=== PATIENT | male | born 1945 | race Caucasian/White ===

== ENCOUNTER → 2024-05-25 | Outpatient (CLI) | payer MEDICARE, OTHER, SELFPAY ==
[2024-05-25 11:42] LABS: Creatinine,Random Urine 118 mg/dL (30-125); Protein Total, Random Urine 24 mg/dL (1-14)
[2024-05-25 11:44] LABS: Albumin, Serum 4.8 gm/dL (3.4-4.8); Anion Gap 10 (7-16); BUN/Creatinine Ratio 20 Ratio (12-20); Blood Urea Nitrogen 36 mg/dL (9-23); Calcium 9.7 mg/dL (8.3-10.6); Calcium (Corrected) 9.7 mg/dL (8.5-10.1); Carbon Dioxide 25.9 mMol/L (20.0-31.0); Chloride 105 mMol/L (98-107); Creatinine (Component) 1.8 mg/dL (0.6-1.3); Glucose 155 mg/dL (74-106); Osmolality,Calculated 292 (275-295); Phosphorous 3.8 mg/dL (2.4-5.1); Potassium 4.7 mMol/L (3.4-5.1); Sodium 141 mMol/L (136-145); eGFR 38 See Note
== END | disposition home or self-care (01) ==
LOC: COPL 10:02
PROVIDERS: PCP Family Medicine; Referring Provider Internal Medicine; Visit Provider Internal Medicine
DX: I13.0 Hypertensive heart and chronic kidney disease with heart failure and stage 1 through stage 4 chronic kidney disease, or unspecified chronic kidney disease (principal); E11.22 Type 2 diabetes mellitus with diabetic chronic kidney disease; N18.32 Chronic kidney disease, stage 3b; I50.9 Heart failure, unspecified
CPT/HCPCS: 36415; 80069; 82570; 84156

== ENCOUNTER → 2024-07-31 | Outpatient (CLI) | payer MEDICARE, OTHER, SELFPAY ==
[2024-07-31 10:41] LABS: Basophils # (Auto) 0.1 Thou/mm3 (0.0-0.2); Basophils % (Auto) 1 % (0-2.5); Eosinophils # (Auto) 0.5 Thou/mm3 (0.0-0.5); Eosinophils % (Auto) 5 % (0-10); Hematocrit 45.3 % (41.0-53.0); Hemoglobin 15.1 g/dL (13.5-16.0); Immature Granulocytes % (Auto) 1 % (0-0); Immature Granulocytes Auto 0.04 Thou/mm3 (0.00-0.00); Lymphocytes # (Auto) 1.9 Thou/mm3 (1.0-4.8); Lymphocytes % (Auto) 21 % (10-50); Mean Corpuscular HGB Conc 33.3 g/dl (31.0-37.0); Mean Corpuscular Hemoglobin 32.1 pg (25.0-35.0); Mean Corpuscular Volume 96 fL (80-100); Monocytes # (Auto) 0.8 Thou/mm3 (0.0-0.8); Monocytes % (Auto) 9 % (0-12); Neutrophils # (Auto) 5.6 Thou/mm3 (1.8-7.7); Neutrophils % (Auto) 63 % (37-80); Nucleated Red Blood Cell % 0 /100 WBC (0); Platelet Count 182 Thou/mm3 (140-440); RDW Standard Deviation 53.3 fL (35.1-43.9); Red Blood Count 4.71 Miln/mm3 (4.50-5.90); White Blood Count 8.8 Thou/mm3 (3.8-10.6)
[2024-07-31 10:48] LABS: Glucose Estimated Average 154 mg/dL (80-131)
[2024-07-31 11:01] LABS: B-Type Natriuretic Peptide 352 pg/mL (0-100)
[2024-07-31 11:14] LABS: Alanine Aminotransferase 15 U/L (10-49); Albumin, Serum 4.5 gm/dL (3.4-4.8); Alkaline Phosphatase 88 U/L (46-116); Anion Gap 10 (7-16); Aspartate Amino Transferase 19 U/L (0-34); BUN/Creatinine Ratio 16 Ratio (12-20); Bilirubin,Direct 0.4 mg/dL (0.0-0.3); Bilirubin,Total 1.1 mg/dL (0.3-1.2); Blood Urea Nitrogen 25 mg/dL (9-23); Calcium 9.7 mg/dL (8.3-10.6); Carbon Dioxide 27.1 mMol/L (20.0-31.0); Cardiac Risk Estimate 3.6 RATIO (4.0-6.7); Chloride 104 mMol/L (98-107); Cholesterol 83 mg/dL (132-200); Creatinine (Component) 1.6 mg/dL (0.6-1.3); Free T4 (Free Thyroxine) 1.11 ng/dL (0.89-1.76); Glucose 168 mg/dL (74-106); HDL Cholesterol 23 mg/dL (40-60); LDL Cholesterol,Calculated 37 mg/dL (0-130); Osmolality,Calculated 289 (275-295); Phosphorous 3.5 mg/dL (2.4-5.1); Potassium 4.7 mMol/L (3.4-5.1); Sodium 141 mMol/L (136-145); Total Protein 7.3 gm/dL (5.7-8.2); Triglycerides 114 mg/dL (30-150); eGFR 43 See Note
== END | disposition home or self-care (01) ==
LOC: COPL 10:03
PROVIDERS: PCP Family Medicine; Referring Provider Internal Medicine; Visit Provider Internal Medicine Cardiovascular Disease
DX: I13.0 Hypertensive heart and chronic kidney disease with heart failure and stage 1 through stage 4 chronic kidney disease, or unspecified chronic kidney disease (principal); E11.22 Type 2 diabetes mellitus with diabetic chronic kidney disease; N18.32 Chronic kidney disease, stage 3b; I50.9 Heart failure, unspecified; E78.5 Hyperlipidemia, unspecified; E11.65 Type 2 diabetes mellitus with hyperglycemia
CPT/HCPCS: 36415; 80048; 80061; 80076; 83036; 83880; 84100; 84439; 84443; 85025

== ENCOUNTER → 2024-11-11 | Outpatient (CLI) | payer MEDICARE, SELFPAY ==
[2024-11-11 11:26] LABS: Basophils # (Auto) 0.1 Thou/mm3 (0.0-0.2); Basophils % (Auto) 1 % (0-2.5); Eosinophils # (Auto) 0.4 Thou/mm3 (0.0-0.5); Eosinophils % (Auto) 5 % (0-10); Hematocrit 40.8 % (41.0-53.0); Hemoglobin 14.1 g/dL (13.5-16.0); Immature Granulocytes % (Auto) 0 % (0-0); Immature Granulocytes Auto 0.03 Thou/mm3 (0.00-0.00); Lymphocytes # (Auto) 1.7 Thou/mm3 (1.0-4.8); Lymphocytes % (Auto) 21 % (10-50); Mean Corpuscular HGB Conc 34.6 g/dl (31.0-37.0); Mean Corpuscular Hemoglobin 32.5 pg (25.0-35.0); Mean Corpuscular Volume 94 fL (80-100); Monocytes # (Auto) 0.6 Thou/mm3 (0.0-0.8); Monocytes % (Auto) 8 % (0-12); Neutrophils # (Auto) 5.2 Thou/mm3 (1.8-7.7); Neutrophils % (Auto) 65 % (37-80); Nucleated Red Blood Cell % 0 /100 WBC (0); Platelet Count 186 Thou/mm3 (140-440); RDW Standard Deviation 52.2 fL (35.1-43.9); Red Blood Count 4.34 Miln/mm3 (4.50-5.90); White Blood Count 7.9 Thou/mm3 (3.8-10.6)
[2024-11-11 11:36] LABS: Creatinine,Random Urine 31 mg/dL (30-125); Protein Total, Random Urine 7 mg/dL (1-14)
[2024-11-11 11:38] LABS: Glucose Estimated Average 154 mg/dL (80-131)
[2024-11-11 11:43] LABS: Alanine Aminotransferase 17 U/L (10-49); Albumin, Serum 4.4 gm/dL (3.4-4.8); Albumin/Globulin Ratio 1.7 (1.2-2.2); Alkaline Phosphatase 70 U/L (46-116); Anion Gap 10 (7-16); Aspartate Amino Transferase 19 U/L (0-34); BUN/Creatinine Ratio 14 Ratio (12-20); Bilirubin,Total 0.8 mg/dL (0.3-1.2); Blood Urea Nitrogen 24 mg/dL (9-23); Carbon Dioxide 26.5 mMol/L (20.0-31.0); Chloride 106 mMol/L (98-107); Creatinine (Component) 1.7 mg/dL (0.6-1.3); Globulin 2.6 gm/dL (2.3-3.5); Glucose 157 mg/dL (74-106); Osmolality,Calculated 290 (275-295); Phosphorous 3.5 mg/dL (2.4-5.1); Potassium 4.4 mMol/L (3.4-5.1); Sodium 142 mMol/L (136-145); eGFR 40 See Note
== END | disposition home or self-care (01) ==
LOC: COPL 10:13
PROVIDERS: PCP Family Medicine; Referring Provider Internal Medicine; Visit Provider Family Medicine
DX: I13.0 Hypertensive heart and chronic kidney disease with heart failure and stage 1 through stage 4 chronic kidney disease, or unspecified chronic kidney disease (principal); E11.22 Type 2 diabetes mellitus with diabetic chronic kidney disease; N18.31 Chronic kidney disease, stage 3a; I50.9 Heart failure, unspecified; G90.09 Other idiopathic peripheral autonomic neuropathy
CPT/HCPCS: 36415; 80053; 82306; 82570; 83036; 84100; 84156; 85025

== ENCOUNTER → 2025-02-02 | Outpatient (CLI) | payer MEDICARE, SELFPAY ==
[2025-02-02 10:32] LABS: Glucose Estimated Average 160 mg/dL (80-131); Hemoglobin A1C 7.2 % Hgb (4.8-6.0)
[2025-02-02 10:36] LABS: Alanine Aminotransferase 14 U/L (10-49); Albumin, Serum 4.9 gm/dL (3.4-4.8); Albumin/Globulin Ratio 1.9 (1.2-2.2); Alkaline Phosphatase 73 U/L (46-116); Anion Gap 10 (7-16); Aspartate Amino Transferase 24 U/L (0-34); BUN/Creatinine Ratio 17 Ratio (12-20); Bilirubin,Total 0.9 mg/dL (0.3-1.2); Blood Urea Nitrogen 27 mg/dL (9-23); Calcium 10.2 mg/dL (8.3-10.6); Calcium (Corrected) 10.2 mg/dL (8.5-10.1); Carbon Dioxide 26.9 mMol/L (20.0-31.0); Chloride 102 mMol/L (98-107); Creatinine (Component) 1.6 mg/dL (0.6-1.3); Globulin 2.6 gm/dL (2.3-3.5); Glucose 170 mg/dL (74-106); Osmolality,Calculated 286 (275-295); Phosphorous 3.4 mg/dL (2.4-5.1); Potassium 4.9 mMol/L (3.4-5.1); Sodium 139 mMol/L (136-145); Total Protein 7.5 gm/dL (5.7-8.2); eGFR 43 See Note
== END | disposition home or self-care (01) ==
LOC: COPL 09:08
PROVIDERS: PCP Family Medicine; Referring Provider Family Medicine; Visit Provider Internal Medicine
DX: I13.0 Hypertensive heart and chronic kidney disease with heart failure and stage 1 through stage 4 chronic kidney disease, or unspecified chronic kidney disease (principal); E11.22 Type 2 diabetes mellitus with diabetic chronic kidney disease; N18.32 Chronic kidney disease, stage 3b; I50.9 Heart failure, unspecified
CPT/HCPCS: 36415; 80053; 83036; 84100

== ENCOUNTER 2025-03-10 19:19 | Inpatient (IN) | payer MEDICARE, SELFPAY ==
[2025-03-10] VITALS (12 sets, daily range): BP systolic 113–123; BP diastolic 68–78; PULSE 60–65; RESP 23–37; TEMP 36.9–37.2; O2SAT 94–98; BMI 26.4
--- NOTE | 2025-03-10 19:36 | PD.EDSOB ---
ED SOB =RME/HPI General Chief Complaint: Shortness of Breath/Dyspnea Stated Complaint: sob Time Seen by Provider: 03/10/25 19:37 Arrival date/time: 03/10/25 19:19 RME / HPI RME / HPI Narrative: Dr. Rao?s Main ED Evaluation: 79yo male with a history of CAD, CABG s/p stent placement, pacemaker, HTN, HLD, DMII presents to the ED for a chief complaint of shortness of breath. Patient states he was discharged from [facility] yesterday after having a possible small brain bleed. Patient states he was feeling okay until tonight, reporting he was unable to lay flat and his shortness of breath got progressively worse. Patient is supposed to be on oxygen at home, but does not receive his oxygen tank until tomorrow. Patient is on aspirin, but no other blood thinners. Denies any other associated symptoms. Patient followed-up with his pharmaceutical development technician, Dr. Jenkins, earlier today for a routine appointment. Of note, patient is a DNR with selective measures. Related Data Home Medications ?Medication ?Instructions ?Recorded ?Confirmed nitroglycerin 0.4 mg sublingual 0.4 mg SL PRN PRN Chest Pain ##0 06/26/13 04/06/19 tablet aspirin 81 mg tablet,delayed 81 mg PO QDAY 04/03/19 07/30/21 release (Lidia Low Dose Aspirin) carvedilol 3.125 mg tablet 3.125 mg PO BID 04/03/19 07/30/21 digoxin 125 mcg (0.125 mg) tablet 125 mcg PO QDAY 04/03/19 07/30/21 docusate sodium 100 mg capsule 100 mg PO BID 04/03/19 07/30/21 (Stool Softener) famotidine 20 mg tablet 20 mg PO QDAY 04/03/19 04/06/19 ferrous sulfate 325 mg (65 mg 325 mg PO QDAY 04/03/19 04/06/19 iron) tablet (FeroSul) losartan 25 mg tablet 25 mg PO QDAY 04/03/19 07/30/21 metformin 500 mg tablet 500 mg PO BID 04/03/19 07/30/21 rosuvastatin 5 mg tablet 5 mg PO QDAY 04/03/19 04/06/19 tramadol 50 mg tablet 5 mg PO QDAY 04/03/19 07/30/21 terazosin 1 mg capsule 1 mg PO QDAY 04/06/19 04/06/19 apixaban 5 mg tablet (Eliquis) 5 mg PO BID 07/30/21 07/30/21 Allergies Allergy/AdvReac Type Severity Reaction Status Date / Time hydrocodone Allergy Intermediate IMPENDING Verified 03/10/25 19:31 DOOM, CLAUSTROPHOBIA, AMS Sulfa (Sulfonamide Allergy Unknown Hives Verified 03/10/25 19:31 Antibiotics) Review of Systems Review of Systems Systems Reviewed: All systems reviewed, normal except as documented Past Medical History Past Medical History NEUROLOGIC: Negative Neurological Disorders, Cerebrovascular Accident, Alzheimer's Disease or Seizures CARDIAC: Positive Cardiac Disorders, Myocardial Infarction, Cardiac Arrhythmia, Coronary Artery Disease, Hypercholesterolemia, Deep Vein Thrombosis and Hypertension; Negative Congestive Heart Failure RESPIRATORY: Positive Pneumonia; Negative Chronic Obstructive Pulmonary Disease (COPD) GASTROINTESTINAL: Positive Gastrointestinal Disorders and Gall Bladder Disease GENITOURINARY: Positive Genitourinary Disorders and Kidney Stones; Negative Renal Disease MUSCULOSKELETAL: Positive Musculoskeletal Disorders and Arthritis ENT: Positive Deafness (hearing aides) ENDOCRINE: Positive Diabetes Mellitus Type 2; Negative Endocrine Disorders or Diabetes Mellitus Type 1 HEMATOLOGIC: Negative Blood Disorders OTHER HISTORY: Positive Hospitalization, Blood Transfusions and MRSA; Negative Shingles, Falls, Blood Transfusion Reaction, Anesthesia Reactions or Cancer Family History FAMILY HISTORY: Positive Family Cardiac Disorders and Family Surgery; Negative Family Anesthesia Reaction Surgical History SURGICAL: Positive Cardiac Surgery, Open Heart Surgery (December 2018, triple bypass), Coronary Artery Bypass Graft, Coronary Stent, Pacemaker and Angiogram Social History SMOKING STATUS: Never smoker SECOND HAND EXPOSURE: No SUBSTANCE USE: does not use ED Exam Narrative Physical exam: Generally patient is alert dyspneic and tachypneic, heart regular rate and rhythm, chest left upper chest AICD in place, lungs show crackles bilaterally with fair to good air exchange, extremities show chronic bilateral lower extremity symmetrical pitting edema, neurologic exam Eugene Coma Scale 15 without focal motor deficits, skin cool pale and dry Course Course Course Narrative: CXR is ordered for determining the etiology of shortness of breath. Quality Measures none Orders Category Date Time Status EKG (ED ONLY) *Do not use* NOW Care 03/10/25 19:37 Completed EKG (ED Only) Stat Exams 03/10/25 19:37 Draft XR chest 1V portable Stat Exams 03/10/25 19:45 Completed BNP [B-Type Natriuretic Peptide] Stat Lab 03/10/25 19:35 Completed CBC Stat Lab 03/10/25 19:35 Completed CMP [Comprehensive Metabolic Panel] Stat Lab 03/10/25 19:35 Completed D-Dimer Stat Lab 03/10/25 19:35 Completed Troponin I Stat Lab 03/10/25 19:35 Completed Furosemide Inj [Lasix Inj] Med 03/10/25 20:13 Discontinued 80 mg IVP X1 ONE Nitroglycerin Oint 2% [Nitro-paste Oint 2%] Med 03/10/25 20:13 Discontinued 1 inch TOP X1 ONE Vital Signs Vital signs: Vital Signs Temperature 98.6 F 03/10/25 19:33 Pulse Rate 61 03/10/25 19:33 Respiratory Rate 25 H 03/10/25 19:33 Blood Pressure 114/68 03/10/25 19:33 Pulse Oximetry (%) 97 03/10/25 19:33 Oxygen Delivery Method Nasal Cannula 03/10/25 19:33 Oxygen Flow Rate 3 03/10/25 19:33 Shortness of Breath / Dyspnea MDM Narrative MDM Narrative:: Scribe Attestation: 03/10/25 - Sindy Rodriguez am scribing for and in the presence of Dr. Rao. BNP is elevated at 0.155. Patient is denying any chest pain pressure tightness or heaviness. EKG shows a ventricularly paced rhythm at a rate of 59 without Sgarbossa criteria. BNP is 278. Chest x-ray is compatible with heart failure and pulmonary edema. At this time the patient is not bad enough to need IV nitroglycerin or BiPAP. Patient was given Lasix 80 mg IV and 1 inch of nitroglycerin paste was placed across the anterior chest wall. Patient is a DNR and selective treatment only. I have the POLST on the chart. This was given to me by the patient's who is a good historian and at bedside. I discussed this case with pharmaceutical development technician, Dr. Langford. I also discussed this case with the hospitalist and the patient will require admission to the hospital for further treatment and evaluation for this CHF exacerbation. Patient's potassium was 5.2 with a creatinine of 1.9. Creatinine was 1.6 previously. This will need to be monitored. Differential diagnosis: CHF exacerbation, pulmonary embolism, acute coronary syndrome Patient data External records reviewed:: [facility] previous records (Per chart review, patient was seen here on 06/20/23 for cardiomyopathy.) Clinical information provided by:: patient Social determinants that could affect healthcare access:: none Patient has the following chronic illnesses:: CAD, CABG s/p stent placement, pacemaker, HTN, HLD, DMII How is presenting disease/condition affected by chronic disease/condition?: exacerbated by Evaluation data The following diagnostics were reviewed and interpreted by me:: lab results, radiology exam(s) and EKG tracing(s) Lab and/or radiology exams considered but not ordered:: none Interpretation Summary: [facility] Report Signed Patient: YAZMIN SCHREIBER Record#: [id number] Birthdate: 1945 Age/Sex: 79 / M Location: [facility] Attending Dr: Ordering Physician: Jose A Rao DO Date of Service: 03/10/25 Procedure(s): XR chest 1V portable Accession Number(s): [id number] cc: Kristian Sanchez MD; Jose A Rao DO; Carson Martino MD~ EXAMINATION: AP chest single view TECHNIQUE: AP portable semiupright chest single view Date and time: March 10, 2025, 1954 hours, comparison June 20, 2023 INDICATIONS:*Chest pain today FINDINGS: Prominent CHF Moderate enlargement cardiac contour. CABG Prominent vascular congestion including central vascular engorgement Prominent perihilar edema Cardiac leads satisfactory position Intact osseous structures IMPRESSION: Prominent CHF Dictated By: Kristian Sanchez MD Signed By: <Electronically signed by Kristian Sanchez MD in OV> 03/10/252044 Medications / Prescriptions Medications or Prescriptions considered but not ordered:: none Medication administrations:: Medication Administration History Discontinued Medications Furosemide (Furosemide Inj 10 Mg/Ml 4ml Vial) 80 mg IVP X1 ONE Stop: 03/10/25 20:14 Last Admin: 03/10/25 20:25 Dose: 80 mg Documented By: ALLYSSA Nitroglycerin (Nitroglycerin Oint 2% 1 Inch Packet) 1 inch TOP X1 ONE Stop: 03/10/25 20:14 Last Admin: 03/10/25 20:26 Dose: 1 inch Documented By: ALLYSSA see above Consultations Consultation(s) initiated? (list below): Yes Diagnosis Shortness of Breath Differential Diagnosis: other (See MDM) Most likely diagnosis given after review of the tests above:: see clinical impression below Admission Indicated Admission indicated?: indicated Admission Request Was there a request for admission?: Yes Admission Attestation Admission request attestation: Discussed case with [] from Hospitalist service regarding admission. Discussed patients ED course, exam findings, labs, and radiology results. The Hospitalist [agrees,declines] to accept the patient for admission. Disposition Plan Disposition Plan: Admit Critical Care Time Critical Care Time Critical Care Time: Yes Total Critical Care Time (min.): 35 Attestation: Excluding other billable procedures Discharge Plan Plan Patient Disposition: Admit Acute Care w/in Hospital Prescriptions/Referrals Prescriptions/Med Rec: No Action nitroglycerin 0.4 MG tablet, sublingual 0.4 mg SL PRN PRN (Reason: Chest Pain) Qty: 0 metformin 500 mg Tablet 500 mg PO BID aspirin [Lidia Low Dose Aspirin] 81 mg Tablet,Delayed Release (Dr/Ec) 81 mg PO QDAY tramadol 50 mg Tablet 5 mg PO QDAY carvedilol 3.125 mg Tablet 3.125 mg PO BID famotidine 20 mg Tablet 20 mg PO QDAY ferrous sulfate [FeroSul] 325 mg (65 mg iron) Tablet 325 mg PO QDAY losartan 25 mg Tablet 25 mg PO QDAY docusate sodium [Stool Softener] 100 mg Capsule 100 mg PO BID digoxin 125 mcg (0.125 mg) Tablet 125 mcg PO QDAY rosuvastatin 5 mg Tablet 5 mg PO QDAY terazosin 1 mg Capsule 1 mg PO QDAY Eliquis 5 mg Tablet 5 mg PO BID Referrals: Carson Martino MD [Primary Care Provider, Family Practice] - In 1 week Problem List Clinical Impression: CHF exacerbation, Elevated troponin, Renal insufficiency Patient/Caregiver Discharge Instructions Print Language: Singaporean Stand Alone Forms: [facility] Award Info., Patient Portal Info Letter
--- NOTE | 2025-03-10 19:37 | EKG_ITS ---
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
--- NOTE | 2025-03-10 19:45 | XR_ITS ---
EXAMINATION: AP chest single view TECHNIQUE: AP portable semiupright chest single view Date and time: March 10, 2025, 1954 hours, comparison June 20, 2023 INDICATIONS:*Chest pain today FINDINGS: Prominent CHF Moderate enlargement cardiac contour. CABG Prominent vascular congestion including central vascular engorgement Prominent perihilar edema Cardiac leads satisfactory position Intact osseous structures IMPRESSION: Prominent CHF
[2025-03-10 20:21] LABS: Basophils # (Auto) 0.1 Thou/mm3 (0.0-0.2); Basophils % (Auto) 1 % (0-2.5); Eosinophils # (Auto) 0.2 Thou/mm3 (0.0-0.5); Eosinophils % (Auto) 1 % (0-10); Hematocrit 45.6 % (41.0-53.0); Hemoglobin 15.6 g/dL (13.5-16.0); Immature Granulocytes Auto 0.12 Thou/mm3 (0.00-0.00); Lymphocytes # (Auto) 1.8 Thou/mm3 (1.0-4.8); Lymphocytes % (Auto) 11 % (10-50); Mean Corpuscular HGB Conc 34.2 g/dl (31.0-37.0); Mean Corpuscular Hemoglobin 33.1 pg (25.0-35.0); Mean Corpuscular Volume 97 fL (80-100); Monocytes # (Auto) 1.7 Thou/mm3 (0.0-0.8); Monocytes % (Auto) 10 % (0-12); Neutrophils # (Auto) 13.3 Thou/mm3 (1.8-7.7); Neutrophils % (Auto) 77 % (37-80); Nucleated Red Blood Cell # 0.02 Thou/mm3 (0.00-0.00); Nucleated Red Blood Cell % 0 /100 WBC (0); Platelet Count 209 Thou/mm3 (140-440); RDW Standard Deviation 53.8 fL (35.1-43.9); Red Blood Count 4.71 Miln/mm3 (4.50-5.90); White Blood Count 17.2 Thou/mm3 (3.8-10.6)
[2025-03-10] MEDS: FUROSEMIDE INJ 10 MG/ML 4ML VIAL 80 MG IVP (20:25)
[2025-03-10] MEDS: NITROGLYCERIN OINT 2% 1 INCH PACKET TOP (20:26)
[2025-03-10 20:46] LABS: B-Type Natriuretic Peptide 270 pg/mL (0-100)
[2025-03-10 20:48] LABS: D-Dimer 841 ng/mL (<600)
[2025-03-10 20:51] LABS: Alanine Aminotransferase 26 U/L (10-49); Albumin, Serum 5.1 gm/dL (3.4-4.8); Albumin/Globulin Ratio 1.6 (1.2-2.2); Alkaline Phosphatase 90 U/L (46-116); Anion Gap 13 (7-16); Aspartate Amino Transferase 36 U/L (0-34); BUN/Creatinine Ratio 16 Ratio (12-20); Bilirubin,Total 1.5 mg/dL (0.3-1.2); Blood Urea Nitrogen 31 mg/dL (9-23); Calcium 9.5 mg/dL (8.3-10.6); Calcium (Corrected) 9.5 mg/dL (8.5-10.1); Carbon Dioxide 22.2 mMol/L (20.0-31.0); Chloride 98 mMol/L (98-107); Creatinine (Component) 1.9 mg/dL (0.6-1.3); Estimated Creatinine Clearance 29.5 mL/min (>60); Globulin 3.1 gm/dL (2.3-3.5); Glucose 232 mg/dL (74-106); Osmolality,Calculated 279 (275-295); Potassium 5.2 mMol/L (3.4-5.1); Sodium 133 mMol/L (136-145); Total Protein 8.2 gm/dL (5.7-8.2); eGFR 35 See Note
[2025-03-10 20:54] LABS: Troponin I 0.155 ng/mL (0.0-0.045)
--- NOTE | 2025-03-10 23:36 | PC.LAC ---
Nurse asked patient if it was okay to place and indwelling nixon. Patient stated that he does not want a nixon that he will continue to use the urinal. he stated if he changes his mind he will inform the staff.
[2025-03-10 23:56] LABS: Base Excess -1 (-3-3); HCO3 21 mEq/L (20-26); Inspired Oxygen, FIO2 28 %; O2 Saturation 97 % (91-98); PCO2 30 mmHg (32.0-48.0); PO2 77 mmHg (83-108); pH, Arterial 7.46 (7.35-7.45)
[2025-03-11] VITALS (22 sets, daily range): BP systolic 97–122; BP diastolic 58–77; PULSE 57–74; RESP 13–94; TEMP 36.2–36.7; O2SAT 93–98; BMI 26.3; BMI 26.7
[2025-03-11 00:02] LABS: Allen Test Performed/OK; Puncture Site Right Radial
--- NOTE | 2025-03-11 00:28 | PD.RESHP ---
Documentation for date of: 03/11/25 HPI History of Present Illness Chief complaint: Shortness of breath, CHF exacerbation History of present illness: This is a 79-year-old male with past medical history of CAD S/P 2 stents (2013), CABG(triple bypass -2018), EF 20 to 25%, ICD with PM, hypertension, diabetes,hyperlipidemia presented to the ED with complaints of shortness of breath. 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 He complained that his shortness of breath worsened today, 03/10 which prompted him for the ED visit. He denies any chest pain, chest palpitation, chest tightness, swelling of the feet, nausea, vomiting, fever, urinary frequency, urgency, burning micturition, diarrhea or any recent sick contacts. He denies any increased water intake but endorses he has been peeing a lot less in the last 2 days. He had a fall on 03/03 and hit his head at that time but denies any loss of consciousness or seizure-like activity or any palpitations at that time. On 03/05 he got a shock from ICD probably Ventricular fibrillation where he became pale with up rolling of eyes before ICD delivered this shock. This prompted ED visit to [facility] on 03/05. He had extensive workup done at [facility] with the group of radiologists told that he had a small bleed in the brain which is stable and decrease the dose of Eliquis to 2.5 mg. They also done coronary angiography and echo where he was told his ejection fraction is in the range of 20 to 25% and the heart is enlarged, scarred and no intervention currently possible for him. Today ED visit vitals BP 114/68, pulse rate 61, respiratory 25, temperature 98.3, saturating 97% on 3 L of nasal cannula Pertinent lab findings are WBC 17.2, potassium 5.2, BUN 31, creatinine 1.9,, creatinine clearance 79.5, eGFR 35 ,glucose 232, total bilirubin 1.5, AST 36 D-dimer 841, BNP 270, Troponin 0.155. Chest x-ray shows perihilar congestion and appearance of moderate CHF EKG showed ventricular pacing rhythm. Treatment given in ED: Furosemide 80 mg IV, nitroglycerin 1 patch. Past medical history: As Stated above.sees Dr. Jenkins for cardiology. Social history: Denies any drinking, smoking or any other drug use. Family history: Diabetes on maternal side, Allergic history: Allergic to hydrocodone and sulfa compounds. Review of Systems Constitutional Constitutional: Reports system reviewed and no additional complaints, except as documented Exam Vital Signs Temp Pulse Resp BP Pulse Ox O2 Del Method O2 Flow Rate 98.4 F 60 25 H 114/73 94 L Nasal Cannula 2 03/10/25 23:00 03/10/25 23:45 03/10/25 23:45 03/10/25 23:00 03/10/25 23:45 03/10/25 23:00 03/10/25 23:45 Narrative Exam GENERAL: NAD, AAOx3, He is lying in left curled position to improve his shortness of breath, when asked to lay flat his shortness of breath worsening HEENT: Moist mucosa. Eyes open, symmetrical, & clear CARDIO: Regular rhythm Noted. No Murmurs. PULM: No noted coughing/dyspnea CTA B/L, no crackles or wheezes GI: Abdomen soft, nondistended, Non Tenderness. SKIN/MSK/EXT: No wounds/rashes/amputations, no pain on palpation.No Edema. Pedal pulses present B/L but cool to touch NEURO: AAOx3, no focal neuro deficits, able to move all 4 extremities Results: Labs 03/11/25 05:47 03/11/25 05:47 Labs: Short CBC 03/10/25 Range/Units 19:35 WBC 17.2 H (3.8-10.6) Thou/mm3 Hgb 15.6 (13.5-16.0) g/dL Hct 45.6 (41.0-53.0) % Plt Count 209 (140-440) Thou/mm3 BMP 03/10/25 19:35 Sodium 133 L Potassium 5.2 H Chloride 98 Carbon Dioxide 22.2 BUN 31 H Creatinine 1.9 H Glucose 232 H Calcium 9.5 Cardiac Enzymes 03/10/25 Range/Units 19:35 Troponin I 0.155 H* (0.0-0.045) ng/mL Liver Function 03/10/25 Range/Units 19:35 Total Bilirubin 1.5 H (0.3-1.2) mg/dL AST 36 H (0-34) U/L ALT 26 (10-49) U/L Alkaline Phosphatase 90 (46-116) U/L Albumin 5.1 H (3.4-4.8) gm/dL ABG Interpretation ABG results: 03/10/25 23:52 ABG pH 7.46 H ABG pCO2 30 L ABG pO2 77 L ABG HCO3 21 ABG O2 Saturation 97 ABG Base Excess -1 Quality Measures Quality Measures VTE prophylaxis Advance care planning discussed with:: patient Medications Home Medications and Allergies Home Medications ?Medication ?Instructions ?Recorded ?Confirmed ?Type nitroglycerin 0.4 mg sublingual 0.4 mg SL PRN PRN Chest Pain ##0 06/26/13 03/11/25 History tablet aspirin 81 mg tablet,delayed 81 mg PO QDAY 04/03/19 03/11/25 History release (Lidia Low Dose Aspirin) carvedilol 3.125 mg tablet 3.125 mg PO BID 04/03/19 03/11/25 History digoxin 125 mcg (0.125 mg) tablet 125 mcg PO QDAY 04/03/19 03/11/25 History docusate sodium 100 mg capsule 100 mg PO BID 04/03/19 03/11/25 History (Stool Softener) famotidine 20 mg tablet 20 mg PO QDAY 04/03/19 03/11/25 History ferrous sulfate 325 mg (65 mg 325 mg PO QDAY 04/03/19 03/11/25 History iron) tablet (FeroSul) losartan 25 mg tablet 25 mg PO QDAY 04/03/19 03/11/25 History metformin 500 mg tablet 500 mg PO BID 04/03/19 03/11/25 History rosuvastatin 5 mg tablet 5 mg PO QDAY 04/03/19 03/11/25 History tramadol 50 mg tablet 5 mg PO QDAY 04/03/19 03/11/25 History terazosin 1 mg capsule 1 mg PO QDAY 04/06/19 03/11/25 History amiodarone 200 mg tablet 200 mg PO Q12H 03/11/25 03/11/25 History apixaban 2.5 mg tablet (Eliquis) 2.5 mg PO Q12H 03/11/25 03/11/25 History dapagliflozin propanediol 10 mg 10 mg PO QDAY 03/11/25 03/11/25 History tablet (Farxiga) furosemide 20 mg tablet 20 mg PO DAILY 03/11/25 03/11/25 History sertraline 25 mg tablet 25 mg PO DAILY 03/11/25 03/11/25 History spironolactone 25 mg tablet 12.5 mg PO DAILY 03/11/25 03/11/25 History Allergies Allergy/AdvReac Type Severity Reaction Status Date / Time hydrocodone Allergy Intermediate IMPENDING Verified 03/10/25 19:31 DOOM, CLAUSTROPHOBIA, AMS Sulfa (Sulfonamide Allergy Unknown Hives Verified 03/10/25 19:31 Antibiotics) Visit Medications Acetaminophen (Acetaminophen 325 Mg Tablet) 650 mg PO Q6H PRN PRN Reason: Fever >101.5 Stop: 04/09/25 22:46 Albuterol/Ipratropium (Albuterol/Ipratropium (Duoneb) Rt Ksenia 3 Ml Nebu) 3 ml INH Q6HRRT PRN PRN Reason: wheezing Stop: 04/10/25 00:59 Amiodarone HCl (Amiodarone Hcl 200 Mg Tablet) 400 mg PO BID KOFFI Stop: 03/12/25 08:59 Apixaban (Apixaban 2.5 Mg Tablet) 2.5 mg PO BID KOFFI Stop: 04/10/25 08:59 Aspirin (Aspirin Ec 81 Mg Tabec) 81 mg PO QDAY [facility] Stop: 04/10/25 08:59 Carvedilol (Carvedilol 3.125 Mg Tablet) 3.125 mg PO BID KOFFI Stop: 04/10/25 08:59 Dapagliflozin (Dapagliflozin Propanediol 5 Mg Tablet) 10 mg PO QDAY [facility] Stop: 04/10/25 08:59 Dextrose (Dextrose 50%-Water Inj 50 Ml Syringe) 25 ml IV Q15MIN PRN PRN Reason: BG 50-70 responsive npo pt Stop: 04/09/25 22:59 Dextrose (Dextrose 50%-Water Inj 50 Ml Syringe) 50 ml IV Q15MIN PRN PRN Reason: BG <50 OR BG <70 & pt unresponsive Stop: 04/09/25 22:59 Furosemide (Furosemide Inj 10 Mg/Ml 4ml Vial) 40 mg IVP QDAY KOFFI Stop: 04/10/25 08:59 Glucagon (Glucagon Inj 1 Mg Vial) 1 mg IM Q15MIN PRN PRN Reason: BG <70, and no IV access Insulin Human Lispro (Insulin Lispro (Admelog) 1 Unit/0.01 Ml Unit) 0 unit SC ACHS [facility]; Protocol Stop: 04/09/25 23:44 Losartan Potassium (Losartan Potassium 25 Mg Tablet) 25 mg PO QDAY KOFFI Stop: 04/10/25 08:59 Patient Own Medication (Patient's Own Med 1 Ea Ea) 5 ea PO X1 ONE Stop: 03/10/25 23:01 Sennosides (Senna Tablet) 1 tab PO QDAY PRN; Protocol PRN Reason: constipation Stop: 04/09/25 22:46 Sertraline HCl (Sertraline Hcl 25 Mg Tablet) 25 mg PO QDAY KOFFI Stop: 04/10/25 08:59 Spironolactone (Spironolactone 25 Mg Tablet) 12.5 mg PO QDAY KOFFI Stop: 04/10/25 08:59 Discontinued Medications Furosemide (Furosemide Inj 10 Mg/Ml 4ml Vial) 80 mg IVP X1 ONE Stop: 03/10/25 20:14 Last Admin: 03/10/25 20:25 Dose: 80 mg Insulin Human Lispro (Insulin Lispro (Admelog) 1 Unit/0.01 Ml Unit) 0 unit SC AC [facility]; Protocol Stop: 04/10/25 07:29 Nitroglycerin (Nitroglycerin Oint 2% 1 Inch Packet) 1 inch TOP X1 ONE Stop: 03/10/25 20:14 Last Admin: 03/10/25 20:26 Dose: 1 inch Sodium Polystyrene Sulfonate (Sod Polystyrene Sulfon Susp 15 Gm/60 Ml Btl) 30 gm PO X1 ONE Stop: 03/10/25 23:33 Assessment & Plan Plan This is a 79-year-old male with past medical history of CAD S/P 2 stents (2013), CABG(triple bypass -2019), EF 20 to 25%, ICD with PM, hypertension, diabetes,hyperlipidemia presented to the ED with complaints of shortness of breath. He was admitted for CHF exacerbation # Acute on Chronic Decompensated Heart failure. # Acute Hypoxic Respiratory Failure # CABGx3(2018) ,CAD S/P Stent # Ejection Fraction 20-25% History of CAD, stent, CABG?triple bypass, ICD with pacemaker, hypertension, hyperlipidemia, diabetes Shortness of breath.NYHA Class-3 D-dimer?841, No chest pain ,No Tachycardia, saturating well at minimum oxygen levels-low suspicious for PE. BNP?270, troponin 0.155 PO2 77, pCO2 30, pH 7.40 X-ray showing pattern of CHF exacerbation. Furosemide 80 mg and nitroglycerin patch given in ED. Ejection fraction as per latest echo on 03/06 shows 20-25% At [facility] they stopped digoxin and start amiodarone ?Continuing his home medication amiodarone 200 mg, aspirin 81 mg, Eliquis 2.5 mg, carvedilol 3.125 mg, dapagliflozin 10 mg, losartan 25 mg, spironolactone 25 mg. ?Monitor input and output and daily weights and troponins. ? oxygen as required. ?Furosemide IV 40 mg daily ?Cardiac diet and fluid restriction. #Hx of Intracranial bleed History of fall and brain scan at [facility] showed stable brain bleed. ?Patient's Eliquis was decreased to 2.5 mg bid ?Fall precautions # Hypertension ?Continue home medication carvedilol 3.125 mg, losartan 25 mg, spironolactone 25 mg ?Continue to monitor. # Diabetes -Initial Finger blood Glucose is 223, HbA1c 7.2 ?Starting on sliding scale and continue to monitor # KOSTA on CKD # Hyperkalemia BUN 31, creatinine 1.9, K 5.2 ?Continue to monitor . # Leukocytosis WBC 17.2 -Ordered urinalysis follow-up with the results # Hyperbilirubinemia Total bilirubin 1.5, AST 36 ?Continue to monitor # Hyperlipidemia ?Continue home medication rosuvastatin 5 mg. Code status: DNR DVT prophylaxis: Heparin Diet: Cardiac Loya: None Lines: PIV Supplemental O2: 4L on Nasal canula Disposition: Tele I discussed this case with my senior Dr. Roche and my attending Dr. Kobe Sheets MD PGY1 Attending Provider Attestation/Addendum After examination of the patient and review of the clinical data I feel that this patient needs admission to the hospital for further treatment/evaluation. Plan of care discussed with patient and is in agreement. I Jennifer Bullock MD, attest that I was physically present for taveras portions of evaluation, and examined patient, labs and imagings and plan of care were discussed with IM residents team, and I agree with the findings and plans documented above.
[2025-03-11] MEDS: SOD POLYSTYRENE SULFON SUSP 15 GM/60 ML BTL 30 GM PO (00:33)
[2025-03-11] MEDS: INSULIN LISPRO (AdmeLOG) 1 UNIT/0.01 ML UNIT SC ×5 (00:34→20:25)
[2025-03-11 02:10] LABS: Troponin I 0.138 ng/mL (0.0-0.045)
[2025-03-11 06:27] LABS: Basophils # (Auto) 0.1 Thou/mm3 (0.0-0.2); Basophils % (Auto) 1 % (0-2.5); Eosinophils # (Auto) 0.0 Thou/mm3 (0.0-0.5); Eosinophils % (Auto) 0 % (0-10); Hematocrit 40.5 % (41.0-53.0); Hemoglobin 13.9 g/dL (13.5-16.0); Immature Granulocytes Auto 0.10 Thou/mm3 (0.00-0.00); Lymphocytes # (Auto) 1.8 Thou/mm3 (1.0-4.8); Lymphocytes % (Auto) 14 % (10-50); Mean Corpuscular HGB Conc 34.3 g/dl (31.0-37.0); Mean Corpuscular Hemoglobin 32.9 pg (25.0-35.0); Mean Corpuscular Volume 96 fL (80-100); Monocytes # (Auto) 1.6 Thou/mm3 (0.0-0.8); Monocytes % (Auto) 12 % (0-12); Neutrophils # (Auto) 10.0 Thou/mm3 (1.8-7.7); Neutrophils % (Auto) 73 % (37-80); Nucleated Red Blood Cell # 0.00 Thou/mm3 (0.00-0.00); Nucleated Red Blood Cell % 0 /100 WBC (0); Platelet Count 171 Thou/mm3 (140-440); RDW Standard Deviation 51.9 fL (35.1-43.9); Red Blood Count 4.22 Miln/mm3 (4.50-5.90); White Blood Count 13.6 Thou/mm3 (3.8-10.6)
[2025-03-11 06:49] LABS: Alanine Aminotransferase 22 U/L (10-49); Albumin, Serum 4.6 gm/dL (3.4-4.8); Albumin/Globulin Ratio 1.8 (1.2-2.2); Alkaline Phosphatase 79 U/L (46-116); Anion Gap 13 (7-16); Aspartate Amino Transferase 24 U/L (0-34); BUN/Creatinine Ratio 19 Ratio (12-20); Bilirubin,Total 2.5 mg/dL (0.3-1.2); Blood Urea Nitrogen 34 mg/dL (9-23); Calcium 9.0 mg/dL (8.3-10.6); Calcium (Corrected) 9.0 mg/dL (8.5-10.1); Carbon Dioxide 27.2 mMol/L (20.0-31.0); Cardiac Risk Estimate 2.8 RATIO (4.0-6.7); Chloride 98 mMol/L (98-107); Cholesterol 61 mg/dL (132-200); Creatinine (Component) 1.8 mg/dL (0.6-1.3); Estimated Creatinine Clearance 31.1 mL/min (>60); Globulin 2.5 gm/dL (2.3-3.5); Glucose 217 mg/dL (74-106); HDL Cholesterol 22 mg/dL (40-60); LDL Cholesterol,Calculated 25 mg/dL (0-130); Magnesium 2.2 mg/dL (1.6-2.6); Osmolality,Calculated 290 (275-295); Phosphorous 3.2 mg/dL (2.4-5.1); Potassium 4.5 mMol/L (3.4-5.1); Sodium 138 mMol/L (136-145); Total Protein 7.1 gm/dL (5.7-8.2); Triglycerides 68 mg/dL (30-150); eGFR 37 See Note
[2025-03-11 06:51] LABS: INR 1.2 (0.9-1.3); Prothrombin Time 12.7 Seconds (9.0-12.2)
--- NOTE | 2025-03-11 07:17 | PD.RESPRO ---
Documentation for date of: 03/11/25 Patient male with a past medical history of hypertension, diabetes mellitus type 2, hyperlipidemia, CAD status post 2 stents, CABG, congestive heart failure have left 20 to 25% (per patient history), status post ICD who presented to the emergency room with a chief complaint of worsening shortness of breath and chest pain. Patient denied chills or pyrexia at home. Chest pain and angiogram found to have calcification from previous stents, not a surgical candidate. Acute hypoxic respiratory failure requiring nasal cannula and on 3 L on admission likely secondary to CHF exacerbation. No echo on file. Continue fluid restrictions, 1500. Strict ins and outs. Continue carvedilol 3.125 mg p.o. twice daily spironolactone Lasix [address] Cole, who is patient's service coordinator. Holding digoxin given possible KOSTA on CKD. Holding Farxiga. Holding losartan. Leukocytosis noted concern for reactive given no pyrexia versus infectious. COVID-negative. Cocci ordered. Concern for KOSTA on CKD stage III. Concern for cardio-renal given BUN/Cr ratio vs BPH givne prostate volume of 47 cc on previous renal U/S vs renal stone given previous Renal US (denied flank pain), Strict in out outs. Continue to monitor BUN/Cr, continue lasix but stop if worsening kidney function. Continue diuresis and pending ECHo. Senior Resident Attestation: I have discussed the case with supervising physician and international manager physician involved in the care of patient. I personally saw and examined patient and discussed the assessment and plan with the entire medical team, including attending. I agree with assessment and plan as documented below - The patient's plan was discussed with attending Dr. Mulu Henry MD PGY2 Internal Medicine Subjective Subjective Interval history: Patient examined bedside, labs reviewed. ECHO performed at bedside. Patient denies any pain, endorses SOB when bed is laid flat, improved with 35 degree elevation. Discussed case with . Cocci came back positive. Will continue to diurese and treat cocci with flucanazole. Exam Vital Signs Temp Pulse Resp BP Pulse Ox O2 Del Method O2 Flow Rate 97.1 F 61 24 H 108/73 98 Nasal Cannula 2 03/11/25 04:20 03/11/25 04:20 03/11/25 04:20 03/11/25 04:20 03/11/25 04:20 03/11/25 04:20 03/11/25 04:20 Narrative Exam GENERAL: NAD, AAOx3, He is lying in left curled position to improve his shortness of breath, when asked to lay flat his shortness of breath worsening HEENT: Moist mucosa. Eyes open, symmetrical, & clear CARDIO: Regular rhythm Noted. No Murmurs. PULM: No noted coughing/dyspnea CTA B/L, no crackles or wheezes GI: Abdomen soft, nondistended, Non Tenderness. SKIN/MSK/EXT: No wounds/rashes/amputations, no pain on palpation.No Edema. Pedal pulses present B/L NEURO: AAOx3, no focal neuro deficits, able to move all 4 extremities Objective Labs 03/13/25 04:58 03/13/25 04:58 Labs: Laboratory Results - last 24 hr 03/10/25 03/10/25 03/11/25 19:35 23:52 01:34 WBC 17.2 H RBC 4.71 Hgb 15.6 Hct 45.6 MCV 97 MCH 33.1 MCHC 34.2 RDW Std Deviation 53.8 H Plt Count 209 Neut % (Auto) 77 Lymph % (Auto) 11 [place] % (Auto) 10 Eos % (Auto) 1 Baso % (Auto) 1 Neut # (Auto) 13.3 H Lymph # (Auto) 1.8 [place] # (Auto) 1.7 H Eos # (Auto) 0.2 Baso # (Auto) 0.1 Immature Gran # (Auto) 0.12 H Absolute Nucleated RBC 0.02 H Immature Gran % 1 H Nucleated RBC % 0 PT INR D-Dimer 841 H Puncture Site Right Radial ABG pH 7.46 H ABG pCO2 30 L ABG pO2 77 L ABG HCO3 21 ABG O2 Saturation 97 ABG Base Excess -1 FiO2 28 Sodium 133 L Potassium 5.2 H Chloride 98 Carbon Dioxide 22.2 Anion Gap 13 BUN 31 H Creatinine 1.9 H Estim Creat Clear Calc 29.5 L eGFR 35 L BUN/Creatinine Ratio 16 Glucose 232 H Calculated Osmolality 279 Calcium 9.5 Corrected Calcium 9.5 Phosphorus Magnesium Total Bilirubin 1.5 H AST 36 H ALT 26 Alkaline Phosphatase 90 Troponin I 0.155 H* 0.138 H* B-Natriuretic Peptide 270 H Total Protein 8.2 Albumin 5.1 H Globulin 3.1 Albumin/Globulin Ratio 1.6 Triglycerides Cholesterol LDL Cholesterol, Calc HDL Cholesterol Cholesterol/HDL Ratio 03/11/25 05:47 WBC 13.6 H RBC 4.22 L Hgb 13.9 Hct 40.5 L MCV 96 MCH 32.9 MCHC 34.3 RDW Std Deviation 51.9 H Plt Count 171 D Neut % (Auto) 73 Lymph % (Auto) 14 [place] % (Auto) 12 Eos % (Auto) 0 Baso % (Auto) 1 Neut # (Auto) 10.0 H Lymph # (Auto) 1.8 [place] # (Auto) 1.6 H Eos # (Auto) 0.0 Baso # (Auto) 0.1 Immature Gran # (Auto) 0.10 H Absolute Nucleated RBC 0.00 Immature Gran % 1 H Nucleated RBC % 0 PT 12.7 H INR 1.2 D-Dimer Puncture Site ABG pH ABG pCO2 ABG pO2 ABG HCO3 ABG O2 Saturation ABG Base Excess FiO2 Sodium 138 Potassium 4.5 D Chloride 98 Carbon Dioxide 27.2 Anion Gap 13 BUN 34 H Creatinine 1.8 H Estim Creat Clear Calc 31.1 L eGFR 37 L BUN/Creatinine Ratio 19 Glucose 217 H Calculated Osmolality 290 Calcium 9.0 Corrected Calcium 9.0 Phosphorus 3.2 Magnesium 2.2 Total Bilirubin 2.5 H D AST 24 ALT 22 Alkaline Phosphatase 79 Troponin I B-Natriuretic Peptide Total Protein 7.1 Albumin 4.6 D Globulin 2.5 Albumin/Globulin Ratio 1.8 Triglycerides 68 Cholesterol 61 L LDL Cholesterol, Calc 25 HDL Cholesterol 22 L Cholesterol/HDL Ratio 2.8 L ABG Interpretation ABG results: 03/10/25 23:52 ABG pH 7.46 H ABG pCO2 30 L ABG pO2 77 L ABG HCO3 21 ABG O2 Saturation 97 ABG Base Excess -1 Quality Measures Quality Measures none Advance care planning discussed with:: other Assessment & Plan Assessment Current Active Medications: Generic Name Dose Route Start Last Admin Trade Name Freq PRN Reason Stop Dose Admin Acetaminophen 650 mg 03/11/25 07:16 Acetaminophen 325 Mg Tablet PO 04/09/25 22:46 Q6H PRN Fever >100.4 or Mild Pain 1-3 Albuterol/Ipratropium 3 ml 03/10/25 22:47 Albuterol/Ipratropium (Duoneb) Rt Ksenia 3 Ml Nebu INH 04/10/25 00:59 Q6HRRT PRN wheezing Amiodarone HCl 400 mg 03/11/25 09:00 Amiodarone Hcl 200 Mg Tablet PO 03/12/25 08:59 BID KOFFI Apixaban 2.5 mg 03/11/25 09:00 Apixaban 2.5 Mg Tablet PO 04/10/25 08:59 BID KOFFI Aspirin 81 mg 03/11/25 09:00 Aspirin Ec 81 Mg Tabec PO 04/10/25 08:59 QDAY KOFFI Atorvastatin Calcium 20 mg 03/11/25 21:00 Atorvastatin Calcium 20 Mg Tablet PO 04/10/25 20:59 HS KOFFI Carvedilol 3.125 mg 03/11/25 09:00 Carvedilol 3.125 Mg Tablet PO 04/10/25 08:59 BID KOFFI Dextrose 25 ml 03/10/25 23:00 Dextrose 50%-Water Inj 50 Ml Syringe IV 04/09/25 22:59 Q15MIN PRN BG 50-70 responsive npo pt Dextrose 50 ml 03/10/25 23:00 Dextrose 50%-Water Inj 50 Ml Syringe IV 04/09/25 22:59 Q15MIN PRN BG <50 OR BG <70 & pt unresponsive Furosemide 40 mg 03/11/25 09:00 Furosemide Inj 10 Mg/Ml 4ml Vial IVP 04/10/25 08:59 QDAY KOFFI Glucagon 1 mg 03/10/25 23:00 Glucagon Inj 1 Mg Vial IM Q15MIN PRN BG <70, and no IV access Insulin Human Lispro 0 unit 03/10/25 23:45 03/11/25 00:34 Insulin Lispro (Admelog) 1 Unit/0.01 Ml Unit SC 04/09/25 23:44 2 unit ACHS [facility] Administration Protocol Sennosides 1 tab 03/10/25 22:47 Senna Tablet PO 04/09/25 22:46 QDAY PRN constipation Protocol Sertraline HCl 25 mg 03/11/25 09:00 Sertraline Hcl 25 Mg Tablet PO 04/10/25 08:59 QDAY [facility] Spironolactone 12.5 mg 03/11/25 09:00 Spironolactone 25 Mg Tablet PO 04/10/25 08:59 QDAY KOFFI Plan This is a 79-year-old male with past medical history of CAD S/P 2 stents (2013), CABG(triple bypass -2019), EF 20 to 25%, ICD with PM, hypertension, diabetes,hyperlipidemia presented to the ED with complaints of shortness of breath. He was admitted for CHF exacerbation. Cocci positive 03/11. Dr. Jenkins (service coordinator) said there is nothing to do for his heart failure, can continue to diurese. #Acute Hypoxic Respiratory Failure # Acute on Chronic Decompensated Heart failure. # CABGx3(2019) ,CAD S/P Stent # Congestive CHF HFrEF 20-25% History of CAD, stent, CABG?triple bypass, ICD with pacemaker, hypertension, hyperlipidemia, diabetes. Shortness of breath.NYHA Class-3. D-dimer?841, No chest pain ,No Tachycardia, saturating well at minimum oxygen levels-low suspicious for PE. BNP?270, troponin 0.155. DDx: Concern for CHF exacerbation given peripheral edema and chest x-ray vs infectious given minimally elevated BNP and concern for leukocytosis vs PE given elevated d-dimer w/ Wells Score 0, thus low suspcision. PO2 77, pCO2 30, pH 7.40 X-ray showing pattern of CHF exacerbation. Furosemide 80 mg and nitroglycerin patch given in ED. Ejection fraction as per latest echo on 03/06 shows 20-25% At [facility] they stopped digoxin and start amiodarone Plan amiodarone 200 mg BID aspirin 81 mg, Eliquis 2.5 mg, carvedilol 3.125 mg PO BID dapagliflozin 10 mg, Holding losartan 25 mg, hodling given KOSTA on CKD spironolactone 25 mg. --> 12.5 mg PO QD ?Monitor input and output and daily weights and troponins. ? oxygen as required. ?Furosemide IV 40 mg daily ?Cardiac diet and fluid restriction. # Acute kidney injury Concern for KOSTA concern for KOSTA on CKD given worsening GFR greater than 3 months and seen on renal US showing bilateral scarring of kidenys vs cardio-renal syndrome given CKD and CHF history vs obstructive as prostate volume >30. BUN 31, creatinine 1.9 --> BUN 34 Cr 1.8. Appears baseline creatinine 1.6. Plan -Continue to monitor renal function/Cr. -Use lasix with caution and hold if necessary -avoid nephrotoxins -encourage oral hydration while on fluid restions. #Pneumonia Cocci # Leukocytosis --> resolving WBC 17.2 --> 13.6. UA unremarkable -Ordered urinalysis follow-up with the results -Cocci IgM positive, follow up on IgG Plan -continue to monitor for pyrexia -Flucanozole 400 mg QD PO #Hx of Intracranial bleed History of fall and brain scan at [facility] showed stable brain bleed. ?Patient's Eliquis was decreased to 2.5 mg bid ?Fall precautions # Hypertension ?Home medication, losartan 25 mg, spironolactone 25 mg plan -Holding Losartan given concern for KOSTA on CKD vs worsening CKD. # Diabetes Mellitus Type 2, non-insulin dependent -Initial Finger blood Glucose is 223, HbA1c 7.2 with home medication of Metformin 500 mg BID. Use with caution given GFR nearing 30s. Plan -Consider discontinuing metformin if GFR continues to worsen ?Starting on sliding scale and continue to monitor # Hyperlipidemia ?Hold home medication rosuvastatin 5 mg. -Atorvastatin 20mg PO HS #Hyperbilirubinemia T.Bili 2.5 but no jaundice or abdominal pain. Most likely 2/2 congestion due to CHF exacerbation vs less likely secondary to biiliary stones as denied upper quadrant pain and no jaundice noted. Consider hepatitis panel. Plan: -CTM #Depression Continue home sertraline 25 mg PO QD Code status: DNR DVT prophylaxis: Heparin Diet: Cardiac Loya: None Lines: PIV Supplemental O2: 4L on Nasal canula Disposition: Tele I discussed this case with my senior Dr. Henry and my attending Dr. Mulu Love MD PGY1 Attending Provider Attestation/Addendum I have discussed and was present for the essential components of the history, physical examination, diagnosis, and treatment plan with the resident. I agree with the patient's care as documented by the resident and amended herein by me. Sam Hardwick DO. Although this document has been carefully reviewed, there may still be some phonetic and other typographical errors. These errors are purely grammatical due to imperfections in the software program and should not be construed in any way to compromise the substance of the patient's medical care during this visit.
--- NOTE | 2025-03-11 07:19 | ECHO_ITS ---
Transthoracic Echo Report Ht (in): 68 Wt (lb): 175 Exam Location: 261 Status: Inpatient [employer] Driver: Sharon Proctor Indications: Procedure Performed: BP: 108 / 73 HR: 61 MEASUREMENTS (Male / Female) Normal Values 2D ECHO LV Diastolic Diameter PLAX 6.5 cm 4.2 - 5.9 / 3.9 - 5.3 cm LV Systolic Diameter PLAX 5.8 cm IVS Diastolic Thickness 1.1 cm 0.6 - 1.0 / 0.6 - 0.9 cm LVPW Diastolic Thickness 1.3 cm 0.6 - 1.0 / 0.6 - 0.9 cm LV Relative Wall Thickness 0.4 LVOT Diameter 1.9 cm LV Ejection Fraction MOD BP 29.7 % >= 55 % LV Cardiac Index MOD BP 2482.6 cm?/min?m? LV Ejection Fraction MOD 4C 16.1 % LV Cardiac Index MOD 4C 1086.1 cm?/min?m? LV Ejection Fraction 4C AL 16.5 % LV Cardiac Index 4C AL 1191.5 cm?/min?m? LV Ejection Fraction MOD 2C 36.5 % LV Cardiac Index MOD 2C 3320.5 cm?/min?m? LV Ejection Fraction 2C AL 38.4 % LV Cardiac Index 2C AL 3611.4 cm?/min?m? LA Volume Index 45.8 cm?/m? 16 - 28 cm?/m? Ascending Aorta Diameter 3.0 cm M-MODE AV Cusp Separation MM 1.1 cm DOPPLER AV Peak Velocity 215.0 cm/s AV Peak Gradient 18.5 mmHg AV Mean Gradient 7.0 mmHg AV Velocity Time Integral 32.4 cm AI Peak Velocity 337.0 cm/s AI Peak Gradient 45.4 mmHg AI Pressure Half Time 596.0 ms LVOT Peak Velocity 158.0 cm/s LVOT Peak Gradient 10.0 mmHg LVOT Velocity Time Integral 27.5 cm LVOT Cardiac Index 2419.6 cm?/min?m? AV Area Cont Eq vti 2.4 cm? AV Area Cont Eq pk 2.1 cm? MV Area PHT 4.7 cm? Mitral E Point Velocity 109.0 cm/s TR Peak Velocity 264.3 cm/s TR Peak Gradient 27.9 mmHg PV Peak Velocity 89.6 cm/s PV Peak Gradient 3.2 mmHg FINDINGS Left Ventricle Moderately dilated LV with mid to distal interventricular septal & anteroapical Akinesis & severe diffuse LV hypokinesis. There is grade II diastolic dysfunction of the left ventricle (restrictive filling pattern). The ejection fraction is visually estimated at 20-25 %. Right Ventricle The right ventricle is normal in size and systolic function. The estimated right ventricular systolic pressure, 45 mmHg with RAP 8. Mild pulmonary HTN. Left Atrium The left atrial cavity size is severely increased. Atrial Septum The interatrial septum appears normal with no evidence of a shunt. Aorta The aorta is normal by two-dimensional, color flow and Doppler interrogation. Mitral Valve The mitral valve is normal by two-dimensional, color flow and Doppler interrogation. Moderate mitral regurgitation. Aortic Valve Moderate thickening of the aortic valve leaflets & mild aortic regurgitation. Tricuspid Valve The tricuspid valve is normal by two-dimensional, color flow and Doppler interrogation.there is mild tricuspid valve regurgitation. Pulmonic Valve The pulmonic valve is not well visualized. There is no significant pulmonic valve regurgitation. Vessels The pulmonary artery appears normal. The inferior vena cava mildly dilated measuring 2.2cm. Pericardium The pericardium is normal by two-dimensional imaging. There is no significant pericardial effusion. CONCLUSIONS Indication: CHF excacerbation Moderately dilated LV with LV systolic function. Grade II diastolic dysfunction. EF estimated 20-25%. Normal right ventricular size and function. RVSP 45 mmHg with RAP 8. Mild HTN. Severe dilated LA and mildly dilated RA. Moderate aortic valve sclerosis with mild aortic regurgitation. Moderate mitral and mild tricuspid regurgitation. Mildly dilated IVC measuring 2.2cm. Keaton Jenkins (Electronically Signed) Final Date: 11 March 2025 15:42
[2025-03-11 07:39] LABS: Collection Type, Urine Voided; RBC,Urine 0 /hpf (0-3); Squamous Epithelial Cell,Urine 0 /hpf (0-5)
[2025-03-11 07:49] LABS: Bilirubin,Urine Negative (Negative); Blood,Urine 1+ (Negative); Clarity,Urine Clear (Clear/Hazy); Color,Urine Yellow (Lt Yel-Yel); Glucose, Urine 2+ (Negative); Hyaline Casts,Urine < 1 /hpf (0-1); Ketones,Urine Negative (Negative); Leukocyte Esterase,Urine Negative (Negative); Nitrite,Urine Negative (Negative); PH,Urine 5.0 (5.0-7.0); Protein,Urine Trace (Neg - Trace); Specific Gravity,Urine 1.019 (1.001-1.035); Urobilinogen,Urine Negative mg/dL (0.0-1.0); WBC,Urine < 1 /hpf (0-5)
[2025-03-11 08:12] LABS: Thyroid Stimulating Hormone 4.52 uIU/mL (0.55-4.78)
[2025-03-11] MEDS: FUROSEMIDE INJ 10 MG/ML 4ML VIAL 40 MG IVP (08:32)
[2025-03-11] MEDS: AMIODARONE HCL 200 MG TABLET 400 MG PO (08:34)
[2025-03-11] MEDS: SERTRALINE HCL 25 MG TABLET PO (08:35)
[2025-03-11] MEDS: APIXABAN 2.5 MG TABLET PO ×2 (08:35→20:24)
[2025-03-11] MEDS: SPIRONOLACTONE 25 MG TABLET 12.5 MG PO (08:35)
[2025-03-11] MEDS: ASPIRIN EC 81 MG TABEC PO (08:35)
--- NOTE | 2025-03-11 09:55 | PC.SS ---
Patient Giuseppe Paul is a 79 Year old male admitted for Short of Breath. SS met with patient at bedside to discuss discharge plan and verify demographic information. Patient reports he lives at home with his , Hiral Paul who he reports is his surrogate decision maker, [phone]. Patient reports he is independent with all ADL's. Patient reports he utilizes a FWW to assist with ambulation. Choice of pharmacy is [facility]. Patient's PCP is Carson Martino. At Time of discharge patient will return back home. Family will provide transportation. Discharge Plan: Home Next of Kin: , Hiral Paul PCP: Carson Huitron
[2025-03-11 11:57] LABS: Cocci Serology, IgM Positive (Negative)
[2025-03-11 11:58] LABS: Cocid Sro, CF/ID (UCD) NO CHG* See Sep Rpt
[2025-03-11] MEDS: FLUCONAZOLE 100 MG TABLET 400 MG PO (14:23)
--- NOTE | 2025-03-11 17:04 | ESCONSULT_ITS ---
RE: YAZMIN PAUL : 1945 DATE OF CONSULTATION: 03/11/2025 HISTORY OF PRESENT ILLNESS: Mr. Yazmin Paul is an 79-year-old gentleman who is known to have history of multiple problems of arteriosclerotic heart disease with previous history of myocardial infarction, history of previous intracoronary stent placement, history of coronary artery bypass graft surgery, history of AICD implantation, history of chronic hypertension, diabetes mellitus, and hyperlipidemia. The patient recently had shocks by the defibrillator on 03/05/2025 requiring hospitalization at [facility]. The patient underwent cardiac workup including coronary angiography and was told to have extremely poor left ventricular systolic function and the patient did not seem to be the candidate for any revascularization procedure. The patient was in his usual state of health up until on the evening of admission, the patient became severely short of breath and the patient was brought in over to the emergency room and was subsequently hospitalized. The patient denied any complaint of chest pain though, denied any complaint of skipped beats or palpitations, denied any more episodes of shock by the defibrillator. The patient also denied any symptoms of swelling of the feet. Presently, the patient is on oxygen therapy and is resting fairly comfortably in bed. PAST MEDICAL HISTORY: The patient's past medical history is significant for history of intracoronary stent placement post myocardial infarction in 2013, history of triple-vessel coronary artery bypass graft surgery in 2019, history of chronic congestive heart failure for the last few years, history of AICD implantation in the past, history of chronic hypertension for the last several years, history of diabetes mellitus for the last several years, history of hyperlipidemia for the last several years. PERSONAL HISTORY: The patient is a nonsmoker, nonalcoholic. FAMILY HISTORY: Noncontributory. PHYSICAL EXAMINATION: VITAL SIGNS: The pertinent physical findings show the patient's blood pressure is 103/65, pulse rate is 67, respiratory rate is 24, temperature is 98, oxygen saturation is 98% on 2 L of oxygen by nasal cannula. HEAD AND NECK: Unremarkable. JVP is not elevated. Carotid pulses are felt well on both sides. No carotid bruits heard. HEART: PMI neither palpable nor visible. S1 and S2 are normal. No murmur or gallop is appreciated. LUNGS: The lung shows slightly decreased breath sound at the bases. No active wheezing or rales are heard. ABDOMEN: Abdomen is soft. No organomegaly. EXTREMITIES: No pedal edema. Peripheral pulses in the feet are palpable. NEUROLOGIC: Neurological examination is unremarkable. No focal localizing neuro deficit is appreciated. DIAGNOSTIC DATA: The patient's electrocardiogram done yesterday showed ventricular paced rhythm. The chest x-ray showed evidence of cardiomegaly and pulmonary vascular congestion. The patient's cardiac echo Doppler study done earlier today showed moderately dilated left ventricle with poor left ventricular systolic function and left ventricular ejection fraction of 20- 25%, mild aortic regurgitation, moderate mitral regurgitation, and mild tricuspid regurgitation was reported. LABORATORY DATA: The patient's lab work showed yesterday's WBC count was 17,200, hemoglobin 15.6 with a hematocrit of 45.6, repeat WBC count today is 13,600, hemoglobin 13.9 with a hematocrit of 40.5. The patient's BUN yesterday was 31, creatinine 1.9, potassium level of 5.2. The glucose was 232. The troponin level was 0.155. Repeat troponin level last night was 0.138, which is lower than on admission. The BNP level was reported to be elevated and was 270 last night. CLINICAL IMPRESSION: 1. Acute and chronic systolic congestive heart failure. 2. Arteriosclerotic heart disease with previous history of myocardial infarction as well as intracoronary stent placement and coronary artery bypass graft surgery. 3. Chronic atrial fibrillation. 4. Diabetes mellitus. 5. Chronic hypertension as per history. 6. Hyperlipidemia as per history. SUGGESTIONS: I agree with present plan of management with the patient of continuing the patient on intravenous diuretic therapy, beta javy therapy, continuing the patient on antiarrhythmic therapy, continuing the patient on anticoagulant therapy as well as antiplatelet therapy. The patient is also on spironolactone, which will be continued. The family is by the bedside and is aware of the patient's condition and guarded prognosis and the patient is on DNR status. FU BMP & BNP level ordered. I will follow the patient with you and I highly thank you very much for letting me participate in the evaluation of the patient. DT: 16:40:51 TT: 17:02:00 Ref: [id number] - TID: [id number] MTDD
[2025-03-11] MEDS: ATORVASTATIN CALCIUM 20 MG TABLET PO (20:25)
[2025-03-12] VITALS (15 sets, daily range): BP systolic 98–129; BP diastolic 58–81; PULSE 46–67; RESP 12–30; TEMP 36.1–37.3; O2SAT 92–99
[2025-03-12 06:27] LABS: Basophils # (Auto) 0.1 Thou/mm3 (0.0-0.2); Basophils % (Auto) 1 % (0-2.5); Eosinophils # (Auto) 0.1 Thou/mm3 (0.0-0.5); Eosinophils % (Auto) 1 % (0-10); Hematocrit 36.7 % (41.0-53.0); Hemoglobin 12.9 g/dL (13.5-16.0); Immature Granulocytes Auto 0.07 Thou/mm3 (0.00-0.00); Lymphocytes # (Auto) 1.7 Thou/mm3 (1.0-4.8); Lymphocytes % (Auto) 13 % (10-50); Mean Corpuscular HGB Conc 35.1 g/dl (31.0-37.0); Mean Corpuscular Hemoglobin 33.4 pg (25.0-35.0); Mean Corpuscular Volume 95 fL (80-100); Monocytes # (Auto) 1.5 Thou/mm3 (0.0-0.8); Monocytes % (Auto) 12 % (0-12); Neutrophils # (Auto) 9.6 Thou/mm3 (1.8-7.7); Neutrophils % (Auto) 74 % (37-80); Nucleated Red Blood Cell # 0.00 Thou/mm3 (0.00-0.00); Nucleated Red Blood Cell % 0 /100 WBC (0); Platelet Count 148 Thou/mm3 (140-440); RDW Standard Deviation 51.9 fL (35.1-43.9); Red Blood Count 3.86 Miln/mm3 (4.50-5.90); White Blood Count 13.1 Thou/mm3 (3.8-10.6)
[2025-03-12 06:35] LABS: Alanine Aminotransferase 31 U/L (10-49); Albumin, Serum 4.2 gm/dL (3.4-4.8); Albumin/Globulin Ratio 1.6 (1.2-2.2); Alkaline Phosphatase 81 U/L (46-116); Anion Gap 13 (7-16); Aspartate Amino Transferase 31 U/L (0-34); BUN/Creatinine Ratio 16 Ratio (12-20); Bilirubin,Total 2.4 mg/dL (0.3-1.2); Blood Urea Nitrogen 26 mg/dL (9-23); Calcium 8.8 mg/dL (8.3-10.6); Calcium (Corrected) 8.8 mg/dL (8.5-10.1); Carbon Dioxide 24.3 mMol/L (20.0-31.0); Chloride 98 mMol/L (98-107); Creatinine (Component) 1.6 mg/dL (0.6-1.3); Estimated Creatinine Clearance 35.0 mL/min (>60); Globulin 2.6 gm/dL (2.3-3.5); Glucose 184 mg/dL (74-106); Magnesium 2.2 mg/dL (1.6-2.6); Osmolality,Calculated 279 (275-295); Phosphorous 3.0 mg/dL (2.4-5.1); Potassium 3.2 mMol/L (3.4-5.1); Sodium 135 mMol/L (136-145); Total Protein 6.8 gm/dL (5.7-8.2); eGFR 43 See Note
[2025-03-12 06:55] LABS: B-Type Natriuretic Peptide 509 pg/mL (0-100)
[2025-03-12] MEDS: INSULIN LISPRO (AdmeLOG) 1 UNIT/0.01 ML UNIT SC ×4 (07:41→20:57)
[2025-03-12] MEDS: FUROSEMIDE INJ 10 MG/ML 4ML VIAL 40 MG IVP ×2 (08:44→19:59)
[2025-03-12] MEDS: FLUCONAZOLE 100 MG TABLET 400 MG PO (08:45)
[2025-03-12] MEDS: TAMSULOSIN HCL 0.4 MG CAPSULE PO (08:45)
[2025-03-12] MEDS: ASPIRIN EC 81 MG TABEC PO (08:46)
[2025-03-12] MEDS: APIXABAN 2.5 MG TABLET PO ×2 (08:46→20:56)
[2025-03-12] MEDS: SERTRALINE HCL 25 MG TABLET PO (08:46)
[2025-03-12] MEDS: SPIRONOLACTONE 25 MG TABLET 12.5 MG PO (08:46)
[2025-03-12] MEDS: AMIODARONE HCL 200 MG TABLET PO ×2 (08:47→20:58)
[2025-03-12] MEDS: POTASSIUM CHLORIDE 10% 20 MEQ/15 ML UDC 40 MEQ PO (08:50)
--- NOTE | 2025-03-12 09:02 | PC.NURSE ---
notified and pt. has occ.periods sleep apnea.
--- NOTE | 2025-03-12 09:04 | PC.SS ---
SHIPBOARD INTELLIGENCE ANALYST notified bedside nurse of need to conduct room air evaluation on behalf of the patient to determine need for home oxygen.
--- NOTE | 2025-03-12 09:13 | PC.NURSE ---
o2 sat on room air @ rest 83 %,applied o2 @ 3L/NC, o2 sat up to 94 %.
[2025-03-12] MEDS: DAPAGLIFLOZIN PROPANEDIOL 5 MG TABLET 10 MG PO (09:18)
--- NOTE | 2025-03-12 10:04 | PC.SS ---
Oxygen Pt is discharged in a chronic stable state and has been treated optimally and has other respiratory needs. Oxygen has been ordered due to Acute Hypoxic Respiratory Failure
--- NOTE | 2025-03-12 10:34 | PC.SS ---
DME referral submitted on [facility]. Response pending. Documentation placed in patient's chart.
--- NOTE | 2025-03-12 11:36 | PC.SS ---
Update: Plan is to IV diures patient today. Patient will require home oxygen upon discharge.
--- NOTE | 2025-03-12 11:51 | ESPR_ITS ---
RE: YAZMIN PAUL : 1945 DATE OF SERVICE: 03/12/2025 SUBJECTIVE: Mr. Paul's condition stays poor. The patient is still having symptoms of dyspnea and is requiring oxygen therapy. The patient is not having any symptoms of chest pain though. Denies any complaints of skipped beats or palpitations. Denies any complaints of dizziness or diaphoresis. OBJECTIVE: Vital Signs: The patient's blood pressure this morning is 110/72. The pulse rate is 60 per minute. The respiratory rate is 16 per minute and the temperature is 97.9. The patient's oximetry saturation is 98% on 1 liter of oxygen by nasal cannula. Heart: The heart examination is clear. Lungs: Show decreased breath on a regular basis. Extremities: No pedal edema is noted. EKG: Heart rhythm is staying in ventricular paced rhythm. LABORATORY DATA: This morning showed WBC count of 13,100, hemoglobin 12.9 with hematocrit of 36.7. BUN today is 26, creatinine 1.6, potassium level is 3.2, and the patient was started on IV potassium supplements. The BNP level has gone up and is 509. PLAN: To increase the dose of intravenous Lasix from 40 mg daily to 40 mg b.i.d. Farxiga will also be started at 10 mg daily. The rest of the medication will be continued as before. Follow-up BNP level as well as BMP level will be checked tomorrow. The patient's is by the bedside and is aware of the patient's condition and guarded prognosis. DT: 11:39:48 TT: 11:49:00 Ref: [id number] - TID: [id number]
--- NOTE | 2025-03-12 13:01 | ESPR_ITS ---
<Statement entered by David Wiggins MD - 03/12/25 13:50> I saw and examined patient personally and supervised PGY 1 resident, Dr. Hayes with formulating a management plan. I agree with the documentation with the exceptions as listed below. This is a 79-year-old male with past medical history of CAD S/P 2 stents (2013), CABG(triple bypass -2019), EF 20 to 25%, ICD with PM, hypertension, diabetes,hyperlipidemia presented to the ED with complaints of shortness of breath. He was admitted for CHF exacerbation. Problem list: 1. Acute respiratory failure with hypoxia secondary to acute decompensated chronic systolic and diastolic congestive heart failure exacerbation [EF 20-25%] 2. Pulmonary coccidiomycosis 3. CAD s/p CABG 4. 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 Primary retention 6. Prv-ujzdneb-sxjebtlzd diabetes mellitus type 2 [7.2%] 7. Hyperbilirubinemia 8. Hyperlipidemia Patient initially presented shortness of breath and was admitted for acute respiratory with hypoxia secondary to acute decompensated CHF exacerbation. Chest x-ray showed bilaterally increased vascular congestion, pulmonary edema and hazy opacities. Initially was started on diuresis with Lasix 40 mg IV daily. Patient had a positive fluid balance of 420 cc in past 24 hours. Transthoracic echocardiogram showed moderately dilated LV with systolic dysfunction and grade 2 diastolic dysfunction. Estimated EF 20-25%. RVSP 45 mmHg. Severe dilated LA and moderately dilated RA. Moderate aortic valve sclerosis with mild aortic regurgitation. take out waiter/waitress, Dr. Jenkins assessed the patient and increased his diuresis to Lasix 40 mg IV twice daily and also started dapagliflozin 10 mg p.o. every morning. Patient continues to be on 1L supplemental O2 and has prominent orthopnea. Nurse also reported that patient has witnessed apneic episodes when he sleeps and desats to the 80s. Will place on BiPAP at night. He will need a formal sleep study as outpatient. For patient's pulmonary coccidiomycosis, he continues to be on fluconazole 400 mg p.o. daily. Plan of care discussed with Attending Dr. Mulu Wiggins MD PGY 2 Disclaimer: This note was dictated by speech recognition. Minor errors in manager background may be present due to voice recognition software. Documentation for date of: 03/12/25 Subjective Subjective Interval history: An 79-year-old male with a significant cardiac history?including coronary artery disease status post two stents in 2014 and triple bypass surgery in 2019?presented to the emergency department with shortness of breath. His medical background also includes an ejection fraction of 20?25%, an implanted ICD with pacemaker, hypertension, diabetes mellitus, and hyperlipidemia. He was admitted for acute decompensated congestive heart failure with associated hypoxia. Initial chest imaging revealed bilateral vascular congestion, pulmonary edema, and diffuse hazy opacities. Diuresis was initiated with IV Lasix 40 mg daily. Over the past 24 hours, he maintained a net positive fluid balance of 420 cc. Echocardiographic findings showed a moderately enlarged left ventricle with systolic and grade 2 diastolic dysfunction, EF estimated at 20?25%, RVSP of 45 mmHg, severely dilated left atrium, and moderately dilated right atrium. There was also evidence of moderate aortic valve sclerosis with mild regurgitation. Dr. Jenkins, interventional cardiology, evaluated the patient and adjusted his diuretic regimen to IV Lasix 40 mg twice daily. Dapagliflozin 10 mg orally each morning was also initiated. The patient remains on 1L supplemental oxygen and continues to experience marked orthopnea. Nursing staff observed apneic episodes during sleep with oxygen desaturations into the 80s. Nocturnal BiPAP therapy will be initiated, and a formal sleep study is planned on an outpatient basis. Regarding his pulmonary coccidioidomycosis, he remains on fluconazole 400 mg orally once daily. Exam Vital Signs Temp Pulse Resp BP Pulse Ox O2 Del Method O2 Flow Rate 99.1 F 60 23 H 129/81 96 Nasal Cannula 2 03/12/25 12:00 03/12/25 12:00 03/12/25 12:00 03/12/25 12:00 03/12/25 12:00 03/12/25 12:00 03/12/25 12:00 Narrative Exam GENERAL: NAD, AAOx3, He is lying in left curled position to improve his shortness of breath, when asked to lay flat his shortness of breath worsening HEENT: Moist mucosa. Eyes open, symmetrical, & clear CARDIO: Regular rhythm Noted. No Murmurs. PULM: No noted coughing/dyspnea CTA B/L, no crackles or wheezes GI: Abdomen soft, nondistended, Non Tenderness. SKIN/MSK/EXT: No wounds/rashes/amputations, no pain on palpation.No Edema. Pedal pulses present B/L NEURO: AAOx3, no focal neuro deficits, able to move all 4 extremities Objective Labs 03/13/25 04:58 03/13/25 04:58 Labs: Laboratory Results - last 24 hr 03/12/25 05:50 WBC 13.1 H RBC 3.86 L Hgb 12.9 L Hct 36.7 L MCV 95 MCH 33.4 MCHC 35.1 RDW Std Deviation 51.9 H Plt Count 148 Neut % (Auto) 74 Lymph % (Auto) 13 [place] % (Auto) 12 Eos % (Auto) 1 Baso % (Auto) 1 Neut # (Auto) 9.6 H Lymph # (Auto) 1.7 [place] # (Auto) 1.5 H Eos # (Auto) 0.1 Baso # (Auto) 0.1 Immature Gran # (Auto) 0.07 H Absolute Nucleated RBC 0.00 Immature Gran % 1 H Nucleated RBC % 0 Sodium 135 L Potassium 3.2 L D Chloride 98 Carbon Dioxide 24.3 Anion Gap 13 BUN 26 H Creatinine 1.6 H Estim Creat Clear Calc 35.0 L eGFR 43 L BUN/Creatinine Ratio 16 Glucose 184 H Calculated Osmolality 279 Calcium 8.8 Corrected Calcium 8.8 Phosphorus 3.0 Magnesium 2.2 Total Bilirubin 2.4 H AST 31 ALT 31 Alkaline Phosphatase 81 B-Natriuretic Peptide 509 H* Total Protein 6.8 Albumin 4.2 Globulin 2.6 Albumin/Globulin Ratio 1.6 ABG Interpretation ABG results: 03/10/25 23:52 ABG pH 7.46 H ABG pCO2 30 L ABG pO2 77 L ABG HCO3 21 ABG O2 Saturation 97 ABG Base Excess -1 Quality Measures Quality Measures VTE prophylaxis Advance care planning discussed with:: patient Assessment & Plan Assessment Current Active Medications: Generic Name Dose Route Start Last Admin Trade Name Freq PRN Reason Stop Dose Admin Acetaminophen 650 mg 03/11/25 07:16 Acetaminophen 325 Mg Tablet PO 04/09/25 22:46 Q6H PRN Fever >100.4 or Mild Pain 1-3 Albuterol/Ipratropium 3 ml 03/10/25 22:47 Albuterol/Ipratropium (Duoneb) Rt Ksenia 3 Ml Nebu INH 04/10/25 00:59 Q6HRRT PRN wheezing Amiodarone HCl 200 mg 03/12/25 09:00 03/12/25 08:47 Amiodarone Hcl 200 Mg Tablet PO 04/11/25 08:59 200 mg BID KOFFI Administration Apixaban 2.5 mg 03/11/25 09:00 03/12/25 08:46 Apixaban 2.5 Mg Tablet PO 04/10/25 08:59 2.5 mg BID KOFFI Administration Aspirin 81 mg 03/11/25 09:00 03/12/25 08:46 Aspirin Ec 81 Mg Tabec PO 04/10/25 08:59 81 mg QDAY KOFFI Administration Atorvastatin Calcium 20 mg 03/11/25 21:00 03/11/25 20:25 Atorvastatin Calcium 20 Mg Tablet PO 04/10/25 20:59 20 mg HS KOFFI Administration Carvedilol 3.125 mg 03/11/25 09:00 03/12/25 08:45 Carvedilol 3.125 Mg Tablet PO 04/10/25 08:59 3.125 mg BID KOFFI Administration Dapagliflozin 10 mg 03/12/25 09:00 03/12/25 09:18 Dapagliflozin Propanediol 5 Mg Tablet PO 04/11/25 08:59 10 mg QAM KOFFI Administration Dextrose 25 ml 03/10/25 23:00 Dextrose 50%-Water Inj 50 Ml Syringe IV 04/09/25 22:59 Q15MIN PRN BG 50-70 responsive npo pt Dextrose 50 ml 03/10/25 23:00 Dextrose 50%-Water Inj 50 Ml Syringe IV 04/09/25 22:59 Q15MIN PRN BG <50 OR BG <70 & pt unresponsive Fluconazole 400 mg 03/11/25 13:45 03/12/25 08:45 Fluconazole 100 Mg Tablet PO 03/18/25 13:44 400 mg QDAY KOFFI Administration Furosemide 40 mg 03/12/25 18:00 Furosemide Inj 10 Mg/Ml 4ml Vial IVP 04/11/25 17:59 BIDD KOFFI Glucagon 1 mg 03/10/25 23:00 Glucagon Inj 1 Mg Vial IM Q15MIN PRN BG <70, and no IV access Insulin Human Lispro 0 unit 03/10/25 23:45 03/12/25 11:45 Insulin Lispro (Admelog) 1 Unit/0.01 Ml Unit SC 04/09/25 23:44 3 unit ACHS KOFFI Administration Protocol Sennosides 1 tab 03/12/25 09:00 03/12/25 08:46 Senna Tablet PO 04/11/25 08:59 1 tab QDAY KOFFI Administration Protocol Sertraline HCl 25 mg 03/11/25 09:00 03/12/25 08:46 Sertraline Hcl 25 Mg Tablet PO 04/10/25 08:59 25 mg QDAY KOFFI Administration Spironolactone 12.5 mg 03/11/25 09:00 03/12/25 08:46 Spironolactone 25 Mg Tablet PO 04/10/25 08:59 12.5 mg QDAY KOFFI Administration Tamsulosin HCl 0.4 mg 03/12/25 09:00 03/12/25 08:45 Tamsulosin Hcl 0.4 Mg Capsule PO 04/11/25 08:59 0.4 mg QDAY KOFFI Administration Plan This is a 79-year-old male with past medical history of CAD S/P 2 stents (2013), CABG(triple bypass -2018), EF 20 to 25%, ICD with PM, hypertension, diabetes,hyperlipidemia presented to the ED with complaints of shortness of breath. He was admitted for CHF exacerbation. Cocci positive 03/11. Dr. Jenkins (metal bonding worker) said there is nothing to do for his heart failure, can continue to diurese. #Acute Hypoxic Respiratory Failure # Acute on Chronic Decompensated Heart failure. # CABGx3(2019) ,CAD S/P Stent # Congestive CHF HFrEF 20-25% History of CAD, stent, CABG?triple bypass, ICD with pacemaker, hypertension, hyperlipidemia, diabetes. Shortness of breath. NYHA Class-3. D-dimer?841, No chest pain ,No Tachycardia, saturating well at minimum oxygen levels-low suspicious for PE. BNP?270, troponin 0.155. DDx: Concern for CHF exacerbation given peripheral edema and chest x-ray vs infectious given minimally elevated BNP and concern for leukocytosis vs PE given elevated d-dimer w/ Wells Score 0, thus low suspicion. PO2 77, pCO2 30, pH 7.40 X-ray showing pattern of CHF exacerbation. Furosemide 80 mg and nitroglycerin patch given in ED. Ejection fraction as per latest echo on 03/06 shows 20-25% At [facility] they stopped digoxin and start amiodarone Dx: - Fluid balance: +420 cc in the past 24 hours - TTE showed moderately dilated LV with soft systolic dysfunction and grade 2 diastolic dysfunction, estimated EF of 20 to 25%, RSVP 45 mmHg, severely dilated LA and moderately dilated RA, moderate aortic valve sclerosis and mild aortic regurgitation Rx: -Cardiology started p.o. dapagliflozin 10 mg every morning amiodarone 200 mg BID aspirin 81 mg, Eliquis 2.5 mg, carvedilol 3.125 mg PO BID dapagliflozin 10 mg, Holding losartan 25 mg, hodling given KOSTA on CKD spironolactone 12.5 mg PO QD ?Monitor input and output and daily weights and troponins. ? oxygen as required. ?Cardiology increased furosemide IV 40 mg daily -> BID ?Cardiac diet and fluid restriction. # Acute kidney injury Concern for KOSTA concern for KOSTA on CKD given worsening GFR greater than 3 months and seen on renal US showing bilateral scarring of kidenys vs cardio-renal syndrome given CKD and CHF history vs obstructive as prostate volume >30. BUN 31, creatinine 1.9 --> BUN 34 Cr 1.8. Appears baseline creatinine 1.6. Plan -Continue to monitor renal function/Cr. -Use lasix with caution and hold if necessary -avoid nephrotoxins -encourage oral hydration while on fluid restions. #Pneumonia Cocci # Leukocytosis --> resolving WBC 17.2 --> 13.6. UA unremarkable -Ordered urinalysis follow-up with the results -Cocci IgM positive, follow up on IgG Plan -continue to monitor for pyrexia -Flucanozole 400 mg QD PO #??SHARON Per nurse, patient has witnessed apneic episodes when he sleeps and desats to the 80s Rx: ? BiPAP at night ? Outpatient sleep study #Hx of Intracranial bleed History of fall and brain scan at [facility] showed stable brain bleed. ?Patient's Eliquis was decreased to 2.5 mg bid ?Fall precautions #Hypertension ?Home medication, losartan 25 mg, spironolactone 25 mg plan -Holding Losartan given concern for KOSTA on CKD vs worsening CKD. #Diabetes Mellitus Type 2, non-insulin dependent -Initial Finger blood Glucose is 223, HbA1c 7.2 with home medication of Metformin 500 mg BID. Use with caution given GFR nearing 30s. Plan -Consider discontinuing metformin if GFR continues to worsen ?Starting on sliding scale and continue to monitor #Hyperlipidemia ?Hold home medication rosuvastatin 5 mg. -Atorvastatin 20mg PO HS #Hyperbilirubinemia T.Bili 2.5 but no jaundice or abdominal pain. Most likely 2/2 congestion due to CHF exacerbation vs less likely secondary to biliary stones as denied upper quadrant pain and no jaundice noted. Consider hepatitis panel. Plan: -CTM #Depression Continue home sertraline 25 mg PO QD Code status: DNR DVT prophylaxis: Heparin Diet: Cardiac Loya: None Lines: PIV Supplemental O2: 4L on Nasal cannula Disposition: Tele I discussed this case with my senior Dr. Wiggins and my attending Dr. Mulu Hayes, PGY-1 Attending Provider Attestation/Addendum I have discussed and was present for the essential components of the history, physical examination, diagnosis, and treatment plan with the resident. I agree with the patient's care as documented by the resident and amended herein by me. Sam Hardwick DO. Although this document has been carefully reviewed, there may still be some phonetic and other typographical errors. These errors are purely grammatical due to imperfections in the software program and should not be construed in any way to compromise the substance of the patient's medical care during this visit.
--- NOTE | 2025-03-12 13:39 | PC.SS ---
[employer]IST confirmed bedside delivery of home oxygen for the patient. Vendor is [employer].
[2025-03-12] MEDS: ALBUMIN HUMAN 5% IVPB 12.5 GM/250 ML BTL IV (17:22)
[2025-03-12] MEDS: ATORVASTATIN CALCIUM 20 MG TABLET PO (20:58)
[2025-03-13] VITALS (19 sets, daily range): BP systolic 100–138; BP diastolic 67–80; PULSE 60–81; RESP 12–27; TEMP 35.9–36.3; O2SAT 94–99
[2025-03-13 05:22] LABS: Basophils # (Auto) 0.1 Thou/mm3 (0.0-0.2); Basophils % (Auto) 1 % (0-2.5); Eosinophils # (Auto) 0.1 Thou/mm3 (0.0-0.5); Eosinophils % (Auto) 1 % (0-10); Hematocrit 35.5 % (41.0-53.0); Hemoglobin 11.9 g/dL (13.5-16.0); Immature Granulocytes Auto 0.07 Thou/mm3 (0.00-0.00); Lymphocytes # (Auto) 2.2 Thou/mm3 (1.0-4.8); Lymphocytes % (Auto) 16 % (10-50); Mean Corpuscular HGB Conc 33.5 g/dl (31.0-37.0); Mean Corpuscular Hemoglobin 33.2 pg (25.0-35.0); Mean Corpuscular Volume 99 fL (80-100); Monocytes # (Auto) 1.4 Thou/mm3 (0.0-0.8); Monocytes % (Auto) 10 % (0-12); Neutrophils # (Auto) 9.7 Thou/mm3 (1.8-7.7); Neutrophils % (Auto) 72 % (37-80); Nucleated Red Blood Cell # 0.00 Thou/mm3 (0.00-0.00); Nucleated Red Blood Cell % 0 /100 WBC (0); Platelet Count 146 Thou/mm3 (140-440); RDW Standard Deviation 54.6 fL (35.1-43.9); Red Blood Count 3.58 Miln/mm3 (4.50-5.90); White Blood Count 13.5 Thou/mm3 (3.8-10.6)
[2025-03-13 05:41] LABS: Alanine Aminotransferase 38 U/L (10-49); Albumin, Serum 4.4 gm/dL (3.4-4.8); Albumin/Globulin Ratio 2.0 (1.2-2.2); Alkaline Phosphatase 79 U/L (46-116); Anion Gap 13 (7-16); Aspartate Amino Transferase 35 U/L (0-34); BUN/Creatinine Ratio 18 Ratio (12-20); Bilirubin,Total 2.7 mg/dL (0.3-1.2); Blood Urea Nitrogen 31 mg/dL (9-23); Calcium 8.5 mg/dL (8.3-10.6); Calcium (Corrected) 8.5 mg/dL (8.5-10.1); Carbon Dioxide 25.8 mMol/L (20.0-31.0); Chloride 99 mMol/L (98-107); Creatinine (Component) 1.7 mg/dL (0.6-1.3); Estimated Creatinine Clearance 33.0 mL/min (>60); Globulin 2.2 gm/dL (2.3-3.5); Glucose 169 mg/dL (74-106); Magnesium 2.3 mg/dL (1.6-2.6); Osmolality,Calculated 286 (275-295); Phosphorous 3.1 mg/dL (2.4-5.1); Potassium 3.6 mMol/L (3.4-5.1); Sodium 138 mMol/L (136-145); Total Protein 6.6 gm/dL (5.7-8.2); eGFR 40 See Note
[2025-03-13 05:53] LABS: B-Type Natriuretic Peptide 645 pg/mL (0-100)
[2025-03-13] MEDS: FUROSEMIDE INJ 10 MG/ML 4ML VIAL 40 MG IVP ×3 (05:53→18:13)
[2025-03-13] MEDS: INSULIN LISPRO (AdmeLOG) 1 UNIT/0.01 ML UNIT SC ×4 (08:12→21:06)
[2025-03-13] MEDS: AMIODARONE HCL 200 MG TABLET PO ×2 (08:14→21:05)
[2025-03-13] MEDS: SERTRALINE HCL 25 MG TABLET PO (08:18)
[2025-03-13] MEDS: SPIRONOLACTONE 25 MG TABLET 12.5 MG PO ×2 (08:18→14:29)
[2025-03-13] MEDS: DAPAGLIFLOZIN PROPANEDIOL 5 MG TABLET 10 MG PO (08:19)
[2025-03-13] MEDS: ASPIRIN EC 81 MG TABEC PO (08:20)
[2025-03-13] MEDS: FLUCONAZOLE 100 MG TABLET 400 MG PO (08:20)
[2025-03-13] MEDS: TAMSULOSIN HCL 0.4 MG CAPSULE PO (08:20)
[2025-03-13] MEDS: APIXABAN 2.5 MG TABLET PO ×2 (08:20→21:06)
[2025-03-13] MEDS: POTASSIUM CHL 10 mEq IVPB 10 MEQ/100 ML BAG 100 MEQ IV (08:21)
--- NOTE | 2025-03-13 08:51 | PD.RESPRO ---
Documentation for date of: 03/13/25 No overnight events. Patient examined at bedside. Alert and oriented x 3. Improved work of breathing and decreased crackles bilaterally. Holding Lasix as kidney function has creatinine slight increase. Fluconazole for cocci pneumonia. Likely to be discharge over the next 24 hours. Weight 78.035--> 79.152 kg Net balance of -1245 - The patient's plan was discussed with attending Dr. Mulu Henry MD PGY2 Internal Medicine Subjective Subjective Interval history: Wt: 79.152kg Net: -1.2L (2.8L urine out, +1.6mL) Holding diureses today due to worsening KOSTA. Patient has no complaints. Endorses ongoing SOB and orthopnea, denies chest pain and all other symptoms. Exam Vital Signs Temp Pulse Resp BP Pulse Ox O2 Del Method O2 Flow Rate 96.7 F L 66 22 H 138/79 H 97 BiPAP 3 03/13/25 08:00 03/13/25 08:20 03/13/25 08:00 03/13/25 08:20 03/13/25 08:00 03/13/25 08:00 03/13/25 08:00 FiO2 30 03/13/25 08:00 Narrative Exam GENERAL: NAD, AAOx3, breathing improved with sitting up from laying down HEENT: Moist mucosa. Eyes open, symmetrical, & clear CARDIO: Regular rhythm Noted. No Murmurs. PULM: No noted coughing/dyspnea CTA B/L, no crackles or wheezes GI: Abdomen soft, nondistended, Non Tenderness. SKIN/MSK/EXT: No wounds/rashes/amputations, no pain on palpation.No Edema. Pedal pulses present B/L NEURO: AAOx3, no focal neuro deficits, able to move all 4 extremities Objective Labs 03/13/25 04:58 03/13/25 04:58 Labs: Laboratory Results - last 24 hr 03/13/25 04:58 WBC 13.5 H RBC 3.58 L Hgb 11.9 L Hct 35.5 L MCV 99 MCH 33.2 MCHC 33.5 RDW Std Deviation 54.6 H Plt Count 146 Neut % (Auto) 72 Lymph % (Auto) 16 [place] % (Auto) 10 Eos % (Auto) 1 Baso % (Auto) 1 Neut # (Auto) 9.7 H Lymph # (Auto) 2.2 [place] # (Auto) 1.4 H Eos # (Auto) 0.1 Baso # (Auto) 0.1 Immature Gran # (Auto) 0.07 H Absolute Nucleated RBC 0.00 Immature Gran % 1 H Nucleated RBC % 0 Sodium 138 Potassium 3.6 Chloride 99 Carbon Dioxide 25.8 Anion Gap 13 BUN 31 H Creatinine 1.7 H Estim Creat Clear Calc 33.0 L eGFR 40 L BUN/Creatinine Ratio 18 Glucose 169 H Calculated Osmolality 286 Calcium 8.5 Corrected Calcium 8.5 Phosphorus 3.1 Magnesium 2.3 Total Bilirubin 2.7 H AST 35 H ALT 38 Alkaline Phosphatase 79 B-Natriuretic Peptide 645 H* Total Protein 6.6 Albumin 4.4 Globulin 2.2 L Albumin/Globulin Ratio 2.0 ABG Interpretation ABG results: 03/10/25 23:52 ABG pH 7.46 H ABG pCO2 30 L ABG pO2 77 L ABG HCO3 21 ABG O2 Saturation 97 ABG Base Excess -1 Quality Measures Quality Measures VTE prophylaxis Advance care planning discussed with:: other Assessment & Plan Assessment Current Active Medications: Generic Name Dose Route Start Last Admin Trade Name Freq PRN Reason Stop Dose Admin Acetaminophen 650 mg 03/11/25 07:16 Acetaminophen 325 Mg Tablet PO 04/09/25 22:46 Q6H PRN Fever >100.4 or Mild Pain 1-3 Albuterol/Ipratropium 3 ml 03/10/25 22:47 Albuterol/Ipratropium (Duoneb) Rt Ksenia 3 Ml Nebu INH 04/10/25 00:59 Q6HRRT PRN wheezing Amiodarone HCl 200 mg 03/12/25 09:00 03/13/25 08:14 Amiodarone Hcl 200 Mg Tablet PO 04/11/25 08:59 200 mg BID KOFFI Administration Apixaban 2.5 mg 03/11/25 09:00 03/13/25 08:20 Apixaban 2.5 Mg Tablet PO 04/10/25 08:59 2.5 mg BID KOFFI Administration Aspirin 81 mg 03/11/25 09:00 03/13/25 08:20 Aspirin Ec 81 Mg Tabec PO 04/10/25 08:59 81 mg QDAY KOFFI Administration Atorvastatin Calcium 20 mg 03/11/25 21:00 03/12/25 20:58 Atorvastatin Calcium 20 Mg Tablet PO 04/10/25 20:59 20 mg HS KOFFI Administration Carvedilol 3.125 mg 03/11/25 09:00 03/13/25 08:20 Carvedilol 3.125 Mg Tablet PO 04/10/25 08:59 3.125 mg BID KOFFI Administration Dapagliflozin 10 mg 03/12/25 09:00 03/13/25 08:19 Dapagliflozin Propanediol 5 Mg Tablet PO 04/11/25 08:59 10 mg QAM KOFFI Administration Dextrose 25 ml 03/10/25 23:00 Dextrose 50%-Water Inj 50 Ml Syringe IV 04/09/25 22:59 Q15MIN PRN BG 50-70 responsive npo pt Dextrose 50 ml 03/10/25 23:00 Dextrose 50%-Water Inj 50 Ml Syringe IV 04/09/25 22:59 Q15MIN PRN BG <50 OR BG <70 & pt unresponsive Fluconazole 400 mg 03/11/25 13:45 03/13/25 08:20 Fluconazole 100 Mg Tablet PO 03/18/25 13:44 400 mg QDAY KOFFI Administration Furosemide 40 mg 03/12/25 18:00 03/13/25 05:53 Furosemide Inj 10 Mg/Ml 4ml Vial IVP 04/11/25 17:59 40 mg On Hold: 03/13/25 07:08 BIDD KOFFI Administration Glucagon 1 mg 03/10/25 23:00 Glucagon Inj 1 Mg Vial IM Q15MIN PRN BG <70, and no IV access Insulin Human Lispro 0 unit 03/10/25 23:45 03/13/25 08:12 Insulin Lispro (Admelog) 1 Unit/0.01 Ml Unit SC 04/09/25 23:44 1 unit ACHS KOFFI Administration Protocol Potassium Chloride 40 meq 03/13/25 08:50 Potassium Chloride 20 Meq Tabcr PO 03/13/25 08:51 X1 ONE Sennosides 1 tab 03/12/25 09:00 03/13/25 08:20 Senna Tablet PO 04/11/25 08:59 1 tab QDAY KOFFI Administration Protocol Sertraline HCl 25 mg 03/11/25 09:00 03/13/25 08:18 Sertraline Hcl 25 Mg Tablet PO 04/10/25 08:59 25 mg QDAY KOFFI Administration Spironolactone .5 mg 03/11/25 09:00 03/13/25 08:18 Spironolactone 25 Mg Tablet PO 04/10/25 08:59 12.5 mg QDAY KOFFI Administration Tamsulosin HCl 0.4 mg 03/12/25 09:00 03/13/25 08:20 Tamsulosin Hcl 0.4 Mg Capsule PO 04/11/25 08:59 0.4 mg QDAY KOFFI Administration Plan This is a 79-year-old male with past medical history of CAD S/P 2 stents (2013), CABG(triple bypass -2018), EF 20 to 25%, ICD with PM, hypertension, diabetes,hyperlipidemia presented to the ED with complaints of shortness of breath. He was admitted for CHF exacerbation. Cocci positive 03/11. Dr. Jenkins (health technical writer) said there is nothing to do for his heart failure, can continue to diurese. holding diureses today 03/13 for worsening KOSTA #Acute Hypoxic Respiratory Failure # Acute on Chronic Decompensated Heart failure. # CABGx3(2018) ,CAD S/P Stent # Congestive CHF HFrEF 20-25% History of CAD, stent, CABG?triple bypass, ICD with pacemaker, hypertension, hyperlipidemia, diabetes. Shortness of breath. NYHA Class-3. D-dimer?841, No chest pain ,No Tachycardia, saturating well at minimum oxygen levels-low suspicious for PE. BNP?270, troponin 0.155. DDx: Concern for CHF exacerbation given peripheral edema and chest x-ray vs infectious given minimally elevated BNP and concern for leukocytosis vs PE given elevated d-dimer w/ Wells Score 0, thus low suspicion. PO2 77, pCO2 30, pH 7.40 X-ray showing pattern of CHF exacerbation. Furosemide 80 mg and nitroglycerin patch given in ED. Ejection fraction as per latest echo on 03/06 shows 20-25% At [facility] they stopped digoxin and start amiodarone Dx: - Fluid balance: -1245cc in the past 24 hours - TTE showed moderately dilated LV with soft systolic dysfunction and grade 2 diastolic dysfunction, estimated EF of 20 to 25%, RSVP 45 mmHg, severely dilated LA and moderately dilated RA, moderate aortic valve sclerosis and mild aortic regurgitation Rx: -Cardiology started p.o. dapagliflozin 10 mg every morning -amiodarone 200 mg BID -aspirin 81 mg, -Eliquis 2.5 mg, -carvedilol 3.125 mg PO BID -losartan 25 mg, hodling given KOSTA on CKD -spironolactone 12.5 mg PO QD ?Monitor input and output and daily weights and troponins. ? oxygen as required. ?Cardiology increased furosemide IV 40 mg daily -> BID (holding today for KOSTA on CKD) ?Cardiac diet and fluid restriction. # KOSTA on CKD Concern for KOSTA concern for KOSTA on CKD given worsening GFR greater than 3 months and seen on renal US showing bilateral scarring of kidenys vs cardio-renal syndrome given CKD and CHF history vs obstructive as prostate volume >30. BUN 31, creatinine 1.9 --> BUN 34 Cr 1.8. Appears baseline creatinine 1.6. Plan -Continue to monitor renal function/Cr. -Use lasix with caution and hold if necessary -avoid nephrotoxins -encourage oral hydration while on fluid restrictions. #Pneumonia Cocci # Leukocytosis --> resolving WBC 17.2 --> 13.6. UA unremarkable -Ordered urinalysis follow-up with the results -Cocci IgM positive, follow up on IgG Plan -continue to monitor for pyrexia -Flucanozole 400 mg QD PO #??SHARON Per nurse, patient has witnessed apneic episodes when he sleeps and desats to the 80s Rx: ? BiPAP at night ? Outpatient sleep study #Hx of Intracranial bleed History of fall and brain scan at [facility] showed stable brain bleed. ?Patient's Eliquis was decreased to 2.5 mg bid ?Fall precautions #History of Hypertension ?Home medication, losartan 25 mg, spironolactone 25 mg plan -Holding Losartan given concern for KOSTA on CKD vs worsening CKD. #Diabetes Mellitus Type 2, non-insulin dependent -Initial Finger blood Glucose is 223, HbA1c 7.2 with home medication of Metformin 500 mg BID. Use with caution given GFR nearing 30s. Plan -Consider discontinuing metformin if GFR continues to worsen ?Starting on sliding scale and continue to monitor #Hyperlipidemia ?Hold home medication rosuvastatin 5 mg. -Atorvastatin 20mg PO HS #Hyperbilirubinemia T.Bili 2.5 but no jaundice or abdominal pain. Most likely 2/2 congestion due to CHF exacerbation vs less likely secondary to biliary stones as denied upper quadrant pain and no jaundice noted. Consider hepatitis panel. Plan: -CTM #Depression Continue home sertraline 25 mg PO QD Code status: DNR DVT prophylaxis: Heparin Diet: Cardiac Loya: None Lines: PIV Supplemental O2: 4L on Nasal cannula Disposition: Tele I discussed this case with my senior Dr. Henry and my attending Dr. Mulu Love MD, PGY-1 Attending Provider Attestation/Addendum I have discussed and was present for the essential components of the history, physical examination, diagnosis, and treatment plan with the resident. I agree with the patient's care as documented by the resident and amended herein by me. Sam Hardwick, DO. Although this document has been carefully reviewed, there may still be some phonetic and other typographical errors. These errors are purely grammatical due to imperfections in the software program and should not be construed in any way to compromise the substance of the patient's medical care during this visit. Patient seen and evaluated this AM. No acute events overnight, patient significantly improved today, approximately 1200 mL fluid out today, echo results demonstrating EF of 20% with grade 2 diastolic dysfunction. Will hold diuresis today in setting of uptrending creatinine however the patient is urinating well today. Will continue fluconazole for finding of pulmonary coccidiomycosis, will also continue GDMT to include spironolactone, aspirin, Coreg and SGL 2 inhibitor. Losartan back tomorrow as blood pressure has been a bit soft. Discharge likely 1 to 2 days Home pending physical therapy recommendations, cardiology recommendations and continued improvement.
--- NOTE | 2025-03-13 14:58 | ESPR_ITS ---
RE: YAZMIN PAUL : 1945 DATE OF SERVICE: 03/13/2025 SUBJECTIVE: Mr. Paul is feeling somewhat better today. The patient is breathing better. Denies any complaints of chest pain. Denies any complaints of skipped beats or palpitation. OBJECTIVE: Vital Signs: Blood pressure this morning is 114/80, pulse rate is 66 and regular, respiratory rate is 27, temperature is 97, oxygen saturation is 94% on oxygen by nasal cannula. Heart: The heart examination is clear. Heart rhythm is staying in ventricular paced rhythm. Lungs: The lung shows slightly decreased breaths under the bases. Extremities: No pedal edema is noted. LABORATORY DATA: The lab work today shows WBC count of 13,500, hemoglobin 11.9 with a hematocrit of 35.5. The patient's BUN today is 31, creatinine is 1.7, potassium level is 3.6. Sodium is 138, chloride 99. The BNP level is even higher than yesterday and is 645. PLAN: The plan to continue the patient on intravenous diuretic therapy as well as all present medications. The dose of the spironolactone though will be increased from 12.5 mg daily to 25 mg daily. Anticoagulant therapy and antiplatelet therapy will be continued. Beta- javy therapy will be continued. Farxiga will also be continued. DT: 14:04:19 TT: 14:57:00 Ref: [id number] - TID: [id number]
--- NOTE | 2025-03-13 17:26 | PC.PT ---
Unable to do PT Evaluation today due to PT's high caseload.
[2025-03-13] MEDS: ATORVASTATIN CALCIUM 20 MG TABLET PO (21:05)
[2025-03-14] VITALS (13 sets, daily range): BP systolic 93–120; BP diastolic 65–91; PULSE 50–75; RESP 12–23; TEMP 36–36.7; O2SAT 92–100; BMI 26.0
[2025-03-14] MEDS: FUROSEMIDE INJ 10 MG/ML 4ML VIAL 40 MG IVP (05:41)
[2025-03-14 05:50] LABS: Basophils # (Auto) 0.1 Thou/mm3 (0.0-0.2); Basophils % (Auto) 1 % (0-2.5); Eosinophils # (Auto) 0.1 Thou/mm3 (0.0-0.5); Eosinophils % (Auto) 1 % (0-10); Hematocrit 37.8 % (41.0-53.0); Hemoglobin 12.6 g/dL (13.5-16.0); Immature Granulocytes Auto 0.08 Thou/mm3 (0.00-0.00); Lymphocytes # (Auto) 1.7 Thou/mm3 (1.0-4.8); Lymphocytes % (Auto) 15 % (10-50); Mean Corpuscular HGB Conc 33.3 g/dl (31.0-37.0); Mean Corpuscular Hemoglobin 32.6 pg (25.0-35.0); Mean Corpuscular Volume 98 fL (80-100); Monocytes # (Auto) 1.0 Thou/mm3 (0.0-0.8); Monocytes % (Auto) 9 % (0-12); Neutrophils # (Auto) 8.4 Thou/mm3 (1.8-7.7); Neutrophils % (Auto) 74 % (37-80); Nucleated Red Blood Cell # 0.00 Thou/mm3 (0.00-0.00); Nucleated Red Blood Cell % 0 /100 WBC (0); Platelet Count 171 Thou/mm3 (140-440); RDW Standard Deviation 54.4 fL (35.1-43.9); Red Blood Count 3.87 Miln/mm3 (4.50-5.90); White Blood Count 11.3 Thou/mm3 (3.8-10.6)
[2025-03-14 06:19] LABS: Alanine Aminotransferase 90 U/L (10-49); Albumin, Serum 4.4 gm/dL (3.4-4.8); Albumin/Globulin Ratio 1.8 (1.2-2.2); Alkaline Phosphatase 94 U/L (46-116); Anion Gap 13 (7-16); Aspartate Amino Transferase 82 U/L (0-34); BUN/Creatinine Ratio 22 Ratio (12-20); Bilirubin,Total 2.1 mg/dL (0.3-1.2); Blood Urea Nitrogen 41 mg/dL (9-23); Calcium 8.9 mg/dL (8.3-10.6); Calcium (Corrected) 8.9 mg/dL (8.5-10.1); Carbon Dioxide 27.4 mMol/L (20.0-31.0); Chloride 98 mMol/L (98-107); Creatinine (Component) 1.9 mg/dL (0.6-1.3); Estimated Creatinine Clearance 29.5 mL/min (>60); Globulin 2.5 gm/dL (2.3-3.5); Glucose 194 mg/dL (74-106); Magnesium 2.4 mg/dL (1.6-2.6); Osmolality,Calculated 290 (275-295); Phosphorous 3.7 mg/dL (2.4-5.1); Potassium 4.2 mMol/L (3.4-5.1); Sodium 138 mMol/L (136-145); Total Protein 6.9 gm/dL (5.7-8.2); eGFR 35 See Note
[2025-03-14] MEDS: INSULIN LISPRO (AdmeLOG) 1 UNIT/0.01 ML UNIT SC ×4 (07:31→21:26)
[2025-03-14] MEDS: APIXABAN 2.5 MG TABLET PO ×2 (08:46→21:21)
[2025-03-14] MEDS: DAPAGLIFLOZIN PROPANEDIOL 5 MG TABLET 10 MG PO (08:46)
[2025-03-14] MEDS: FLUCONAZOLE 100 MG TABLET 400 MG PO (08:48)
[2025-03-14] MEDS: SPIRONOLACTONE 25 MG TABLET PO (08:48)
[2025-03-14] MEDS: SERTRALINE HCL 25 MG TABLET PO (08:48)
[2025-03-14] MEDS: ASPIRIN EC 81 MG TABEC PO (08:49)
[2025-03-14] MEDS: LOSARTAN POTASSIUM 25 MG TABLET PO (08:49)
[2025-03-14] MEDS: AMIODARONE HCL 200 MG TABLET PO ×2 (08:49→21:25)
[2025-03-14] MEDS: TAMSULOSIN HCL 0.4 MG CAPSULE PO (08:49)
--- NOTE | 2025-03-14 09:45 | XR_ITS ---
EXAMINATION: AP chest single view TECHNIQUE: 1. AP portable sitting chest single view Date and time: March 14, 2025, 0954 hours, comparison March 10, 2025 INDICATIONS: Shortness of breath today. FINDINGS: Mild heart failure. Moderate enlargement cardiac contour. Cardiac leads in satisfactory position. No lobar pneumonia. Prominent osteopenia. IMPRESSION: Mild heart failure
--- NOTE | 2025-03-14 09:47 | PD.RESPRO ---
Documentation for date of: 03/14/25 No ovenright events. Patient examined at bedside. Patient continues to experience orthopnea and needs to continue to have head of the bed at least 30 degrees. Currently holding Lasix for an additional day given kidney function. Continue Carvedilol, resume Losartan (continue to monitor give renal function), and resume spironolactone. Potassium has noted to be increasing, continue to monitor with CKD and spironolactone use. Continue Dapagliflozin. Continue Amiodarone 200 mg BID for chronic history of atrial fibrillation and on Eliquis. Continue Fluconazole for pneumonia secondary to cocci. Pending physical therapy. Patient has already have home oxygen. Continue bipap overnight. - The patient's plan was discussed with attending Dr. Mulu Henry MD PGY2 Internal Medicine Subjective Subjective Interval history: WT: 77.7kg, Net: -1.57L Home losartan restarted, spiranolactone increased to 25mg and lasix was held (due to worsening KOSTA on CKD), lactulose given due to constipation since admission. His was at bedside. PT also was able to see the patient today, pending their note. confirms patient has home oxygen now as of this weekend. Patient examined bedside, labs reviewed. Patient was laying in bed working to breathe while on 5L NC O2 sat 82% interviewer raised the bed to 45 degrees and patients work of breathing decreased and his O2 sat rebounded to 99%. He reports feeling fine, but ongoing SOB with walking, which is to be expected with EF 20-25%. He reports poor sleep with Bipap last night, stating it was too dry, but enjoyed using it the night prior. Exam Vital Signs Temp Pulse Resp BP Pulse Ox O2 Del Method O2 Flow Rate 96.9 F 69 23 H 112/90 H 98 Nasal Cannula 3 03/14/25 08:00 03/14/25 08:49 03/14/25 08:00 03/14/25 08:49 03/14/25 08:00 03/14/25 08:00 03/14/25 08:00 FiO2 30 03/14/25 06:18 Narrative Exam GENERAL: NAD, AAOx3, breathing improved with sitting up from laying down HEENT: Moist mucosa. Eyes open, symmetrical, & clear CARDIO: Regular rhythm Noted. No Murmurs. PULM: +Orthopnea, +dry cough, +bilateral rhonchi GI: Abdomen soft, nondistended, Non Tenderness. SKIN/MSK/EXT: No wounds/rashes/amputations, no pain on palpation.No Edema. Pedal pulses present B/L NEURO: AAOx3, no focal neuro deficits, able to move all 4 extremities Objective Labs 03/14/25 05:15 03/14/25 05:15 Labs: Laboratory Results - last 24 hr 03/14/25 05:15 WBC 11.3 H RBC 3.87 L Hgb 12.6 L Hct 37.8 L MCV 98 MCH 32.6 MCHC 33.3 RDW Std Deviation 54.4 H Plt Count 171 Neut % (Auto) 74 Lymph % (Auto) 15 Toole % (Auto) 9 Eos % (Auto) 1 Baso % (Auto) 1 Neut # (Auto) 8.4 H Lymph # (Auto) 1.7 Toole # (Auto) 1.0 H Eos # (Auto) 0.1 Baso # (Auto) 0.1 Immature Gran # (Auto) 0.08 H Absolute Nucleated RBC 0.00 Immature Gran % 1 H Nucleated RBC % 0 Sodium 138 Potassium 4.2 D Chloride 98 Carbon Dioxide 27.4 Anion Gap 13 BUN 41 H Creatinine 1.9 H Estim Creat Clear Calc 29.5 L eGFR 35 L BUN/Creatinine Ratio 22 H Glucose 194 H Calculated Osmolality 290 Calcium 8.9 Corrected Calcium 8.9 Phosphorus 3.7 Magnesium 2.4 Total Bilirubin 2.1 H D AST 82 H ALT 90 H Alkaline Phosphatase 94 Total Protein 6.9 Albumin 4.4 Globulin 2.5 Albumin/Globulin Ratio 1.8 ABG Interpretation ABG results: 03/10/25 23:52 ABG pH 7.46 H ABG pCO2 30 L ABG pO2 77 L ABG HCO3 21 ABG O2 Saturation 97 ABG Base Excess -1 Quality Measures Quality Measures VTE prophylaxis Advance care planning discussed with:: other Assessment & Plan Assessment Current Active Medications: Generic Name Dose Route Start Last Admin Trade Name Freq PRN Reason Stop Dose Admin Acetaminophen 650 mg 03/11/25 07:16 Acetaminophen 325 Mg Tablet PO 04/09/25 22:46 Q6H PRN Fever >100.4 or Mild Pain 1-3 Albuterol/Ipratropium 3 ml 10/22/25 22:47 Albuterol/Ipratropium (Duoneb) Rt Ksenia 3 Ml Nebu INH 04/10/25 00:59 Q6HRRT PRN wheezing Amiodarone HCl 200 mg 03/12/25 09:00 03/14/25 08:49 Amiodarone Hcl 200 Mg Tablet PO 04/11/25 08:59 200 mg BID KOFFI Administration Apixaban 2.5 mg 03/11/25 09:00 03/14/25 08:46 Apixaban 2.5 Mg Tablet PO 04/10/25 08:59 2.5 mg BID KOFFI Administration Aspirin 81 mg 03/11/25 09:00 03/14/25 08:49 Aspirin Ec 81 Mg Tabec PO 04/10/25 08:59 81 mg QDAY KOFFI Administration Atorvastatin Calcium 20 mg 03/11/25 21:00 03/13/25 21:05 Atorvastatin Calcium 20 Mg Tablet PO 04/10/25 20:59 20 mg HS KOFFI Administration Carvedilol 3.125 mg 03/11/25 09:00 03/14/25 08:49 Carvedilol 3.125 Mg Tablet PO 04/10/25 08:59 3.125 mg BID KOFFI Administration Dapagliflozin 10 mg 03/12/25 09:00 03/14/25 08:46 Dapagliflozin Propanediol 5 Mg Tablet PO 04/11/25 08:59 10 mg QAM KOFFI Administration Dextrose 25 ml 03/10/25 23:00 Dextrose 50%-Water Inj 50 Ml Syringe IV 04/09/25 22:59 Q15MIN PRN BG 50-70 responsive npo pt Dextrose 50 ml 03/10/25 23:00 Dextrose 50%-Water Inj 50 Ml Syringe IV 04/09/25 22:59 Q15MIN PRN BG <50 OR BG <70 & pt unresponsive Fluconazole 400 mg 03/11/25 13:45 03/14/25 08:48 Fluconazole 100 Mg Tablet PO 03/18/25 13:44 400 mg QDAY KOFFI Administration Furosemide 40 mg 03/12/25 18:00 03/14/25 05:41 Furosemide Inj 10 Mg/Ml 4ml Vial IVP 04/11/25 17:59 40 mg On Hold: 03/14/25 09:45 BIDD KOFFI Administration Glucagon 1 mg 03/10/25 23:00 Glucagon Inj 1 Mg Vial IM Q15MIN PRN BG <70, and no IV access Insulin Human Lispro 0 unit 03/10/25 23:45 03/14/25 07:31 Insulin Lispro (Admelog) 1 Unit/0.01 Ml Unit SC 04/09/25 23:44 2 unit ACHS KOFFI Administration Protocol Losartan Potassium 25 mg 03/14/25 09:00 03/14/25 08:49 Losartan Potassium 25 Mg Tablet PO 04/13/25 08:59 25 mg QDAY KOFFI Administration Sennosides 1 tab 03/12/25 09:00 03/14/25 08:50 Senna Tablet PO 04/11/25 08:59 1 tab QDAY KOFFI Administration Protocol Sertraline HCl 25 mg 03/11/25 09:00 03/14/25 08:48 Sertraline Hcl 25 Mg Tablet PO 04/10/25 08:59 25 mg QDAY KOFFI Administration Spironolactone 25 mg 03/14/25 09:00 03/14/25 08:48 Spironolactone 25 Mg Tablet PO 04/13/25 08:59 25 mg DAILY KOFFI Administration Tamsulosin HCl 0.4 mg 03/12/25 09:00 03/14/25 08:49 Tamsulosin Hcl 0.4 Mg Capsule PO 04/11/25 08:59 0.4 mg QDAY KOFFI Administration Plan This is a 79-year-old male with past medical history of CAD S/P 2 stents (2013), CABG(triple bypass -2018), EF 20 to 25%, ICD with PM, hypertension, diabetes,hyperlipidemia presented to the ED with complaints of shortness of breath. He was admitted for CHF exacerbation. Cocci positive 03/11. Dr. Jenkins (telecommunication engineer) said there is nothing to do for his heart failure, can continue to diurese. holding lasix today 03/14 for worsening KOSTA. Today wt: 77.7kg #Acute Hypoxic Respiratory Failure # Acute on Chronic Decompensated Heart failure. # CABGx3(2018) ,CAD S/P Stent # Congestive CHF HFrEF 20-25% (02/2025) History of CAD, stent, CABG?triple bypass, ICD with pacemaker, hypertension, hyperlipidemia, diabetes. Shortness of breath. NYHA Class-3. D-dimer?841, No chest pain ,No Tachycardia, saturating well at minimum oxygen levels-low suspicious for PE. BNP?270, troponin 0.155. DDx: Concern for CHF exacerbation given peripheral edema and chest x-ray vs infectious given minimally elevated BNP and concern for leukocytosis vs PE given elevated d-dimer w/ Wells Score 0, thus low suspicion. PO2 77, pCO2 30, pH 7.40 X-ray showing pattern of CHF exacerbation. Furosemide 80 mg and nitroglycerin patch given in ED. Ejection fraction as per latest echo on 03/06 shows 20-25% At [facility] they stopped digoxin and start amiodarone Dx: - Fluid balance: -1577cc in the past 24 hours - TTE showed moderately dilated LV with soft systolic dysfunction and grade 2 diastolic dysfunction, estimated EF of 20 to 25%, RSVP 45 mmHg, severely dilated LA and moderately dilated RA, moderate aortic valve sclerosis and mild aortic regurgitation Rx: -Cardiology started p.o. dapagliflozin 10 mg every morning -amiodarone 200 mg BID -aspirin 81 mg, -Eliquis 2.5 mg, -carvedilol 3.125 mg PO BID -losartan 25 mg -spironolactone 12.5 mg PO QD increased to 25mg PO QD (03/14- ?Monitor input and output and daily weights and troponins. ? oxygen as required. ?Cardiology increased furosemide IV 40 mg daily -> BID (holding today for KOSTA on CKD) ?Cardiac diet and fluid restriction. # KOSTA on CKD #CKD III Concern for KOSTA concern for KOSTA on CKD given worsening GFR greater than 3 months and seen on renal US showing bilateral scarring of kidenys vs cardio-renal syndrome given CKD and CHF history vs obstructive as prostate volume >30. BUN 31, creatinine 1.9 --> BUN 34 Cr 1.8. Appears baseline creatinine 1.6. Plan -Continue to hold Lasix -Continue to monitor renal function/Cr. -Use lasix with caution and hold if necessary -avoid nephrotoxins -encourage oral hydration while on fluid restrictions. #Pneumonia Cocci # Leukocytosis --> resolving #Cough WBC 17.2 --> 13.6. UA unremarkable. Repeat CXR (03/14) shows less opacities bilaterally, however still vascular congestion from CHF. Plan: -Repeat CXR 03/14/2025 -Ordered urinalysis follow-up with the results -Cocci IgM positive, follow up on IgG Plan -continue to monitor for pyrexia -Flucanozole 400 mg QD PO -Benzocaine lozenge PO Q4HR PRN -Guaifenesin syrup PO QID #Transaminitis Elevated AST 82 ALT 90 ALP 94(normal) on day 3 of admission. Most likely due to decreased perfusion i/s/o of CHF. Plan: -CTM LFTs #??SHARON Per nurse, patient has witnessed apneic episodes when he sleeps and desats to the 80s Rx: ? BiPAP at night ? Outpatient sleep study #Constipation No BM since Saturday. Patient reports not being on a regular poop schedule/ pooping every other day. Plan: -Lactulose 20g PO TID syrup, hold once BM occurs #Diabetes Mellitus Type 2, non-insulin dependent -Initial Finger blood Glucose is 223, HbA1c 7.2 with home medication of Metformin 500 mg BID. Use with caution given GFR nearing 30s. Plan -Consider discontinuing metformin if GFR continues to worsen ?Starting on sliding scale and continue to monitor #Hx of chronic a fib s/p pacemaker Plan -Eliquis 2.5 mg BID #History of Hypertension ?Home medication, losartan 25 mg, spironolactone 25 mg plan -Restarted losartan 25 mg PO QD #Hx Hyperlipidemia ?Hold home medication rosuvastatin 5 mg. -Atorvastatin 20mg PO HS #Hyperbilirubinemia T.Bili 2.5 but no jaundice or abdominal pain. Most likely 2/2 congestion due to CHF exacerbation vs less likely secondary to biliary stones as denied upper quadrant pain and no jaundice noted. Consider hepatitis panel. Plan: -CTM #Hx Depression Continue home sertraline 25 mg PO QD #Hx of Intracranial bleed History of fall and brain scan at [facility] showed stable brain bleed. ?Patient's Eliquis was decreased to 2.5 mg bid ?Fall precautions Code status: DNR DVT prophylaxis: Heparin Diet: Cardiac Loya: None Lines: PIV Supplemental O2: 4L on Nasal cannula Disposition: Tele I discussed this case with my senior Dr. Henry and my attending Dr. Mulu Love MD, PGY-1 Attending Provider Attestation/Addendum I have discussed and was present for the essential components of the history, physical examination, diagnosis, and treatment plan with the resident. I agree with the patient's care as documented by the resident and amended herein by me. Sam Hardwick DO. Although this document has been carefully reviewed, there may still be some phonetic and other typographical errors. These errors are purely grammatical due to imperfections in the software program and should not be construed in any way to compromise the substance of the patient's medical care during this visit. Patient seen and evaluated this AM. Overnight, patient on 5 L NC this morning, respiratory rate 23, I/O 1180/2750 mL overnight. Patient is in no apparent acute distress. He does get easily short of breath when moving, especially lying flat hence we will keep his bed at 30 degrees. Ejection fraction is estimated at 20%. Slight uptrend in creatinine today to 1.9 likely from diuresis. We will order repeat chest x-ray today. Appreciate cardiology recommendations, for now we will continue his SGL 2 inhibitor, spironolactone uptitrated to 25 mg daily, amiodarone 200 mg PHILLIP, Eliquis 0.5 mg twice daily, aspirin 81 mg daily, statin, Coreg 3.125 mg p.o. twice daily and losartan 25 mg daily. 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 Patient's is at bedside, we did explain to her that the patient does have valley fever in setting of severe heart failure which may take some time to resolve. Physical therapy is ordered and is pending. Patient may need SNF placement.
[2025-03-14] MEDS: LACTULOSE SYRUP 20 GM/30 ML UDC 40 GM PO (10:51)
[2025-03-14] MEDS: guaiFENesin SYRUP 200 MG/10 ML UDC 100 MG PO ×3 (11:33→21:21)
--- NOTE | 2025-03-14 15:27 | ESPR_ITS ---
RE: YAZMIN PAUL : 1945 DATE OF SERVICE: 03/14/2025 SUBJECTIVE: Mr. Paul is resting fairly comfortably in bed this morning, though did complain of some restlessness and was not able to sleep well last night. The patient is not having any symptoms of chest pain though. Denies any complaints of skipped beats or palpitations. Denies any complaints of fever or chills. OBJECTIVE: Vital Signs: The blood pressure this morning is 106/75, pulse rate is 64, respirations 18, temperature is 97.4, oximetry saturation is 97% on 3 L of oxygen by nasal cannula. Heart: The heart examination is clear. Lungs: The lungs show slightly decreased breath sounds at the bases. Extremities: No pedal edema is noted. LABORATORY DATA: Today shows WBC count is 11,300, hemoglobin 12.6 with hematocrit of 37.8. The patient's BUN today is 41, creatinine 1.9, potassium level is 4.2. PLAN: Continue the patient on general supportive care and all present medications. Follow-up renal panel as well, BNP level will be ordered. Discharge planning is as per the hospitalist. DT: 12:48:27 TT: 15:25:00 Ref: [id number] - TID: [id number]
[2025-03-14] MEDS: ATORVASTATIN CALCIUM 20 MG TABLET PO (21:21)
[2025-03-15] VITALS (24 sets, daily range): BP systolic 82–130; BP diastolic 57–81; PULSE 57–115; RESP 12–26; TEMP 35.9–36.8; O2SAT 92–100; BMI 25.6; BMI 25.5; BMI 15.0
[2025-03-15 06:08] LABS: Basophils # (Auto) 0.1 Thou/mm3 (0.0-0.2); Basophils % (Auto) 1 % (0-2.5); Eosinophils # (Auto) 0.2 Thou/mm3 (0.0-0.5); Eosinophils % (Auto) 3 % (0-10); Hematocrit 35.8 % (41.0-53.0); Hemoglobin 12.0 g/dL (13.5-16.0); Immature Granulocytes Auto 0.09 Thou/mm3 (0.00-0.00); Lymphocytes # (Auto) 1.6 Thou/mm3 (1.0-4.8); Lymphocytes % (Auto) 17 % (10-50); Mean Corpuscular HGB Conc 33.5 g/dl (31.0-37.0); Mean Corpuscular Hemoglobin 33.3 pg (25.0-35.0); Mean Corpuscular Volume 99 fL (80-100); Monocytes # (Auto) 0.8 Thou/mm3 (0.0-0.8); Monocytes % (Auto) 9 % (0-12); Neutrophils # (Auto) 6.6 Thou/mm3 (1.8-7.7); Neutrophils % (Auto) 70 % (37-80); Nucleated Red Blood Cell # 0.00 Thou/mm3 (0.00-0.00); Nucleated Red Blood Cell % 0 /100 WBC (0); Platelet Count 166 Thou/mm3 (140-440); RDW Standard Deviation 55.2 fL (35.1-43.9); Red Blood Count 3.60 Miln/mm3 (4.50-5.90); White Blood Count 9.4 Thou/mm3 (3.8-10.6)
[2025-03-15] MEDS: guaiFENesin SYRUP 200 MG/10 ML UDC 100 MG PO ×4 (06:13→20:10)
[2025-03-15 06:46] LABS: Alanine Aminotransferase 72 U/L (10-49); Albumin, Serum 4.1 gm/dL (3.4-4.8); Albumin/Globulin Ratio 1.9 (1.2-2.2); Alkaline Phosphatase 92 U/L (46-116); Anion Gap 12 (7-16); Aspartate Amino Transferase 51 U/L (0-34); BUN/Creatinine Ratio 16 Ratio (12-20); Bilirubin,Total 1.5 mg/dL (0.3-1.2); Blood Urea Nitrogen 30 mg/dL (9-23); Calcium 8.7 mg/dL (8.3-10.6); Calcium (Corrected) 8.7 mg/dL (8.5-10.1); Carbon Dioxide 26.6 mMol/L (20.0-31.0); Chloride 98 mMol/L (98-107); Creatinine (Component) 1.9 mg/dL (0.6-1.3); Estimated Creatinine Clearance 29.5 mL/min (>60); Globulin 2.2 gm/dL (2.3-3.5); Glucose 222 mg/dL (74-106); Magnesium 2.4 mg/dL (1.6-2.6); Osmolality,Calculated 287 (275-295); Phosphorous 4.0 mg/dL (2.4-5.1); Potassium 3.6 mMol/L (3.4-5.1); Sodium 137 mMol/L (136-145); Total Protein 6.3 gm/dL (5.7-8.2); eGFR 35 See Note
[2025-03-15 07:02] LABS: B-Type Natriuretic Peptide 388 pg/mL (0-100)
[2025-03-15] MEDS: INSULIN LISPRO (AdmeLOG) 1 UNIT/0.01 ML UNIT SC ×4 (07:38→20:11)
[2025-03-15] MEDS: FLUCONAZOLE 100 MG TABLET 400 MG PO (09:06)
[2025-03-15] MEDS: DAPAGLIFLOZIN PROPANEDIOL 5 MG TABLET 10 MG PO (09:06)
[2025-03-15] MEDS: SERTRALINE HCL 25 MG TABLET PO (09:07)
[2025-03-15] MEDS: ASPIRIN EC 81 MG TABEC PO (09:07)
[2025-03-15] MEDS: APIXABAN 2.5 MG TABLET PO ×2 (09:08→20:11)
[2025-03-15] MEDS: TAMSULOSIN HCL 0.4 MG CAPSULE PO (09:08)
[2025-03-15] MEDS: SPIRONOLACTONE 25 MG TABLET PO (09:08)
--- NOTE | 2025-03-15 09:29 | PC.SS ---
Update: Plan is to d/c patient home today.
[2025-03-15] MEDS: RINGERS LACTATED 500 ML 500 ML 999 ML IV ×2 (11:41→15:50)
--- NOTE | 2025-03-15 12:16 | PC.SS ---
BARREL RAISER confirmed that patient would like to resume home health services with [facility]. Patient requesting 3-1 bedside commode. Referral to be submitted.
--- NOTE | 2025-03-15 13:07 | ESPR_ITS ---
RE: YAZMIN PAUL : 1945 DATE OF SERVICE: 03/15/2025 SUBJECTIVE: Mr. Paul is feeling somewhat better this morning. The patient is breathing fair at rest though is still requiring the oxygen. Denies any complaints of chest pain. Denies any complaints of skipped beats or palpitations. OBJECTIVE: Vital Signs: The patient's blood pressure this morning is 93/69, pulse rate is 66, respiratory rate is 16, temperature is 98.1, oximetry saturation is 96% on oxygen by nasal cannula at 3 L per minute. Heart: The heart examination is clear. Lungs: The lungs show slightly decreased breath sounds at the bases. Extremities: No pedal edema is noted. LABORATORY DATA: The patient's lab work today shows WBC count is down to normal and is 9,400, hemoglobin 12 g with hematocrit of 35.8. The patient's BUN today is 30, creatinine 1.9, potassium level is 3.6, glucose is 222, BNP level is better than before, though still elevated and is 388. PLAN: The patient's cardiac status at the present time is stable and present medications will be continued. Discharge planning is as per the hospitalist. The patient will be seen for cardiac followup visit in my office as outpatient. DT: 12:56:15 TT: 13:05:00 Ref: [id number] - TID: [id number]
--- NOTE | 2025-03-15 13:13 | PD.RESDS ---
Planned Discharge Date 03/15/25 DS: Providers Provider Date of admission: 03/10/25 22:31 Primary care physician: Carson Martino MD Admitting Provider: Jennifer Bullock MD Attending Provider on Admission: Mazin Hardwick DO Consults: 03/10/25 22:59 Consult to Cardiology Stat Comment: Consulting Provider: Keaton Jenkins 03/11/25 05:31 Referral Infection Control Routine Comment: Instructions: Recent admit at [facility] Reason for Infection Control Referral: Readmitted within 30 days 03/12/25 09:46 Referral Physical Therapy Routine Comment: Physician Instructions: Instructions: generalized weakness Attending Provider on DC: Mazin Hardwick DO Discharging Provider: Mazin Hardwick DO DS: Diagnosis Problem List Completed Was Problem List Reviewed/Reconciled?: Yes Hospital Course Hospital Course Hospital course: This is a 79-year-old male with past medical history of CAD S/P 2 stents (2013), CABG(triple bypass -2018), EF 20 to 25%, ICD with PM, hypertension, diabetes,hyperlipidemia presented to the ED with complaints of shortness of breath. He was admitted for CHF exacerbation. Cocci positive 03/11. Dr. Jenkins (computer customer support specialist) said there is nothing to do for his heart failure, can continue to diurese. holding lasix today 03/14 for worsening KOSTA. ED Course Summary: shonda ED visit vitals BP 114/68, pulse rate 61, respiratory 25, temperature 98.3, saturating 97% on 3 L of nasal cannula Pertinent lab findings are WBC 17.2, potassium 5.2, BUN 31, creatinine 1.9,, creatinine clearance 79.5, eGFR 35 ,glucose 232, total bilirubin 1.5, AST 36 D-dimer 841, BNP 270, Troponin 0.155. Chest x-ray shows perihilar congestion and appearance of moderate CHF EKG showed ventricular pacing rhythm. Treatment given in ED: Furosemide 80 mg IV, nitroglycerin 1 patch. Hospital Course: Discharge Instructions: -NEW Fluconazole 400 mg once daily for the next three months for Valley Fever Pneumonia. Please follow your primary care provider and follow up with titers on appropriate discontinuation of Fluconazole. Recommended 3-6 months. -NEW dose of spironolactone 25 mg daily for your heart failure -New Atorvastatin 20 mg at night. STOP Rosuvastatin. -Start Tamsulosin 0.4 mg daily for your enlarged prostate, please follow up with urology or primary care -STOP Digoxin. - We have held your medication Dapagliflozin until you see your PCP -Continue to track your weight daily, if you see change in 2-3 lbs, please notify your computer customer support specialist. Please limit salt intake to 2 grams of salt per day -Please follow up with your computer customer support specialist, Dr. Jenkins, within 1-2 weeks of discharge. -Please follow up with your primary care provider within one week of discharge -If your symptoms worsen,please seek immediate medical attention and return to your nearest emergency room -If you do not have a primary care provider, you may follow up at the [facility] at [address] [place] [address] [address], [place] [address], Today wt: 77.7kg #Acute Hypoxic Respiratory Failure # Acute on Chronic Decompensated Heart failure. # CABGx3(2018) ,CAD S/P Stent # Congestive CHF HFrEF 20-25% (02/2025) History of CAD, stent, CABG?triple bypass, ICD with pacemaker, hypertension, hyperlipidemia, diabetes. Shortness of breath. NYHA Class-3. D-dimer?841, No chest pain ,No Tachycardia, saturating well at minimum oxygen levels-low suspicious for PE. BNP?270, troponin 0.155. DDx: Concern for CHF exacerbation given peripheral edema and chest x-ray vs infectious given minimally elevated BNP and concern for leukocytosis vs PE given elevated d-dimer w/ Wells Score 0, thus low suspicion. PO2 77, pCO2 30, pH 7.40 X-ray showing pattern of CHF exacerbation. Furosemide 80 mg and nitroglycerin patch given in ED. Ejection fraction as per latest echo on 03/06 shows 20-25% At [facility] they stopped digoxin and start amiodarone Dx: - Fluid balance: -1577cc in the past 24 hours - TTE showed moderately dilated LV with soft systolic dysfunction and grade 2 diastolic dysfunction, estimated EF of 20 to 25%, RSVP 45 mmHg, severely dilated LA and moderately dilated RA, moderate aortic valve sclerosis and mild aortic regurgitation Rx: -Cardiology started p.o. dapagliflozin 10 mg every morning -amiodarone 200 mg BID -aspirin 81 mg, -Eliquis 2.5 mg, -carvedilol 3.125 mg PO BID -losartan 25 mg -spironolactone 12.5 mg PO QD increased to 25mg PO QD (03/14- ?Monitor input and output and daily weights and troponins. ? oxygen as required. ?Cardiology increased furosemide IV 40 mg daily -> BID (holding today for KOSTA on CKD) ?Cardiac diet and fluid restriction. # KOSTA on CKD #CKD III Concern for KOSTA concern for KOSTA on CKD given worsening GFR greater than 3 months and seen on renal US showing bilateral scarring of kidenys vs cardio-renal syndrome given CKD and CHF history vs obstructive as prostate volume >30. BUN 31, creatinine 1.9 --> BUN 34 Cr 1.8. Appears baseline creatinine 1.6. Plan -Continue to hold Lasix -Continue to monitor renal function/Cr. -Use lasix with caution and hold if necessary -avoid nephrotoxins -encourage oral hydration while on fluid restrictions. #Pneumonia Cocci # Leukocytosis --> resolving #Cough WBC 17.2 --> 13.6. UA unremarkable. Repeat CXR (03/14) shows less opacities bilaterally, however still vascular congestion from CHF. Plan: -Repeat CXR 03/14/2025 -Ordered urinalysis follow-up with the results -Cocci IgM positive, follow up on IgG Plan -continue to monitor for pyrexia -Flucanozole 400 mg QD PO -Benzocaine lozenge PO Q4HR PRN -Guaifenesin syrup PO QID #Transaminitis Elevated AST 82 ALT 90 ALP 94(normal) on day 3 of admission. Most likely due to decreased perfusion i/s/o of CHF. Plan: -CTM LFTs #??SHARON Per nurse, patient has witnessed apneic episodes when he sleeps and desats to the 80s Rx: ? BiPAP at night ? Outpatient sleep study #Constipation No BM since Saturday. Patient reports not being on a regular poop schedule/ pooping every other day. Plan: -Lactulose 20g PO TID syrup, hold once BM occurs #Diabetes Mellitus Type 2, non-insulin dependent -Initial Finger blood Glucose is 223, HbA1c 7.2 with home medication of Metformin 500 mg BID. Use with caution given GFR nearing 30s. Plan -Consider discontinuing metformin if GFR continues to worsen ?Starting on sliding scale and continue to monitor #Hx of chronic a fib s/p pacemaker Plan -Eliquis 2.5 mg BID #History of Hypertension ?Home medication, losartan 25 mg, spironolactone 25 mg plan -Restarted losartan 25 mg PO QD #Hx Hyperlipidemia ?Hold home medication rosuvastatin 5 mg. -Atorvastatin 20mg PO HS #Hyperbilirubinemia T.Bili 2.5 but no jaundice or abdominal pain. Most likely 2/2 congestion due to CHF exacerbation vs less likely secondary to biliary stones as denied upper quadrant pain and no jaundice noted. Consider hepatitis panel. Plan: -CTM #Hx Depression Continue home sertraline 25 mg PO QD #Hx of Intracranial bleed History of fall and brain scan at [facility] showed stable brain bleed. ?Patient's Eliquis was decreased to 2.5 mg bid ?Fall precautions # Patient's plan and care discussed with my attending, Dr. Hardwick and supervising resident MD Sukhdeep Kohli MD Internal Medicine PGY-1 Status at Discharge Functional status at discharge: independent ambulation Overall status at discharge: patient is back to baseline Time Spent with Patient Time attestation: Total time spent providing and/or coordinating discharge services: Time spent: Greater than 30 minutes Exam Vital Signs Temp Pulse Resp BP Pulse Ox O2 Del Method O2 Flow Rate 98.1 F 66 16 93/69 96 Nasal Cannula 3 03/15/25 12:00 03/15/25 12:00 03/15/25 12:00 03/15/25 12:00 03/15/25 12:00 03/15/25 12:00 03/15/25 12:00 FiO2 30 03/15/25 08:00 Narrative Exam GENERAL: NAD, AAOx3, breathing improved with sitting up from laying down HEENT: Moist mucosa. Eyes open, symmetrical, & clear CARDIO: Regular rhythm Noted. No Murmurs. PULM: +Orthopnea, +dry cough, +bilateral rhonchi GI: Abdomen soft, nondistended, Non Tenderness. SKIN/MSK/EXT: No wounds/rashes/amputations, no pain on palpation.No Edema. Pedal pulses present B/L NEURO: AAOx3, no focal neuro deficits, able to move all 4 extremities Discharge Plan Plan Patient Disposition: HOME (Self Care) Patient condition on transfer: Stable Care Plan Goals: Instructions: -NEW Fluconazole 400 mg once daily for the next three months for Valley Fever Pneumonia. Please follow your primary care provider and follow up with titers on appropriate discontinuation of Fluconazole. Recommended 3-6 months. -NEW dose of spironolactone 25 mg daily for your heart failure -New Atorvastatin 20 mg at night. STOP Rosuvastatin. -Start Tamsulosin 0.4 mg daily for your enlarged prostate, please follow up with urology or primary care -STOP Digoxin. - We have held your medication Dapagliflozin until you see your PCP -Continue to track your weight daily, if you see change in 2-3 lbs, please notify your computer customer support specialist. Please limit salt intake to 2 grams of salt per day -Please follow up with your computer customer support specialist, Dr. Jenkins, within 1-2 weeks of discharge. -Please follow up with your primary care provider within one week of discharge -If your symptoms worsen,please seek immediate medical attention and return to your nearest emergency room -If you do not have a primary care provider, you may follow up at the [facility] at [address] [place] [address] [address], [place] [address], Prescriptions/Referrals Prescriptions/Med Rec: New fluconazole 100 mg Tablet 400 mg PO QDAY 90 Days Qty: 360 0RF atorvastatin 20 mg Tablet 20 mg PO HS 90 Days Qty: 90 0RF spironolactone 25 mg Tablet 25 mg PO DAILY 90 Days Qty: 90 0RF tamsulosin 0.4 mg Capsule 0.4 mg PO QDAY 90 Days Qty: 90 0RF guaifenesin 100 mg/5 mL Liquid 100 mg PO QID 14 Days Qty: 280 0RF (DME) compression socks, medium Misc See Rx Instructions .Route Qty: 1 0RF Rx Instructions: As directed Continued metformin 500 mg Tablet 500 mg PO BID aspirin [Lidia Low Dose Aspirin] 81 mg Tablet,Delayed Release (Dr/Ec) 81 mg PO QDAY carvedilol 3.125 mg Tablet 3.125 mg PO BID losartan 25 mg Tablet 25 mg PO QDAY docusate sodium [Stool Softener] 100 mg Capsule 100 mg PO BID Eliquis 2.5 mg tablet 2.5 mg PO Q12H amiodarone 200 mg tablet 200 mg PO Q12H furosemide 20 mg tablet 20 mg PO DAILY Patient Comments: TAKE 1 TABLET BY MOUTH EVERY DAY sertraline 25 mg tablet 25 mg PO DAILY Patient Comments: TAKE 1 TABLET BY MOUTH EVERY DAY Held dapagliflozin propanediol [Farxiga] 10 mg tablet 10 mg PO QDAY Hold Instructions: Resume on 03/22/25. hold until you see PCP Discontinued nitroglycerin 0.4 MG tablet, sublingual 0.4 mg SL PRN PRN (Reason: Chest Pain) Qty: 0 tramadol 50 mg Tablet 5 mg PO QDAY famotidine 20 mg Tablet 20 mg PO QDAY ferrous sulfate [FeroSul] 325 mg (65 mg iron) Tablet 325 mg PO QDAY digoxin 125 mcg (0.125 mg) Tablet 125 mcg PO QDAY rosuvastatin 5 mg Tablet 5 mg PO QDAY terazosin 1 mg Capsule 1 mg PO QDAY spironolactone 25 mg tablet 12.5 mg PO DAILY Patient Comments: TAKE 1/2 TABLET BY MOUTH EVERY DAY Referrals: Keaton Jenkins MD [Physician, Cardiology] Carson Martino MD [Primary Care Provider, Family Practice] Patient/Caregiver Discharge Instructions Education Materials: Understanding Coccidioidomycosis, Heart Failure Print Language: Czech Stand Alone Forms: [employer] Award Info., Patient Portal Info Letter Discharge Order Discharge Orders: Discharge (Routine); Ordered 03/15/25 Ordered By: David Wiggins
--- NOTE | 2025-03-15 15:34 | XR_ITS ---
EXAMINATION: AP chest single view TECHNIQUE: AP portable upright chest single view Date and time: March 15, 2025, 1548 hours INDICATIONS: Rapid response today, pacemaker shock FINDINGS: Moderate enlargement left ventricle CABG Mild heart failure with pulmonary vascular congestion Prominent osteopenia Cardiac leads satisfactory position IMPRESSION: Mild heart failure
--- NOTE | 2025-03-15 15:42 | EVENTNT_ITS ---
Documentation for date of: 03/15/25 Event Note Event Note: 03/15/2025, [employer] was called at time: 15:33 for bed# [id number] given concern of shock from [employer] AICD. Patient examined at bedside. Alert and Orientated X 3. Bilateral vesicular breath sounds. Protecting airway, normal respiratory rate, and perfusing well. NO new medication was administered prior to rapid. Vitals: BP 130/81, HR 97, RR 18, O2 sat 97 on 2L NC, bedside glucose 186. Prior to rapid patient was sleeping when a jerk was noted by patient's that became concern and called nurse to bedside. Labs: CBC,CMP, Mg, Phosphate, Chest x-ray, and Latic acid (returned at 2.5) were drawn and were stable from AM work up. Intervention: 250 cc bolus and [employer] AICD interrogation. Patient is stable, Dr. Jenkins, cardiology was notified and recommended discharge tomorrow pending patient condition in AM. Family discussed plan for potential DC to SNF. case was discussed with attending, Dr. Hardwick and co-resident, Dr. Elaine Love MD - The patient's plan was discussed with attending Dr. Mulu Henry MD PGY2 Internal Medicine
--- NOTE | 2025-03-15 15:42 | ESPR_ITS ---
Documentation for date of: 03/15/25 No overnight events. Patient continues to be Alert and Orientated X 3. Continues to use Bipap overnight. Continues to saturate well on 3-4 Liters of oxygen. Denied chest pain. Held patient's Fargixa as patient's MAP dropped. Patient is scheduled to be discharged later this evening. Rapid Response called this evening as there was concern for shock by ICD as reported by patient's . CBC, CMP, Phosphate, and Mg ordered. Chest X-ray and EKG. ICD under investigation and report is pending. DISCHARGED CANCELED. Family open to SNF. - The patient's plan was discussed with attending Dr. Mulu Henry MD PGY2 Internal Medicine - Subjective Subjective Interval history: Wt: 76.521 IO: net -30mL. TRACTOR OPERATOR [employer] was called in the afternoon due to defibrillator shock. Patient is stable. Plan to DC today, delayed due to rapid, consulted Dr. Jenkins, annamaria to DC tomorrow. Patient is very comfortable and felt as though he was woken up from a nap. PT saw patient, and patient had BM today. Exam Vital Signs Temp Pulse Resp BP Pulse Ox O2 Del Method O2 Flow Rate 98.1 F 115 H 18 130/81 97 Nasal Cannula 2 03/15/25 12:00 03/15/25 15:40 03/15/25 15:40 03/15/25 15:40 03/15/25 15:40 03/15/25 15:40 03/15/25 15:40 FiO2 30 03/15/25 08:00 Narrative Exam GENERAL: NAD, AAOx3, breathing easily sitting up in bed HEENT: Moist mucosa. Eyes open, symmetrical, & clear CARDIO: Regular rhythm Noted. Systolic ejection murmur PULM: +Orthopnea, +dry cough, +bilateral rhonchi GI: Abdomen soft, nondistended, Non Tenderness. SKIN/MSK/EXT: No wounds/rashes/amputations, no pain on palpation.No Edema. Pedal pulses present B/L NEURO: AAOx3, no focal neuro deficits, able to move all 4 extremities Objective Labs 03/15/25 15:57 03/15/25 15:57 Labs: Laboratory Results - last 24 hr 03/15/25 04:53 WBC 9.4 RBC 3.60 L Hgb 12.0 L Hct 35.8 L MCV 99 MCH 33.3 MCHC 33.5 RDW Std Deviation 55.2 H Plt Count 166 Neut % (Auto) 70 Lymph % (Auto) 17 [place] % (Auto) 9 Eos % (Auto) 3 Baso % (Auto) 1 Neut # (Auto) 6.6 Lymph # (Auto) 1.6 [place] # (Auto) 0.8 Eos # (Auto) 0.2 Baso # (Auto) 0.1 Immature Gran # (Auto) 0.09 H Absolute Nucleated RBC 0.00 Immature Gran % 1 H Nucleated RBC % 0 Sodium 137 Potassium 3.6 D Chloride 98 Carbon Dioxide 26.6 Anion Gap 12 BUN 30 H Creatinine 1.9 H Estim Creat Clear Calc 29.5 L eGFR 35 L BUN/Creatinine Ratio 16 Glucose 222 H Calculated Osmolality 287 Calcium 8.7 Corrected Calcium 8.7 Phosphorus 4.0 Magnesium 2.4 Total Bilirubin 1.5 H D AST 51 H ALT 72 H Alkaline Phosphatase 92 B-Natriuretic Peptide 388 H Total Protein 6.3 Albumin 4.1 Globulin 2.2 L Albumin/Globulin Ratio 1.9 ABG Interpretation ABG results: 03/10/25 23:52 ABG pH 7.46 H ABG pCO2 30 L ABG pO2 77 L ABG HCO3 21 ABG O2 Saturation 97 ABG Base Excess -1 Quality Measures Quality Measures VTE prophylaxis Advance care planning discussed with:: other Assessment & Plan Assessment Current Active Medications: Generic Name Dose Route Start Last Admin Trade Name Freq PRN Reason Stop Dose Admin Acetaminophen 650 mg 03/11/25 07:16 Acetaminophen 325 Mg Tablet PO 04/09/25 22:46 Q6H PRN Fever >100.4 or Mild Pain 1-3 Albuterol/Ipratropium 3 ml 03/10/25 22:47 Albuterol/Ipratropium (Duoneb) Rt Ksenia 3 Ml Nebu INH 04/10/25 00:59 Q6HRRT PRN wheezing Amiodarone HCl 200 mg 03/12/25 09:00 03/15/25 11:42 Amiodarone Hcl 200 Mg Tablet PO 04/11/25 08:59 Not Given BID KOFFI Apixaban 2.5 mg 03/11/25 09:00 03/15/25 09:08 Apixaban 2.5 Mg Tablet PO 04/10/25 08:59 2.5 mg BID KOFFI Administration Aspirin 81 mg 03/11/25 09:00 03/15/25 09:07 Aspirin Ec 81 Mg Tabec PO 04/10/25 08:59 81 mg QDAY KOFFI Administration Atorvastatin Calcium 20 mg 03/11/25 21:00 03/14/25 21:21 Atorvastatin Calcium 20 Mg Tablet PO 04/10/25 20:59 20 mg HS KOFFI Administration Benzocaine 1 lozenge 03/14/25 11:14 Benzocaine/Menthol 1 Lozenge PO 04/13/25 11:13 Q4HR PRN COUGH Carvedilol 3.125 mg 03/15/25 08:00 03/15/25 07:39 Carvedilol 3.125 Mg Tablet PO 04/10/25 08:59 3.125 mg BIDWM KOFFI Administration Dapagliflozin 10 mg 03/12/25 09:00 03/15/25 09:06 Dapagliflozin Propanediol 5 Mg Tablet PO 04/11/25 08:59 10 mg QAM KOFFI Administration Dextrose 25 ml 03/10/25 23:00 Dextrose 50%-Water Inj 50 Ml Syringe IV 04/09/25 22:59 Q15MIN PRN BG 50-70 responsive npo pt Dextrose 50 ml 03/10/25 23:00 Dextrose 50%-Water Inj 50 Ml Syringe IV 04/09/25 22:59 Q15MIN PRN BG <50 OR BG <70 & pt unresponsive Fluconazole 400 mg 03/11/25 13:45 03/15/25 09:06 Fluconazole 100 Mg Tablet PO 03/18/25 13:44 400 mg QDAY KOFFI Administration Glucagon 1 mg 03/10/25 23:00 Glucagon Inj 1 Mg Vial IM Q15MIN PRN BG <70, and no IV access Guaifenesin 100 mg 03/14/25 12:00 03/15/25 11:53 Guaifenesin Syrup 200 Mg/10 Ml Udc PO 04/13/25 11:59 100 mg QID KOFFI Administration Protocol Insulin Human Lispro 0 unit 03/10/25 23:45 03/15/25 11:44 Insulin Lispro (Admelog) 1 Unit/0.01 Ml Unit SC 04/09/25 23:44 2 unit ACHS KOFFI Administration Protocol Lactulose 20 gm 03/14/25 14:00 03/15/25 13:57 Lactulose Syrup 20 Gm/30 Ml Udc PO 04/13/25 13:59 Not Given TID KOFFI Protocol Losartan Potassium 25 mg 03/14/25 09:00 03/15/25 11:43 Losartan Potassium 25 Mg Tablet PO 04/13/25 08:59 Not Given QDAY KOFFI Sennosides 1 tab 03/12/25 09:00 03/15/25 09:06 Senna Tablet PO 04/11/25 08:59 1 tab QDAY KOFFI Administration Protocol Sertraline HCl 25 mg 03/11/25 09:00 03/15/25 09:07 Sertraline Hcl 25 Mg Tablet PO 04/10/25 08:59 25 mg QDAY KOFFI Administration Spironolactone 25 mg 03/14/25 09:00 03/15/25 09:08 Spironolactone 25 Mg Tablet PO 04/13/25 08:59 25 mg DAILY KOFFI Administration Tamsulosin HCl 0.4 mg 03/12/25 09:00 03/15/25 09:08 Tamsulosin Hcl 0.4 Mg Capsule PO 04/11/25 08:59 0.4 mg QDAY KOFFI Administration Plan This is a 79-year-old male with past medical history of CAD S/P 2 stents (2013), CABG(triple bypass -2018), EF 20 to 25%, ICD with PM, hypertension, diabetes,hyperlipidemia presented to the ED with complaints of shortness of breath. He was admitted for CHF exacerbation. Cocci positive 03/11. Dr. Jenkins (quality management nurse) said there is nothing to do for his heart failure, can continue to diurese. Holding lasix for worsening KOSTA. [employer] OPER[employer] was called today, for ICD shocks, however, [employer] rep was called and stated there were no shocks today, last shock was 03/05. Today wt: 76.521kg Net IO: -30cc #Acute Hypoxic Respiratory Failure # Acute on Chronic Decompensated Heart failure. # CABGx3(2018) ,CAD S/P Stent # Congestive CHF HFrEF 20-25% (02/2025) History of CAD, stent, CABG?triple bypass, ICD with pacemaker, hypertension, hyperlipidemia, diabetes. Shortness of breath. NYHA Class-3. D-dimer?841, No chest pain ,No Tachycardia, saturating well at minimum oxygen levels-low suspicious for PE. BNP?270, troponin 0.155. DDx: Concern for CHF exacerbation given peripheral edema and chest x-ray vs infectious given minimally elevated BNP and concern for leukocytosis vs PE given elevated d-dimer w/ Wells Score 0, thus low suspicion. PO2 77, pCO2 30, pH 7.40 X-ray showing pattern of CHF exacerbation. Furosemide 80 mg and nitroglycerin patch given in ED. Ejection fraction as per latest echo on 03/06 shows 20-25% At [facility] they stopped digoxin and start amiodarone Dx: - Fluid balance: -30cc in the past 24 hours - TTE showed moderately dilated LV with soft systolic dysfunction and grade 2 diastolic dysfunction, estimated EF of 20 to 25%, RSVP 45 mmHg, severely dilated LA and moderately dilated RA, moderate aortic valve sclerosis and mild aortic regurgitation Rx: -Cardiology started p.o. dapagliflozin 10 mg every morning -amiodarone 200 mg BID -aspirin 81 mg, -Eliquis 2.5 mg, -carvedilol 3.125 mg PO BID -losartan 25 mg -spironolactone 12.5 mg PO QD increased to 25mg PO QD (03/14- ?Monitor input and output and daily weights and troponins. ? oxygen as required. ?Cardiology increased furosemide IV 40 mg daily -> BID (holding today for KOSTA on CKD) ?Cardiac diet and fluid restriction. # KOSTA on CKD #CKD III Concern for KOSTA concern for KOSTA on CKD given worsening GFR greater than 3 months and seen on renal US showing bilateral scarring of kidenys vs cardio-renal syndrome given CKD and CHF history vs obstructive as prostate volume >30. BUN 31, creatinine 1.9 --> BUN 34 Cr 1.8. Appears baseline creatinine 1.6. Plan -Continue to hold Lasix -Continue to monitor renal function/Cr. -Use lasix with caution and hold if necessary -avoid nephrotoxins -encourage oral hydration while on fluid restrictions. #Pneumonia Cocci # Leukocytosis --> resolving #Cough WBC 17.2 --> 13.6. UA unremarkable. Repeat CXR (03/14) shows less opacities bilaterally, however still vascular congestion from CHF. Plan: -Repeat CXR 03/14/2025 -Ordered urinalysis follow-up with the results -Cocci IgM positive, follow up on IgG Plan -continue to monitor for pyrexia -Flucanozole 400 mg QD PO -Benzocaine lozenge PO Q4HR PRN -Guaifenesin syrup PO QID #Transaminitis Elevated AST 82 ALT 90 ALP 94(normal) on day 3 of admission. Most likely due to decreased perfusion i/s/o of CHF. Plan: -CTM LFTs #??SHARON Per nurse, patient has witnessed apneic episodes when he sleeps and desats to the 80s Rx: ? BiPAP at night ? Outpatient sleep study #Constipation No BM since Saturday. Patient reports not being on a regular poop schedule/ pooping every other day. Plan: -Lactulose 20g PO TID syrup, hold once BM occurs #Diabetes Mellitus Type 2, non-insulin dependent -Initial Finger blood Glucose is 223, HbA1c 7.2 with home medication of Metformin 500 mg BID. Use with caution given GFR nearing 30s. Plan -Consider discontinuing metformin if GFR continues to worsen ?Starting on sliding scale and continue to monitor #Hx of chronic a fib s/p pacemaker Plan -Eliquis 2.5 mg BID #History of Hypertension ?Home medication, losartan 25 mg, spironolactone 25 mg plan -Restarted losartan 25 mg PO QD #Hx Hyperlipidemia ?Hold home medication rosuvastatin 5 mg. -Atorvastatin 20mg PO HS #Hyperbilirubinemia T.Bili 2.5 but no jaundice or abdominal pain. Most likely 2/2 congestion due to CHF exacerbation vs less likely secondary to biliary stones as denied upper quadrant pain and no jaundice noted. Consider hepatitis panel. Plan: -CTM #Hx Depression Continue home sertraline 25 mg PO QD #Hx of Intracranial bleed History of fall and brain scan at [facility] showed stable brain bleed. ?Patient's Eliquis was decreased to 2.5 mg bid ?Fall precautions Code status: DNR DVT prophylaxis: Heparin Diet: Cardiac Loya: None Lines: PIV Supplemental O2: 4L on Nasal cannula Disposition: Tele I discussed this case with my senior Dr. Henry and my attending Dr. Mulu Love MD, PGY-1 Attending Provider Attestation/Addendum I have discussed and was present for the essential components of the history, physical examination, diagnosis, and treatment plan with the resident. I agree with the patient's care as documented by the resident and amended herein by me. Sam Hardwick DO. Although this document has been carefully reviewed, there may still be some phonetic and other typographical errors. These errors are purely grammatical due to imperfections in the software program and should not be construed in any way to compromise the substance of the patient's medical care during this visit.
[2025-03-15 16:20] LABS: Basophils # (Auto) 0.1 Thou/mm3 (0.0-0.2); Basophils % (Auto) 1 % (0-2.5); Eosinophils # (Auto) 0.3 Thou/mm3 (0.0-0.5); Eosinophils % (Auto) 2 % (0-10); Hematocrit 36.9 % (41.0-53.0); Hemoglobin 12.3 g/dL (13.5-16.0); Immature Granulocytes Auto 0.08 Thou/mm3 (0.00-0.00); Lactate (Lactic Acid) 2.5 mMol/L (0.4-2.0); Lymphocytes # (Auto) 1.6 Thou/mm3 (1.0-4.8); Lymphocytes % (Auto) 14 % (10-50); Mean Corpuscular HGB Conc 33.3 g/dl (31.0-37.0); Mean Corpuscular Hemoglobin 32.7 pg (25.0-35.0); Mean Corpuscular Volume 98 fL (80-100); Monocytes # (Auto) 0.9 Thou/mm3 (0.0-0.8); Monocytes % (Auto) 7 % (0-12); Neutrophils # (Auto) 8.7 Thou/mm3 (1.8-7.7); Neutrophils % (Auto) 75 % (37-80); Nucleated Red Blood Cell # 0.03 Thou/mm3 (0.00-0.00); Nucleated Red Blood Cell % 0 /100 WBC (0); Platelet Count 188 Thou/mm3 (140-440); RDW Standard Deviation 55.0 fL (35.1-43.9); Red Blood Count 3.76 Miln/mm3 (4.50-5.90); White Blood Count 11.7 Thou/mm3 (3.8-10.6)
[2025-03-15 16:40] LABS: Alanine Aminotransferase 73 U/L (10-49); Albumin, Serum 4.2 gm/dL (3.4-4.8); Albumin/Globulin Ratio 1.7 (1.2-2.2); Alkaline Phosphatase 98 U/L (46-116); Anion Gap 10 (7-16); Aspartate Amino Transferase 47 U/L (0-34); BUN/Creatinine Ratio 21 Ratio (12-20); Bilirubin,Total 1.4 mg/dL (0.3-1.2); Blood Urea Nitrogen 35 mg/dL (9-23); Calcium 9.1 mg/dL (8.3-10.6); Calcium (Corrected) 9.1 mg/dL (8.5-10.1); Carbon Dioxide 26.1 mMol/L (20.0-31.0); Chloride 101 mMol/L (98-107); Creatinine (Component) 1.7 mg/dL (0.6-1.3); Estimated Creatinine Clearance 33.0 mL/min (>60); Globulin 2.5 gm/dL (2.3-3.5); Glucose 205 mg/dL (74-106); Osmolality,Calculated 287 (275-295); Phosphorous 3.9 mg/dL (2.4-5.1); Potassium 4.7 mMol/L (3.4-5.1); Sodium 137 mMol/L (136-145); Total Protein 6.7 gm/dL (5.7-8.2); eGFR 40 See Note
[2025-03-15 19:15] LABS: Reflex Lactate? Y
[2025-03-15 19:37] LABS: Lactic Acid, 3 HR 1.4 mMol/L (0.4-2.0)
[2025-03-15] MEDS: ATORVASTATIN CALCIUM 20 MG TABLET PO (20:10)
[2025-03-15] MEDS: AMIODARONE HCL 200 MG TABLET PO (20:11)
[2025-03-16] VITALS (19 sets, daily range): BP systolic 91–116; BP diastolic 58–83; PULSE 60–77; RESP 8–30; TEMP 35.9–37; O2SAT 94–99; BMI 25.9
[2025-03-16] MEDS: LACTULOSE SYRUP 20 GM/30 ML UDC PO (05:34)
[2025-03-16] MEDS: guaiFENesin SYRUP 200 MG/10 ML UDC 100 MG PO ×4 (05:34→20:37)
[2025-03-16 05:55] LABS: Basophils # (Auto) 0.1 Thou/mm3 (0.0-0.2); Basophils % (Auto) 1 % (0-2.5); Eosinophils # (Auto) 0.3 Thou/mm3 (0.0-0.5); Eosinophils % (Auto) 2 % (0-10); Hematocrit 36.0 % (41.0-53.0); Hemoglobin 12.0 g/dL (13.5-16.0); Immature Granulocytes Auto 0.08 Thou/mm3 (0.00-0.00); Lymphocytes # (Auto) 1.6 Thou/mm3 (1.0-4.8); Lymphocytes % (Auto) 14 % (10-50); Mean Corpuscular HGB Conc 33.3 g/dl (31.0-37.0); Mean Corpuscular Hemoglobin 32.8 pg (25.0-35.0); Mean Corpuscular Volume 98 fL (80-100); Monocytes # (Auto) 1.0 Thou/mm3 (0.0-0.8); Monocytes % (Auto) 9 % (0-12); Neutrophils # (Auto) 8.2 Thou/mm3 (1.8-7.7); Neutrophils % (Auto) 74 % (37-80); Nucleated Red Blood Cell # 0.00 Thou/mm3 (0.00-0.00); Nucleated Red Blood Cell % 0 /100 WBC (0); Platelet Count 191 Thou/mm3 (140-440); RDW Standard Deviation 54.5 fL (35.1-43.9); Red Blood Count 3.66 Miln/mm3 (4.50-5.90); White Blood Count 11.2 Thou/mm3 (3.8-10.6)
[2025-03-16 06:31] LABS: Alanine Aminotransferase 62 U/L (10-49); Albumin, Serum 4.1 gm/dL (3.4-4.8); Albumin/Globulin Ratio 1.8 (1.2-2.2); Alkaline Phosphatase 93 U/L (46-116); Anion Gap 10 (7-16); Aspartate Amino Transferase 37 U/L (0-34); BUN/Creatinine Ratio 19 Ratio (12-20); Bilirubin,Total 1.3 mg/dL (0.3-1.2); Blood Urea Nitrogen 30 mg/dL (9-23); Calcium 9.0 mg/dL (8.3-10.6); Calcium (Corrected) 9.0 mg/dL (8.5-10.1); Carbon Dioxide 25.5 mMol/L (20.0-31.0); Chloride 103 mMol/L (98-107); Creatinine (Component) 1.6 mg/dL (0.6-1.3); Estimated Creatinine Clearance 35.0 mL/min (>60); Globulin 2.3 gm/dL (2.3-3.5); Glucose 157 mg/dL (74-106); Magnesium 2.4 mg/dL (1.6-2.6); Osmolality,Calculated 284 (275-295); Phosphorous 3.5 mg/dL (2.4-5.1); Potassium 4.4 mMol/L (3.4-5.1); Sodium 138 mMol/L (136-145); Total Protein 6.4 gm/dL (5.7-8.2); eGFR 43 See Note
[2025-03-16] MEDS: INSULIN LISPRO (AdmeLOG) 1 UNIT/0.01 ML UNIT SC ×4 (07:33→20:38)
[2025-03-16] MEDS: FLUCONAZOLE 100 MG TABLET 400 MG PO (08:47)
[2025-03-16] MEDS: APIXABAN 2.5 MG TABLET PO ×2 (08:47→20:37)
[2025-03-16] MEDS: TAMSULOSIN HCL 0.4 MG CAPSULE PO (08:47)
[2025-03-16] MEDS: SERTRALINE HCL 25 MG TABLET PO (08:48)
[2025-03-16] MEDS: ASPIRIN EC 81 MG TABEC PO (08:57)
--- NOTE | 2025-03-16 09:51 | PD.RESDS ---
Planned Discharge Date 03/16/25 DS: Providers Provider Date of admission: 03/10/25 22:31 Primary care physician: Carson Martino MD Admitting Provider: Jennifer Bullock MD Attending Provider on Admission: Karyna Levi MD Consults: 03/10/25 22:59 Consult to Cardiology Stat Comment: Consulting Provider: Keaton Jenkins 03/11/25 05:31 Referral Infection Control Routine Comment: Instructions: Recent admit at [facility] Reason for Infection Control Referral: Readmitted within 30 days 03/12/25 09:46 Referral Physical Therapy Routine Comment: Physician Instructions: Instructions: generalized weakness Attending Provider on DC: Karyna Levi MD Discharging Provider: Karyna Levi MD Hospital Course Status at Discharge Functional status at discharge: uses cane/walker Overall status at discharge: patient is back to baseline Time Spent with Patient Time attestation: Total time spent providing and/or coordinating discharge services: Time spent: Greater than 30 minutes Exam Vital Signs Temp Pulse Resp BP Pulse Ox O2 Del Method O2 Flow Rate 96.7 F L 63 18 112/75 99 Nasal Cannula 2.5 03/16/25 07:55 03/16/25 08:00 03/16/25 07:55 03/16/25 07:55 03/16/25 07:55 03/16/25 07:55 03/16/25 07:55 FiO2 30 03/16/25 04:00 Narrative Exam GENERAL: NAD, AAOx3, breathing easily sitting up in bed HEENT: Moist mucosa. Eyes open, symmetrical, & clear CARDIO: Regular rhythm Noted. Systolic ejection murmur PULM: +Orthopnea, +dry cough, CTA GI: Abdomen soft, nondistended, Non Tenderness. SKIN/MSK/EXT: No wounds/rashes/amputations, no pain on palpation.No Edema. Pedal pulses present B/L NEURO: AAOx3, no focal neuro deficits, able to move all 4 extremities Discharge Plan Plan Patient Disposition: HOME (Self Care) Patient condition on transfer: Stable Care Plan Goals: Instructions: -NEW Fluconazole 400 mg once daily for the next three months for [place] Fever Pneumonia. Please follow your primary care provider and follow up with titers on appropriate discontinuation of Fluconazole. Recommended 3-6 months. -NEW dose of spironolactone 25 mg daily for your heart failure -New Atorvastatin 20 mg at night. STOP Rosuvastatin. -Start Tamsulosin 0.4 mg daily for your enlarged prostate, please follow up with urology or primary care -STOP Digoxin. - We have held your medication Dapagliflozin until you see your PCP -Continue to track your weight daily, if you see change in 2-3 lbs, please notify your grocery department manager. Please limit salt intake to 2 grams of salt per day -Please follow up with your grocery department manager, Dr. Jenkins, within 1-2 weeks of discharge. -Please follow up with your primary care provider within one week of discharge -If your symptoms worsen,please seek immediate medical attention and return to your nearest emergency room -If you do not have a primary care provider, [facility] [address] [place] [address], Prescriptions/Referrals Prescriptions/Med Rec: New fluconazole 100 mg Tablet 400 mg PO QDAY 90 Days Qty: 360 0RF atorvastatin 20 mg Tablet 20 mg PO HS 90 Days Qty: 90 0RF spironolactone 25 mg Tablet 25 mg PO DAILY 90 Days Qty: 90 0RF tamsulosin 0.4 mg Capsule 0.4 mg PO QDAY 90 Days Qty: 90 0RF guaifenesin 100 mg/5 mL Liquid 100 mg PO QID 14 Days Qty: 280 0RF (DME) compression socks, medium Misc See Rx Instructions .Route Qty: 1 0RF Rx Instructions: As directed Continued metformin 500 mg Tablet 500 mg PO BID aspirin [Lidia Low Dose Aspirin] 81 mg Tablet,Delayed Release (Dr/Ec) 81 mg PO QDAY carvedilol 3.125 mg Tablet 3.125 mg PO BID losartan 25 mg Tablet 25 mg PO QDAY docusate sodium [Stool Softener] 100 mg Capsule 100 mg PO BID Eliquis 2.5 mg tablet 2.5 mg PO Q12H amiodarone 200 mg tablet 200 mg PO Q12H furosemide 20 mg tablet 20 mg PO DAILY Patient Comments: TAKE 1 TABLET BY MOUTH EVERY DAY sertraline 25 mg tablet 25 mg PO DAILY Patient Comments: TAKE 1 TABLET BY MOUTH EVERY DAY Held dapagliflozin propanediol [Farxiga] 10 mg tablet 10 mg PO QDAY Hold Instructions: Resume on 03/22/25. hold until you see PCP Discontinued nitroglycerin 0.4 MG tablet, sublingual 0.4 mg SL PRN PRN (Reason: Chest Pain) Qty: 0 tramadol 50 mg Tablet 5 mg PO QDAY famotidine 20 mg Tablet 20 mg PO QDAY ferrous sulfate [FeroSul] 325 mg (65 mg iron) Tablet 325 mg PO QDAY digoxin 125 mcg (0.125 mg) Tablet 125 mcg PO QDAY rosuvastatin 5 mg Tablet 5 mg PO QDAY terazosin 1 mg Capsule 1 mg PO QDAY spironolactone 25 mg tablet 12.5 mg PO DAILY Patient Comments: TAKE 1/2 TABLET BY MOUTH EVERY DAY Referrals: Keaton Jenkins MD [Physician, Cardiology] Carson Martino MD [Primary Care Provider, Family Practice] Patient/Caregiver Discharge Instructions Discharge Activity: as per physical therapy Education Materials: Understanding Coccidioidomycosis, Heart Failure Print Language: [place] Stand Alone Forms: [employer] Award Info., Patient Portal Info Letter
--- NOTE | 2025-03-16 10:17 | PC.SS ---
MEAT INSPECTOR confirmed that commode delivered to patient's bedside. Discussed with patient and spouse discharge plan. Plan is to meet with medical team and to determine d/c plan following medical update. If SNF chosen spouse requesting not to submit referral to [facility].
--- NOTE | 2025-03-16 13:47 | PC.SS ---
MUSIC MIXER contacted [facility] to coordinate education patient's spouse on how to operate patient's home oxygen. Oxygen has been delivered to patient's bedside. [facility] follow up with patient's spouse to schedule education.
--- NOTE | 2025-03-16 14:33 | PC.SS ---
Rounding Note: Plan is to discharge patient home with home health.
--- NOTE | 2025-03-16 14:36 | XR_ITS ---
EXAMINATION: AP chest single view TECHNIQUE: AP portable semiupright chest single view Date and time: March 16, 2025, 1500 hours, comparison March 15, 2025 INDICATIONS: Shortness of breath today. FINDINGS: Mild to moderate CHF Mild to moderate enlargement cardiac contour CABG Prominent vascular congestion with fairly prominent pulmonary edema Cardiac leads satisfactory position IMPRESSION: Worsening CHF, currently mild to moderate
[2025-03-16] MEDS: FUROSEMIDE INJ 10 MG/ML 4ML VIAL 40 MG IVP ×2 (14:43→18:38)
--- NOTE | 2025-03-16 14:43 | PD.RESPRO ---
Documentation for date of: 03/16/25 No overnight events. Patient examined at bedside. Patient has had increased worked of breathing. Chest x-ray ordered showing increased peripheral edema, despite net negative overall balance (-[id number]) patient. Holding Flomax, holding Farigxa, and holding Losartan given hypotension. Holding discharge as patient's increased work of breathing likely pneumonia cocci and CHF. Senior Resident Attestation: I have discussed the case with supervising physician and actuarial internship physician involved in the care of patient. I personally saw and examined patient and discussed the assessment and plan with the entire medical team, including attending. I agree with assessment and plan as documented below. - The patient's plan was discussed with attending Dr. Amita Henry MD PGY2 Internal Medicine Subjective Subjective Interval history: Wt: 77.564kg IO: net-2.68L Patient examined bedside, labs reviewed. Interrogation report reveals no shocks, but patient states that in the past he has felt a shock that was not mentioned in the report. Today his constipation has resolved. Continues to have desaturation when laying down. Continuing lasix today,while holding farxiga. Exam Vital Signs Temp Pulse Resp BP Pulse Ox O2 Del Method O2 Flow Rate 96.9 F 68 8 L 91/66 99 Nasal Cannula 2.5 03/16/25 12:00 03/16/25 12:00 03/16/25 12:00 03/16/25 12:00 03/16/25 12:00 03/16/25 12:00 03/16/25 12:00 FiO2 96 03/16/25 08:00 Narrative Exam GENERAL: NAD, AAOx3, breathing easily sitting up in bed HEENT: Moist mucosa. Eyes open, symmetrical, & clear CARDIO: Regular rhythm Noted. Systolic ejection murmur PULM: +Orthopnea, +dry cough, +CTA GI: Abdomen soft, nondistended, Non Tenderness. SKIN/MSK/EXT: No wounds/rashes/amputations, no pain on palpation.No Edema. Pedal pulses present B/L NEURO: AAOx3, no focal neuro deficits, able to move all 4 extremities Objective Labs 03/17/25 05:15 03/17/25 05:15 Labs: Laboratory Results - last 24 hr 03/15/25 03/15/25 03/16/25 15:57 19:31 05:21 WBC 11.7 H 11.2 H RBC 3.76 L 3.66 L Hgb 12.3 L 12.0 L Hct 36.9 L 36.0 L MCV 98 98 MCH 32.7 32.8 MCHC 33.3 33.3 RDW Std Deviation 55.0 H 54.5 H Plt Count 188 191 Neut % (Auto) 75 74 Lymph % (Auto) 14 14 Sumner % (Auto) 7 9 Eos % (Auto) 2 2 Baso % (Auto) 1 1 Neut # (Auto) 8.7 H 8.2 H Lymph # (Auto) 1.6 1.6 Sumner # (Auto) 0.9 H 1.0 H Eos # (Auto) 0.3 0.3 Baso # (Auto) 0.1 0.1 Immature Gran # (Auto) 0.08 H 0.08 H Absolute Nucleated RBC 0.03 H 0.00 Immature Gran % 1 H 1 H Nucleated RBC % 0 0 Sodium 137 138 Potassium 4.7 D 4.4 Chloride 101 103 Carbon Dioxide 26.1 25.5 Anion Gap 10 10 BUN 35 H 30 H Creatinine 1.7 H 1.6 H Estim Creat Clear Calc 33.0 L 35.0 L eGFR 40 L 43 L BUN/Creatinine Ratio 21 H 19 Glucose 205 H 157 H Calculated Osmolality 287 284 Lactic Acid 2.5 H 1.4 Calcium 9.1 9.0 Corrected Calcium 9.1 9.0 Phosphorus 3.9 3.5 Magnesium 2.4 Total Bilirubin 1.4 H 1.3 H AST 47 H 37 H ALT 73 H 62 H Alkaline Phosphatase 98 93 Total Protein 6.7 6.4 Albumin 4.2 4.1 Globulin 2.5 2.3 Albumin/Globulin Ratio 1.7 1.8 ABG Interpretation ABG results: 03/10/25 23:52 ABG pH 7.46 H ABG pCO2 30 L ABG pO2 77 L ABG HCO3 21 ABG O2 Saturation 97 ABG Base Excess -1 Quality Measures Quality Measures VTE prophylaxis Advance care planning discussed with:: other Assessment & Plan Assessment Current Active Medications: Generic Name Dose Route Start Last Admin Trade Name Freq PRN Reason Stop Dose Admin Acetaminophen 650 mg 03/11/25 07:16 Acetaminophen 325 Mg Tablet PO 04/09/25 22:46 Q6H PRN Fever >100.4 or Mild Pain 1-3 Albuterol/Ipratropium 3 ml 03/10/25 22:47 Albuterol/Ipratropium (Duoneb) Rt Ksenia 3 Ml Nebu INH 04/10/25 00:59 Q6HRRT PRN wheezing Amiodarone HCl 200 mg 03/12/25 09:00 03/15/25 20:11 Amiodarone Hcl 200 Mg Tablet PO 04/11/25 08:59 200 mg BID KOFFI Administration Apixaban 2.5 mg 03/11/25 09:00 03/16/25 08:47 Apixaban 2.5 Mg Tablet PO 04/10/25 08:59 2.5 mg BID KOFFI Administration Aspirin 81 mg 03/11/25 09:00 03/16/25 08:57 Aspirin Ec 81 Mg Tabec PO 04/10/25 08:59 81 mg QDAY KOFFI Administration Atorvastatin Calcium 20 mg 03/11/25 21:00 03/15/25 20:10 Atorvastatin Calcium 20 Mg Tablet PO 04/10/25 20:59 20 mg HS KOFFI Administration Benzocaine 1 lozenge 03/14/25 11:14 Benzocaine/Menthol 1 Lozenge PO 04/13/25 11:13 Q4HR PRN COUGH Carvedilol 3.125 mg 03/15/25 08:00 03/16/25 07:34 Carvedilol 3.125 Mg Tablet PO 04/10/25 08:59 3.125 mg BIDWM KOFFI Administration Dapagliflozin 10 mg 03/12/25 09:00 03/16/25 08:51 Dapagliflozin Propanediol 5 Mg Tablet PO 04/11/25 08:59 Not Given On Hold: 03/16/25 10:05 QAM KOFFI Dextrose 25 ml 03/10/25 23:00 Dextrose 50%-Water Inj 50 Ml Syringe IV 04/09/25 22:59 Q15MIN PRN BG 50-70 responsive npo pt Dextrose 50 ml 03/10/25 23:00 Dextrose 50%-Water Inj 50 Ml Syringe IV 04/09/25 22:59 Q15MIN PRN BG <50 OR BG <70 & pt unresponsive Fluconazole 400 mg 03/11/25 13:45 03/16/25 08:47 Fluconazole 100 Mg Tablet PO 03/18/25 13:44 400 mg QDAY KOFFI Administration Glucagon 1 mg 03/10/25 23:00 Glucagon Inj 1 Mg Vial IM Q15MIN PRN BG <70, and no IV access Guaifenesin 100 mg 03/14/25 12:00 03/16/25 12:04 Guaifenesin Syrup 200 Mg/10 Ml Udc PO 04/13/25 11:59 100 mg QID KOFFI Administration Protocol Insulin Human Lispro 0 unit 03/10/25 23:45 03/16/25 12:01 Insulin Lispro (Admelog) 1 Unit/0.01 Ml Unit SC 04/09/25 23:44 2 unit ACHS KOFFI Administration Protocol Losartan Potassium 25 mg 03/14/25 09:00 03/15/25 11:43 Losartan Potassium 25 Mg Tablet PO 04/13/25 08:59 Not Given QDAY KOFFI Sennosides 1 tab 03/12/25 09:00 03/16/25 08:48 Senna Tablet PO 04/11/25 08:59 1 tab QDAY KOFFI Administration Protocol Sertraline HCl 25 mg 03/11/25 09:00 03/16/25 08:48 Sertraline Hcl 25 Mg Tablet PO 04/10/25 08:59 25 mg QDAY KOFFI Administration Spironolactone 25 mg 03/14/25 09:00 03/15/25 09:08 Spironolactone 25 Mg Tablet PO 04/13/25 08:59 25 mg DAILY KOFFI Administration Tamsulosin HCl 0.4 mg 03/12/25 09:00 03/16/25 08:47 Tamsulosin Hcl 0.4 Mg Capsule PO 04/11/25 08:59 0.4 mg On Hold: 03/16/25 10:05 QDAY KOFFI Administration Plan This is a 79-year-old male with past medical history of CAD S/P 2 stents (2013), CABG(triple bypass -2019), EF 20 to 25%, ICD with PM, hypertension, diabetes,hyperlipidemia presented to the ED with complaints of shortness of breath. He was admitted for CHF exacerbation. Cocci positive 03/11. Dr. Jenkins (safety pin assembling machine operator) said there is nothing to do for his heart failure, can continue to diurese. Holding lasix for worsening KOSTA. NUMERICAL CONTROL MACHINE OPERATOR was called 03/15, for ICD shocks, however, [employer] rep was called and stated there were no shocks today, last shock was 03/05. 03/16 CXR shows worsening CHF. Today wt: 77.564kg Net IO: -2680cc #Acute Hypoxic Respiratory Failure # Acute on Chronic Decompensated Heart failure. # CABGx3(2018) ,CAD S/P Stent # Congestive CHF HFrEF 20-25% (02/2025) History of CAD, stent, CABG?triple bypass, ICD with pacemaker, hypertension, hyperlipidemia, diabetes. Shortness of breath. NYHA Class-3. D-dimer?841, No chest pain ,No Tachycardia, saturating well at minimum oxygen levels-low suspicious for PE. BNP?270, troponin 0.155. DDx: Concern for CHF exacerbation given peripheral edema and chest x-ray vs infectious given minimally elevated BNP and concern for leukocytosis vs PE given elevated d-dimer w/ Wells Score 0, thus low suspicion. PO2 77, pCO2 30, pH 7.40 X-ray showing pattern of CHF exacerbation. Furosemide 80 mg and nitroglycerin patch given in ED. Ejection fraction as per latest echo on 03/06 shows 20-25% At [facility] they stopped digoxin and start amiodarone Dx: - Fluid balance: -30cc in the past 24 hours - TTE showed moderately dilated LV with soft systolic dysfunction and grade 2 diastolic dysfunction, estimated EF of 20 to 25%, RSVP 45 mmHg, severely dilated LA and moderately dilated RA, moderate aortic valve sclerosis and mild aortic regurgitation Rx: -Cardiology started p.o. dapagliflozin 10 mg every morning - Held 03/16 -amiodarone 200 mg BID -aspirin 81 mg, -Eliquis 2.5 mg, -carvedilol 3.125 mg PO BID -losartan 25 mg -spironolactone 12.5 mg PO QD increased to 25mg PO QD (03/14- ?Monitor input and output and daily weights and troponins. ? oxygen as required. ?Cardiology increased furosemide IV 40 mg daily -> BID (holding today for KOSTA on CKD) - resumed 03/16 ?Cardiac diet and fluid restriction. # KOSTA on CKD #CKD III Concern for KOSTA concern for KOSTA on CKD given worsening GFR greater than 3 months and seen on renal US showing bilateral scarring of kidenys vs cardio-renal syndrome given CKD and CHF history vs obstructive as prostate volume >30. BUN 31, creatinine 1.9 --> BUN 34 Cr 1.8. Appears baseline creatinine 1.6. Plan -Continue to hold Lasix -Continue to monitor renal function/Cr. -Use lasix with caution and hold if necessary -avoid nephrotoxins -encourage oral hydration while on fluid restrictions. #Pneumonia Cocci # Leukocytosis --> resolving #Cough WBC 17.2 --> 13.6. UA unremarkable. Repeat CXR (03/14) shows less opacities bilaterally, however still vascular congestion from CHF. Plan: -Repeat CXR 03/14/2025 -Ordered urinalysis follow-up with the results -Cocci IgM positive, follow up on IgG Plan -continue to monitor for pyrexia -Flucanozole 400 mg QD PO -Benzocaine lozenge PO Q4HR PRN -Guaifenesin syrup PO QID #Transaminitis Elevated AST 82 ALT 90 ALP 94(normal) on day 3 of admission. Most likely due to decreased perfusion i/s/o of CHF. Plan: -CTM LFTs #??SHARON Per nurse, patient has witnessed apneic episodes when he sleeps and desats to the 80s Rx: ? BiPAP at night ? Outpatient sleep study #Constipation No BM since Saturday. Patient reports not being on a regular poop schedule/ pooping every other day. Plan: -Lactulose 20g PO TID syrup, hold once BM occurs #Diabetes Mellitus Type 2, non-insulin dependent -Initial Finger blood Glucose is 223, HbA1c 7.2 with home medication of Metformin 500 mg BID. Use with caution given GFR nearing 30s. Plan -Consider discontinuing metformin if GFR continues to worsen ?Starting on sliding scale and continue to monitor #Hx of chronic a fib s/p pacemaker Plan -Eliquis 2.5 mg BID #History of Hypertension ?Home medication, losartan 25 mg, spironolactone 25 mg plan -Restarted losartan 25 mg PO QD #Hx Hyperlipidemia ?Hold home medication rosuvastatin 5 mg. -Atorvastatin 20mg PO HS #Hyperbilirubinemia T.Bili 2.5 but no jaundice or abdominal pain. Most likely 2/2 congestion due to CHF exacerbation vs less likely secondary to biliary stones as denied upper quadrant pain and no jaundice noted. Consider hepatitis panel. Plan: -CTM #Hx Depression Continue home sertraline 25 mg PO QD #Hx of Intracranial bleed History of fall and brain scan at [facility] showed stable brain bleed. ?Patient's Eliquis was decreased to 2.5 mg bid ?Fall precautions Code status: DNR DVT prophylaxis: Heparin Diet: Cardiac Loya: None Lines: PIV Supplemental O2: 4L on Nasal cannula Disposition: Tele I discussed this case with my senior Dr. Henry and my attending Dr. Amita Love MD, PGY-1 Attending Provider Attestation/Addendum I have seen and examined the patient. I was physically present for the taveras portions of the services provided including history, physical exam, diagnosis, treatment plans and orders. I agree with assessment and plan of care as documented by residents. Patient seen and examined at bedside this morning. Appeared comfortable and denies any new complaints. Was saturating well on nasal cannula. Vital signs and lab results were stable. As per the family, patient had an episode of unresponsiveness yesterday, resolved on its own. at bedside was concerned about his defibrillator firing, but interrogation did not show any defibrillator discharge. In the evening, patient started having increased work of breathing and hypoxia. Chest x-ray was obtained, which showed increased vascular congestion. His BNP and lactate level were also elevated. Given his soft blood pressure, we will hold his antihypertensives and add extra dose of Lasix IV. We will closely monitor his fluid status and adjust diuresis dosing. Patient has underlying coccidioidomycosis as well, continues to be on fluconazole. Even though this this note was carefully revised there may still be minor errors in literature teacher due to voice recognition software. Karyna Levi MD
--- NOTE | 2025-03-16 14:51 | PC.SS ---
Discharge to be held due to patient experiencing shortness of breath.
[2025-03-16 15:14] LABS: Allen Test Performed/OK; Base Excess -2 (-3-3); HCO3 22 mEq/L (20-26); Inspired Oxygen, FIO2 13 %; O2 Saturation 94 % (91-98); PCO2 34 mmHg (32.0-48.0); PO2 72 mmHg (83-108); Puncture Site Right Radial; pH, Arterial 7.42 (7.35-7.45)
[2025-03-16 15:27] LABS: Lactate (Lactic Acid) 2.5 mMol/L (0.4-2.0)
[2025-03-16 15:36] LABS: Basophils # (Auto) 0.1 Thou/mm3 (0.0-0.2); Basophils % (Auto) 1 % (0-2.5); Eosinophils # (Auto) 0.2 Thou/mm3 (0.0-0.5); Eosinophils % (Auto) 2 % (0-10); Hematocrit 40.1 % (41.0-53.0); Hemoglobin 13.3 g/dL (13.5-16.0); Immature Granulocytes Auto 0.13 Thou/mm3 (0.00-0.00); Lymphocytes # (Auto) 1.4 Thou/mm3 (1.0-4.8); Lymphocytes % (Auto) 11 % (10-50); Mean Corpuscular HGB Conc 33.2 g/dl (31.0-37.0); Mean Corpuscular Hemoglobin 32.7 pg (25.0-35.0); Mean Corpuscular Volume 99 fL (80-100); Monocytes # (Auto) 0.9 Thou/mm3 (0.0-0.8); Monocytes % (Auto) 7 % (0-12); Neutrophils # (Auto) 9.5 Thou/mm3 (1.8-7.7); Neutrophils % (Auto) 77 % (37-80); Nucleated Red Blood Cell # 0.00 Thou/mm3 (0.00-0.00); Nucleated Red Blood Cell % 0 /100 WBC (0); Platelet Count 222 Thou/mm3 (140-440); RDW Standard Deviation 54.9 fL (35.1-43.9); Red Blood Count 4.07 Miln/mm3 (4.50-5.90); White Blood Count 12.3 Thou/mm3 (3.8-10.6)
[2025-03-16 16:01] LABS: Alanine Aminotransferase 71 U/L (10-49); Albumin, Serum 4.5 gm/dL (3.4-4.8); Albumin/Globulin Ratio 1.8 (1.2-2.2); Alkaline Phosphatase 117 U/L (46-116); Anion Gap 12 (7-16); Aspartate Amino Transferase 46 U/L (0-34); BUN/Creatinine Ratio 18 Ratio (12-20); Bilirubin,Total 1.4 mg/dL (0.3-1.2); Blood Urea Nitrogen 30 mg/dL (9-23); Calcium 9.5 mg/dL (8.3-10.6); Calcium (Corrected) 9.5 mg/dL (8.5-10.1); Carbon Dioxide 23.2 mMol/L (20.0-31.0); Chloride 100 mMol/L (98-107); Creatinine (Component) 1.7 mg/dL (0.6-1.3); Estimated Creatinine Clearance 33.0 mL/min (>60); Globulin 2.5 gm/dL (2.3-3.5); Glucose 277 mg/dL (74-106); Osmolality,Calculated 286 (275-295); Potassium 5.1 mMol/L (3.4-5.1); Sodium 135 mMol/L (136-145); Total Protein 7.0 gm/dL (5.7-8.2); eGFR 40 See Note
[2025-03-16 18:13] LABS: B-Type Natriuretic Peptide 572 pg/mL (0-100)
[2025-03-16 18:22] LABS: Reflex Lactate? Y
[2025-03-16 18:58] LABS: Lactic Acid, 3 HR 2.5 mMol/L (0.4-2.0)
[2025-03-16] MEDS: ATORVASTATIN CALCIUM 20 MG TABLET PO (20:37)
[2025-03-16] MEDS: AMIODARONE HCL 200 MG TABLET PO (20:37)
[2025-03-17] VITALS (15 sets, daily range): BP systolic 100–115; BP diastolic 58–84; PULSE 60–99; RESP 12–35; TEMP 35.9–36.5; O2SAT 91–99; BMI 26.2
--- NOTE | 2025-03-17 03:06 | PC.NURSE ---
[facility] 0200 [facility] 0300.
--- NOTE | 2025-03-17 05:00 | XR_ITS ---
EXAMINATION: AP chest single view TECHNIQUE: AP portable upright chest single view Date and time: March 17, 2025, 0531 hours, comparison March 16, 2025 INDICATIONS: Hypoxia difficulty breathing history. FINDINGS: Mild to moderate CHF Mild to moderate enlargement cardiac contour, prominent vascular congestion with perihilar and basilar edema Cardiac leads stable position Severe osteopenia IMPRESSION: Again noted mild to moderate CHF
[2025-03-17] MEDS: guaiFENesin SYRUP 200 MG/10 ML UDC 100 MG PO ×4 (05:38→20:25)
[2025-03-17 06:07] LABS: Basophils # (Auto) 0.1 Thou/mm3 (0.0-0.2); Basophils % (Auto) 1 % (0-2.5); Eosinophils # (Auto) 0.1 Thou/mm3 (0.0-0.5); Eosinophils % (Auto) 0 % (0-10); Hematocrit 37.9 % (41.0-53.0); Hemoglobin 12.8 g/dL (13.5-16.0); Immature Granulocytes Auto 0.12 Thou/mm3 (0.00-0.00); Lymphocytes # (Auto) 1.5 Thou/mm3 (1.0-4.8); Lymphocytes % (Auto) 12 % (10-50); Mean Corpuscular HGB Conc 33.8 g/dl (31.0-37.0); Mean Corpuscular Hemoglobin 33.1 pg (25.0-35.0); Mean Corpuscular Volume 98 fL (80-100); Monocytes # (Auto) 1.1 Thou/mm3 (0.0-0.8); Monocytes % (Auto) 8 % (0-12); Neutrophils # (Auto) 10.1 Thou/mm3 (1.8-7.7); Neutrophils % (Auto) 78 % (37-80); Nucleated Red Blood Cell # 0.00 Thou/mm3 (0.00-0.00); Nucleated Red Blood Cell % 0 /100 WBC (0); Platelet Count 212 Thou/mm3 (140-440); RDW Standard Deviation 54.7 fL (35.1-43.9); Red Blood Count 3.87 Miln/mm3 (4.50-5.90); White Blood Count 13.0 Thou/mm3 (3.8-10.6)
[2025-03-17 06:33] LABS: Alanine Aminotransferase 360 U/L (10-49); Albumin, Serum 4.4 gm/dL (3.4-4.8); Albumin/Globulin Ratio 1.8 (1.2-2.2); Alkaline Phosphatase 110 U/L (46-116); Anion Gap 14 (7-16); Aspartate Amino Transferase 411 U/L (0-34); BUN/Creatinine Ratio 17 Ratio (12-20); Bilirubin,Total 1.8 mg/dL (0.3-1.2); Blood Urea Nitrogen 31 mg/dL (9-23); Calcium 9.4 mg/dL (8.3-10.6); Calcium (Corrected) 9.4 mg/dL (8.5-10.1); Carbon Dioxide 23.2 mMol/L (20.0-31.0); Chloride 100 mMol/L (98-107); Creatinine (Component) 1.8 mg/dL (0.6-1.3); Estimated Creatinine Clearance 31.1 mL/min (>60); Globulin 2.5 gm/dL (2.3-3.5); Glucose 157 mg/dL (74-106); Magnesium 2.4 mg/dL (1.6-2.6); Osmolality,Calculated 283 (275-295); Phosphorous 4.7 mg/dL (2.4-5.1); Potassium 4.9 mMol/L (3.4-5.1); Sodium 137 mMol/L (136-145); Total Protein 6.9 gm/dL (5.7-8.2); eGFR 37 See Note
[2025-03-17 06:39] LABS: B-Type Natriuretic Peptide 585 pg/mL (0-100)
--- NOTE | 2025-03-17 07:21 | XR_ITS ---
Examination: Abdomen sonogram, Limited Date and time of exam: March 17, 2025, 0739 hours INDICATIONS: Elevated liver function tests on laboratory examination this week Technique: Real-time bermudez scale transabdominal sonographic images of the upper abdomen obtained. Findings: Minimal gallbladder sludge No gallstones Gallbladder wall is thickened 0.36 cm although no definite edema Common bile duct 0.3 cm Pancreatic head 2.3 cm Liver 15.4 cm lobular contour Mild ascites Normal hepatopetal portal venous flow Patent IVC IMPRESSION: Gallbladder sludge, negative for cholelithiasis Borderline thickening gallbladder wall, consider HIDA scan or MRCP follow-up Cirrhosis versus primary parasellar disease Mild ascites
[2025-03-17] MEDS: FUROSEMIDE INJ 10 MG/ML 4ML VIAL 40 MG IVP (08:38)
[2025-03-17] MEDS: AMIODARONE HCL 200 MG TABLET PO ×2 (08:39→20:25)
[2025-03-17] MEDS: ASPIRIN EC 81 MG TABEC PO (08:39)
[2025-03-17] MEDS: INSULIN LISPRO (AdmeLOG) 1 UNIT/0.01 ML UNIT SC ×4 (08:39→20:26)
[2025-03-17] MEDS: SERTRALINE HCL 25 MG TABLET PO (08:39)
[2025-03-17] MEDS: FLUCONAZOLE 100 MG TABLET 400 MG PO (08:39)
[2025-03-17] MEDS: SPIRONOLACTONE 25 MG TABLET PO (08:39)
[2025-03-17] MEDS: APIXABAN 2.5 MG TABLET PO ×2 (08:39→20:24)
[2025-03-17 12:16] LABS: Hepatitis A Antibody IgM Non Reactive (Non React); Hepatitis B Core Antibody IgM Non Reactive (Non React); Hepatitis B Surface Antigen Non Reactive (Non React); Hepatitis C Antibody Non Reactive (Non React)
--- NOTE | 2025-03-17 13:11 | PD.RESPRO ---
Documentation for date of: 03/17/25 No overnight events. Patient examined at bedside. Patient continues to have increased work of breathing despite Lasix 40 mg IV. Additional Lasix 40 mg IV X 1 given. Transition to Bumex 1 mg once daily starting 03/17/2025. Given increasing bilirubin with elevated AST/ALT, concern for hepatic congestion but cholecytsitis can not be ruled out vs medication side effects. Follow up with Liver US to rule out biliiary stones. Please continue Bipap at night. - The patient's plan was discussed with attending Dr. Amita Henry MD PGY2 Internal Medicine Subjective Subjective Interval history: Patient examined bedside, labs reviewed. Patient sleeping peacefully in bed on 4L NC satting at 99%. Gently awoken, patient has no complaints. Expresses understanding that his heart is not going to improve. Denies any new symptoms, states the Bipap slipped off his face last night but it did not bother him. Dr. Jenkins was notified about patient's recent transaminitis stating it is most likely due to hepatic congestion. In regards to the worsening renal function he states that you can dialyze the kidneys but not the heart and encourages the team to increase diureses with either bumex or lasix. 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 Abd US: no gallstones, just gallbladder sludge and gallbladder wall thickening. Exam Vital Signs Temp Pulse Resp BP Pulse Ox O2 Del Method O2 Flow Rate 96.8 F 65 17 111/74 97 Nasal Cannula 4 03/17/25 12:00 03/17/25 12:00 03/17/25 12:00 03/17/25 12:00 03/17/25 12:00 03/17/25 12:00 03/17/25 12:00 FiO2 30 03/17/25 02:20 Narrative Exam GENERAL: NAD, AAOx3, breathing easily sitting up in bed HEENT: Moist mucosa. Eyes open, symmetrical, & clear CARDIO: Regular rhythm Noted. Systolic ejection murmur PULM: +Orthopnea, +dry cough, +Rales GI: Abdomen soft, nondistended, Non Tenderness. SKIN/MSK/EXT: No wounds/rashes/amputations, no pain on palpation.No Edema. Pedal pulses present B/L NEURO: AAOx3, no focal neuro deficits, able to move all 4 extremities Objective Labs 03/18/25 05:20 03/18/25 05:20 Labs: Laboratory Results - last 24 hr 03/16/25 03/16/25 03/16/25 14:59 15:04 18:45 WBC 12.3 H RBC 4.07 L Hgb 13.3 L Hct 40.1 L MCV 99 MCH 32.7 MCHC 33.2 RDW Std Deviation 54.9 H Plt Count 222 D Neut % (Auto) 77 Lymph % (Auto) 11 [place] % (Auto) 7 Eos % (Auto) 2 Baso % (Auto) 1 Neut # (Auto) 9.5 H Lymph # (Auto) 1.4 [place] # (Auto) 0.9 H Eos # (Auto) 0.2 Baso # (Auto) 0.1 Immature Gran # (Auto) 0.13 H Absolute Nucleated RBC 0.00 Immature Gran % 1 H Nucleated RBC % 0 Puncture Site Right Radial ABG pH 7.42 ABG pCO2 34 ABG pO2 72 L ABG HCO3 22 ABG O2 Saturation 94 ABG Base Excess -2 FiO2 13 Sodium 135 L Potassium 5.1 D Chloride 100 Carbon Dioxide 23.2 Anion Gap 12 BUN 30 H Creatinine 1.7 H Estim Creat Clear Calc 33.0 L eGFR 40 L BUN/Creatinine Ratio 18 Glucose 277 H D Calculated Osmolality 286 Lactic Acid 2.5 H 2.5 H Calcium 9.5 Corrected Calcium 9.5 Phosphorus Magnesium Total Bilirubin 1.4 H AST 46 H ALT 71 H Alkaline Phosphatase 117 H D B-Natriuretic Peptide 572 H* Total Protein 7.0 Albumin 4.5 Globulin 2.5 Albumin/Globulin Ratio 1.8 Hepatitis A IgM Ab Hep Bs Antigen Hep B Core IgM Ab Hepatitis C Antibody 03/17/25 05:15 WBC 13.0 H RBC 3.87 L Hgb 12.8 L Hct 37.9 L MCV 98 MCH 33.1 MCHC 33.8 RDW Std Deviation 54.7 H Plt Count 212 Neut % (Auto) 78 Lymph % (Auto) 12 [place] % (Auto) 8 Eos % (Auto) 0 Baso % (Auto) 1 Neut # (Auto) 10.1 H Lymph # (Auto) 1.5 [place] # (Auto) 1.1 H Eos # (Auto) 0.1 Baso # (Auto) 0.1 Immature Gran # (Auto) 0.12 H Absolute Nucleated RBC 0.00 Immature Gran % 1 H Nucleated RBC % 0 Puncture Site ABG pH ABG pCO2 ABG pO2 ABG HCO3 ABG O2 Saturation ABG Base Excess FiO2 Sodium 137 Potassium 4.9 Chloride 100 Carbon Dioxide 23.2 Anion Gap 14 BUN 31 H Creatinine 1.8 H Estim Creat Clear Calc 31.1 L eGFR 37 L BUN/Creatinine Ratio 17 Glucose 157 H D Calculated Osmolality 283 Lactic Acid Calcium 9.4 Corrected Calcium 9.4 Phosphorus 4.7 Magnesium 2.4 Total Bilirubin 1.8 H AST 411 H ALT 360 H Alkaline Phosphatase 110 B-Natriuretic Peptide 585 H* Total Protein 6.9 Albumin 4.4 Globulin 2.5 Albumin/Globulin Ratio 1.8 Hepatitis A IgM Ab Non Reactive Hep Bs Antigen Non Reactive Hep B Core IgM Ab Non Reactive Hepatitis C Antibody Non Reactive ABG Interpretation ABG results: 03/10/25 03/16/25 23:52 15:04 ABG pH 7.46 H 7.42 ABG pCO2 30 L 34 ABG pO2 77 L 72 L ABG HCO3 21 22 ABG O2 Saturation 97 94 ABG Base Excess -1 -2 Quality Measures Quality Measures VTE prophylaxis Advance care planning discussed with:: other Assessment & Plan Assessment Current Active Medications: Generic Name Dose Route Start Last Admin Trade Name Freq PRN Reason Stop Dose Admin Acetaminophen 650 mg 03/11/25 07:16 Acetaminophen 325 Mg Tablet PO 04/09/25 22:46 Q6H PRN Fever >100.4 or Mild Pain 1-3 Albuterol/Ipratropium 3 ml 03/10/25 22:47 Albuterol/Ipratropium (Duoneb) Rt Ksenia 3 Ml Nebu INH 04/10/25 00:59 Q6HRRT PRN wheezing Amiodarone HCl 200 mg 03/12/25 09:00 03/17/25 08:39 Amiodarone Hcl 200 Mg Tablet PO 04/11/25 08:59 200 mg BID KOFFI Administration Apixaban 2.5 mg 03/11/25 09:00 03/17/25 08:39 Apixaban 2.5 Mg Tablet PO 04/10/25 08:59 2.5 mg BID KOFFI Administration Aspirin 81 mg 03/11/25 09:00 03/17/25 08:39 Aspirin Ec 81 Mg Tabec PO 04/10/25 08:59 81 mg QDAY KOFFI Administration Atorvastatin Calcium 20 mg 03/11/25 21:00 03/16/25 20:37 Atorvastatin Calcium 20 Mg Tablet PO 04/10/25 20:59 20 mg On Hold: 03/17/25 13:03 HS KOFFI Administration Comment: PER MD CHAWLA Benzocaine 1 lozenge 03/14/25 11:14 Benzocaine/Menthol 1 Lozenge PO 04/13/25 11:13 Q4HR PRN COUGH Bumetanide 1 mg 03/18/25 13:15 Bumetanide Inj 0.25 Mg/Ml Vial 4 Ml IVP 04/17/25 13:14 QDAY KOFFI Carvedilol 3.125 mg 03/15/25 08:00 03/16/25 17:03 Carvedilol 3.125 Mg Tablet PO 04/10/25 08:59 3.125 mg On Hold: 03/16/25 17:03 BIDWM KOFFI Administration Dapagliflozin 10 mg 03/12/25 09:00 03/16/25 08:51 Dapagliflozin Propanediol 5 Mg Tablet PO 04/11/25 08:59 Not Given On Hold: 03/16/25 10:05 QAM KOFFI Dextrose 25 ml 03/10/25 23:00 Dextrose 50%-Water Inj 50 Ml Syringe IV 04/09/25 22:59 Q15MIN PRN BG 50-70 responsive npo pt Dextrose 50 ml 03/10/25 23:00 Dextrose 50%-Water Inj 50 Ml Syringe IV 04/09/25 22:59 Q15MIN PRN BG <50 OR BG <70 & pt unresponsive Fluconazole 400 mg 03/11/25 13:45 03/17/25 08:39 Fluconazole 100 Mg Tablet PO 03/18/25 13:44 400 mg QDAY KOFFI Administration Glucagon 1 mg 03/10/25 23:00 Glucagon Inj 1 Mg Vial IM Q15MIN PRN BG <70, and no IV access Guaifenesin 100 mg 03/14/25 12:00 03/17/25 11:41 Guaifenesin Syrup 200 Mg/10 Ml Udc PO 04/13/25 11:59 100 mg QID KOFFI Administration Protocol Insulin Human Lispro 0 unit 03/17/25 13:09 Insulin Lispro (Admelog) 1 Unit/0.01 Ml Unit SC 04/09/25 23:44 [facility] Protocol Insulin Human Lispro 3 unit 03/17/25 17:00 Insulin Lispro (Admelog) 1 Unit/0.01 Ml Unit SC 04/16/25 16:59 [facility] Losartan Potassium 25 mg 03/14/25 09:00 03/16/25 14:49 Losartan Potassium 25 Mg Tablet PO 04/13/25 08:59 Not Given On Hold: 03/16/25 16:20 QDAY [facility] Sennosides 1 tab 03/12/25 09:00 03/17/25 08:39 Senna Tablet PO 04/11/25 08:59 1 tab QDAY [facility] Administration Protocol Sertraline HCl 25 mg 03/11/25 09:00 03/17/25 08:39 Sertraline Hcl 25 Mg Tablet PO 04/10/25 08:59 25 mg QDAY KOFFI Administration Spironolactone 25 mg 03/14/25 09:00 03/17/25 08:39 Spironolactone 25 Mg Tablet PO 04/13/25 08:59 25 mg DAILY [facility] Administration Plan This is a 79-year-old male with past medical history of CAD S/P 2 stents (2013), CABG(triple bypass -2018), EF 20 to 25%, ICD with PM, hypertension, diabetes,hyperlipidemia presented to the ED with complaints of shortness of breath. He was admitted for CHF exacerbation. Cocci positive 03/11. Dr. Jenkins (customer strategy manager) said there is nothing to do for his heart failure, can continue to diurese. Holding lasix for worsening KOSTA. TOOLING SPECIALIST was called 03/15, for ICD shocks, however, [employer] rep was called and stated there were no shocks today, last shock was 03/05. 03/16 CXR shows worsening CHF. 03/17 Dr. Jenkins was called to discuss treatment plan, he states to continue diuresing patient. 80 mg lasix given 03/17, transitioning to bumex 1G IV 03/18 Today wt: 78.426kg Net IO: -1280cc #Acute Hypoxic Respiratory Failure # Acute on Chronic Decompensated Heart failure. # CABGx3(2018) ,CAD S/P Stent # Congestive CHF HFrEF 20-25% (02/2025) History of CAD, stent, CABG?triple bypass, ICD with pacemaker, hypertension, hyperlipidemia, diabetes. Shortness of breath. NYHA Class-3. D-dimer?841, No chest pain ,No Tachycardia, saturating well at minimum oxygen levels-low suspicious for PE. BNP?270, troponin 0.155. DDx: Concern for CHF exacerbation given peripheral edema and chest x-ray vs infectious given minimally elevated BNP and concern for leukocytosis vs PE given elevated d-dimer w/ Wells Score 0, thus low suspicion. PO2 77, pCO2 30, pH 7.40 X-ray showing pattern of CHF exacerbation. Furosemide 80 mg and nitroglycerin patch given in ED. Ejection fraction as per latest echo on 03/06 shows 20-25% At [facility] they stopped digoxin and start amiodarone Dx: - Fluid balance: -1280cc in the past 24 hours - TTE showed moderately dilated LV with soft systolic dysfunction and grade 2 diastolic dysfunction, estimated EF of 20 to 25%, RSVP 45 mmHg, severely dilated LA and moderately dilated RA, moderate aortic valve sclerosis and mild aortic regurgitation Rx: -Cardiology started p.o. dapagliflozin 10 mg every morning - Held 03/16 - -amiodarone 200 mg BID -aspirin 81 mg, -Eliquis 2.5 mg, -carvedilol 3.125 mg PO BID -losartan 25 mg -spironolactone 12.5 mg PO QD increased to 25mg PO QD (03/14- ?Monitor input and output and daily weights and troponins. ? oxygen as required. ?Cardiology increased furosemide IV 40 mg daily -> BID (holding today for KOSTA on CKD) - resumed 03/16 -03/17 lasix 40mg IV x2 last day of lasix -03/17 changed lasix to Bumex 1g IV QD ?Cardiac diet and fluid restriction. #Transaminitis #Hepatic conestion #Hyperbilirubinemia T.Bili 2.5 but no jaundice or abdominal pain. Most likely 2/2 congestion due to CHF exacerbation vs less likely secondary to biliary stones as denied upper quadrant pain and no jaundice noted. Elevated AST 82 ALT 90 ALP 94(normal) on day 3 of admission. Most likely due to decreased perfusion i/s/o of CHF. 03/17 patient continues to be volume overloaded with dramatic rise in LFT ALP 110 (117) ALT 360 (71) AST 411 (46). Abd US no gallstones, just gallbladder sludge and gallbladder wall thickening. Dr. Jenkins calls it hepatic congestion. Plan: -CTM LFTs -Continue to diurese # KOSTA on CKD #CKD III Concern for KOSTA concern for KOSTA on CKD given worsening GFR greater than 3 months and seen on renal US showing bilateral scarring of kidenys vs cardio-renal syndrome given CKD and CHF history vs obstructive as prostate volume >30. BUN 31, creatinine 1.9 --> BUN 34 Cr 1.8. Appears baseline creatinine 1.6. Can diurese kidneys but not the heart, per Dr. Jenkins 03/17/2025 Plan -Continue to monitor renal function/Cr. -Use lasix with caution and hold if necessary -avoid nephrotoxins -encourage oral hydration while on fluid restrictions. #Pneumonia Cocci # Leukocytosis --> resolving #Cough WBC 17.2 --> 13.6. UA unremarkable. Repeat CXR (03/14) shows less opacities bilaterally, however still vascular congestion from CHF. Plan: -Repeat CXR 03/14/2025 -Ordered urinalysis follow-up with the results -Cocci IgM positive, follow up on IgG Plan -continue to monitor for pyrexia -Flucanozole 400 mg QD PO -Benzocaine lozenge PO Q4HR PRN -Guaifenesin syrup PO QID #??SHARON Per nurse, patient has witnessed apneic episodes when he sleeps and desats to the 80s Rx: ? BiPAP at night ? Outpatient sleep study #Constipation No BM since Saturday. Patient reports not being on a regular poop schedule/ pooping every other day. Plan: -Lactulose 20g PO TID syrup, hold once BM occurs #Diabetes Mellitus Type 2, non-insulin dependent -Initial Finger blood Glucose is 223, HbA1c 7.2 with home medication of Metformin 500 mg BID. Use with caution given GFR nearing 30s. Plan -Consider discontinuing metformin if GFR continues to worsen ?Starting on sliding scale and continue to monitor #Hx of chronic a fib s/p pacemaker Plan -Eliquis 2.5 mg BID #History of Hypertension ?Home medication, losartan 25 mg, spironolactone 25 mg plan -Restarted losartan 25 mg PO QD #Hx Hyperlipidemia ?Hold home medication rosuvastatin 5 mg. -Atorvastatin 20mg PO HS #Hx Depression Continue home sertraline 25 mg PO QD #Hx of Intracranial bleed History of fall and brain scan at [facility] showed stable brain bleed. ?Patient's Eliquis was decreased to 2.5 mg bid ?Fall precautions Code status: DNR DVT prophylaxis: Heparin Diet: Cardiac Loya: None Lines: PIV Supplemental O2: 4L on Nasal cannula Disposition: Tele I discussed this case with my senior Dr. Henry and my attending Dr. Amita Chawla MD, PGY-1 Attending Provider Attestation/Addendum I have seen and examined the patient. I was physically present for the taveras portions of the services provided including history, physical exam, diagnosis, treatment plans and orders. I agree with assessment and plan of care as documented by residents. Even though this this note was carefully revised there may still be minor errors in manager product due to voice recognition software. Karyna Levi MD
[2025-03-17] MEDS: FUROSEMIDE INJ 10 MG/ML VIAL 2 ML 20 MG IVP (14:38)
--- NOTE | 2025-03-17 14:45 | PC.SS ---
Rounding Note: Patient receiving IV dieretics. Possible d/c tomorrow.
[2025-03-17] MEDS: INSULIN LISPRO (AdmeLOG) 1 UNIT/0.01 ML UNIT 3 UNIT SC ×2 (17:24→20:25)
[2025-03-18] VITALS (15 sets, daily range): BP systolic 84–104; BP diastolic 59–71; PULSE 60–91; RESP 10–21; TEMP 36–36.8; O2SAT 97–99; BMI 25.6
[2025-03-18 06:24] LABS: Basophils # (Auto) 0.1 Thou/mm3 (0.0-0.2); Basophils % (Auto) 1 % (0-2.5); Eosinophils # (Auto) 0.3 Thou/mm3 (0.0-0.5); Eosinophils % (Auto) 3 % (0-10); Hematocrit 35.9 % (41.0-53.0); Hemoglobin 11.9 g/dL (13.5-16.0); Immature Granulocytes Auto 0.11 Thou/mm3 (0.00-0.00); Lymphocytes # (Auto) 1.7 Thou/mm3 (1.0-4.8); Lymphocytes % (Auto) 15 % (10-50); Mean Corpuscular HGB Conc 33.1 g/dl (31.0-37.0); Mean Corpuscular Hemoglobin 32.6 pg (25.0-35.0); Mean Corpuscular Volume 98 fL (80-100); Monocytes # (Auto) 0.9 Thou/mm3 (0.0-0.8); Monocytes % (Auto) 8 % (0-12); Neutrophils # (Auto) 8.1 Thou/mm3 (1.8-7.7); Neutrophils % (Auto) 72 % (37-80); Nucleated Red Blood Cell # 0.00 Thou/mm3 (0.00-0.00); Nucleated Red Blood Cell % 0 /100 WBC (0); Platelet Count 200 Thou/mm3 (140-440); RDW Standard Deviation 55.7 fL (35.1-43.9); Red Blood Count 3.65 Miln/mm3 (4.50-5.90); White Blood Count 11.3 Thou/mm3 (3.8-10.6)
[2025-03-18 06:42] LABS: Alanine Aminotransferase 353 U/L (10-49); Albumin, Serum 3.9 gm/dL (3.4-4.8); Albumin/Globulin Ratio 1.6 (1.2-2.2); Alkaline Phosphatase 100 U/L (46-116); Anion Gap 11 (7-16); Aspartate Amino Transferase 270 U/L (0-34); BUN/Creatinine Ratio 23 Ratio (12-20); Bilirubin,Total 1.0 mg/dL (0.3-1.2); Blood Urea Nitrogen 41 mg/dL (9-23); Calcium 9.1 mg/dL (8.3-10.6); Calcium (Corrected) 9.2 mg/dL (8.5-10.1); Carbon Dioxide 27.7 mMol/L (20.0-31.0); Chloride 99 mMol/L (98-107); Creatinine (Component) 1.8 mg/dL (0.6-1.3); Estimated Creatinine Clearance 31.1 mL/min (>60); Globulin 2.5 gm/dL (2.3-3.5); Glucose 122 mg/dL (74-106); Magnesium 2.1 mg/dL (1.6-2.6); Osmolality,Calculated 286 (275-295); Phosphorous 4.1 mg/dL (2.4-5.1); Potassium 4.1 mMol/L (3.4-5.1); Sodium 138 mMol/L (136-145); Total Protein 6.4 gm/dL (5.7-8.2); eGFR 37 See Note
[2025-03-18] MEDS: INSULIN LISPRO (AdmeLOG) 1 UNIT/0.01 ML UNIT 3 UNIT SC ×2 (07:49→12:14)
[2025-03-18 08:32] LABS: B-Type Natriuretic Peptide 382 pg/mL (0-100)
[2025-03-18] MEDS: AMIODARONE HCL 200 MG TABLET PO (08:59)
[2025-03-18] MEDS: APIXABAN 2.5 MG TABLET PO (09:00)
[2025-03-18] MEDS: ASPIRIN EC 81 MG TABEC PO (09:00)
[2025-03-18] MEDS: FLUCONAZOLE 100 MG TABLET 400 MG PO (09:00)
[2025-03-18] MEDS: SERTRALINE HCL 25 MG TABLET PO (09:00)
[2025-03-18] MEDS: SPIRONOLACTONE 25 MG TABLET PO (09:00)
[2025-03-18] MEDS: INSULIN LISPRO (AdmeLOG) 1 UNIT/0.01 ML UNIT SC (12:15)
[2025-03-18] MEDS: guaiFENesin SYRUP 200 MG/10 ML UDC 100 MG PO (12:21)
--- NOTE | 2025-03-18 14:55 | PC.SS ---
Rounding: DC plan for today home with HH. Pt has DME from [facility] at home. No further needs.
--- NOTE | 2025-03-18 15:25 | PD.RESDS ---
Planned Discharge Date 03/18/25 DS: Providers Provider Date of admission: 03/10/25 22:31 Primary care physician: Carson Martino MD Admitting Provider: Jennifer Bullock MD Attending Provider on Admission: Karyna Levi MD Consults: 03/10/25 22:59 Consult to Cardiology Stat Comment: Consulting Provider: Keaton Jenkins 03/11/25 05:31 Referral Infection Control Routine Comment: Instructions: Recent admit at [facility] Reason for Infection Control Referral: Readmitted within 30 days 03/12/25 09:46 Referral Physical Therapy Routine Comment: Physician Instructions: Instructions: generalized weakness Attending Provider on DC: Karyna Levi MD Discharging Provider: Karyna Levi MD DS: Diagnosis Problem List Completed Was Problem List Reviewed/Reconciled?: Yes Hospital Course Hospital Course Hospital course: This is a 79-year-old male with past medical history of CAD S/P 2 stents (2013), CABG(triple bypass -2018), EF 20 to 25%, ICD with PM, hypertension, diabetes,hyperlipidemia presented to the ED with complaints of shortness of breath. He was admitted for CHF exacerbation. ED Course Summary: vitals BP 114/68, pulse rate 61, respiratory 25, temperature 98.3, saturating 97% on 3 L of nasal cannula Pertinent lab findings are WBC 17.2, potassium 5.2, BUN 31, creatinine 1.9,, creatinine clearance 79.5, eGFR 35 ,glucose 232, total bilirubin 1.5, AST 36 D-dimer 841, BNP 270, Troponin 0.155. Chest x-ray shows perihilar congestion and appearance of moderate CHF EKG showed ventricular pacing rhythm. Treatment given in ED: Furosemide 80 mg IV, nitroglycerin 1 patch Hospital Course: He was found to be Cocci positive 03/11. Dr. Jenkins (history instructor) said there is nothing to do for his heart failure, can continue to diurese and his home regiment was restarted. He was also started on Bipap overnight which improved his oxygen saturation and overall presentation. One day lasix was held for worsening KOSTA and acRRT was called for ICD shocks, however, [employer] rep was called and stated there were no shocks today, last shock was 03/05. 03/16 CXR shows worsening CHF. 03/17 Dr. Jenkins was called to discuss treatment plan, he states to continue diuresing patient. 80 mg lasix given 03/17, transitioning to bumex 1G IV 03/18. He had an episode of worsening transaminitis that is thought to be due to hepatic congestion, Abd US showed no gallstones, just gallbladder sludge and gallbladder wall thickening. Due to his worsening KOSTA his flucanozole for his cocci was cut in half for renal dosing. Once patient was stable for a few days and his BP MAP was satisfactory and Dr. Jenkins agreed, he was deemed safe to discharge home with home health with the assistance of his family. Discharge Instructions: -NEW Fluconazole 200 mg once daily for the next three months for Valley Fever Pneumonia. Please follow your primary care provider and follow up with titers on appropriate discontinuation of Fluconazole. Recommended 3-6 months. -LASIX dose change from 20 mg to 40 mg once daily. Please keep track of any changes in weight 1-2 lbs and limit water intake to 1.5 liters and less than 2 grams of salts. -NEW dose of spironolactone 25 mg daily for your heart failure -New Atorvastatin 20 mg at night. STOP Rosuvastatin. - HOLD Dapagliflozin & Losartan given your low blood pressure until you follow up with cardiology, Dr. Jenkins. -STOP Digoxin per your history instructor. -Continue to track your weight daily, if you see change in 2-3 lbs, please notify your history instructor. Please limit salt intake to 2 grams of salt per day -Please follow up with your history instructor, Dr. Jenkins, within 1-2 weeks of discharge. -Please follow up with your primary care provider within one week of discharge -If your symptoms worsen,please seek immediate medical attention and return to your nearest emergency room -If you do not have a primary care provider, you may follow up at the [facility] at [address], [place] [address], #Acute Hypoxic Respiratory Failure # Acute on Chronic Decompensated Heart failure. # CABGx3(2018) ,CAD S/P Stent # Congestive CHF HFrEF 20-25% (02/2025) #Transaminitis #Hepatic conestion #Hyperbilirubinemia # KOSTA on CKD #CKD III #Pneumonia Cocci # Leukocytosis #Cough #SHARON #Constipation #Diabetes Mellitus Type 2, non-insulin dependent #Hx of chronic a fib s/p pacemaker #History of Hypertension #Hx Hyperlipidemia #Hx Depression #Hx of Intracranial bleed Patient's plan and care discussed with my attending, Dr. Levi, and supervising resident MD Sukhdeep Kohli MD Internal Medicine PGY-1 Senior Resident Attestation: I have discussed the case with supervising physician and product management intern physician involved in the care of patient. I personally saw and examined patient and discussed the assessment and plan with the entire medical team, including attending. I agree with assessment and plan as documented above. - The patient's plan was discussed with attending Dr. Amita Henry MD PGY2 Internal Medicine Status at Discharge Functional status at discharge: uses cane/walker Time Spent with Patient Time attestation: Total time spent providing and/or coordinating discharge services: 36 minutes Time spent: Greater than 30 minutes Exam Vital Signs Temp Pulse Resp BP Pulse Ox O2 Del Method O2 Flow Rate 97.2 F 64 18 92/61 99 Nasal Cannula 3 03/18/25 12:00 03/18/25 13:12 03/18/25 12:00 03/18/25 13:12 03/18/25 12:00 03/18/25 12:00 03/18/25 12:00 FiO2 30 03/18/25 06:24 Narrative Exam GENERAL: NAD, AAOx3, breathing easily sitting up in bed HEENT: Moist mucosa. Eyes open, symmetrical, & clear CARDIO: Regular rhythm Noted. Systolic ejection murmur PULM: +Orthopnea, +dry cough, +minor rales, overal CTA GI: Abdomen soft, nondistended, Non Tenderness. SKIN/MSK/EXT: No wounds/rashes/amputations, no pain on palpation.No Edema. Pedal pulses present B/L NEURO: AAOx3, no focal neuro deficits, able to move all 4 extremities Discharge Plan Plan Patient Disposition: Home w/HOME HEALTH Patient condition on transfer: Stable Care Plan Goals: Instructions: -NEW Fluconazole 200 mg once daily for the next three months for Valley Fever Pneumonia. Please follow your primary care provider and follow up with titers on appropriate discontinuation of Fluconazole. Recommended 3-6 months. -LASIX dose change from 20 mg to 40 mg once daily. Please keep track of any changes in weight 1-2 lbs and limit water intake to 1.5 liters and less than 2 grams of salts. -NEW dose of spironolactone 25 mg daily for your heart failure -New Atorvastatin 20 mg at night. STOP Rosuvastatin. - HOLD Dapagliflozin & Losartan given your low blood pressure until you follow up with cardiology, Dr. Jenkins. -STOP Digoxin per your history instructor. -Continue to track your weight daily, if you see change in 2-3 lbs, please notify your history instructor. Please limit salt intake to 2 grams of salt per day -Please follow up with your history instructor, Dr. Jenkins, within 1-2 weeks of discharge. -Please follow up with your primary care provider within one week of discharge -If your symptoms worsen,please seek immediate medical attention and return to your nearest emergency room -If you do not have a primary care provider, you may follow up at the [facility] at [address] [place] [address] [address], [place] [address], Prescriptions/Referrals Prescriptions/Med Rec: New atorvastatin 20 mg Tablet 20 mg PO HS 90 Days Qty: 90 0RF spironolactone 25 mg Tablet 25 mg PO DAILY 90 Days Qty: 90 0RF guaifenesin 100 mg/5 mL Liquid 100 mg PO QID 14 Days Qty: 280 0RF (DME) compression socks, medium Misc See Rx Instructions .Route Qty: 1 0RF Rx Instructions: As directed fluconazole 100 mg Tablet 200 mg PO QDAY 90 Days Qty: 180 0RF Continued metformin 500 mg Tablet 500 mg PO BID aspirin [Lidia Low Dose Aspirin] 81 mg Tablet,Delayed Release (Dr/Ec) 81 mg PO QDAY carvedilol 3.125 mg Tablet 3.125 mg PO BID docusate sodium [Stool Softener] 100 mg Capsule 100 mg PO BID Eliquis 2.5 mg tablet 2.5 mg PO Q12H amiodarone 200 mg tablet 200 mg PO Q12H sertraline 25 mg tablet 25 mg PO DAILY Patient Comments: TAKE 1 TABLET BY MOUTH EVERY DAY Changed furosemide 20 mg tablet 40 mg PO DAILY 90 Days Qty: 180 0RF Patient Comments: TAKE 1 TABLET BY MOUTH EVERY DAY Held losartan 25 mg Tablet 25 mg PO QDAY Hold Instructions: Resume on 03/26/25. Hold until you see your primary doctor dapagliflozin propanediol [Farxiga] 10 mg tablet 10 mg PO QDAY Hold Instructions: Resume on 03/22/25. hold until you see PCP Discontinued nitroglycerin 0.4 MG tablet, sublingual 0.4 mg SL PRN PRN (Reason: Chest Pain) Qty: 0 tramadol 50 mg Tablet 5 mg PO QDAY famotidine 20 mg Tablet 20 mg PO QDAY ferrous sulfate [FeroSul] 325 mg (65 mg iron) Tablet 325 mg PO QDAY digoxin 125 mcg (0.125 mg) Tablet 125 mcg PO QDAY rosuvastatin 5 mg Tablet 5 mg PO QDAY terazosin 1 mg Capsule 1 mg PO QDAY spironolactone 25 mg tablet 12.5 mg PO DAILY Patient Comments: TAKE 1/2 TABLET BY MOUTH EVERY DAY Referrals: Keaton Jenkins MD [Physician, Cardiology] Carson Martino MD [Primary Care Provider, Family Practice] Outpatient Orders (i.e. Home Health, Labs, Imaging): B-Type Natriuretic Peptide (Routine) Location: None Selected Ordered By: Jodi Herny Comprehensive Metabolic Panel (Routine) Location: None Selected Ordered By: Jodi Henry Patient/Caregiver Discharge Instructions Discharge Activity: as per physical therapy Education Materials: Understanding Coccidioidomycosis, Heart Failure Print Language: Macanese Stand Alone Forms: [employer]ria Award Info., Patient Portal Info Letter Discharge Order Discharge Orders: Discharge (Routine); Ordered 03/18/25 Ordered By: Jodi Henry Quality Discharge Quality Measures VTE prophylaxis MD Attestestation MD Attestation I have seen and examined the patient. I was physically present for the taveras portions of the services provided including history, physical exam, diagnosis, treatment plans and orders. I agree with assessment and plan of care as documented by residents. Even though this this note was carefully revised there may still be minor errors in girls swimming coach due to voice recognition software. Karyna Levi MD
--- NOTE | 2025-03-18 15:37 | PC.SS ---
SS follow up note; SS met with patient and patient's at bedside. Patient's wanted to know if HH was established. contacted Dr. Wiggins and he informed SS that HH order was established. Patient's informed SS patient was established with [facility] and would like for [facility] to continue following patient. SS informed patient's [facility] will follow up with patient after discharge. Patient's verbalized understanding.
--- NOTE | 2025-03-19 09:17 | PC.CC ---
Addendum entered by Maxi Coreas RN 03/19/25 09:51: Patient referred to SKYL[facility] GARRISON 03/19/25. Original Note: Home health referral sent to [facility] to resume services through [facility].
== END 2025-03-18 16:58 | disposition home health service (06) | DRG 291 ==
LOC: SERX 21:29 → SERHOLD 23:16 → S2NX 03-11 04:02
PROVIDERS: Internal Medicine Cardiovascular Disease; Admitting Provider Student in an Organized Health Care Education/Training Program; Emergency Provider Emergency Medicine; PCP Family Medicine; Visit Provider Student in an Organized Health Care Education/Training Program
DX: I13.0 Hypertensive heart and chronic kidney disease with heart failure and stage 1 through stage 4 chronic kidney disease, or unspecified chronic kidney disease (principal); I49.01 Ventricular fibrillation; I50.43 Acute on chronic combined systolic (congestive) and diastolic (congestive) heart failure; J96.21 Acute and chronic respiratory failure with hypoxia; I48.20 Chronic atrial fibrillation, unspecified; N17.9 Acute kidney failure, unspecified; B38.0 Acute pulmonary coccidioidomycosis; Z95.5 Presence of coronary angioplasty implant and graft; I25.10 Atherosclerotic heart disease of native coronary artery without angina pectoris; E11.22 Type 2 diabetes mellitus with diabetic chronic kidney disease; I25.2 Old myocardial infarction; E87.5 Hyperkalemia; F32.A Depression, unspecified; N18.30 Chronic kidney disease, stage 3 unspecified; E78.5 Hyperlipidemia, unspecified; Z95.1 Presence of aortocoronary bypass graft; Z79.82 Long term (current) use of aspirin; Z66 Do not resuscitate; I35.8 Other nonrheumatic aortic valve disorders; Z95.810 Presence of automatic (implantable) cardiac defibrillator; K59.00 Constipation, unspecified; K76.1 Chronic passive congestion of liver; Z88.2 Allergy status to sulfonamides; Z88.5 Allergy status to narcotic agent; Z79.01 Long term (current) use of anticoagulants; Z79.84 Long term (current) use of oral hypoglycemic drugs; Z79.899 Other long term (current) drug therapy; Z86.73 Personal history of transient ischemic attack (TIA), and cerebral infarction without residual deficits
CPT/HCPCS: 36415; 36600; 71045; 76705; 80053; 80061; 80074; 81001; 82803; 83605; 83735; 83880; 84100; 84443; 84484; 85025; 85379; 85610; 86635; 87081; 93005; 93306; 94660; 96374; 96376; 99283; J1815; J1938; J3480; J7120; J8499; P9045; A9270

== ENCOUNTER 2025-03-22 09:37 | Inpatient (IN) | payer MEDICARE, SELFPAY ==
[2025-03-22] VITALS (48 sets, daily range): BP systolic 83–132; BP diastolic 63–89; PULSE 59–122; RESP 12–85; TEMP 36.4–36.7; O2SAT 83–100; BMI 25.4
--- NOTE | 2025-03-22 09:47 | XR_ITS ---
CLINICAL INDICATION: chest pain TECHNIQUE: XR chest 1V portable, 03/22/2025, 11:06 a.m. COMPARISON: Single view chest x-ray 03/17/2025 FINDINGS: The cardiomediastinal silhouette is grossly stable, with cardiac enlargement, CABG changes and ICD reidentified. There is interval improvement in pulmonary vascular congestion with resolution of previously visualized right perihilar and lower lung zone opacification. However, there is persistent retrocardiac opacification that is nonspecific. Underlying pneumonia not excluded. No sizable pleural effusions. No pneumothorax. Multifocal degenerative changes with otherwise no evidence for recent fracture or aggressive lesion. IMPRESSION: Improved right-sided pulmonary opacification. Persistent nonspecific left basilar opacification, possibly pneumonia in the appropriate clinical setting. Attention on follow-up. - This report was generated utilizing speech recognition software. -
--- NOTE | 2025-03-22 09:47 | XR_ITS ---
Examination: CT brain head without contrast. 2-D sagittal coronal reconstructions Date and time of exam: 03/22/2025, 10:02 a.m. CTDI: vol (mGy): 50.7 DLP: (mGycm): 945 INDICATION: Double vision Technique: Multiple CT axial sections of the brain have been obtained, 5 mm slice thickness. Contrast has not been administered. 2-D sagittal, coronal reconstructions have been obtained Low dose protocols were performed. One or more of the following dose reduction techniques were used; automated exposure control, adjustment of the mA and/or KV according to patient size, use of iterative reconstruction technique. Findings: Redemonstration of mild age-appropriate cerebral atrophy. Interval development of cortical thickening and surrounding subcortical white matter hypoattenuation consistent with edema in the inferior portion of the left occipital lobe. 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 The chronic intermediate component of the left-sided subdural hygroma has improved, with residual density there measuring approximate 4.8 mm in thickness on coronal image 37 in the left parietal region, previously approximately 6 mm in this region on prior head CT when measured in similar manner. No findings suggestive of recent superimposed subdural hemorrhage. No evidence for subarachnoid hemorrhage. No midline shift or obstructive hydrocephalus pattern. 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 No acute osseous abnormality detected. Mild mucosal hypertrophy is present in the bilateral maxillary sinuses. Impression: Interval development of cortical thickening and subcortical edema in the inferior portion of the left occipital lobe, suggestive of a recent ischemic infarction. Brain MRI is recommended for further evaluation. No acute intracranial hemorrhage. Chronic ancillary findings as above. Findings were discussed with Shay, the charge nurse, via telephone on 03/22/2025 10:33 AM.
--- NOTE | 2025-03-22 09:47 | EKG_ITS ---
[facility], [place] Test Date: 2025-03-22 Pat Name: YAZMIN SCHREIBER Department: Room: - Gender: Male [employer]: : 1945 Requested By: Ashia Choi Order Number: [id number] Reading MD: Ashia Choi Measurements Intervals [place] Rate: 60 P: DE: QRS: -67 QRSD: 176 T: 0 QT: 300 QTc: 300 Interpretive Statements ELECTRONIC VENTRICULAR PACEMAKER ST DEPRESSION, CONSIDER SUBENDOCARDIAL INJURY [0.1+ mV ST DEPRESSION] Compared to ECG 03/10/2025 19:38:19 ST (T wave) deviation now present /store/S0/[id number].pdf
[2025-03-22 10:30] LABS: Basophils # (Auto) 0.1 Thou/mm3 (0.0-0.2); Basophils % (Auto) 1 % (0-2.5); Eosinophils # (Auto) 0.1 Thou/mm3 (0.0-0.5); Eosinophils % (Auto) 0 % (0-10); Hematocrit 40.8 % (41.0-53.0); Hemoglobin 13.3 g/dL (13.5-16.0); Immature Granulocytes Auto 0.41 Thou/mm3 (0.00-0.00); Lymphocytes # (Auto) 1.7 Thou/mm3 (1.0-4.8); Lymphocytes % (Auto) 11 % (10-50); Mean Corpuscular HGB Conc 32.6 g/dl (31.0-37.0); Mean Corpuscular Hemoglobin 32.2 pg (25.0-35.0); Mean Corpuscular Volume 99 fL (80-100); Monocytes # (Auto) 1.6 Thou/mm3 (0.0-0.8); Monocytes % (Auto) 10 % (0-12); Neutrophils # (Auto) 11.6 Thou/mm3 (1.8-7.7); Neutrophils % (Auto) 75 % (37-80); Nucleated Red Blood Cell # 0.13 Thou/mm3 (0.00-0.00); Nucleated Red Blood Cell % 1 /100 WBC (0); Platelet Count 210 Thou/mm3 (140-440); RDW Standard Deviation 58.8 fL (35.1-43.9); Red Blood Count 4.13 Miln/mm3 (4.50-5.90); White Blood Count 15.6 Thou/mm3 (3.8-10.6)
[2025-03-22 10:57] LABS: B-Type Natriuretic Peptide 1319 pg/mL (0-100)
[2025-03-22 10:58] LABS: INR 1.9 (0.9-1.3); Partial Thromboplastin Time 33.6 Seconds (22.0-36.0); Prothrombin Time 18.9 Seconds (9.0-12.2)
[2025-03-22 11:00] LABS: Collection Type, Urine Clean Catch
[2025-03-22 11:05] LABS: Bilirubin,Urine Negative (Negative); Blood,Urine 2+ (Negative); Clarity,Urine Clear (Clear/Hazy); Color,Urine Yellow (Lt Yel-Yel); Glucose, Urine Negative (Negative); Hyaline Casts,Urine < 1 /hpf (0-1); Ketones,Urine Negative (Negative); Leukocyte Esterase,Urine Negative (Negative); Nitrite,Urine Negative (Negative); PH,Urine 5.5 (5.0-7.0); Protein,Urine Trace (Neg - Trace); RBC,Urine 11 /hpf (0-3); Specific Gravity,Urine 1.018 (1.001-1.035); Squamous Epithelial Cell,Urine < 1 /hpf (0-5); Urobilinogen,Urine Negative mg/dL (0.0-1.0); WBC,Urine 2 /hpf (0-5)
--- NOTE | 2025-03-22 11:13 | PD.EDSOB ---
ED SOB =RME/HPI General Chief Complaint: Altered Mental Status Stated Complaint: SOB Time Seen by Provider: 03/22/25 09:42 Arrival date/time: 03/22/25 09:37 RME / HPI RME / HPI Narrative: 79 year old male with history of CAD s/p CABG, s/p PCI, s/p pacemaker placement, hypertension, diabetes, hyperlipidemia presents to the ED BIBA from home for evaluation of shortness of breath today. Per at bedside, the patient appeared to be at his usual state of health when he first woke up. However, an hour later began to appear short of breath. Additionally states the patient was seeing things that were not there. denies any fevers. Related Data Home Medications ?Medication ?Instructions ?Recorded ?Confirmed aspirin 81 mg tablet,delayed 81 mg PO QDAY 04/03/19 03/23/25 release (Lidia Low Dose Aspirin) carvedilol 3.125 mg tablet 3.125 mg PO BID 04/03/19 03/23/25 docusate sodium 100 mg capsule 100 mg PO BID 04/03/19 03/23/25 (Stool Softener) metformin 500 mg tablet 500 mg PO BID 04/03/19 03/23/25 amiodarone 200 mg tablet 200 mg PO Q12H 03/11/25 03/23/25 apixaban 2.5 mg tablet (Eliquis) 2.5 mg PO Q12H 03/11/25 03/23/25 sertraline 25 mg tablet 25 mg PO DAILY 03/11/25 03/23/25 Previous Rx's ?Medication ?Instructions ?Recorded atorvastatin 20 mg tablet 20 mg PO HS 3 months #90 tabs 03/15/25 compression socks, medium #1 ea 03/15/25 guaifenesin 100 mg/5 mL oral liquid 100 mg (5 mL) PO QID 14 days #280 03/15/25 mL spironolactone 25 mg tablet 25 mg PO DAILY 3 months #90 tabs 03/15/25 fluconazole 100 mg tablet 200 mg (2 x 100 mg) PO QDAY Cocci, 03/18/25 [place] Fever 3 months #180 tabs furosemide 20 mg tablet 40 mg (2 x 20 mg) PO DAILY 3 03/18/25 months #180 tabs Allergies Allergy/AdvReac Type Severity Reaction Status Date / Time hydrocodone Allergy Intermediate IMPENDING Verified 03/10/25 19:31 DOOM, CLAUSTROPHOBIA, AMS Sulfa (Sulfonamide Allergy Unknown Hives Verified 03/10/25 19:31 Antibiotics) Review of Systems Review of Systems Systems Reviewed: All systems reviewed, normal except as documented Past Medical History Past Medical History CARDIAC: Positive Cardiac Disorders, Myocardial Infarction, Cardiac Arrhythmia, Hypercholesterolemia, Congestive Heart Failure (EF 20-25%), Deep Vein Thrombosis and Hypertension RESPIRATORY: Positive Pneumonia GASTROINTESTINAL: Positive Gastrointestinal Disorders and Gall Bladder Disease GENITOURINARY: Positive Genitourinary Disorders and Kidney Stones MUSCULOSKELETAL: Positive Musculoskeletal Disorders and Arthritis ENT: Positive Deafness (hearing aids) ENDOCRINE: Positive Diabetes Mellitus Type 2 OTHER HISTORY: Positive Hospitalization, Falls, Blood Transfusions and MRSA Family History FAMILY HISTORY: Positive Family Cardiac Disorders and Family Surgery Surgical History SURGICAL: Positive Cardiac Surgery, Open Heart Surgery (2018), Coronary Artery Bypass Graft, Coronary Stent (2013), Pacemaker and Angiogram Social History SMOKING STATUS: Former smoker SECOND HAND EXPOSURE: No SUBSTANCE USE: does not use ED Exam Narrative Physical exam: GENERAL APPEARANCE: alert and oriented x 2, tachypneic, somnolent HEENT: Normocephalic, atraumatic; pupils equal, round, reactive to light; EOMI; mucous membranes pink, dry; oropharynx clear NECK: Supple LUNGS: CTABL; no wheezes, no rales, no rhonchi HEART: Regular rate, regular rhythm; normal S1, S2; no murmurs ABDOMEN: non distended; normal BS; soft, no tenderness, no guarding, no rebound; no masses, no organomegaly, no hernia EXTREMITIES: atraumatic; no edema NEUROLOGIC: somnolent, AOx2; cranial nerves II-XII grossly intact PSYCHIATRIC: appropriate mood and affect SKIN: warm, dry, normal color; no rashes Course Quality Measures none Orders Category Date Time Status Admit to Inpatient Status Routine Admission 03/22/25 14:44 Active Patient Condition Routine Admission 03/22/25 14:43 Ordered Bedside COVID-19 Antigen Test NOW Care 03/22/25 12:45 Completed COVID-19 Screening Questionnaire NOW Care 03/22/25 12:44 Completed Panel Instrument Repairer NOW Care 03/22/25 09:47 Completed Decision to Admit X1 Care 03/22/25 12:44 Completed EKG (ED ONLY) *Do not use* NOW Care 03/22/25 09:47 Completed MRI Screening NOW Care 03/22/25 10:41 Completed Neuro Check Q4H START 00 Care 03/22/25 14:43 Active Notify provider NEEDED Care 03/22/25 14:43 Active Obtain weight daily Care 03/22/25 14:45 Active Seizure precautions NEEDED Care 03/22/25 14:45 Completed Sequential Compression Device QSHIFT Care 03/22/25 14:43 Active Strict Intake and Output Routine Care 03/22/25 14:44 Ordered Urinary Catheter QS Care 03/22/25 14:43 Active Visual Acuity NOW Care 03/22/25 10:[address] head/brain wo con Stat Exams 03/22/25 09:47 Completed EKG (ED Only) Stat Exams 03/22/25 09:47 Draft US abdomen limited Stat Exams 03/22/25 11:27 Completed XR chest 1V portable Stat Exams 03/22/25 09:47 Completed B-Type Natriuretic Peptide Stat Lab 03/22/25 10:08 Completed Blood Culture (Lab) Stat Lab 03/22/25 11:23 Results CBC AM DRAW Lab 03/23/25 04:40 Completed CBC AM DRAW Lab 03/24/25 04:36 Completed CBC AM DRAW Lab 03/25/25 05:00 Ordered CBC Stat Lab 03/22/25 10:08 Completed Comprehensive Metabolic Panel AM DRAW Lab 03/23/25 04:40 Completed Comprehensive Metabolic Panel AM DRAW Lab 03/24/25 04:36 Completed Comprehensive Metabolic Panel AM DRAW Lab 03/25/25 05:00 Ordered Comprehensive Metabolic Panel Stat Lab 03/22/25 10:08 Completed Lactate (Lactic Acid) Stat Lab 03/22/25 11:23 Completed Lactic Acid, 3 HR Stat Lab 03/22/25 14:47 Completed Lipase Stat Lab 03/22/25 10:08 Completed Magnesium AM DRAW Lab 03/23/25 04:40 Completed Magnesium AM DRAW Lab 03/24/25 04:36 Completed Magnesium AM DRAW Lab 03/25/25 05:00 Ordered Magnesium Stat Lab 03/22/25 10:08 Completed Partial Thromboplastin Time AM DRAW Lab 03/23/25 04:40 Completed Partial Thromboplastin Time Stat Lab 03/22/25 10:08 Completed Phosphorous AM DRAW Lab 03/23/25 04:40 Completed Phosphorous AM DRAW Lab 03/24/25 04:36 Completed Phosphorous AM DRAW Lab 03/25/25 05:00 Ordered Procalcitonin Stat Lab 03/22/25 11:23 Completed Prothrombin Time with INR AM DRAW Lab 03/23/25 04:40 Completed Prothrombin Time with INR AM DRAW Lab 03/24/25 04:36 Completed Prothrombin Time with INR AM DRAW Lab 03/25/25 05:00 Ordered Prothrombin Time with INR Stat Lab 03/22/25 10:08 Completed Troponin I Q6H Lab 03/22/25 15:35 Completed Troponin I Q6H Lab 03/22/25 21:40 Completed Troponin I Q6H Lab 03/23/25 03:19 Completed Troponin I Stat Lab 03/22/25 10:08 Completed Urinalysis Stat Lab 03/22/25 10:51 Completed Urine Culture Stat Lab 03/22/25 10:51 Completed Acetaminophen Tab [Tylenol Tab] Med 03/22/25 14:43 Active 650 mg PO Q6H PRN Azithromycin Inj [Zithromax Inj] 500 mg Med 03/22/25 11:19 Discontinued Sodium Chloride 0.9% 250 ml [Ns] 250 ml IV X1 Calcium Gluconate 10% Inj Med 03/22/25 11:21 Discontinued 1 gm IV X1 ONE DOBUTamine/D5w 500 MG IVPB [Dobutrex/D5w IVPB] Med 03/22/25 14:47 Discontinued 500 mg in 250 ml IV 1 mcg/kg/min Sod Polystyrene Sulfon Susp [Kayexalate Susp] Med 03/22/25 11:22 Discontinued 30 gm PO X1 ONE Sodium Chloride 0.9% 1000 ml [Ns] 1,000 ml Med 03/22/25 11:21 Discontinued IV 999 mls/hr cefTRIAXone/D5w 1gm IV premix [Rocephin/D5w 1gm IV Med 03/22/25 11:18 Discontinued premix] 1 gm in 50 ml IV X1 Code Status Routine Oth 03/22/25 14:43 Ordered BiPAP / CPAP NOW RT 03/22/25 14:43 Active Oxygen Delivery PRN RT 03/22/25 14:43 Active Vital Signs Vital signs: Vital Signs Temperature 97.6 F 03/22/25 09:50 Pulse Rate 60 03/22/25 09:50 Respiratory Rate 22 H 03/22/25 09:50 Blood Pressure 102/69 03/22/25 09:50 Pulse Oximetry (%) 85 L 03/22/25 09:50 Oxygen Delivery Method Room Air 03/22/25 09:50 Shortness of Breath / Dyspnea MDM Narrative MDM Narrative:: Amira Rodriguez am scribing for and in the presence of Dr. Uribe. Patient data External records reviewed:: [facility] previous records and EMS form Clinical information provided by:: patient and EMS Social determinants that could affect healthcare access:: none Patient has the following chronic illnesses:: CAD s/p CABG, s/p PCI, s/p pacemaker placement, hypertension, diabetes, hyperlipidemia How is presenting disease/condition affected by chronic disease/condition?: exacerbated by Evaluation data The following diagnostics were reviewed and interpreted by me:: lab results, radiology exam(s) and EKG tracing(s) (EKG @ 10:30 AM. Ventricular paced rhythm, rate 60. ) Lab and/or radiology exams considered but not ordered:: None Interpretation Summary: Ordering Physician: Ashia Uribe MD Date of Service: 03/22/25 Procedure(s): XR chest 1V portable Accession Number(s): [id number] cc: Ashia Uribe MD; Vamshi Rivera DO~ CLINICAL INDICATION: chest pain TECHNIQUE: XR chest 1V portable, 03/22/2025, 11:06 a.m. COMPARISON: Single view chest x-ray 03/17/2025 FINDINGS: The cardiomediastinal silhouette is grossly stable, with cardiac enlargement, CABG changes and ICD reidentified. There is interval improvement in pulmonary vascular congestion with resolution of previously visualized right perihilar and lower lung zone opacification. However, there is persistent retrocardiac opacification that is nonspecific. Underlying pneumonia not excluded. No sizable pleural effusions. No pneumothorax. Multifocal degenerative changes with otherwise no evidence for recent fracture or aggressive lesion. IMPRESSION: Improved right-sided pulmonary opacification. Persistent nonspecific left basilar opacification, possibly pneumonia in the appropriate clinical setting. Attention on follow-up. - This report was generated utilizing speech recognition software. - Dictated By: Vamshi Rivera DO Signed By: <Electronically signed by Vamshi Rivera DO in OV> 03/22/25 1046 Ordering Physician: Ashia Uribe MD Date of Service: 03/22/25 Procedure(s): CT head/brain wo con Accession Number(s): [id number] cc: Ashia Uribe MD; Vamshi Rivera DO~ Examination: CT brain head without contrast. 2-D sagittal coronal reconstructions Date and time of exam: 03/22/2025, 10:02 a.m. CTDI: vol (mGy): 50.7 DLP: (mGycm): 945 INDICATION: Double vision Technique: Multiple CT axial sections of the brain have been obtained, 5 mm slice thickness. Contrast has not been administered. 2-D sagittal, coronal reconstructions have been obtained Low dose protocols were performed. One or more of the following dose reduction techniques were used; automated exposure control, adjustment of the mA and/or KV according to patient size, use of iterative reconstruction technique. Findings: Redemonstration of mild age-appropriate cerebral atrophy. Interval development of cortical thickening and surrounding subcortical white matter hypoattenuation consistent with edema in the inferior portion of the left occipital lobe. 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 The chronic intermediate component of the left-sided subdural hygroma has improved, with residual density there measuring approximate 4.8 mm in thickness on coronal image 37 in the left parietal region, previously approximately 6 mm in this region on prior head CT when measured in similar manner. No findings suggestive of recent superimposed subdural hemorrhage. No evidence for subarachnoid hemorrhage. No midline shift or obstructive hydrocephalus pattern. 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 No acute osseous abnormality detected. Mild mucosal hypertrophy is present in the bilateral maxillary sinuses. Impression: Interval development of cortical thickening and subcortical edema in the inferior portion of the left occipital lobe, suggestive of a recent ischemic infarction. Brain MRI is recommended for further evaluation. No acute intracranial hemorrhage. Chronic ancillary findings as above. Findings were discussed with Shay, the charge nurse, via telephone on 03/22/2025 10:33 AM. Dictated By: Vamshi Rivera DO Signed By: <Electronically signed by Vamshi Rivera DO in OV> 03/22/25 1037 Ordering Physician: Ashia Uribe MD Date of Service: 03/22/25 Procedure(s): US abdomen limited Accession Number(s): [id number] cc: NO PRIMARY/FAMILY,PHYSICIAN; Ashia Uribe MD; Vamshi Rivera DO~ Examination: Abdomen sonogram, Limited Date and time of exam: 03/22/2025, 12:37 p.m. Technique: Real-time bermudez scale transabdominal sonographic images of the upper abdomen obtained. INDICATION: Elevated LFTs COMPARISON: Liver ultrasound 03/17/2025 Findings: Redemonstration of diffusely increased hepatic echotexture. The liver exhibits relatively smooth margins. No mass identified. Hepatic size is within normal limits, measured at 14.6 cm in length. No abnormal bile duct dilatation. The CBD is within normal limits at 4 mm. Mildly thickened gallbladder wall measuring 4 mm. No pericholecystic fluid. A 4 mm echogenic focus is identified in the gallbladder lumen, either a small stone or polyp but the retinal surgeon was unable to turn the patient to left lateral decubitus position to further characterize the finding. No significant findings of the partially imaged pancreas. No main pancreatic ductal dilatation. Patent portal vein with normal caliber of 1.3 cm and hepatopetal flow. Hepatic veins are patent. No right upper quadrant ascites. Partially imaged right-sided pleural effusion. IMPRESSION: Diffusely increased hepatic echotexture is nonspecific and could be due to hepatic steatosis, chronic hepatitis in the appropriate clinical setting, amongst other possibilities. No focal liver mass detected. Punctate calculus versus gallbladder polyp. Gallbladder wall thickening of 4 mm, nonspecific, potentially due to cardiomyopathy or liver disease if not cholecystitis although the latter is not favored at this time. No abnormal bile duct dilatation. Right-sided pleural effusion noted. Dictated By: Vamshi Rivera DO Signed By: <Electronically signed by Vamshi Rivera DO in OV> 03/22/25 1315 Medications / Prescriptions Medications or Prescriptions considered but not ordered:: None Medication administrations:: Medication Administration History Acetaminophen (Acetaminophen 325 Mg Tablet) 650 mg PO Q6H PRN PRN Reason: Fever >100.4 and pain 1-3 Stop: 04/21/25 14:42 Amiodarone HCl (Amiodarone Hcl 200 Mg Tablet) 200 mg PO BID KOFFI Stop: 04/23/25 20:59 Balsam [place] Oil (Balsam [place] Oil (Venelex) 60 Gm Tube) 0 gm TOP BID KFOFI Stop: 04/22/25 20:59 Last Admin: 03/24/25 09:18 Dose: 1 applicatio Documented By: Admin: 03/23/25 20:42 Dose: 1 applicatio Documented By: AIMEE Dextrose (Dextrose 50%-Water Inj 50 Ml Syringe) 25 ml IV Q15MIN PRN PRN Reason: BG 50-70 responsive npo pt Stop: 04/21/25 19:27 Dextrose (Dextrose 50%-Water Inj 50 Ml Syringe) 50 ml IV Q15MIN PRN PRN Reason: BG <50 OR BG <70 & pt unresponsive Stop: 04/21/25 19:27 Glucagon (Glucagon Inj 1 Mg Vial) 1 mg IM Q15MIN PRN PRN Reason: BG <70, and no IV access Norepinephrine/Dextrose (Levophed In D5w 8mg/250ml) 8 mg in 250 mls @ 7.125 mls/hr IV .Q24H PRN; Protocol PRN Reason: PER PROTOCOL Stop: 04/21/25 14:56 Last Titration: 03/24/25 11:50 Dose: 0 mcg/kg/min, 0 mls/hr Documented By: Titration: 03/24/25 11:00 Dose: 0.01 mcg/kg/min, 1.425 mls/hr Documented By: Titration: 03/24/25 10:00 Dose: 0.01 mcg/kg/min, 1.425 mls/hr Documented By: Titration: 03/24/25 09:00 Dose: 0.01 mcg/kg/min, 1.425 mls/hr Documented By: Titration: 03/24/25 08:00 Dose: 0.01 mcg/kg/min, 1.425 mls/hr Documented By: Admin: 03/24/25 07:56 Dose: 0.01 mcg/kg/min, 1.425 mls/hr Documented By: Titration: 03/24/25 07:56 Dose: Infused Documented By: Titration: 03/24/25 07:00 Dose: 0.01 mcg/kg/min, 1.425 mls/hr Documented By: Titration: 03/24/25 06:00 Dose: 0.01 mcg/kg/min, 1.425 mls/hr Documented By: Titration: 03/24/25 05:00 Dose: 0.01 mcg/kg/min, 1.425 mls/hr Documented By: Titration: 03/24/25 04:00 Dose: 0.01 mcg/kg/min, 1.425 mls/hr Documented By: Titration: 03/24/25 03:00 Dose: 0.01 mcg/kg/min, 1.425 mls/hr Documented By: Titration: 03/24/25 02:00 Dose: 0.01 mcg/kg/min, 1.425 mls/hr Documented By: Titration: 03/24/25 01:00 Dose: 0.01 mcg/kg/min, 1.425 mls/hr Documented By: Titration: 03/24/25 00:00 Dose: 0.01 mcg/kg/min, 1.425 mls/hr Documented By: Titration: 03/23/25 23:00 Dose: 0.01 mcg/kg/min, 1.425 mls/hr Documented By: Titration: 03/23/25 22:00 Dose: 0.01 mcg/kg/min, 1.425 mls/hr Documented By: Titration: 03/23/25 21:00 Dose: 0.01 mcg/kg/min, 1.425 mls/hr Documented By: Titration: 03/23/25 20:00 Dose: 0.01 mcg/kg/min, 1.425 mls/hr Documented By: Titration: 03/23/25 19:00 Dose: 0.01 mcg/kg/min, 1.425 mls/hr Documented By: Titration: 03/23/25 18:22 Dose: 0.01 mcg/kg/min, 1.425 mls/hr Documented By: Titration: 03/23/25 18:00 Dose: 0.03 mcg/kg/min, 4.275 mls/hr Documented By: Titration: 03/23/25 17:00 Dose: 0.03 mcg/kg/min, 4.275 mls/hr Documented By: Titration: 03/23/25 16:00 Dose: 0.03 mcg/kg/min, 4.275 mls/hr Documented By: Titration: 03/23/25 15:00 Dose: 0.03 mcg/kg/min, 4.275 mls/hr Documented By: Titration: 03/23/25 14:00 Dose: 0.03 mcg/kg/min, 4.275 mls/hr Documented By: Titration: 03/23/25 13:00 Dose: 0.03 mcg/kg/min, 4.275 mls/hr Documented By: Titration: 03/23/25 12:21 Dose: 0.03 mcg/kg/min, 4.275 mls/hr Documented By: Titration: 03/23/25 12:00 Dose: 0.05 mcg/kg/min, 7.125 mls/hr Documented By: Titration: 03/23/25 11:00 Dose: 0.05 mcg/kg/min, 7.125 mls/hr Documented By: Titration: 03/23/25 10:00 Dose: 0.05 mcg/kg/min, 7.125 mls/hr Documented By: Titration: 03/23/25 09:00 Dose: 0.05 mcg/kg/min, 7.125 mls/hr Documented By: Titration: 03/23/25 08:00 Dose: 0.05 mcg/kg/min, 7.125 mls/hr Documented By: Titration: 03/23/25 07:00 Dose: 0.05 mcg/kg/min, 7.125 mls/hr Documented By: Titration: 03/23/25 06:00 Dose: 0.05 mcg/kg/min, 7.125 mls/hr Documented By: Titration: 03/23/25 05:00 Dose: 0.07 mcg/kg/min, 9.975 mls/hr Documented By: Titration: 03/23/25 04:00 Dose: 0.07 mcg/kg/min, 9.975 mls/hr Documented By: Titration: 03/23/25 03:00 Dose: 0.07 mcg/kg/min, 9.975 mls/hr Documented By: Titration: 03/23/25 02:00 Dose: 0.07 mcg/kg/min, 9.975 mls/hr Documented By: Titration: 03/23/25 01:00 Dose: 0.05 mcg/kg/min, 7.125 mls/hr Documented By: Titration: 03/23/25 00:00 Dose: 0.05 mcg/kg/min, 7.125 mls/hr Documented By: Titration: 03/22/25 23:00 Dose: 0.05 mcg/kg/min, 7.125 mls/hr Documented By: Titration: 03/22/25 22:33 Dose: 0.05 mcg/kg/min, 7.125 mls/hr Documented By: Titration: 03/22/25 22:00 Dose: 0.03 mcg/kg/min, 4.275 mls/hr Documented By: Titration: 03/22/25 21:45 Dose: 0.03 mcg/kg/min, 4.275 mls/hr Documented By: Titration: 03/22/25 21:18 Dose: 0.05 mcg/kg/min, 7.125 mls/hr Documented By: Titration: 03/22/25 21:00 Dose: 0.07 mcg/kg/min, 9.975 mls/hr Documented By: Titration: 03/22/25 20:00 Dose: 0.07 mcg/kg/min, 9.975 mls/hr Documented By: Titration: 03/22/25 19:47 Dose: 0.07 mcg/kg/min, 9.975 mls/hr Documented By: Titration: 03/22/25 19:00 Dose: 0.05 mcg/kg/min, 7.125 mls/hr Documented By: Titration: 03/22/25 18:00 Dose: 0.05 mcg/kg/min, 7.125 mls/hr Documented By: Titration: 03/22/25 17:00 Dose: 0.05 mcg/kg/min, 7.125 mls/hr Documented By: Titration: 03/22/25 16:00 Dose: 0.05 mcg/kg/min, 7.125 mls/hr Documented By: Titration: 03/22/25 15:29 Dose: 0.05 mcg/kg/min, 7.125 mls/hr Documented By: Titration: 03/22/25 15:15 Dose: 0.05 mcg/kg/min, 7.125 mls/hr Documented By: Admin: 03/22/25 15:10 Dose: 0.05 mcg/kg/min, 7.125 mls/hr Documented By: JOYA Dobutamine HCl/Dextrose (Dobutrex/D5w Ivpb) 500 mg in 250 mls @ 7.693 mls/hr IV .Q24H KOFFI Stop: 04/23/25 12:08 Last Admin: 03/24/25 12:56 Dose: Not Given Documented By: GEOFFREY Non-Admin Reason: check previous bag rate changed Insulin Human Lispro (Insulin Lispro (Admelog) 1 Unit/0.01 Ml Unit) 0 unit SC Q6HR KOFFI; Protocol Stop: 04/22/25 00:00 Last Admin: 03/24/25 12:57 Dose: Not Given Documented By: GEOFFREY Non-Admin Reason: Per Protocol Admin: 03/24/25 05:44 Dose: 2 unit Documented By: AIMEE Co-signed By: MATHIEU Admin: 03/23/25 23:18 Dose: 1 unit Documented By: AIMEE Co-signed By: BUCKY Admin: 03/23/25 18:20 Dose: 2 unit Documented By: GEOFFREY Co-signed By: Admin: 03/23/25 12:22 Dose: 1 unit Documented By: GEOFFREY Co-signed By: Admin: 03/23/25 05:27 Dose: 2 unit Documented By: HILARY Co-signed By: MATHIEU Admin: 03/23/25 00:48 Dose: 3 unit Documented By: HILARY Co-signed By: AD Discontinued Medications Balsam [place] Oil (Balsam [place] Oil (Venelex) 60 Gm Tube) 0 gm TOP BID KOFFI Stop: 04/22/25 20:59 Calcium Gluconate (Calcium Gluconate 10% Inj 1 Gm/10 Ml Vial) 1 gm IV X1 ONE Stop: 03/22/25 11:22 Last Admin: 03/22/25 11:47 Dose: 1 gm Documented By: JOYA Dextrose (Dextrose 50%-Water Inj 50 Ml Syringe) 50 ml IVP X1 ONE Stop: 03/22/25 18:07 Last Admin: 03/22/25 18:21 Dose: 50 ml Documented By: ILENE Heparin Sodium (Porcine) (Heparin Sod Inj 5000 Unit/Ml Vial) 5,000 unit SC Q8HR KOFFI Stop: 04/05/25 21:59 Ceftriaxone Sodium/Dextrose (Rocephin/D5w 1gm Iv Premix) 1 gm in 50 mls @ 100 mls/hr IV X1 ONE Stop: 03/22/25 11:47 Last Infusion: 03/22/25 12:29 Dose: Infused Documented By: Admin: 03/22/25 11:55 Dose: 100 mls/hr Documented By: JOYA Azithromycin 500 mg/ Sodium (Chloride) 250 mls @ 250 mls/hr IV X1 ONE Stop: 03/22/25 12:18 Last Infusion: 03/22/25 15:01 Dose: Infused Documented By: Admin: 03/22/25 12:28 Dose: 250 mls/hr Documented By: JOYA Sodium Chloride (Ns) 1,000 mls @ 999 mls/hr IV .Q1H1M ONE Stop: 03/22/25 12:21 Last Admin: 03/22/25 12:37 Dose: Not Given Documented By: JOYA Non-Admin Reason: Cancelled by Provider Dobutamine HCl/Dextrose (Dobutrex/D5w Ivpb) 500 mg in 250 mls @ 2.28 mls/hr IV .Q24H ONE Stop: 03/23/25 14:46 Last Infusion: 03/22/25 18:52 Dose: Infused Documented By: Infusion: 03/22/25 18:52 Dose: 0 mcg/kg/min, 0 mls/hr Documented By: Infusion: 03/22/25 18:00 Dose: 2.5 mcg/kg/min, 5.7 mls/hr Documented By: Infusion: 03/22/25 17:00 Dose: 2.5 mcg/kg/min, 5.7 mls/hr Documented By: Infusion: 03/22/25 16:00 Dose: 2.5 mcg/kg/min, 5.7 mls/hr Documented By: Infusion: 03/22/25 15:29 Dose: 2.5 mcg/kg/min, 5.7 mls/hr Documented By: Infusion: 03/22/25 15:14 Dose: 2.5 mcg/kg/min, 5.7 mls/hr Documented By: Admin: 03/22/25 15:00 Dose: 1 mcg/kg/min, 2.28 mls/hr Documented By: JOYA Magnesium Sulfate (Magnesium Sulfate Ivpb) 2 gm in 50 mls @ 25 mls/hr IV X1 ONE Stop: 03/22/25 20:01 Last Infusion: 03/22/25 20:20 Dose: Infused Documented By: Admin: 03/22/25 18:21 Dose: 25 mls/hr Documented By: ILENE Amiodarone HCl/Dextrose (Nexterone Ivpb) 150 mg in 100 mls @ 600 mls/hr IV .Q10M ONE Stop: 03/22/25 19:05 Last Infusion: 03/22/25 19:05 Dose: Infused Documented By: Admin: 03/22/25 19:03 Dose: 600 mls/hr Documented By: HILARY Amiodarone HCl/Dextrose (Nexterone Ivpb) 360 mg in 200 mls @ 16.667 mls/hr IV .Q12H KOFFI Stop: 03/24/25 01:04 Last Admin: 03/23/25 14:08 Dose: 16.667 mls/hr Documented By: Infusion: 03/23/25 13:35 Dose: Infused Documented By: Admin: 03/23/25 01:35 Dose: 16.667 mls/hr Documented By: HILARY Amiodarone HCl/Dextrose (Nexterone Ivpb) 360 mg in 200 mls @ 33.333 mls/hr IV .Q6H ONE Stop: 03/23/25 01:04 Last Infusion: 03/23/25 01:35 Dose: Infused Documented By: Admin: 03/22/25 19:14 Dose: 33.333 mls/hr Documented By: HILARY Amiodarone HCl/Dextrose (Nexterone Ivpb) Confirm Administered Dose 150 mg in 100 mls @ ud IV .STK-MED ONE Stop: 03/22/25 18:54 Last Admin: 03/22/25 19:07 Dose: Not Given Documented By: HILARY Non-Admin Reason: Duplicate Medication on eMAR Dobutamine HCl/Dextrose (Dobutrex/D5w Ivpb) 500 mg in 250 mls @ 3.168 mls/hr IV .Q24H KOFFI Stop: 04/21/25 19:52 Last Infusion: 03/23/25 16:30 Dose: 3.75 mcg/kg/min, 7.92 mls/hr Documented By: Infusion: 03/23/25 06:02 Dose: 2.5 mcg/kg/min, 5.28 mls/hr Documented By: Infusion: 03/23/25 05:21 Dose: 2 mcg/kg/min, 4.224 mls/hr Documented By: Infusion: 03/23/25 03:40 Dose: 1.5 mcg/kg/min, 3.168 mls/hr Documented By: Infusion: 03/22/25 23:00 Dose: 1.25 mcg/kg/min, 2.64 mls/hr Documented By: Infusion: 03/22/25 21:17 Dose: 0 mcg/kg/min, 0 mls/hr Documented By: Admin: 03/22/25 19:59 Dose: 1.5 mcg/kg/min, 3.168 mls/hr Documented By: HILARY Lactated Ringer's (Lactated Ringers) 250 mls @ 50 mls/hr IV .Q5H KOFFI Stop: 04/21/25 20:07 Last Admin: 03/23/25 07:10 Dose: Not Given Documented By: Non-Admin Reason: Discontinued Admin: 03/23/25 01:55 Dose: 50 mls/hr Documented By: Infusion: 03/23/25 01:55 Dose: Infused Documented By: Admin: 03/22/25 20:59 Dose: 50 mls/hr Documented By: HILARY Magnesium Sulfate (Magnesium Sulfate Ivpb) 2 gm in 50 mls @ 100 mls/hr IV X1 ONE Stop: 03/22/25 21:47 Last Infusion: 03/22/25 22:10 Dose: Infused Documented By: Admin: 03/22/25 21:37 Dose: 100 mls/hr Documented By: HILARY Dobutamine HCl/Dextrose (Dobutrex/D5w Ivpb) 500 mg in 250 mls @ 4.224 mls/hr IV .Q24H KOFFI Stop: 04/22/25 05:20 Last Admin: 03/23/25 06:58 Dose: Not Given Documented By: MR Non-Admin Reason: Discontinued Dobutamine HCl/Dextrose (Dobutrex/D5w Ivpb) 500 mg in 250 mls @ 5.28 mls/hr IV .Q24H KOFFI Stop: 04/22/25 05:59 Last Admin: 03/23/25 07:00 Dose: Not Given Documented By: HILARY Non-Admin Reason: previous bag, order changed per MD Wasiq Dobutamine HCl/Dextrose (Dobutrex/D5w Ivpb) 500 mg in 250 mls @ 8.73 mls/hr IV .Q24H KOFFI Stop: 04/22/25 16:27 Last Infusion: 03/24/25 12:55 Dose: 3.25 mcg/kg/min, 7.566 mls/hr Documented By: Infusion: 03/24/25 03:20 Dose: 4 mcg/kg/min, 9.312 mls/hr Documented By: Admin: 03/23/25 17:44 Dose: 3.75 mcg/kg/min, 8.73 mls/hr Documented By: GEOFFREY Amiodarone HCl/Dextrose (Nexterone Ivpb) 360 mg in 200 mls @ 16.667 mls/hr IV .Q12H KOFFI Stop: 03/24/25 16:27 Last Admin: 03/23/25 17:00 Dose: Not Given Documented By: MR Non-Admin Reason: Discontinued Amiodarone HCl/Dextrose (Nexterone Ivpb) 360 mg in 200 mls @ 16.667 mls/hr IV .Q12H KOFFI Stop: 03/25/25 02:07 Last Admin: 03/24/25 15:17 Dose: Not Given Documented By: MR Non-Admin Reason: Discontinued Admin: 03/24/25 02:05 Dose: 16.667 mls/hr Documented By: AIMEE Dobutamine HCl/Dextrose (Dobutrex/D5w Ivpb) 500 mg in 250 mls @ 8.448 mls/hr IV .Q24H [facility] [place] Stop: 04/23/25 03:22 Last Admin: 03/24/25 03:20 Dose: Not Given Documented By: HV Non-Admin Reason: Previous bag, order changed per MD Wasiq Dobutamine HCl/Dextrose (Dobutrex/D5w Ivpb) 500 mg in 250 mls @ 10.56 mls/hr IV .[id number] [facility] [place] Stop: 04/23/25 12:06 Last Admin: 03/24/25 14:03 Dose: Not Given Documented By: MR Non-Admin Reason: Discontinued Insulin Human Regular (Insulin Hum Regular 1 Unit/0.01 Ml (Per Unit)) 5 unit IV X1 ONE Stop: 03/22/25 18:07 Last Admin: 03/22/25 18:17 Dose: 5 unit Documented By: ILENE Co-signed By: KIKI Sodium Polystyrene Sulfonate (Sod Polystyrene Sulfon Susp 15 Gm/60 Ml Btl) 30 gm PO X1 ONE Stop: 03/22/25 11:23 Last Admin: 03/22/25 11:59 Dose: 30 gm Documented By: JOYA See above Consultations Consultation(s) initiated? (list below): Yes Consultation #1 (Physician, Specialty, Details): I spoke with hospitalist team for admission. Diagnosis Shortness of Breath Differential Diagnosis: acute exacerbation of chronic obstructive airways disease, congestive heart failure and community acquired pneumonia Most likely diagnosis given after review of the tests above:: Hypoxia Cardiogenic shock Admission Indicated Admission indicated?: indicated Admission Request Was there a request for admission?: Yes Admission Attestation Admission request attestation: Discussed case with [] from Hospitalist service regarding admission. Discussed patients ED course, exam findings, labs, and radiology results. The Hospitalist [agrees,declines] to accept the patient for admission. Disposition Plan Disposition Plan: Admit Discharge Plan Plan Patient Disposition: Admit Acute Care w/in Hospital Problem List Clinical Impression: Cardiogenic shock, Hypoxia
[2025-03-22 11:17] LABS: Alanine Aminotransferase 1442 U/L (10-49); Albumin, Serum 4.2 gm/dL (3.4-4.8); Albumin/Globulin Ratio 1.5 (1.2-2.2); Alkaline Phosphatase 126 U/L (46-116); Anion Gap 17 (7-16); Aspartate Amino Transferase 775 U/L (0-34); BUN/Creatinine Ratio 30 Ratio (12-20); Bilirubin,Total 1.7 mg/dL (0.3-1.2); Blood Urea Nitrogen 78 mg/dL (9-23); Calcium 9.4 mg/dL (8.3-10.6); Calcium (Corrected) 9.4 mg/dL (8.5-10.1); Carbon Dioxide 18.2 mMol/L (20.0-31.0); Chloride 96 mMol/L (98-107); Creatinine (Component) 2.6 mg/dL (0.6-1.3); Estimated Creatinine Clearance 21.6 mL/min (>60); Globulin 2.8 gm/dL (2.3-3.5); Glucose 222 mg/dL (74-106); Lipase 81 U/L (12-53); Magnesium 2.6 mg/dL (1.6-2.6); Osmolality,Calculated 292 (275-295); Potassium 6.0 mMol/L (3.4-5.1); Sodium 131 mMol/L (136-145); Total Protein 7.0 gm/dL (5.7-8.2); eGFR 24 See Note
[2025-03-22 11:19] LABS: Troponin I 0.072 ng/mL (0.0-0.045)
--- NOTE | 2025-03-22 11:27 | XR_ITS ---
Examination: Abdomen sonogram, Limited Date and time of exam: 03/22/2025, 12:37 p.m. Technique: Real-time bermudez scale transabdominal sonographic images of the upper abdomen obtained. INDICATION: Elevated LFTs COMPARISON: Liver ultrasound 03/17/2025 Findings: Redemonstration of diffusely increased hepatic echotexture. The liver exhibits relatively smooth margins. No mass identified. Hepatic size is within normal limits, measured at 14.6 cm in length. No abnormal bile duct dilatation. The CBD is within normal limits at 4 mm. Mildly thickened gallbladder wall measuring 4 mm. No pericholecystic fluid. A 4 mm echogenic focus is identified in the gallbladder lumen, either a small stone or polyp but the flanger was unable to turn the patient to left lateral decubitus position to further characterize the finding. No significant findings of the partially imaged pancreas. No main pancreatic ductal dilatation. Patent portal vein with normal caliber of 1.3 cm and hepatopetal flow. Hepatic veins are patent. No right upper quadrant ascites. Partially imaged right-sided pleural effusion. IMPRESSION: Diffusely increased hepatic echotexture is nonspecific and could be due to hepatic steatosis, chronic hepatitis in the appropriate clinical setting, amongst other possibilities. No focal liver mass detected. Punctate calculus versus gallbladder polyp. Gallbladder wall thickening of 4 mm, nonspecific, potentially due to cardiomyopathy or liver disease if not cholecystitis although the latter is not favored at this time. No abnormal bile duct dilatation. Right-sided pleural effusion noted.
[2025-03-22] MEDS: CALCIUM GLUCONATE 10% INJ 1 GM/10 ML VIAL IV (11:47)
[2025-03-22 11:54] LABS: Lactate (Lactic Acid) 5.0 mMol/L (0.4-2.0)
[2025-03-22] MEDS: cefTRIAXone/D5w 1gm IV premix 1 GM/50 ML BAG IV (11:55)
[2025-03-22] MEDS: SOD POLYSTYRENE SULFON SUSP 15 GM/60 ML BTL 30 GM PO (11:59)
[2025-03-22 12:06] LABS: Procalcitonin 0.27 ng/ml (0.0-0.49)
[2025-03-22] MEDS: AZITHROMYCIN INJ 500 MG in SODIUM CHLORIDE 0.9% 250 ML 250 ML 250 MG IV (12:28)
[2025-03-22 14:30] LABS: Reflex Lactate? Y
[2025-03-22 14:55] LABS: Lactic Acid, 3 HR 7.0 mMol/L (0.4-2.0)
[2025-03-22] MEDS: DOBUTamine/D5w 500 MG IVPB 500 MG/250 ML BAG IV ×2 (15:00→19:59)
[2025-03-22] MEDS: Norepinephrine/D5W 8mg/250ml 8 MG/250 ML BAG 7.125 MG IV (15:10)
[2025-03-22 16:27] LABS: Troponin I 0.080 ng/mL (0.0-0.045)
--- NOTE | 2025-03-22 17:11 | XR_ITS ---
CLINICAL INDICATION: POST CENTRAL LINE PROCEDURE TECHNIQUE: XR chest 1V post procedure, 03/22/2025 at 5:27 p.m. COMPARISON: Chest radiograph of earlier the same day FINDINGS: Status post right IJ approach central venous catheter placed with the tip of the catheter located appropriately at the superior cavoatrial junction. No pneumothorax. The remaining findings are stable compared to the preceding radiograph. IMPRESSION: Status post right IJ approach central venous catheter placed with the tip of the catheter located appropriately at the superior cavoatrial junction. No pneumothorax.
--- NOTE | 2025-03-22 17:43 | ESOP_ITS ---
PROCEDURES: Procedure Date / Time 03/22/25 1616 Procedural Time Out Time out performed: yes Procedure Narrative Procedure Narrative: Attending attestation: I was present for entire procedure. The patient tolerated procedure well with no immediate complications. Follow-up chest x-ray shows adequate positioning of the tip of the catheter as well as no postprocedural pneumothorax. Central Line Placement Right IJ: Indication(s): shock Informed consent obtained: obtained from surrogate decision maker Time out done, and the following verified: correct patient, side and site, procedure, patient position and implants and/or equipment Patient placed on monitor/pulse ox: Yes Hand Hygiene: alcohol-based hand rub Max Sterile Barrier Techniques used: cap, mask, sterile gown, sterile gloves and sterile full body drape Central line prep: Chlorhexidine scrub Local anesthesia used: lidocaine 1% Amount of anesthesia used (mL): 3 Ultrasound used for placement: Yes Sterile Technique if Ultrasound used, including sterile gel: yes Central line lumen inserted: triple Post procedure: sutured in place, good blood return, all ports aspirated, flushed, capped and sterile dressing applied Post procedure x-ray: tip of catheter in good position and no pneumothorax seen Patient tolerated procedure: well and no complications EBL(ml): 15 Complications: none Procedure comment: The patient was placed in Trendelenburg position. The Right neck was prepped using chlorhexidine scrub ?and draped in sterile fashion. ?Using real-time ultrasound, with sterile probe cover and sterile gel, the introducer needle was inserted into the vein under direct ultrasound visualization. Venous blood was withdrawn. The syringe was removed and a guidewire was advanced into the introducer needle. The guidewire was visualized in the appropriate vein by ultrasound. A small incision was made at the skin surface with a scalpel and the introducer needle was exchanged for a dilator over the guidewire. After ap propriate dilation was obtained, the dilator was exchanged over the wire for a central venous catheter. The wire was removed and the catheter was sutured in place. A biopatch was placed at the insertion site. A sterile op-site was placed over the catheter and biopatch. The patient tolerated the procedure without any hemodynamic compromise. At time of procedure completion, all ports aspirated and flushed properly. Chest X Ray afterwards pending official read, but appears in good position Case disclosed with Attending Dr. Kwaku Aquino PGY2
[2025-03-22 17:49] LABS: Base Excess, Venous -7 (-3-3); O2 Saturation, Venous 42 % (96-97); PCO2, Venous 35 mmHg (36-56); PO2, Venous 29 mmHg (15-58)
[2025-03-22 17:51] LABS: pH, Venous 7.33 (7.33-7.66)
--- NOTE | 2025-03-22 18:10 | PD.RESHP ---
Documentation for date of: 03/22/25 HPI History of Present Illness Chief complaint: AMS and SOB History of present illness: 79-year-old male with past medical history of CAD S/P 2 stents (2013), CABG(triple bypass -2018), EF 20 to 25%, ICD with PM, hypertension, diabetes,hyperlipidemia came into the ED where she complains of shortness of breath along with hallucinations. When discussed with the patient he was AO x 2 (not to time), but was unable to tell much history. He stated that he was just seeing things today and that is why why he came in. Spoke to the patient's who stated that today he was in his daily normal state of health when he suddenly started telling her that he was seeing things that were not there and that he was also trying to grab things that were not there. Patient was recently discharged on 03/18/2025 from her hospital due to CHF exacerbation. The patient's stated that he has been taking all his medications as prescribed. He was also found to have cocci pneumonia at this time and was started on fluconazole as well. On assessment patient was noticed to have cold extremities as well as other signs of hypoperfusion with decreased capillary refill as well as mottling on the toes of bilateral feet. Patient's heart rate was in the 60s paced rhythm and his blood pressure was on the lower end. At this time given the findings patient was most likely into cardiogenic shock not from fluid overload status but from a perfusion/contractility perspective. At this time dobutamine drip was needed and patient will need to be admitted to the ICU, but on chart review it was seen that his POLST form he has selective treatment therefore clarified with patient's family members if it was in the patient's wishes to go to the ICU and received further care as well as get central line placement and be started on medications to help his heart contacted. Once patient was started on dobutamine drip and Levophed for cardiogenic shock BP was still stable and central line once in place was patient was in the ICU. Later during the evening patient developed episodes of nonsustained V. tach, but afterwards developed sustained V. tach therefore dobutamine drip was discontinued. Given that patient was still sustaining V. tach and defibrillated was not firing likely because his rate was in the 120s decided to start amiodarone drip at this time. Patient was asymptomatic during these episodes. ED course: Initially normotensive, tachypneic, and hypoxic. Initial labs showed leukocytosis, coagulopathy, hyperkalemia, KOSTA, NAGMA, lactic acidosis, and transaminitis as well as elevated BNP and mild elevation of troponins. Patient is to be admitted to the ICU for cardiogenic shock. Review of Systems Review of Systems Systems Reviewed: All systems reviewed, normal except as documented Past Medical History Past Medical History CARDIAC: Positive Cardiac Disorders, Myocardial Infarction, Cardiac Arrhythmia, Hypercholesterolemia, Congestive Heart Failure (EF 20-25%), Deep Vein Thrombosis and Hypertension RESPIRATORY: Positive Pneumonia GASTROINTESTINAL: Positive Gastrointestinal Disorders and Gall Bladder Disease GENITOURINARY: Positive Genitourinary Disorders and Kidney Stones MUSCULOSKELETAL: Positive Musculoskeletal Disorders and Arthritis ENT: Positive Deafness (hearing aids) ENDOCRINE: Positive Diabetes Mellitus Type 2 OTHER HISTORY: Positive Hospitalization, Falls, Blood Transfusions and MRSA Family History FAMILY HISTORY: Positive Family Cardiac Disorders and Family Surgery Surgical History SURGICAL: Positive Cardiac Surgery, Open Heart Surgery (2018), Coronary Artery Bypass Graft, Coronary Stent (2013), Pacemaker and Angiogram Social History SMOKING STATUS: Former smoker SECOND HAND EXPOSURE: No SUBSTANCE USE: does not use Exam Vital Signs Temp Pulse Resp BP Pulse Ox O2 Del Method O2 Flow Rate 98.0 F 60 23 H 98/72 98 High Flow Nasal Cannula 5 03/22/25 15:03 03/22/25 16:30 03/22/25 16:30 03/22/25 16:30 03/22/25 16:30 03/22/25 15:03 03/22/25 15:03 FiO2 100 03/22/25 16:17 Narrative Exam General: A/O x2 (not to time), somnolent Eyes: PERRL, EOMI. Anicteric, vision grossly intact. Ears: No ear pain, no ear discharge, Hearing grossly intact. Nose: No nasal discharge. Mouth/Throat: Dry mucous membranes, no redness, no lesions. Neck: Neck supple, non-tender, no cervical lymphadenopathy. Lungs: Clear [place] to auscultation and percussion, No accessory muscle use. Cardio: Normal S1/S2, regular rhythm, no murmurs, no JVD Abdomen: Soft, non-tender, no palpable masses, peristalsis present, no guarding or rebound. Extremities: Symmetrical, no significant deformities, no peripheral edema , non-tender, peripheral pulses faint, cold extremities, decreased capillary refill. Skin: No rashes, no lesions, warm to touch. Neuro: No focal neurological deficits appreciated, moving all extremities, answering questions. Psych: Cooperative Results: Labs 03/22/25 17:50 03/22/25 19:49 Labs: Short CBC 03/22/25 Range/Units 10:08 WBC 15.6 H (3.8-10.6) Thou/mm3 Hgb 13.3 L (13.5-16.0) g/dL Hct 40.8 L (41.0-53.0) % Plt Count 210 (140-440) Thou/mm3 BMP 03/22/25 10:08 Sodium 131 L Potassium 6.0 H Chloride 96 L Carbon Dioxide 18.2 L BUN 78 H Creatinine 2.6 H D Glucose 222 H Calcium 9.4 Cardiac Enzymes 03/22/25 03/22/25 Range/Units 10:08 15:35 Troponin I 0.072 H* 0.080 H* (0.0-0.045) ng/mL Liver Function 03/22/25 Range/Units 10:08 Total Bilirubin 1.7 H (0.3-1.2) mg/dL AST 775 H* (0-34) U/L ALT 1442 H* (10-49) U/L Alkaline Phosphatase 126 H (46-116) U/L Albumin 4.2 (3.4-4.8) gm/dL Urine 03/22/25 Range/Units 10:51 Urine Color Yellow (Lt Yel-Yel) Urine Clarity Clear (Clear/Hazy) Urine pH 5.5 (5.0-7.0) Ur Specific [place] 1.018 (1.001-1.035) Urine Protein Trace (Neg - Trace) Urine Glucose (UA) Negative (Negative) ABG Interpretation ABG results: 03/22/25 03/22/25 15:09 15:30 ABG pH Cancelled ABG pCO2 Cancelled ABG pO2 Cancelled ABG HCO3 Cancelled ABG O2 Saturation Cancelled ABG Base Excess Cancelled VBG pH 7.33 VBG pCO2 35 L VBG pO2 29 VBG Base Excess -7 L Quality Measures Quality Measures none Advance care planning discussed with:: patient Medications Home Medications and Allergies Home Medications ?Medication ?Instructions ?Recorded ?Confirmed ?Type aspirin 81 mg tablet,delayed 81 mg PO QDAY 04/03/19 03/11/25 History release (Lidia Low Dose Aspirin) carvedilol 3.125 mg tablet 3.125 mg PO BID 04/03/19 03/11/25 History docusate sodium 100 mg capsule 100 mg PO BID 04/03/19 03/11/25 History (Stool Softener) losartan 25 mg tablet 25 mg PO QDAY 04/03/19 03/11/25 History Held on 03/18/25. Instructions: Resume on 03/26/25. Hold until you see your primary doctor metformin 500 mg tablet 500 mg PO BID 04/03/19 03/11/25 History amiodarone 200 mg tablet 200 mg PO Q12H 03/11/25 03/11/25 History apixaban 2.5 mg tablet (Eliquis) 2.5 mg PO Q12H 03/11/25 03/11/25 History dapagliflozin propanediol 10 mg 10 mg PO QDAY 03/11/25 03/11/25 History tablet (Farxiga) Held on 03/15/25. Instructions: Resume on 03/22/25. hold until you see PCP sertraline 25 mg tablet 25 mg PO DAILY 03/11/25 03/11/25 History Allergies Allergy/AdvReac Type Severity Reaction Status Date / Time hydrocodone Allergy Intermediate IMPENDING Verified 03/10/25 19:31 DOOM, CLAUSTROPHOBIA, AMS Sulfa (Sulfonamide Allergy Unknown Hives Verified 03/10/25 19:31 Antibiotics) Visit Medications Acetaminophen (Acetaminophen 325 Mg Tablet) 650 mg PO Q6H PRN PRN Reason: Fever >100.4 and pain 1-3 Stop: 04/21/25 14:42 Dextrose (Dextrose 50%-Water Inj 50 Ml Syringe) 50 ml IVP X1 ONE Stop: 03/22/25 18:07 Dobutamine HCl/Dextrose (Dobutrex/D5w Ivpb) 500 mg in 250 mls @ 2.28 mls/hr IV .Q24H ONE Stop: 03/23/25 14:46 Last Infusion: 03/22/25 16:00 Dose: 2.5 mcg/kg/min, 5.7 mls/hr Norepinephrine/Dextrose (Levophed In D5w 8mg/250ml) 8 mg in 250 mls @ 7.125 mls/hr IV .Q24H PRN; Protocol PRN Reason: PER PROTOCOL Stop: 04/21/25 14:56 Last Titration: 03/22/25 16:00 Dose: 0.05 mcg/kg/min, 7.125 mls/hr Magnesium Sulfate (Magnesium Sulfate Ivpb) 2 gm in 50 mls @ 25 mls/hr IV X1 ONE Stop: 03/22/25 20:01 Insulin Human Regular (Insulin Hum Regular 1 Unit/0.01 Ml (Per Unit)) 5 unit IV X1 ONE Stop: 03/22/25 18:07 Discontinued Medications Calcium Gluconate (Calcium Gluconate 10% Inj 1 Gm/10 Ml Vial) 1 gm IV X1 ONE Stop: 03/22/25 11:22 Last Admin: 03/22/25 11:47 Dose: 1 gm Ceftriaxone Sodium/Dextrose (Rocephin/D5w 1gm Iv Premix) 1 gm in 50 mls @ 100 mls/hr IV X1 ONE Stop: 03/22/25 11:47 Last Infusion: 03/22/25 12:29 Dose: Infused Azithromycin 500 mg/ Sodium (Chloride) 250 mls @ 250 mls/hr IV X1 ONE Stop: 03/22/25 12:18 Last Infusion: 03/22/25 15:01 Dose: Infused Sodium Chloride (Ns) 1,000 mls @ 999 mls/hr IV .Q1H1M ONE Stop: 03/22/25 12:21 Last Admin: 03/22/25 12:37 Dose: Not Given Sodium Polystyrene Sulfonate (Sod Polystyrene Sulfon Susp 15 Gm/60 Ml Btl) 30 gm PO X1 ONE Stop: 03/22/25 11:23 Last Admin: 03/22/25 11:59 Dose: 30 gm Assessment & Plan Plan 79-year-old male with past medical history of CAD S/P 2 stents (2013), CABG(triple bypass -2019), EF 20 to 25%, ICD with PM, hypertension, diabetes,hyperlipidemia admitted to ICU on 03/22/2025 for cardiogenic shock. Neuro: #Acute cephalopathy #Hx of subdural hematoma Patient was AO x 2 (not to time) likely in the setting of shock Patient was still able to follow commands and maintain a conversation, but very somnolent. Patient does have a history of subdural hematoma Head CT showed cortical thickening and subcortical edema in the inferior portion of the left occipital lobe suggestive of recent ischemic infarct. Plan: Will continue to monitor patient's mental status Expect resolution once shock is resolved Cardio: #Cardiogenic shock #V. tach #Hx of CAD s/p 2 stents and CABG #Hx of HFrEF (EF 2024%) with ICD in PM Patient came in with clinical signs of cardiogenic shock Patient had cold extremities and lactic acid was elevated at 7 with visible signs of hypoperfusion, but without any lower extremity edema. Echo on 03/11/2025 showed grade 2 diastolic dysfunction and EF of 20 to 25% Patient was on home diuresis with Lasix and spironolactone. BNP 1319 Started dobutamine drip, but had to stop due to sustained V. tach Plan: Continue dobutamine at 1.5 mcg/kg/min and titrate up. Continue Levophed Hold diuresis for now as patient does not seem to be in fluid overload status and appears to be more of hypoperfusion and contractility issues. Started Amio drip due to sustained V. tach Avoid QT prolonging medication Keep potassium and magnesium above 4 and 2 respectively to avoid any further arrhythmias Daily weights Strict EDWARD's Pulm: #Acute hypoxic respiratory failure Patient was having increased work of breathing along with hypoxia once he came into the ED Likely in the setting of compensation for his acidosis and less likely due to infectious disease Patient was placed on oxy mask in the ED however was still having increased work of breathing Plan: Started BiPAP with improvement in patient's work of breathing GI: #Acute liver failure versus shock liver Patient had AST of 775, ALT of 1442, and T bilirubin 1.7 Most likely in the setting of shock Signs of liver dysfunction as well with increased INR at 1.9 Plan: Continue treating shock Continue monitoring LFTs Renal: #KOSTA on CKD Patient had a creatinine of 2.6 from his baseline around 1.8 on 03/18/2025 Likely in the setting of shock Still producing urine Plan: Avoid nephrotoxic agents Renally dose medications Loya inserted Will continue to monitor Endo: #Hx of DM 2 Last A1c was 7.2 on 02/02/2025 Plan: Patient currently n.p.o. ISS and blood glucose checks every 6 hours Heme: #Leukocytosis Patient WBC was elevated initially at 15.6 Most likely reactive in the setting of shock Less likely infectious Plan: If patient demonstrates any signs of infection we will start IV antibiotics Will continue to trend #Coagulopathy Patient's INR was 1.9 Likely in the setting of liver failure in the setting of shock Plan: Will continue to monitor PT/INR No chemical DVT prophylaxis for now in the setting of coagulopathy ID: No active diseases ICU Health maintenance: Mechanical ventilation: none Sedation: none Diet: N.p.o. DVT ppx: scds in the setting of coagulopathy GI ppx: not indicated Loya: Yes IV lines: PIV, RIJ Central line: Right IJ Arterial line: None Code status: DNR/DNI Case disclosed with Attending Dr. Kwaku Aquino PGY2 Disclaimer: Even though this this note was dictated by speech recognition and even though it was carefully revised there may still be minor errors in electrical panel builder due to voice recognition software. Attending Provider Attestation/Addendum Patient seen and examined with above resident, Alan Aquino MD. I agree with the findings, assessment, and plan of care as document except for any differences below. Patient with ischemic very severely reduced EF status post ICD/pacemaker placement. Patient presenting with acute encephalopathy, does have some occipital swelling though unlikely ischemic infarct. Low flow state as presented with significant lactic acidosis despite adequate blood pressure. Given the patient's subclinical cardiogenic shock, with presence of congestive hepatopathy as well as acute renal failure, he was admitted to the ICU. Patient was started on dobutamine but had significant runs of ventricular tachycardia potentially. Patient has been started on amiodarone with discontinuation of dobutamine. He remains on low-dose Levophed with goal to maintain MAP greater than 65 as well as systolic blood pressure above 100. Patient otherwise remains paced at 60 bpm and we will contact his device chuck wagon cook for adjustments to help increase cardiac output. Patient was placed on BiPAP for ventilatory support in order to compensate for metabolic acidosis. Serial central sat as well as lactic acid will be used along with clinical status to determine appropriate direction of vasopressor/inotropic support. Patient is with advanced disease and we have contacted his primary repairer kiln car for consultation given his limited prognosis. Patient's family has appropriately respect of his previous wishes elected to have limited care with DNR appropriately. Patient's mentation seem to have improved from my assessment emergency department and lactate coming down with adequate urine output suggesting reestablishment of adequate perfusion. Will continue to optimize as he remains cold and dry. May benefit from additional fluid bolus but slowly. Will continue to monitor closely over the next 24 hours so that we may have appropriate discussions with his family about long-term goals of care dependent on his response to therapy. Total critical care time: Personally spent 50 minutes for review of physiologic parameters, directing plan of care throughout the day, coordination of care with other specialties, and counseling patient's family. This is exclusive of time spent teaching of staff and performing a separate billable procedures. Patient remains at significant risk for further morbidity and mortality warranting close monitoring and care when available in the ICU. Critical care services required for acute respiratory failure secondary to shock, cardiogenic shock, ischemic hepatitis, and acute renal failure.
[2025-03-22 18:11] LABS: Lactate (Lactic Acid) 3.5 mMol/L (0.4-2.0)
[2025-03-22] MEDS: INSULIN HUM REGULAR 1 UNIT/0.01 ML (PER UNIT) 5 UNIT IV (18:17)
[2025-03-22] MEDS: Magnesium Sulfate 2 GM Ivpb 2 GM/50 ML BAG IV ×2 (18:21→21:37)
[2025-03-22] MEDS: DEXTROSE 50%-WATER INJ 50 ML SYRINGE IVP (18:21)
[2025-03-22 18:22] LABS: Basophils # (Auto) 0.1 Thou/mm3 (0.0-0.2); Basophils % (Auto) 1 % (0-2.5); Eosinophils # (Auto) 0.1 Thou/mm3 (0.0-0.5); Eosinophils % (Auto) 0 % (0-10); Hematocrit 37.2 % (41.0-53.0); Hemoglobin 12.3 g/dL (13.5-16.0); Immature Granulocytes Auto 0.37 Thou/mm3 (0.00-0.00); Lymphocytes # (Auto) 1.5 Thou/mm3 (1.0-4.8); Lymphocytes % (Auto) 11 % (10-50); Mean Corpuscular HGB Conc 33.1 g/dl (31.0-37.0); Mean Corpuscular Hemoglobin 32.8 pg (25.0-35.0); Mean Corpuscular Volume 99 fL (80-100); Monocytes # (Auto) 1.3 Thou/mm3 (0.0-0.8); Monocytes % (Auto) 9 % (0-12); Neutrophils # (Auto) 11.0 Thou/mm3 (1.8-7.7); Neutrophils % (Auto) 77 % (37-80); Nucleated Red Blood Cell # 0.14 Thou/mm3 (0.00-0.00); Nucleated Red Blood Cell % 1 /100 WBC (0); Platelet Count 192 Thou/mm3 (140-440); RDW Standard Deviation 58.4 fL (35.1-43.9); Red Blood Count 3.75 Miln/mm3 (4.50-5.90); White Blood Count 14.3 Thou/mm3 (3.8-10.6)
[2025-03-22 18:47] LABS: INR 1.8 (0.9-1.3); Prothrombin Time 18.3 Seconds (9.0-12.2)
--- NOTE | 2025-03-22 18:56 | EKG_ITS ---
[facility] Test Date: 2025-03-22 Pat Name: YAZMIN SCHREIBER Department: Room: S253A Gender: Male Real Estate Valuer: DERRICK : 1945 Requested By: Alan Aquino Order Number: [id number] Reading MD: Alan Aquino Measurements Intervals [place] Rate: 117 P: 255 OR: 140 QRS: 263 QRSD: 161 T: 85 QT: 388 QTc: 543 Interpretive Statements JUNCTIONAL TACHYCARDIA INTRAVENTRICULAR CONDUCTION DELAY INFERIOR MYOCARDIAL INFARCTION , POSSIBLY ACUTE WITH POSTERIOR EXTENSION ANTEROLATERAL MYOCARDIAL INFARCTION , POSSIBLY ACUTE ACUTE MS Compared to ECG 03/22/2025 10:30:16 Junctional tachycardia now present Intraventricular conduction delay now present Myocardial infarct finding now present Ventricular-paced complex(es) or rhythm no longer present ST (T wave) deviation no longer present /store/S0/[id number].pdf
[2025-03-22 19:02] LABS: Albumin, Serum 3.9 gm/dL (3.4-4.8); Albumin/Globulin Ratio 1.3 (1.2-2.2); Alkaline Phosphatase 119 U/L (46-116); Anion Gap 14 (7-16); Aspartate Amino Transferase 746 U/L (0-34); BUN/Creatinine Ratio 27 Ratio (12-20); Bilirubin,Total 1.4 mg/dL (0.3-1.2); Blood Urea Nitrogen 71 mg/dL (9-23); Calcium 9.3 mg/dL (8.3-10.6); Calcium (Corrected) 9.4 mg/dL (8.5-10.1); Carbon Dioxide 20.3 mMol/L (20.0-31.0); Chloride 100 mMol/L (98-107); Creatinine (Component) 2.6 mg/dL (0.6-1.3); Estimated Creatinine Clearance 21.6 mL/min (>60); Globulin 2.9 gm/dL (2.3-3.5); Glucose 244 mg/dL (74-106); Osmolality,Calculated 297 (275-295); Potassium 4.5 mMol/L (3.4-5.1); Sodium 134 mMol/L (136-145); Total Protein 6.8 gm/dL (5.7-8.2); eGFR 24 See Note
[2025-03-22] MEDS: AMIODARONE 150 MG IVPB 150 MG/100 ML BAG 600 MG IV (19:03)
[2025-03-22 19:06] LABS: Alanine Aminotransferase 1334 U/L (10-49)
[2025-03-22 19:06] LABS: Base Excess, Venous -3 (-3-3); O2 Saturation, Venous 63 % (96-97); PCO2, Venous 41 mmHg (36-56); PO2, Venous 38 mmHg (15-58); pH, Venous 7.35 (7.33-7.66)
[2025-03-22] MEDS: AMIODARONE 360 MG IVPB 360 MG/200 ML BAG 33.333 MG IV (19:14)
[2025-03-22 20:20] LABS: Magnesium 3.4 mg/dL (1.6-2.6); Potassium 4.2 mMol/L (3.4-5.1)
[2025-03-22] MEDS: RINGERS LACTATED 1000 ML 250 ML 50 ML IV (20:59)
[2025-03-22 21:11] LABS: Reflex Lactate? Y
--- NOTE | 2025-03-22 21:21 | EKG_ITS ---
[facility] Test Date: 2025-03-22 Pat Name: YAZMIN SCHREIBER [facility] Gender: Male General Manager Food: MARY : 1945 Requested By: Jarred Nagel Order Number: [id number] Reading MD: Jarred Nagel Measurements Intervals [place] Rate: 60 P: [place]: QRS: -70 QRSD: 254 T: 103 QT: 579 QTc: 583 Interpretive Statements ELECTRONIC VENTRICULAR PACEMAKER ABNORMAL RHYTHM ECG Compared to ECG 03/22/2025 19:03:38 Junctional tachycardia no longer present Intraventricular conduction delay no longer present Myocardial infarct finding no longer present /store/S0/[id number].pdf
[2025-03-22 21:53] LABS: Lactate (Lactic Acid) 2.8 mMol/L (0.4-2.0)
[2025-03-22 21:55] LABS: Base Excess, Venous -2 (-3-3); O2 Saturation, Venous 62 % (96-97); PCO2, Venous 41 mmHg (36-56); PO2, Venous 37 mmHg (15-58); pH, Venous 7.37 (7.33-7.66)
[2025-03-22 22:21] LABS: Base Excess -3 (-3-3); HCO3 21 mEq/L (20-26); Inspired Oxygen, FIO2 30 %; O2 Saturation 99 % (91-98); PCO2 32 mmHg (32.0-48.0); PO2 130 mmHg (83-108); pH, Arterial 7.42 (7.35-7.45)
[2025-03-22 22:25] LABS: Allen Test Performed/OK; Puncture Site Right Radial
--- NOTE | 2025-03-22 22:25 | PC.NURSE ---
pace maker interrogated with medtronic - device Evera MRI XT [id number] serial number [id number]. Contacted per MD order and spoke to multiple medtronic commissioner conservation of resources for report and paged commissioner conservation of resources tech to adjust pacemaker settings. will call back for ETA. Wasiq made aware.
[2025-03-22 22:44] LABS: Troponin I 0.076 ng/mL (0.0-0.045)
[2025-03-23] VITALS (107 sets, daily range): BP systolic 89–126; BP diastolic 63–83; PULSE 57–80; RESP 1–31; TEMP 36–36.8; O2SAT 81–100; BMI 25.9
[2025-03-23] MEDS: INSULIN LISPRO (AdmeLOG) 1 UNIT/0.01 ML UNIT SC ×5 (00:48→23:18)
[2025-03-23 00:49] LABS: Reflex Lactate? Y
[2025-03-23 00:54] LABS: Lactate (Lactic Acid) 2.3 mMol/L (0.4-2.0)
[2025-03-23] MEDS: AMIODARONE 360 MG IVPB 360 MG/200 ML BAG 16.667 MG IV ×2 (01:35→14:08)
[2025-03-23] MEDS: RINGERS LACTATED 1000 ML 250 ML 50 ML IV (01:55)
[2025-03-23 03:27] LABS: Base Excess, Venous 0 (-3-3); O2 Saturation, Venous 53 % (96-97); PCO2, Venous 40 mmHg (36-56); PO2, Venous 32 mmHg (15-58); pH, Venous 7.39 (7.33-7.66)
[2025-03-23 03:50] LABS: Reflex Lactate? Y
[2025-03-23 04:14] LABS: Troponin I 0.070 ng/mL (0.0-0.045)
[2025-03-23 05:13] LABS: Base Excess, Venous 0 (-3-3); O2 Saturation, Venous 55 % (96-97); PCO2, Venous 45 mmHg (36-56); PO2, Venous 34 mmHg (15-58); pH, Venous 7.37 (7.33-7.66)
[2025-03-23 05:14] LABS: Lactate (Lactic Acid) 2.4 mMol/L (0.4-2.0)
[2025-03-23 05:17] LABS: Basophils # (Auto) 0.1 Thou/mm3 (0.0-0.2); Basophils % (Auto) 1 % (0-2.5); Eosinophils # (Auto) 0.1 Thou/mm3 (0.0-0.5); Eosinophils % (Auto) 1 % (0-10); Hematocrit 36.5 % (41.0-53.0); Hemoglobin 12.1 g/dL (13.5-16.0); Immature Granulocytes Auto 0.26 Thou/mm3 (0.00-0.00); Lymphocytes # (Auto) 1.7 Thou/mm3 (1.0-4.8); Lymphocytes % (Auto) 12 % (10-50); Mean Corpuscular HGB Conc 33.2 g/dl (31.0-37.0); Mean Corpuscular Hemoglobin 32.7 pg (25.0-35.0); Mean Corpuscular Volume 99 fL (80-100); Monocytes # (Auto) 1.4 Thou/mm3 (0.0-0.8); Monocytes % (Auto) 10 % (0-12); Neutrophils # (Auto) 10.9 Thou/mm3 (1.8-7.7); Neutrophils % (Auto) 75 % (37-80); Nucleated Red Blood Cell # 0.15 Thou/mm3 (0.00-0.00); Nucleated Red Blood Cell % 1 /100 WBC (0); Platelet Count 230 Thou/mm3 (140-440); RDW Standard Deviation 58.7 fL (35.1-43.9); Red Blood Count 3.70 Miln/mm3 (4.50-5.90); White Blood Count 14.5 Thou/mm3 (3.8-10.6)
[2025-03-23 05:42] LABS: INR 1.5 (0.9-1.3); Partial Thromboplastin Time 31.3 Seconds (22.0-36.0); Prothrombin Time 15.5 Seconds (9.0-12.2)
[2025-03-23 06:14] LABS: Alanine Aminotransferase 1229 U/L (10-49); Albumin, Serum 3.7 gm/dL (3.4-4.8); Albumin/Globulin Ratio 1.6 (1.2-2.2); Alkaline Phosphatase 119 U/L (46-116); Anion Gap 15 (7-16); Aspartate Amino Transferase 568 U/L (0-34); BUN/Creatinine Ratio 39 Ratio (12-20); Bilirubin,Total 1.0 mg/dL (0.3-1.2); Blood Urea Nitrogen 85 mg/dL (9-23); Calcium 8.9 mg/dL (8.3-10.6); Calcium (Corrected) 9.1 mg/dL (8.5-10.1); Carbon Dioxide 24.3 mMol/L (20.0-31.0); Chloride 99 mMol/L (98-107); Creatinine (Component) 2.2 mg/dL (0.6-1.3); Estimated Creatinine Clearance 25.5 mL/min (>60); Globulin 2.3 gm/dL (2.3-3.5); Glucose 236 mg/dL (74-106); Magnesium 3.3 mg/dL (1.6-2.6); Osmolality,Calculated 309 (275-295); Phosphorous 5.6 mg/dL (2.4-5.1); Potassium 4.3 mMol/L (3.4-5.1); Sodium 138 mMol/L (136-145); Total Protein 6.0 gm/dL (5.7-8.2); eGFR 29 See Note
--- NOTE | 2025-03-23 07:27 | ESPR_ITS ---
<Statement entered by Alan Aquino MD - 03/23/25 17:09> I have reviewed the note and agree with the resident's assessment & plan with exceptions as below. I have personally reviewed labs, imaging, home meds/prior records, examined the patient, formulated and discussed management plan with my attending Patient seen and examined at [facility]. Overnight patient was titrated up to 2.5mcg/kg of dobutamine. Patient did not have any further episodes of VT. Patient's PM rep came in and his HR was adjusted to 75 bpm and it was reported that prior to yesterday and today he had not been in VT, but it did not fire as it's set at 167. Patient was placed on Cpap and repeat VBG was ordered and CO decreased to 3.7 after bpm were adjusted therefore increased dobutamine to 3.75. No other complaints at this time. LA cleared and was 1.8 latest one. LFTs slight downtrend and KOSTA improving. Good UO. Alan Aquino PGY2 Disclaimer: Even though this this note was dictated by speech recognition and even though it was carefully revised there may still be minor errors in therapist radiation due to voice recognition software. Documentation for date of: 03/23/25 Subjective Subjective Interval history: This patient is an 79-year-old male with past medical history of CAD status post stents (2013), CABG (triple bypass, 2018), HFrEF 20 to 25% (02/2025), status post ICD with pacemaker placement, hypertension, diabetes, hyperlipidemia, recent cocci pneumonia, and subdural hematoma who presented to [facility] ED on 03/22 for shortness of breath and visual hallucinations. Patient was admitted to PICU for management of cardiogenic shock requiring pressors and dobutamine drip. The patient was recently discharged on 03/18 for an acute exacerbation of his HFrEF. The patient at that time presented with shortness of breath, and during that hospitalization, the patient had been diuresed with Lasix and Bumex. During that time, the patient had worsening of his renal function, resulting in KOSTA. Patient was also started on fluconazole for positive cocci IgM in serum. Patient was deemed stable for discharge after several days due to satisfactory blood pressure and improvement of his shortness of breath. However, on 03/22, was brought from home by ambulance due to shortness of breath and acutely started to see things that were not there and trying to grab things that were not there. On assessment patient was noticed to have cold extremities as well as other signs of hypoperfusion with decreased capillary refill as well as mottling on the toes of bilateral feet. Patient's heart rate was in the 60s paced rhythm and his blood pressure was on the lower end. At this time given the findings patient was most likely into cardiogenic shock not from fluid overload status but from a perfusion/contractility perspective. At this time dobutamine drip was needed and patient will need to be admitted to the ICU, but on chart review it was seen that his POLST form he has selective treatment therefore clarified with patient's family members if it was in the patient's wishes to go to the ICU and received further care as well as get central line placement and be started on medications to help his heart contract. Once patient was started on dobutamine drip and Levophed for cardiogenic shock BP was still stable and central line once in place was patient was in the ICU. Later during the evening patient developed episodes of nonsustained V. tach, but afterwards developed sustained V. tach therefore dobutamine drip was discontinued. Given that patient was still sustaining V. tach and defibrillated was not firing likely because his rate was in the 120s decided to start amiodarone drip at this time. Patient was asymptomatic during these episodes. ED course: Initially normotensive, tachypneic, and hypoxic. Initial labs showed leukocytosis, coagulopathy, hyperkalemia, KOSTA, NAGMA, lactic acidosis, and transaminitis as well as elevated BNP and mild elevation of troponins. Interval History: 03/23/2025 Patient appears to be doing well today on BiPAP. Dobutamine was resumed overnight and the patient continued to have intermittent runs of V. tach throughout the in the evening, however patient seemed asymptomatic during these episodes and vital signs remained stable with Levophed for blood pressure support. Patient continued to be on amiodarone drip throughout the evening. In the morning, the patient had a heart rate in the 60s with a ventricularly paced rhythm. The patient seemed tired, but was opening eyes and following commands. Patient was aware that he is in the hospital, but due to the BiPAP, it was difficult for the patient to fully respond. Extremities today do not seem as pale and seem warmer compared to yesterday, with his feet noted to be worse compared to his upper extremities. 1+ pedal pulse noted bilaterally. Trace pedal edema noted, however overall status does not appear to be fluid overloaded. Patient made 1 L of urine since admission, fluid balance noted to be negative. Repeat VBG's show improvement of oxygenation, creatinine downtrending, LFTs downtrending, troponins downtrending, and lactic acid downtrending compared to yesterday. Estimated cardiac index 2.8. Will consult the patient's medical resident, Dr. Jenkins, regarding further management and recommendations for the patient's cardiogenic shock. The internet sales representative from from the patient's ICD/pacemaker, [employer] Evera, was called to increase BPM from 60 to 75, and the patient was transition to CPAP from BiPAP. Repeat VBG at around 1530 showed decrease estimated cardiac index, so we will hold off on weaning off CPAP and increased dobutamine drip. Will continue Levophed, amiodarone drip, and dobutamine drip for the patient's cardiogenic shock. Exam Vital Signs Temp Pulse Resp BP Pulse Ox O2 Del Method O2 Flow Rate 98.1 F 60 21 H 98/71 100 High Flow Nasal Cannula 3 03/23/25 04:01 03/23/25 07:15 03/23/25 07:15 03/23/25 07:15 03/23/25 07:15 03/22/25 15:03 03/22/25 18:01 FiO2 30 03/23/25 05:53 Narrative Exam Physical Exam: General: Somnolent, no acute distress. On BiPAP. Opens eyes to voice and follows commands, A/O x 2. Skin: Cool, dry, intact. Head: Normocephalic, atraumatic. Eye: Normal conjunctiva, PERRL. Cardiovascular: Regular rate and rhythm, no murmur, +S1/S2. Respiratory: Lungs are clear to auscultation, respirations unlabored, no crackles, no wheezing. Gastrointestinal: Soft, nontender, non-distended. No guarding or rebound tenderness. Extremities: No edema, no cyanosis, no clubbing. 1+ radial pulse bilaterally, 1+ pedal pulse bilaterally. Feet bilaterally noticeably cooler and paler compared to rest of lower extremities. Objective Labs 03/28/25 04:45 03/28/25 04:45 Labs: Laboratory Results - last 24 hr 03/22/25 03/22/25 03/22/25 10:08 10:51 11:23 WBC 15.6 H RBC 4.13 L Hgb 13.3 L Hct 40.8 L MCV 99 MCH 32.2 MCHC 32.6 RDW Std Deviation 58.8 H Plt Count 210 Neut % (Auto) 75 Lymph % (Auto) 11 [place] % (Auto) 10 Eos % (Auto) 0 Baso % (Auto) 1 Neut # (Auto) 11.6 H Lymph # (Auto) 1.7 [place] # (Auto) 1.6 H Eos # (Auto) 0.1 Baso # (Auto) 0.1 Immature Gran # (Auto) 0.41 H Absolute Nucleated RBC 0.13 H Immature Gran % 3 H Nucleated RBC % 1 H PT 18.9 H D INR 1.9 H APTT 33.6 Puncture Site ABG pH ABG pCO2 ABG pO2 ABG HCO3 ABG O2 Saturation ABG Base Excess VBG pH VBG pCO2 VBG pO2 VBG O2 Sat (Oren) VBG Base Excess Oxygen Liter Flow FiO2 Sodium 131 L Potassium 6.0 H Chloride 96 L Carbon Dioxide 18.2 L Anion Gap 17 H BUN 78 H Creatinine 2.6 H D Estim Creat Clear Calc 21.6 L eGFR 24 L BUN/Creatinine Ratio 30 H Glucose 222 H Calculated Osmolality 292 Lactic Acid 5.0 H* Calcium 9.4 Corrected Calcium 9.4 Phosphorus Magnesium 2.6 Total Bilirubin 1.7 H AST 775 H* ALT 1442 H* Alkaline Phosphatase 126 H Troponin I 0.072 H* B-Natriuretic Peptide 1319 H* Total Protein 7.0 Albumin 4.2 Globulin 2.8 Albumin/Globulin Ratio 1.5 Lipase 81 H Procalcitonin 0.27 Ur Collection Type Clean Catch Urine Color Yellow Urine Clarity Clear Urine pH 5.5 Ur Specific [place] 1.018 Urine Protein Trace Urine Glucose (UA) Negative Urine Ketones Negative Urine Blood 2+ A Urine Nitrite Negative Urine Bilirubin Negative Urine Urobilinogen (Auto) Negative Ur Leukocyte Esterase Negative Urine RBC 11 H Urine WBC 2 Ur Squamous Epith Cells < 1 Urine Bacteria None Hyaline Casts < 1 03/22/25 03/22/25 03/22/25 14:47 15:09 15:30 WBC RBC Hgb Hct MCV MCH MCHC RDW Std Deviation Plt Count Neut % (Auto) Lymph % (Auto) [place] % (Auto) Eos % (Auto) Baso % (Auto) Neut # (Auto) Lymph # (Auto) [place] # (Auto) Eos # (Auto) Baso # (Auto) Immature Gran # (Auto) Absolute Nucleated RBC Immature Gran % Nucleated RBC % PT INR APTT Puncture Site Cancelled ABG pH Cancelled ABG pCO2 Cancelled ABG pO2 Cancelled ABG HCO3 Cancelled ABG O2 Saturation Cancelled ABG Base Excess Cancelled VBG pH 7.33 VBG pCO2 35 L VBG pO2 29 VBG O2 Sat (Oren) 42 L VBG Base Excess -7 L Oxygen Liter Flow Cancelled FiO2 Cancelled Sodium Potassium Chloride Carbon Dioxide Anion Gap BUN Creatinine Estim Creat Clear Calc eGFR BUN/Creatinine Ratio Glucose Calculated Osmolality Lactic Acid 7.0 H* Calcium Corrected Calcium Phosphorus Magnesium Total Bilirubin AST ALT Alkaline Phosphatase Troponin I B-Natriuretic Peptide Total Protein Albumin Globulin Albumin/Globulin Ratio Lipase Procalcitonin Ur Collection Type Urine Color Urine Clarity Urine pH Ur Specific [place] Urine Protein Urine Glucose (UA) Urine Ketones Urine Blood Urine Nitrite Urine Bilirubin Urine Urobilinogen (Auto) Ur Leukocyte Esterase Urine RBC Urine WBC Ur Squamous Epith Cells Urine Bacteria Hyaline Casts 03/22/25 03/22/25 03/22/25 15:35 17:50 17:55 WBC 14.3 H RBC 3.75 L Hgb 12.3 L Hct 37.2 L MCV 99 MCH 32.8 MCHC 33.1 RDW Std Deviation 58.4 H Plt Count 192 Neut % (Auto) 77 Lymph % (Auto) 11 [place] % (Auto) 9 Eos % (Auto) 0 Baso % (Auto) 1 Neut # (Auto) 11.0 H Lymph # (Auto) 1.5 [place] # (Auto) 1.3 H Eos # (Auto) 0.1 Baso # (Auto) 0.1 Immature Gran # (Auto) 0.37 H Absolute Nucleated RBC 0.14 H Immature Gran % 3 H Nucleated RBC % 1 H PT 18.3 H INR 1.8 H APTT Puncture Site ABG pH ABG pCO2 ABG pO2 ABG HCO3 ABG O2 Saturation ABG Base Excess VBG pH VBG pCO2 VBG pO2 VBG O2 Sat (Oren) VBG Base Excess Oxygen Liter Flow FiO2 Sodium 134 L Potassium 4.5 D Chloride 100 Carbon Dioxide 20.3 Anion Gap 14 BUN 71 H Creatinine 2.6 H Estim Creat Clear Calc 21.6 L eGFR 24 L BUN/Creatinine Ratio 27 H Glucose 244 H Calculated Osmolality 297 H Lactic Acid 3.5 H Calcium 9.3 Corrected Calcium 9.4 Phosphorus Magnesium Total Bilirubin 1.4 H AST 746 H* ALT 1334 H* Alkaline Phosphatase 119 H Troponin I 0.080 H* B-Natriuretic Peptide Total Protein 6.8 Albumin 3.9 Globulin 2.9 Albumin/Globulin Ratio 1.3 Lipase Procalcitonin Ur Collection Type Urine Color Urine Clarity Urine pH Ur Specific [place] Urine Protein Urine Glucose (UA) Urine Ketones Urine Blood Urine Nitrite Urine Bilirubin Urine Urobilinogen (Auto) Ur Leukocyte Esterase Urine RBC Urine WBC Ur Squamous Epith Cells Urine Bacteria Hyaline Casts 03/22/25 03/22/25 03/22/25 18:57 19:49 21:40 WBC RBC Hgb Hct MCV MCH MCHC RDW Std Deviation Plt Count Neut % (Auto) Lymph % (Auto) [place] % (Auto) Eos % (Auto) Baso % (Auto) Neut # (Auto) Lymph # (Auto) [place] # (Auto) Eos # (Auto) Baso # (Auto) Immature Gran # (Auto) Absolute Nucleated RBC Immature Gran % Nucleated RBC % PT INR APTT Puncture Site ABG pH ABG pCO2 ABG pO2 ABG HCO3 ABG O2 Saturation ABG Base Excess VBG pH 7.35 7.37 VBG pCO2 41 41 VBG pO2 38 37 VBG O2 Sat (Oren) 63 L D 62 L VBG Base Excess -3 -2 Oxygen Liter Flow FiO2 Sodium Potassium 4.2 Chloride Carbon Dioxide Anion Gap BUN Creatinine Estim Creat Clear Calc eGFR BUN/Creatinine Ratio Glucose Calculated Osmolality Lactic Acid 2.8 H Calcium Corrected Calcium Phosphorus Magnesium 3.4 H Total Bilirubin AST ALT Alkaline Phosphatase Troponin I 0.076 H* B-Natriuretic Peptide Total Protein Albumin Globulin Albumin/Globulin Ratio Lipase Procalcitonin Ur Collection Type Urine Color Urine Clarity Urine pH Ur Specific [place] Urine Protein Urine Glucose (UA) Urine Ketones Urine Blood Urine Nitrite Urine Bilirubin Urine Urobilinogen (Auto) Ur Leukocyte Esterase Urine RBC Urine WBC Ur Squamous Epith Cells Urine Bacteria Hyaline Casts 03/22/25 03/23/25 03/23/25 22:10 00:43 03:19 WBC RBC Hgb Hct MCV MCH MCHC RDW Std Deviation Plt Count Neut % (Auto) Lymph % (Auto) [place] % (Auto) Eos % (Auto) Baso % (Auto) Neut # (Auto) Lymph # (Auto) [place] # (Auto) Eos # (Auto) Baso # (Auto) Immature Gran # (Auto) Absolute Nucleated RBC Immature Gran % Nucleated RBC % PT INR APTT Puncture Site Right Radial ABG pH 7.42 ABG pCO2 32 ABG pO2 130 H ABG HCO3 21 ABG O2 Saturation 99 H ABG Base Excess -3 VBG pH 7.39 VBG pCO2 40 VBG pO2 32 VBG O2 Sat (Oren) 53 L VBG Base Excess 0 Oxygen Liter Flow FiO2 30 Sodium Potassium Chloride Carbon Dioxide Anion Gap BUN Creatinine Estim Creat Clear Calc eGFR BUN/Creatinine Ratio Glucose Calculated Osmolality Lactic Acid 2.3 H Calcium Corrected Calcium Phosphorus Magnesium Total Bilirubin AST ALT Alkaline Phosphatase Troponin I 0.070 H* B-Natriuretic Peptide Total Protein Albumin Globulin Albumin/Globulin Ratio Lipase Procalcitonin Ur Collection Type Urine Color Urine Clarity Urine pH Ur Specific [place] Urine Protein Urine Glucose (UA) Urine Ketones Urine Blood Urine Nitrite Urine Bilirubin Urine Urobilinogen (Auto) Ur Leukocyte Esterase Urine RBC Urine WBC Ur Squamous Epith Cells Urine Bacteria Hyaline Casts 03/23/25 04:40 WBC 14.5 H RBC 3.70 L Hgb 12.1 L Hct 36.5 L MCV 99 MCH 32.7 MCHC 33.2 RDW Std Deviation 58.7 H Plt Count 230 D Neut % (Auto) 75 Lymph % (Auto) 12 [place] % (Auto) 10 Eos % (Auto) 1 Baso % (Auto) 1 Neut # (Auto) 10.9 H Lymph # (Auto) 1.7 [place] # (Auto) 1.4 H Eos # (Auto) 0.1 Baso # (Auto) 0.1 Immature Gran # (Auto) 0.26 H Absolute Nucleated RBC 0.15 H Immature Gran % 2 H Nucleated RBC % 1 H PT 15.5 H INR 1.5 H APTT 31.3 Puncture Site ABG pH ABG pCO2 ABG pO2 ABG HCO3 ABG O2 Saturation ABG Base Excess VBG pH 7.37 VBG pCO2 45 VBG pO2 34 VBG O2 Sat (Oren) 55 L VBG Base Excess 0 Oxygen Liter Flow FiO2 Sodium 138 Potassium 4.3 Chloride 99 Carbon Dioxide 24.3 Anion Gap 15 BUN 85 H Creatinine 2.2 H Estim Creat Clear Calc 25.5 L eGFR 29 L BUN/Creatinine Ratio 39 H Glucose 236 H Calculated Osmolality 309 H Lactic Acid 2.4 H Calcium 8.9 Corrected Calcium 9.1 Phosphorus 5.6 H Magnesium 3.3 H Total Bilirubin 1.0 AST 568 H* ALT 1229 H* Alkaline Phosphatase 119 H Troponin I B-Natriuretic Peptide Total Protein 6.0 Albumin 3.7 Globulin 2.3 Albumin/Globulin Ratio 1.6 Lipase Procalcitonin Ur Collection Type Urine Color Urine Clarity Urine pH Ur Specific [place] Urine Protein Urine Glucose (UA) Urine Ketones Urine Blood Urine Nitrite Urine Bilirubin Urine Urobilinogen (Auto) Ur Leukocyte Esterase Urine RBC Urine WBC Ur Squamous Epith Cells Urine Bacteria Hyaline Casts ABG Interpretation ABG results: 03/22/25 03/22/25 03/22/25 15:09 15:30 18:57 ABG pH Cancelled ABG pCO2 Cancelled ABG pO2 Cancelled ABG HCO3 Cancelled ABG O2 Saturation Cancelled ABG Base Excess Cancelled VBG pH 7.33 7.35 VBG pCO2 35 L 41 VBG pO2 29 38 VBG Base Excess -7 L -3 03/22/25 03/22/25 03/23/25 21:40 22:10 03:19 ABG pH 7.42 ABG pCO2 32 ABG pO2 130 H ABG HCO3 21 ABG O2 Saturation 99 H ABG Base Excess -3 VBG pH 7.37 7.39 VBG pCO2 41 40 VBG pO2 37 32 VBG Base Excess -2 0 03/23/25 04:40 ABG pH ABG pCO2 ABG pO2 ABG HCO3 ABG O2 Saturation ABG Base Excess VBG pH 7.37 VBG pCO2 45 VBG pO2 34 VBG Base Excess 0 Quality Measures Quality Measures VTE prophylaxis Advance care planning discussed with:: patient and spouse Assessment & Plan Assessment Current Active Medications: Generic Name Dose Route Start Last Admin Trade Name Freq PRN Reason Stop Dose Admin Acetaminophen 650 mg 03/22/25 14:43 Acetaminophen 325 Mg Tablet PO 04/21/25 14:42 Q6H PRN Fever >100.4 and pain 1-3 Dextrose 25 ml 03/22/25 19:28 Dextrose 50%-Water Inj 50 Ml Syringe IV 04/21/25 19:27 Q15MIN PRN BG 50-70 responsive npo pt Dextrose 50 ml 03/22/25 19:28 Dextrose 50%-Water Inj 50 Ml Syringe IV 04/21/25 19:27 Q15MIN PRN BG <50 OR BG <70 & pt unresponsive Glucagon 1 mg 03/22/25 19:28 Glucagon Inj 1 Mg Vial IM Q15MIN PRN BG <70, and no IV access Norepinephrine/Dextrose 8 mg in 250 mls @ 7.125 mls/hr 03/22/25 14:57 03/23/25 06:00 Levophed In D5w 8mg/250ml IV 04/21/25 14:56 0.05 mcg/kg/min .Q24H PRN 7.125 mls/hr PER PROTOCOL Titration Protocol 0.05 MCG/KG/MIN Amiodarone HCl/Dextrose 360 mg in 200 mls @ 16.667 mls/hr 03/23/25 01:05 03/23/25 01:35 Nexterone Ivpb IV 03/24/25 01:04 16.667 mls/hr .Q12H KOFFI Administration Dobutamine HCl/Dextrose 500 mg in 250 mls @ 5.28 mls/hr 03/23/25 06:00 03/23/25 07:00 Dobutrex/D5w Ivpb IV 04/22/25 05:59 Not Given .Q24H KOFFI 2.5 MCG/KG/MIN Insulin Human Lispro 0 unit 03/23/25 00:00 03/23/25 05:27 Insulin Lispro (Admelog) 1 Unit/0.01 Ml Unit SC 04/22/25 00:00 2 unit Q6HR KOFFI Administration Protocol Plan This patient is an 79-year-old male with past medical history of CAD status post stents (2013), CABG (triple bypass, 2018), HFrEF 20 to 25% (02/2025), status post ICD with pacemaker placement, hypertension, diabetes, hyperlipidemia, recent cocci pneumonia, and subdural hematoma who presented to [facility] ED on 03/22 for shortness of breath and visual hallucinations. Patient was admitted to PICU for management of cardiogenic shock requiring pressors and dobutamine drip. NEURO #Acute encephalopathy #History of subdural hematoma On admission, the patient was aware of self and place, but not time. According to the patient's , the patient was confused and had visual hallucinations prior to seeking care. The patient was able to follow commands and maintain a conversation on admission, but was very somnolent. It is noted that the patient does have a history of subdural hematoma. Dx: CT head 03/22 negative for acute intracranial hemorrhage, does show interval development of cortical thickening and subcortical edema in inferior portion of left occipital lobe Ammonia ordered 03/23, resulted within normal limits at 22 Rx: Will continue to monitor, expect resolution with improvement of cardiogenic shock CARDIO #Cardiogenic shock #Ventricular tachycardia #History of CAD status post stents and CABG #History of HFrEF (EF 20 to 25% 02/2025) #s/p ICD placement with pacemaker ([employer] Evera) Patient presenting with clinical signs of cardiogenic shock including shortness of breath, cold and pale extremities, and without any visible signs of fluid overload. Patient does have a history of HFrEF with a recent echocardiogram done on 03/11/2025 showing grade 2 diastolic dysfunction with a EF of 20 to 25%. The patient sees Dr. Jenkins with his medical resident and is on GDMT at home. Dx: BNP 03/22 noted to be 1319 => 03/23 BNP 887 Patient noted to have several runs of ventricular tachycardia on telemetry 03/22 to 03/23 overnight, patient remained asymptomatic Rx: Cardiology consulted, appreciate recommendations Reached out to [employer] Ever[employer] internet sales representative to increase paced heart rate from 60 to 75 BPM, thus increasing cardiac output Continue to monitor with telemetry Dobutamine drip to increase cardiac output Levophed to maintain MAP above 65 and increase heart contractility Amiodarone drip due to episodes of ventricular tachycardia Avoid QT prolonging medications Keep potassium above 4 and magnesium above 2 Daily weights and strict ins and outs RRx: Patient had run of ventricular tachycardia after starting dobutamine drip, so amiodarone drip was started on 03/22 Increased rate of dobutamine as estimated cardiac index decreased after weaning patient off BiPAP to CPAP and increased pacemaker BPM from 60 to 75 #Elevated troponins DDx: NSTEMI type II, chronic troponin leak Dx: Patient noted to have a troponin of 0.072 on admission, which increased to 0.080, and has been consistently increased since Patient does appear to have a baseline troponin of 0.05 per chart review Rx: Will continue to monitor PULM #Acute hypoxic respiratory failure Patient noted to have shortness of breath and increased work of breathing on presentation to ED. Patient was initially put on OxyMask due to oxygen requirements, however BiPAP was started as the patient continued to have increased work of breathing even on oxy mask. Increased work of breathing is likely secondary to his heart failure resulting in cardiogenic shock. Dx: Initial VBG on 03/22 showed pH 7.33, pCO2 35, PaO2 29, and VBG O2 saturation 42% Initial ABG on 03/22 shows pH 4.72, pCO2 32, pO2 130, bicarb 21, and O2 saturation 99% on BiPAP VBG on 03/23 at 0800 showed pH 7.38, pCO2 42, pO2 49, and VBG O2 saturation 81% on BiPAP VBG on 03/23 at 1525 showed pH 7.47, pCO2 35, PaO2 36, and VBG O2 saturation 69% on CPAP Rx: Continue CPAP RRx: Weaned patient off BiPAP to CPAP on 03/23, but was unable to wean off CPAP as patient's cardiac index decreased GI #Transaminitis DDx: Acute liver injury, shock liver Dx: On presentation, patient had AST 775, ALT 1442, and T bilirubin 1.7 => 03/23 AST 568, ALT 1229 INR 03/22 noted to be 1.9 => 03/23 1.5 Rx: Likely secondary to cardiogenic shock resulting in hepatocyte ischemia, will continue to monitor LFTs and treat underlying shock NEPHRO #KOSTA on CKD Patient had a creatinine of 2.6 from his baseline around 1.8 on 03/18/2025 Likely in the setting of shock Still producing urine Plan: Avoid nephrotoxic agents Renally dose medications Loya inserted Will continue to monitor URO #No active problems HEME #Leukocytosis Patient WBC was elevated initially at 15.6 Most likely reactive in the setting of shock Less likely infectious Plan: If patient demonstrates any signs of infection we will start IV antibiotics Will continue to trend #Coagulopathy Patient's INR was 1.9 Likely in the setting of liver failure in the setting of shock Plan: Will continue to monitor PT/INR No chemical DVT prophylaxis for now in the setting of coagulopathy ENDO #Non Insulin dependent T2DM Last A1c was 7.2 on 02/02/2025 Plan: Patient currently n.p.o. ISS and blood glucose checks every 6 hours ID #No active problems MSK #No active problems SKIN #No active problems DVT prophylaxis: SCDs GI prophylaxis: None Diet: NPO Loya: Present Lines: Peripheral IV, RIJ Central line Antibiotics: N/A CODE STATUS: FULL Vent Status: N/A Reason for ICU care: Cardiogenic shock requiring dobutamine drip Patient plan of care was discussed with the attending weed control inspector, Dr. Ames and senior resident Dr. Kimball (PY-2). David Hammond, PGY-1 Attending Provider Attestation/Addendum Patient seen and examined with the resident, David Hammond DO. I agree with the findings, assessment, and plan of care as document except for any differences below. Patient with significant improvement in the last 24 hours with use of inotropic support and low-dose vasopressors. Patient's central side continues to show improvement though he did require BiPAP support initially for metabolic acidosis with his previous request to remain DNR. Patient's was updated on plan of care patient continues to be rather lethargic though improved from yesterday. Renal function continues to be nonsustained and we will repeatedly reassess fluid status to ensure that we avoid congestion but also do not cause overdiuresis. Central venous catheter was placed in the right IJ yesterday and central pressure remained low on our assessment suggesting classic cardiogenic shock though the patient was not wet without evidence of congestion. Patient without any evidence of infection and remains off of antibiotics at this. Cardiogenic shock at this point. We will request his device company to come and see if they can accelerate the heart rate. Patient on and off dobutamine with episodes of ectopy and was started on amiodarone with good effect. Will transition to p.o. after completing IV loading. 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 Will try to optimize him and have further discussion with the patient and his family as his mentation improves so that we can determine final goals of care as I's. The patient likely will have repeated worsening with ischemic hepatitis/congestive hepatopathy, renal failure, and acute encephalopathy with aggressive weaning of inotropic support. Total critical care time: I personally spent 45 minutes for review of physiologic parameters, directing plan of care throughout the day, coordination of care with other subspecialist. Patient remains at significant risk for further morbidity and mortality warranting close monitoring care only available in the ICU. Critical care services required for acute hypoxic respiratory failure, acute kidney failure, ischemic/congestive hepatopathy, cardiogenic shock, and acute encephalopathy.
[2025-03-23 08:05] LABS: Reflex Lactate? Y
[2025-03-23 08:23] LABS: Base Excess, Venous 0 (-3-3); O2 Saturation, Venous 81 % (96-97); PCO2, Venous 42 mmHg (36-56); PO2, Venous 49 mmHg (15-58); pH, Venous 7.38 (7.33-7.66)
[2025-03-23 08:24] LABS: Lactate (Lactic Acid) 2.1 mMol/L (0.4-2.0)
[2025-03-23 08:44] LABS: Ammonia 22 uMol/L (11-32)
--- NOTE | 2025-03-23 09:26 | PC.NURSE ---
Called [employer], Per tech representive to call back and confirm details.
[2025-03-23 11:23] LABS: Reflex Lactate? Y
[2025-03-23 12:26] LABS: Lactate (Lactic Acid) 1.8 mMol/L (0.4-2.0)
--- NOTE | 2025-03-23 12:37 | PC.CC ---
Pt is open with [facility]
[2025-03-23 13:29] LABS: B-Type Natriuretic Peptide 887 pg/mL (0-100)
[2025-03-23 15:33] LABS: Base Excess, Venous 2 (-3-3); O2 Saturation, Venous 69 % (96-97); PCO2, Venous 35 mmHg (36-56); PO2, Venous 36 mmHg (15-58); pH, Venous 7.47 (7.33-7.66)
[2025-03-23] MEDS: DOBUTamine/D5w 500 MG IVPB 500 MG/250 ML BAG 8.73 MG IV (17:44)
[2025-03-23 18:35] LABS: Base Excess, Venous 1 (-3-3); O2 Saturation, Venous 80 % (96-97); PCO2, Venous 37 mmHg (36-56); PO2, Venous 45 mmHg (15-58); pH, Venous 7.43 (7.33-7.66)
[2025-03-23] MEDS: BALSAM PERU/CASTOR OIL (Venelex) 60 GM TUBE TOP (20:42)
[2025-03-24] VITALS (108 sets, daily range): BP systolic 85–123; BP diastolic 52–76; PULSE 74–94; RESP 7–34; TEMP 36.3–36.9; O2SAT 80–100
[2025-03-24] MEDS: AMIODARONE 360 MG IVPB 360 MG/200 ML BAG 16.667 MG IV (02:05)
[2025-03-24 02:15] LABS: Base Excess, Venous 2 (-3-3); O2 Saturation, Venous 62 % (96-97); PCO2, Venous 43 mmHg (36-56); PO2, Venous 36 mmHg (15-58); pH, Venous 7.41 (7.33-7.66)
[2025-03-24 02:58] LABS: Lactate (Lactic Acid) 1.4 mMol/L (0.4-2.0)
[2025-03-24 02:59] LABS: Base Excess, Venous 2 (-3-3); O2 Saturation, Venous 74 % (96-97); PCO2, Venous 40 mmHg (36-56); PO2, Venous 40 mmHg (15-58); pH, Venous 7.43 (7.33-7.66)
[2025-03-24 05:12] LABS: Base Excess, Venous 0 (-3-3); O2 Saturation, Venous 96 % (96-97); PCO2, Venous 45 mmHg (36-56); PO2, Venous 79 mmHg (15-58); pH, Venous 7.37 (7.33-7.66)
[2025-03-24 05:28] LABS: Basophils # (Auto) 0.1 Thou/mm3 (0.0-0.2); Basophils % (Auto) 1 % (0-2.5); Eosinophils # (Auto) 0.1 Thou/mm3 (0.0-0.5); Eosinophils % (Auto) 1 % (0-10); Hematocrit 35.8 % (41.0-53.0); Hemoglobin 11.9 g/dL (13.5-16.0); Immature Granulocytes Auto 0.13 Thou/mm3 (0.00-0.00); Lymphocytes # (Auto) 1.0 Thou/mm3 (1.0-4.8); Lymphocytes % (Auto) 8 % (10-50); Mean Corpuscular HGB Conc 33.2 g/dl (31.0-37.0); Mean Corpuscular Hemoglobin 32.7 pg (25.0-35.0); Mean Corpuscular Volume 98 fL (80-100); Monocytes # (Auto) 0.9 Thou/mm3 (0.0-0.8); Monocytes % (Auto) 7 % (0-12); Neutrophils # (Auto) 10.4 Thou/mm3 (1.8-7.7); Neutrophils % (Auto) 83 % (37-80); Nucleated Red Blood Cell # 0.03 Thou/mm3 (0.00-0.00); Nucleated Red Blood Cell % 0 /100 WBC (0); Platelet Count 201 Thou/mm3 (140-440); RDW Standard Deviation 60.0 fL (35.1-43.9); Red Blood Count 3.64 Miln/mm3 (4.50-5.90); White Blood Count 12.6 Thou/mm3 (3.8-10.6)
[2025-03-24 05:33] LABS: INR 1.3 (0.9-1.3); Prothrombin Time 13.5 Seconds (9.0-12.2)
[2025-03-24] MEDS: INSULIN LISPRO (AdmeLOG) 1 UNIT/0.01 ML UNIT SC ×2 (05:44→17:41)
[2025-03-24 06:26] LABS: Alanine Aminotransferase 863 U/L (10-49); Albumin, Serum 3.8 gm/dL (3.4-4.8); Albumin/Globulin Ratio 1.6 (1.2-2.2); Alkaline Phosphatase 115 U/L (46-116); Anion Gap 12 (7-16); Aspartate Amino Transferase 325 U/L (0-34); BUN/Creatinine Ratio 31 Ratio (12-20); Bilirubin,Total 1.1 mg/dL (0.3-1.2); Blood Urea Nitrogen 50 mg/dL (9-23); Calcium 9.0 mg/dL (8.3-10.6); Calcium (Corrected) 9.2 mg/dL (8.5-10.1); Carbon Dioxide 23.8 mMol/L (20.0-31.0); Chloride 102 mMol/L (98-107); Creatinine (Component) 1.6 mg/dL (0.6-1.3); Estimated Creatinine Clearance 35.0 mL/min (>60); Globulin 2.4 gm/dL (2.3-3.5); Glucose 206 mg/dL (74-106); Magnesium 2.5 mg/dL (1.6-2.6); Osmolality,Calculated 294 (275-295); Phosphorous 4.1 mg/dL (2.4-5.1); Potassium 4.0 mMol/L (3.4-5.1); Sodium 138 mMol/L (136-145); Total Protein 6.2 gm/dL (5.7-8.2); eGFR 43 See Note
[2025-03-24 06:36] LABS: Base Excess, Venous 1 (-3-3); O2 Saturation, Venous 89 % (96-97); PCO2, Venous 43 mmHg (36-56); PO2, Venous 58 mmHg (15-58); pH, Venous 7.39 (7.33-7.66)
[2025-03-24] MEDS: Norepinephrine/D5W 8mg/250ml 8 MG/250 ML BAG 1.425 MG IV (07:56)
[2025-03-24] MEDS: BALSAM PERU/CASTOR OIL (Venelex) 60 GM TUBE TOP ×2 (09:18→21:56)
--- NOTE | 2025-03-24 10:45 | ESPR_ITS ---
<Statement entered by Alan Aquino MD - 03/24/25 15:08> I have reviewed the note and agree with the resident's assessment & plan with exceptions as below. I have personally reviewed labs, imaging, home meds/prior records, examined the patient, formulated and discussed management plan with my attending Patient was seen examined bedside's morning. No acute overnight events. Patient overnight was titrated up on dobutamine to 4 mcg/kg. He was also on the BiPAP as his SVO 2 and cardiac output did decrease prior to these changes. In the morning SVO 2 was 89 therefore placing was placed off BiPAP. Repeat VBG that show SpO2 of 73 and cardiac output was still maintaining at 4.4 and cardiac index of 2.2. At this time also decrease patient dobutamine to 3.25 as blood pressure had been stable and he was off pressors and was saturating 100%. Will continue to monitor patient's cardiac output and cardiac index to adjust to be intermittent. Otherwise also start patient on clear liquid diet will see if metabolic demands required to increase dobutamine back. Alan Aquino PGY2 Disclaimer: Even though this this note was dictated by speech recognition and even though it was carefully revised there may still be minor errors in solar thermal installer due to voice recognition software. Documentation for date of: 03/24/25 Subjective Subjective Interval history: This patient is an 79-year-old male with past medical history of CAD status post stents (2013), CABG (triple bypass, 2018), HFrEF 20 to 25% (02/2025), status post ICD with pacemaker placement, hypertension, diabetes, hyperlipidemia, recent cocci pneumonia, and subdural hematoma who presented to [facility] ED on 03/22 for shortness of breath and visual hallucinations. Patient was admitted to PICU for management of cardiogenic shock requiring pressors and dobutamine drip. The patient was recently discharged on 03/18 for an acute exacerbation of his HFrEF. The patient at that time presented with shortness of breath, and during that hospitalization, the patient had been diuresed with Lasix and Bumex. During that time, the patient had worsening of his renal function, resulting in KOSTA. Patient was also started on fluconazole for positive cocci IgM in serum. Patient was deemed stable for discharge after several days due to satisfactory blood pressure and improvement of his shortness of breath. However, on 03/22, was brought from home by ambulance due to shortness of breath and acutely started to see things that were not there and trying to grab things that were not there. On assessment patient was noticed to have cold extremities as well as other signs of hypoperfusion with decreased capillary refill as well as mottling on the toes of bilateral feet. Patient's heart rate was in the 60s paced rhythm and his blood pressure was on the lower end. At this time given the findings patient was most likely into cardiogenic shock not from fluid overload status but from a perfusion/contractility perspective. At this time dobutamine drip was needed and patient will need to be admitted to the ICU, but on chart review it was seen that his POLST form he has selective treatment therefore clarified with patient's family members if it was in the patient's wishes to go to the ICU and received further care as well as get central line placement and be started on medications to help his heart contract. Once patient was started on dobutamine drip and Levophed for cardiogenic shock BP was still stable and central line once in place was patient was in the ICU. Later during the evening patient developed episodes of nonsustained V. tach, but afterwards developed sustained V. tach therefore dobutamine drip was discontinued. Given that patient was still sustaining V. tach and defibrillated was not firing likely because his rate was in the 120s decided to start amiodarone drip at this time. Patient was asymptomatic during these episodes. ED course: Initially normotensive, tachypneic, and hypoxic. Initial labs showed leukocytosis, coagulopathy, hyperkalemia, KOSTA, NAGMA, lactic acidosis, and transaminitis as well as elevated BNP and mild elevation of troponins. Interval History: 03/23/2025 Patient appears to be doing well today on BiPAP. Dobutamine was resumed overnight and the patient continued to have intermittent runs of V. tach throughout the in the evening, however patient seemed asymptomatic during these episodes and vital signs remained stable with Levophed for blood pressure support. Patient continued to be on amiodarone drip throughout the evening. In the morning, the patient had a heart rate in the 60s with a ventricularly paced rhythm. The patient seemed tired, but was opening eyes and following commands. Patient was aware that he is in the hospital, but due to the BiPAP, it was difficult for the patient to fully respond. Extremities today do not seem as pale and seem warmer compared to yesterday, with his feet noted to be worse compared to his upper extremities. 1+ pedal pulse noted bilaterally. Trace pedal edema noted, however overall status does not appear to be fluid overloaded. Patient made 1 L of urine since admission, fluid balance noted to be negative. Repeat VBG's show improvement of oxygenation, creatinine downtrending, LFTs downtrending, troponins downtrending, and lactic acid downtrending compared to yesterday. Estimated cardiac index 2.8. Will consult the patient's supervisor policy change clerks, Dr. Jenkins, regarding further management and recommendations for the patient's cardiogenic shock. The payable representative from from the patient's ICD/pacemaker, [employer] Evera, was called to increase BPM from 60 to 75, and the patient was transition to CPAP from BiPAP. Repeat VBG at around 1530 showed decrease estimated cardiac index, so we will hold off on weaning off CPAP and increased dobutamine drip. Will continue Levophed, amiodarone drip, and dobutamine drip for the patient's cardiogenic shock. 03/24/2025 Patient appears comfortable and has no acute complaints at this time. Patient was put on BiPAP overnight due to worsening estimated cardiac output and cardiac index. 24-hour urine output measured at 1.4 L, with a net negative of 1 L, however range urine output per hour overnight was about 65 mL/h. Leukocytosis improving, renal panel improving, and INR improving. Cardiac output and cardiac index in the morning estimated to be 8.4 and 4.3 respectively. As a result, patient was taken off BiPAP and dobutamine was decreased. Subsequent VBG's in the day showed estimated cardiac output and cardiac index at 4.2 and 2.2 respectively. Weaned patient off Levophed, but patient had decreasing O2 saturation, so changed oximeter to forehead which noted 100% O2 saturation. Patient was transitioned to amiodarone 200 mg p.o. twice daily as well as clear liquid diet. Will put patient on CPAP overnight and obtain VBG in the morning tomorrow. Exam Vital Signs Temp Pulse Resp BP Pulse Ox O2 Del Method O2 Flow Rate 97.6 F 75 8 L 91/58 L 100 High Flow Nasal Cannula 3 03/24/25 08:01 03/24/25 09:45 03/24/25 09:45 03/24/25 09:45 03/24/25 09:45 03/22/25 15:03 03/22/25 18:01 FiO2 30 03/24/25 08:00 Narrative Exam Physical Exam: General: Alert, no acute distress. Skin: Warm, dry, intact. Head: Normocephalic, atraumatic. Eye: Normal conjunctiva, PERRL. Throat: Oral mucosa dry. No obvious lesions in oropharynx. Cardiovascular: Regular rate and rhythm, no murmur, +S1/S2. Respiratory: Lungs are clear to auscultation, respirations unlabored, no crackles, no wheezing. Gastrointestinal: Soft, nontender, non-distended. No guarding or rebound tenderness. Extremities: No edema, no cyanosis, no clubbing. 1+ radial pulse bilaterally, 1+ pedal pulse bilaterally. Feet bilaterally cool and pale, improved compared to day before. Neuro: No focal deficits observed. Conversant, moving all extremities. No overt cerebellar signs/incoordination. Psychiatric: Cooperative, appropriate affect. Objective Labs 03/28/25 04:45 03/28/25 04:45 Labs: Laboratory Results - last 24 hr 03/23/25 03/23/25 03/23/25 12:08 15:25 18:14 WBC RBC Hgb Hct MCV MCH MCHC RDW Std Deviation Plt Count Neut % (Auto) Lymph % (Auto) [place] % (Auto) Eos % (Auto) Baso % (Auto) Neut # (Auto) Lymph # (Auto) [place] # (Auto) Eos # (Auto) Baso # (Auto) Immature Gran # (Auto) Absolute Nucleated RBC Immature Gran % Nucleated RBC % PT INR VBG pH 7.47 7.43 VBG pCO2 35 L 37 VBG pO2 36 45 VBG O2 Sat (Oren) 69 L D 80 L D VBG Base Excess 2 1 Sodium Potassium Chloride Carbon Dioxide Anion Gap BUN Creatinine Estim Creat Clear Calc eGFR BUN/Creatinine Ratio Glucose Calculated Osmolality Lactic Acid 1.8 Calcium Corrected Calcium Phosphorus Magnesium Total Bilirubin AST ALT Alkaline Phosphatase B-Natriuretic Peptide 887 H* Total Protein Albumin Globulin Albumin/Globulin Ratio 03/24/25 03/24/25 03/24/25 01:26 02:46 04:36 WBC 12.6 H RBC 3.64 L Hgb 11.9 L Hct 35.8 L MCV 98 MCH 32.7 MCHC 33.2 RDW Std Deviation 60.0 H Plt Count 201 Neut % (Auto) 83 H Lymph % (Auto) 8 L [place] % (Auto) 7 Eos % (Auto) 1 Baso % (Auto) 1 Neut # (Auto) 10.4 H Lymph # (Auto) 1.0 [place] # (Auto) 0.9 H Eos # (Auto) 0.1 Baso # (Auto) 0.1 Immature Gran # (Auto) 0.13 H Absolute Nucleated RBC 0.03 H Immature Gran % 1 H Nucleated RBC % 0 PT 13.5 H INR 1.3 VBG pH 7.41 7.43 7.37 VBG pCO2 43 40 45 VBG pO2 36 40 79 H D VBG O2 Sat (Oren) 62 L D 74 L D 96 D VBG Base Excess 2 2 0 Sodium 138 Potassium 4.0 Chloride 102 Carbon Dioxide 23.8 Anion Gap 12 BUN 50 H Creatinine 1.6 H D Estim Creat Clear Calc 35.0 L eGFR 43 L BUN/Creatinine Ratio 31 H Glucose 206 H Calculated Osmolality 294 Lactic Acid 1.4 Calcium 9.0 Corrected Calcium 9.2 Phosphorus 4.1 Magnesium 2.5 Total Bilirubin 1.1 AST 325 H ALT 863 H* Alkaline Phosphatase 115 B-Natriuretic Peptide Total Protein 6.2 Albumin 3.8 Globulin 2.4 Albumin/Globulin Ratio 1.6 03/24/25 06:23 WBC RBC Hgb Hct MCV MCH MCHC RDW Std Deviation Plt Count Neut % (Auto) Lymph % (Auto) [place] % (Auto) Eos % (Auto) Baso % (Auto) Neut # (Auto) Lymph # (Auto) [place] # (Auto) Eos # (Auto) Baso # (Auto) Immature Gran # (Auto) Absolute Nucleated RBC Immature Gran % Nucleated RBC % PT INR VBG pH 7.39 VBG pCO2 43 VBG pO2 58 D VBG O2 Sat (Oren) 89 L VBG Base Excess 1 Sodium Potassium Chloride Carbon Dioxide Anion Gap BUN Creatinine Estim Creat Clear Calc eGFR BUN/Creatinine Ratio Glucose Calculated Osmolality Lactic Acid Calcium Corrected Calcium Phosphorus Magnesium Total Bilirubin AST ALT Alkaline Phosphatase B-Natriuretic Peptide Total Protein Albumin Globulin Albumin/Globulin Ratio ABG Interpretation ABG results: 1103/22/25 03/22/25 15:09 15:30 18:57 ABG pH Cancelled ABG pCO2 Cancelled ABG pO2 Cancelled ABG HCO3 Cancelled ABG O2 Saturation Cancelled ABG Base Excess Cancelled VBG pH 7.33 7.35 VBG pCO2 35 L 41 VBG pO2 29 38 VBG Base Excess -7 L -3 03/22/25 03/22/25 03/23/25 21:40 22:10 03:19 ABG pH 7.42 ABG pCO2 32 ABG pO2 130 H ABG HCO3 21 ABG O2 Saturation 99 H ABG Base Excess -3 VBG pH 7.37 7.39 VBG pCO2 41 40 VBG pO2 37 32 VBG Base Excess -2 0 03/23/25 03/23/25 03/23/25 04:40 08:00 15:25 ABG pH ABG pCO2 ABG pO2 ABG HCO3 ABG O2 Saturation ABG Base Excess VBG pH 7.37 7.38 7.47 VBG pCO2 45 42 35 L VBG pO2 34 49 36 VBG Base Excess 0 0 2 03/23/25 03/24/25 03/24/25 18:14 01:26 02:46 ABG pH ABG pCO2 ABG pO2 ABG HCO3 ABG O2 Saturation ABG Base Excess VBG pH 7.43 7.41 7.43 VBG pCO2 37 43 40 VBG pO2 45 36 40 VBG Base Excess 1 2 2 03/24/25 03/24/25 04:36 06:23 ABG pH ABG pCO2 ABG pO2 ABG HCO3 ABG O2 Saturation ABG Base Excess VBG pH 7.37 7.39 VBG pCO2 45 43 VBG pO2 79 H D 58 D VBG Base Excess 0 1 Quality Measures Quality Measures VTE prophylaxis Advance care planning discussed with:: patient and spouse Assessment & Plan Assessment Current Active Medications: Generic Name Dose Route Start Last Admin Trade Name Freq PRN Reason Stop Dose Admin Acetaminophen 650 mg 03/22/25 14:43 Acetaminophen 325 Mg Tablet PO 04/21/25 14:42 Q6H PRN Fever >100.4 and pain 1-3 Balsam [place] 0 gm 03/23/25 21:00 03/24/25 09:18 Balsam [place] Oil (Venelex) 60 Gm Tube TOP 04/22/25 20:59 1 applicatio BID KOFFI Administration Dextrose 25 ml 03/22/25 19:28 Dextrose 50%-Water Inj 50 Ml Syringe IV 04/21/25 19:27 Q15MIN PRN BG 50-70 responsive npo pt Dextrose 50 ml 03/22/25 19:28 Dextrose 50%-Water Inj 50 Ml Syringe IV 04/21/25 19:27 Q15MIN PRN BG <50 OR BG <70 & pt unresponsive Glucagon 1 mg 03/22/25 19:28 Glucagon Inj 1 Mg Vial IM Q15MIN PRN BG <70, and no IV access Norepinephrine/Dextrose 8 mg in 250 mls @ 7.125 mls/hr 03/22/25 14:57 03/24/25 07:00 Levophed In D5w 8mg/250ml IV 04/21/25 14:56 0.01 mcg/kg/min .Q24H PRN 1.425 mls/hr PER PROTOCOL Titration Protocol 0.05 MCG/KG/MIN Amiodarone HCl/Dextrose 360 mg in 200 mls @ 16.667 mls/hr 03/24/25 02:08 03/24/25 02:05 Nexterone Ivpb IV 03/25/25 02:07 16.667 mls/hr .Q12H KOFFI Administration Dobutamine HCl/Dextrose 500 mg in 250 mls @ 8.448 mls/hr 03/24/25 03:23 03/24/25 03:20 Dobutrex/D5w Ivpb IV 04/23/25 03:22 Not Given .Q24H KOFFI 4 MCG/KG/MIN Insulin Human Lispro 0 unit 03/23/25 00:00 03/24/25 05:44 Insulin Lispro (Admelog) 1 Unit/0.01 Ml Unit SC 04/22/25 00:00 2 unit Q6HR KOFFI Administration Protocol Plan This patient is an 79-year-old male with past medical history of CAD status post stents (2013), CABG (triple bypass, 2018), HFrEF 20 to 25% (02/2025), status post ICD with pacemaker placement, hypertension, diabetes, hyperlipidemia, recent cocci pneumonia, and subdural hematoma who presented to [facility] ED on 03/22 for shortness of breath and visual hallucinations. Patient was admitted to PICU for management of cardiogenic shock requiring pressors and dobutamine drip. NEURO #Acute encephalopathy, resolved #History of subdural hematoma On admission, the patient was aware of self and place, but not time. According to the patient's , the patient was confused and had visual hallucinations prior to seeking care. The patient was able to follow commands and maintain a conversation on admission, but was very somnolent. It is noted that the patient does have a history of subdural hematoma. Dx: CT head 03/22 negative for acute intracranial hemorrhage, does show interval development of cortical thickening and subcortical edema in inferior portion of left occipital lobe Ammonia ordered 03/23, resulted within normal limits at 22 Patient noted to be fully coherent and oriented to person, location, and time with ability to follow all commands and ask coherent questions on 03/24 Rx: Will continue to monitor, expect resolution with improvement of cardiogenic shock CARDIO #Cardiogenic shock #Ventricular tachycardia #History of CAD status post stents and CABG #History of HFrEF (EF 20 to 25% 02/2025) #s/p ICD placement with pacemaker ([employer] Evera) Patient presenting with clinical signs of cardiogenic shock including shortness of breath, cold and pale extremities, and without any visible signs of fluid overload. Patient does have a history of HFrEF with a recent echocardiogram done on 03/11/2025 showing grade 2 diastolic dysfunction with a EF of 20 to 25%. The patient sees Dr. Jenkins with his supervisor policy change clerks and is on GDMT at home. Dx: BNP 03/22 noted to be 1319 => 03/23 BNP 887 Patient noted to have several runs of ventricular tachycardia on telemetry 03/22 to 03/23 overnight, patient remained asymptomatic Rx: Cardiology consulted, appreciate recommendations Reached out to [employer] payable representative to increase paced heart rate from 60 to 75 BPM, thus increasing cardiac output Continue to monitor with telemetry Dobutamine drip to increase cardiac output Amiodarone 200 mg PO twice daily due to episodes of ventricular tachycardia Avoid QT prolonging medications Keep potassium above 4 and magnesium above 2 Daily weights and strict ins and outs CPAP nightly to decrease cardiac demand and increase cardiac index RRx: Patient had run of ventricular tachycardia after starting dobutamine drip, so amiodarone drip was started on 03/22 Increased rate of dobutamine as estimated cardiac index decreased after weaning patient off BiPAP to CPAP and increased pacemaker BPM from 60 to 75 Patient weaned off BiPAP to nasal cannula on 03/24 Patient transitioned to oral amiodarone on 03/24 Levophed discontinued successfully on 03/24 Oral feeds restarted 03/24, if cardiac output and cardiac index significantly decreases, will increase dobutamine drip #Elevated troponins, resolving DDx: NSTEMI type II, chronic troponin leak Dx: Patient noted to have a troponin of 0.072 on admission, which increased to 0.080, and has since then downtrended Patient does appear to have a baseline troponin of 0.05 per chart review Rx: Will continue to monitor PULM #Acute hypoxic respiratory failure, improving Patient noted to have shortness of breath and increased work of breathing on presentation to ED. Patient was initially put on OxyMask due to oxygen requirements, however BiPAP was started as the patient continued to have increased work of breathing even on oxy mask. Increased work of breathing is likely secondary to his heart failure resulting in cardiogenic shock. Dx: Initial VBG on 03/22 showed pH 7.33, pCO2 35, PaO2 29, and VBG O2 saturation 42% Initial ABG on 03/22 shows pH 4.72, pCO2 32, pO2 130, bicarb 21, and O2 saturation 99% on BiPAP VBG on 03/23 at 0800 showed pH 7.38, pCO2 42, pO2 49, and VBG O2 saturation 81% on BiPAP VBG on 03/23 at 1525 showed pH 7.47, pCO2 35, PaO2 36, and VBG O2 saturation 69% on CPAP Rx: Continue nasal cannula CPAP nightly RRx: Weaned patient off BiPAP to CPAP on 03/23, but was unable to wean off CPAP as patient's cardiac index decreased Patient taken off BiPAP to nasal cannula on 03/24 GI #Transaminitis DDx: Acute liver injury, shock liver Dx: On presentation, patient had AST 775, ALT 1442, and T bilirubin 1.7 => 03/23 AST 568, ALT 1229 INR 03/22 noted to be 1.9 => 03/23 1.5 Rx: Likely secondary to cardiogenic shock resulting in hepatocyte ischemia, will continue to monitor LFTs and treat underlying shock NEPHRO #KOSTA on CKD, improving Patient had a creatinine of 2.6 from his baseline around 1.8 on 03/18/2025 Likely in the setting of shock Still producing urine Plan: Avoid nephrotoxic agents Renally dose medications Loya inserted Will continue to monitor URO #No active problems HEME #Leukocytosis, improving Patient WBC was elevated initially at 15.6 Most likely reactive in the setting of shock Less likely infectious Plan: If patient demonstrates any signs of infection we will start IV antibiotics Will continue to trend #Coagulopathy, improving Patient's INR was 1.9 => 11/05 1.3 Likely in the setting of liver failure in the setting of shock Plan: Will continue to monitor PT/INR No chemical DVT prophylaxis for now in the setting of coagulopathy ENDO #Non Insulin dependent T2DM Last A1c was 7.2 on 02/02/2025 Plan: Patient currently n.p.o. ISS and blood glucose checks every 6 hours ID #No active problems MSK #No active problems SKIN #No active problems DVT prophylaxis: SCDs GI prophylaxis: None Diet: Clear liquids Loya: Present Lines: Peripheral IV, RIJ Central line Antibiotics: N/A CODE STATUS: DNR Vent Status: N/A Reason for ICU care: Cardiogenic shock requiring dobutamine drip Patient plan of care was discussed with the attending dealer compliance representative, Dr. Ames and senior resident Dr. Kimball (PY-2). David Hammond, PGY-1 Attending Provider Attestation/Addendum Patient seen and examined with the above resident, David Hammond DO. I agree with the findings, assessment, and plan of care as document except for any differences below. Patient continues to have significant improvement with inotropic support. However long-term outcome likely limited. With adjustments made throughout the day and use of positive pressure ventilation the patient continues to show improvement but I fear this may plateau at some point. Patient was taken off of Levophed successfully and amiodarone has now been transition to oral route for ongoing more gradual loading. Patient without any evidence of ventricular ectopy at this point. [employer] rep will be at bedside to help us adjust the rate as the patient has not had chronotropic response to vasopressor or inotropes. Patient's renal function and liver function and mentation will continue to improve with synthetic liver function as evidenced by coagulopathy continuing to improve. Patient will be resumed on p.o. diet with plan to use only CPAP at night for added support. Patient no longer requiring BiPAP as metabolic acidosis has improved and no further need for ongoing compensation for metabolic demand. However overnight use of PAP therapy will be both beneficial from a respiratory and cardiac standpoint. Patient and his were updated on plan of care. Continues supportive means at this point and we will continue to reassess the patient's progress. Total critical care time: I personally spent 40 minutes for review of physiologic parameters, directing plan of care throughout the day, and coordination of care with other specialists. This is exclusive of time spent teaching housestaff or performing any separate billable procedures. The patient remains at significant risk for further morbidity and mortality warranting close monitoring and care only available in the ICU. Critical care services required for cardiogenic shock, acute renal failure, congestive hepatopathy, acute respiratory failure, and metabolic encephalopathy.
[2025-03-24 11:01] LABS: Base Excess, Venous 2 (-3-3); O2 Saturation, Venous 73 % (96-97); PCO2, Venous 40 mmHg (36-56); PO2, Venous 39 mmHg (15-58); pH, Venous 7.43 (7.33-7.66)
[2025-03-24 15:49] LABS: Base Excess, Venous 2 (-3-3); O2 Saturation, Venous 71 % (96-97); PCO2, Venous 38 mmHg (36-56); PO2, Venous 38 mmHg (15-58); pH, Venous 7.44 (7.33-7.66)
[2025-03-24] MEDS: AMIODARONE HCL 200 MG TABLET PO (21:52)
[2025-03-24] MEDS: Magnesium Sulfate 2 GM Ivpb 2 GM/50 ML BAG IV (23:26)
[2025-03-24] MEDS: DOBUTamine/D5w 500 MG IVPB 500 MG/250 ML BAG 6.336 MG IV (23:28)
[2025-03-25] VITALS (107 sets, daily range): BP systolic 80–117; BP diastolic 43–87; PULSE 71–86; RESP 9–30; TEMP 36.5–36.9; O2SAT 88–100; BMI 27.7
[2025-03-25] MEDS: DOBUTamine/D5w 500 MG IVPB 500 MG/250 ML BAG 6.864 MG IV (01:15)
[2025-03-25 05:11] LABS: Base Excess, Venous 2 (-3-3); O2 Saturation, Venous 88 % (96-97); PCO2, Venous 43 mmHg (36-56); PO2, Venous 55 mmHg (15-58); pH, Venous 7.40 (7.33-7.66)
[2025-03-25 05:26] LABS: Basophils # (Auto) 0.1 Thou/mm3 (0.0-0.2); Basophils % (Auto) 1 % (0-2.5); Eosinophils # (Auto) 0.2 Thou/mm3 (0.0-0.5); Eosinophils % (Auto) 1 % (0-10); Hematocrit 34.3 % (41.0-53.0); Hemoglobin 11.1 g/dL (13.5-16.0); Immature Granulocytes Auto 0.12 Thou/mm3 (0.00-0.00); Lymphocytes # (Auto) 1.1 Thou/mm3 (1.0-4.8); Lymphocytes % (Auto) 10 % (10-50); Mean Corpuscular HGB Conc 32.4 g/dl (31.0-37.0); Mean Corpuscular Hemoglobin 32.6 pg (25.0-35.0); Mean Corpuscular Volume 101 fL (80-100); Monocytes # (Auto) 0.9 Thou/mm3 (0.0-0.8); Monocytes % (Auto) 8 % (0-12); Neutrophils # (Auto) 8.6 Thou/mm3 (1.8-7.7); Neutrophils % (Auto) 79 % (37-80); Nucleated Red Blood Cell # 0.02 Thou/mm3 (0.00-0.00); Nucleated Red Blood Cell % 0 /100 WBC (0); Platelet Count 207 Thou/mm3 (140-440); RDW Standard Deviation 62.2 fL (35.1-43.9); Red Blood Count 3.41 Miln/mm3 (4.50-5.90); White Blood Count 10.9 Thou/mm3 (3.8-10.6)
[2025-03-25 05:34] LABS: INR 1.2 (0.9-1.3); Prothrombin Time 12.4 Seconds (9.0-12.2)
[2025-03-25 05:41] LABS: Alanine Aminotransferase 681 U/L (10-49); Albumin, Serum 3.8 gm/dL (3.4-4.8); Albumin/Globulin Ratio 1.6 (1.2-2.2); Alkaline Phosphatase 108 U/L (46-116); Anion Gap 10 (7-16); Aspartate Amino Transferase 188 U/L (0-34); BUN/Creatinine Ratio 23 Ratio (12-20); Bilirubin,Total 1.2 mg/dL (0.3-1.2); Blood Urea Nitrogen 34 mg/dL (9-23); Calcium 8.6 mg/dL (8.3-10.6); Calcium (Corrected) 8.8 mg/dL (8.5-10.1); Carbon Dioxide 25.5 mMol/L (20.0-31.0); Chloride 100 mMol/L (98-107); Creatinine (Component) 1.5 mg/dL (0.6-1.3); Estimated Creatinine Clearance 40.6 mL/min (>60); Globulin 2.4 gm/dL (2.3-3.5); Glucose 185 mg/dL (74-106); Magnesium 2.7 mg/dL (1.6-2.6); Osmolality,Calculated 282 (275-295); Phosphorous 3.3 mg/dL (2.4-5.1); Potassium 4.0 mMol/L (3.4-5.1); Sodium 135 mMol/L (136-145); Total Protein 6.2 gm/dL (5.7-8.2); eGFR 46 See Note
[2025-03-25] MEDS: DOBUTamine/D5w 500 MG IVPB 500 MG/250 ML BAG 6.225 MG IV (05:43)
[2025-03-25] MEDS: AMIODARONE HCL 200 MG TABLET PO ×2 (08:42→21:57)
[2025-03-25] MEDS: INSULIN LISPRO (AdmeLOG) 1 UNIT/0.01 ML UNIT SC ×3 (08:42→17:32)
[2025-03-25] MEDS: SODIUM CHLORIDE 0.9% 250 ML 250 ML 75 ML IV (08:45)
[2025-03-25 08:46] LABS: Base Excess, Venous 4 (-3-3); O2 Saturation, Venous 71 % (96-97); PCO2, Venous 41 mmHg (36-56); PO2, Venous 40 mmHg (15-58); pH, Venous 7.45 (7.33-7.66)
[2025-03-25] MEDS: BALSAM PERU/CASTOR OIL (Venelex) 60 GM TUBE TOP ×2 (08:51→22:02)
[2025-03-25] MEDS: SODIUM CHLORIDE 0.9% 250 ML 250 ML 50 ML IV (09:03)
[2025-03-25] MEDS: DOBUTamine/D5w 500 MG IVPB 500 MG/250 ML BAG IV (09:59)
[2025-03-25] MEDS: SODIUM CHLORIDE 0.9% 250 ML 250 ML 40 ML IV (09:59)
--- NOTE | 2025-03-25 10:37 | ESPR_ITS ---
<Statement entered by Alan Aquino MD - 03/25/25 17:49> I have reviewed the note and agree with the resident's assessment & plan with exceptions as below. I have personally reviewed labs, imaging, home meds/prior records, examined the patient, formulated and discussed management plan with my attending. Patient was seen and examined bedside this morning. No acute overnight events. Patient's debridement has been slowly titrated down with good cardiac output and good cardiac index. Today decreased to 1.75 and repeated VBG which showed SVO 2 of 80% and repeat cardiac output was 5.9 and cardiac index 3 therefore will decrease to 1. Patient will be back on the BiPAP at night. Patient's urine output did decrease mildly throughout the day, gave 250 cc bolus running for around 3-1/2 hours at 50 cc/h, but was decreased to 40 as CVP was checked and was in the -'s. Will get repeat CMP to monitor patient's renal function and hepatic function. Alan Aquino PGY2 Disclaimer: Even though this this note was dictated by speech recognition and even though it was carefully revised there may still be minor errors in red cross executive director due to voice recognition software. Documentation for date of: 03/25/25 Subjective Subjective Interval history: This patient is an 79-year-old male with past medical history of CAD status post stents (2013), CABG (triple bypass, 2018), HFrEF 20 to 25% (02/2025), status post ICD with pacemaker placement, hypertension, diabetes, hyperlipidemia, recent cocci pneumonia, and subdural hematoma who presented to [facility] ED on 03/22 for shortness of breath and visual hallucinations. Patient was admitted to PICU for management of cardiogenic shock requiring pressors and dobutamine drip. The patient was recently discharged on 03/18 for an acute exacerbation of his HFrEF. The patient at that time presented with shortness of breath, and during that hospitalization, the patient had been diuresed with Lasix and Bumex. During that time, the patient had worsening of his renal function, resulting in KOSTA. Patient was also started on fluconazole for positive cocci IgM in serum. Patient was deemed stable for discharge after several days due to satisfactory blood pressure and improvement of his shortness of breath. However, on 03/22, was brought from home by ambulance due to shortness of breath and acutely started to see things that were not there and trying to grab things that were not there. On assessment patient was noticed to have cold extremities as well as other signs of hypoperfusion with decreased capillary refill as well as mottling on the toes of bilateral feet. Patient's heart rate was in the 60s paced rhythm and his blood pressure was on the lower end. At this time given the findings patient was most likely into cardiogenic shock not from fluid overload status but from a perfusion/contractility perspective. At this time dobutamine drip was needed and patient will need to be admitted to the ICU, but on chart review it was seen that his POLST form he has selective treatment therefore clarified with patient's family members if it was in the patient's wishes to go to the ICU and received further care as well as get central line placement and be started on medications to help his heart contract. Once patient was started on dobutamine drip and Levophed for cardiogenic shock BP was still stable and central line once in place was patient was in the ICU. Later during the evening patient developed episodes of nonsustained V. tach, but afterwards developed sustained V. tach therefore dobutamine drip was discontinued. Given that patient was still sustaining V. tach and defibrillated was not firing likely because his rate was in the 120s decided to start amiodarone drip at this time. Patient was asymptomatic during these episodes. ED course: Initially normotensive, tachypneic, and hypoxic. Initial labs showed leukocytosis, coagulopathy, hyperkalemia, KOSTA, NAGMA, lactic acidosis, and transaminitis as well as elevated BNP and mild elevation of troponins. Interval History: 03/23/2025 Patient appears to be doing well today on BiPAP. Dobutamine was resumed overnight and the patient continued to have intermittent runs of V. tach throughout the in the evening, however patient seemed asymptomatic during these episodes and vital signs remained stable with Levophed for blood pressure support. Patient continued to be on amiodarone drip throughout the evening. In the morning, the patient had a heart rate in the 60s with a ventricularly paced rhythm. The patient seemed tired, but was opening eyes and following commands. Patient was aware that he is in the hospital, but due to the BiPAP, it was difficult for the patient to fully respond. Extremities today do not seem as pale and seem warmer compared to yesterday, with his feet noted to be worse compared to his upper extremities. 1+ pedal pulse noted bilaterally. Trace pedal edema noted, however overall status does not appear to be fluid overloaded. Patient made 1 L of urine since admission, fluid balance noted to be negative. Repeat VBG's show improvement of oxygenation, creatinine downtrending, LFTs downtrending, troponins downtrending, and lactic acid downtrending compared to yesterday. Estimated cardiac index 2.8. Will consult the patient's portable canteen operator, Dr. Jenkins, regarding further management and recommendations for the patient's cardiogenic shock. The residential sales representative from from the patient's ICD/pacemaker, [employer] Evera, was called to increase BPM from 60 to 75, and the patient was transition to CPAP from BiPAP. Repeat VBG at around 1530 showed decrease estimated cardiac index, so we will hold off on weaning off CPAP and increased dobutamine drip. Will continue Levophed, amiodarone drip, and dobutamine drip for the patient's cardiogenic shock. 03/24/2025 Patient appears comfortable and has no acute complaints at this time. Patient was put on BiPAP overnight due to worsening estimated cardiac output and cardiac index. 24-hour urine output measured at 1.4 L, with a net negative of 1 L, however range urine output per hour overnight was about 65 mL/h. Leukocytosis improving, renal panel improving, and INR improving. Cardiac output and cardiac index in the morning estimated to be 8.4 and 4.3 respectively. As a result, patient was taken off BiPAP and dobutamine was decreased. Subsequent VBG's in the day showed estimated cardiac output and cardiac index at 4.2 and 2.2 respectively. Weaned patient off Levophed, but patient had decreasing O2 saturation, so changed oximeter to forehead which noted 100% O2 saturation. Patient was transitioned to amiodarone 200 mg p.o. twice daily as well as clear liquid diet. Will put patient on CPAP overnight and obtain VBG in the morning tomorrow. 03/25/2025 No acute events overnight. VBG from [facility] central line obtained overnight did show O2 saturation elevated to 88, so estimated cardiac output 8.7 and cardiac index 4.4, so dobutamine was decreased overnight. This increase was possibly due to the patient being on BiPAP/CPAP overnight. This morning, the patient continues to do well, no acute complaints at this time. Patient's blood pressure was noted to be soft at 88/64, so bedside ultrasound evaluation of the patient's heart, IVC, and hepatic vein was performed. Ultrasound findings suggested fluid responsiveness, so started patient on NS maintenance fluid running at 40 mL/h. Repeat VBG at around 08:30 showed O2 saturation at 71%, so estimated cardiac output 4.3 and cardiac index 2.2. Decreased dobutamine to 1.75 and will reassess cardiac output/cardiac index with VBG at 17:30. Will continue with current treatment plan with the goal of eventually weaning the patient off of dobutamine drip for downgrade to medical floors. Exam Vital Signs Temp Pulse Resp BP Pulse Ox O2 Del Method O2 Flow Rate 98.5 F 75 20 89/55 L 98 High Flow Nasal Cannula 5 03/25/25 04:00 03/25/25 09:59 03/25/25 09:01 03/25/25 09:59 03/25/25 09:01 03/22/25 15:03 03/25/25 04:00 FiO2 30 03/25/25 06:22 Narrative Exam General: Alert, no acute distress. Skin: Warm, dry, intact. [place] rash with red pressure wound like appearance on bridge of nose. Head: Normocephalic, atraumatic. Eye: Normal conjunctiva, PERRL. Throat: Oral mucosa dry. No obvious lesions in oropharynx. Cardiovascular: Regular rate and rhythm, no murmur, +S1/S2. Respiratory: Lungs are clear to auscultation, respirations unlabored, no crackles, no wheezing. Gastrointestinal: Soft, nontender, non-distended. No guarding or rebound tenderness. Extremities: No edema, no cyanosis, no clubbing. 1+ radial pulse bilaterally, 1+ pedal pulse bilaterally. Feet bilaterally cool and pale. Neuro: No focal deficits observed. Conversant, moving all extremities. No overt cerebellar signs/incoordination. Psychiatric: Cooperative, appropriate affect. Objective Labs 03/28/25 04:45 03/28/25 04:45 Labs: Laboratory Results - last 24 hr 03/24/25 03/24/25 03/25/25 10:49 15:40 04:50 WBC 10.9 H RBC 3.41 L Hgb 11.1 L Hct 34.3 L MCV 101 H MCH 32.6 MCHC 32.4 RDW Std Deviation 62.2 H Plt Count 207 Neut % (Auto) 79 Lymph % (Auto) 10 Jenkins % (Auto) 8 Eos % (Auto) 1 Baso % (Auto) 1 Neut # (Auto) 8.6 H Lymph # (Auto) 1.1 Jenkins # (Auto) 0.9 H Eos # (Auto) 0.2 Baso # (Auto) 0.1 Immature Gran # (Auto) 0.12 H Absolute Nucleated RBC 0.02 H Immature Gran % 1 H Nucleated RBC % 0 PT 12.4 H INR 1.2 VBG pH 7.43 7.44 7.40 VBG pCO2 40 38 43 VBG pO2 39 38 55 VBG O2 Sat (Oren) 73 L D 71 L 88 L D VBG Base Excess 2 2 2 Sodium 135 L Potassium 4.0 Chloride 100 Carbon Dioxide 25.5 Anion Gap 10 BUN 34 H Creatinine 1.5 H Estim Creat Clear Calc 40.6 L eGFR 46 L BUN/Creatinine Ratio 23 H Glucose 185 H Calculated Osmolality 282 Calcium 8.6 Corrected Calcium 8.8 Phosphorus 3.3 Magnesium 2.7 H Total Bilirubin 1.2 AST 188 H ALT 681 H* Alkaline Phosphatase 108 Total Protein 6.2 Albumin 3.8 Globulin 2.4 Albumin/Globulin Ratio 1.6 03/25/25 08:32 WBC RBC Hgb Hct MCV MCH MCHC RDW Std Deviation Plt Count Neut % (Auto) Lymph % (Auto) Jenkins % (Auto) Eos % (Auto) Baso % (Auto) Neut # (Auto) Lymph # (Auto) Jenkins # (Auto) Eos # (Auto) Baso # (Auto) Immature Gran # (Auto) Absolute Nucleated RBC Immature Gran % Nucleated RBC % PT INR VBG pH 7.45 VBG pCO2 41 VBG pO2 40 VBG O2 Sat (Oren) 71 L D VBG Base Excess 4 H Sodium Potassium Chloride Carbon Dioxide Anion Gap BUN Creatinine Estim Creat Clear Calc eGFR BUN/Creatinine Ratio Glucose Calculated Osmolality Calcium Corrected Calcium Phosphorus Magnesium Total Bilirubin AST ALT Alkaline Phosphatase Total Protein Albumin Globulin Albumin/Globulin Ratio ABG Interpretation ABG results: 03/22/25 03/22/25 03/22/25 15:09 15:30 18:57 ABG pH Cancelled ABG pCO2 Cancelled ABG pO2 Cancelled ABG HCO3 Cancelled ABG O2 Saturation Cancelled ABG Base Excess Cancelled VBG pH 7.33 7.35 VBG pCO2 35 L 41 VBG pO2 29 38 VBG Base Excess -7 L -3 03/22/25 03/22/25 03/23/25 21:40 22:10 03:19 ABG pH 7.42 ABG pCO2 32 ABG pO2 130 H ABG HCO3 21 ABG O2 Saturation 99 H ABG Base Excess -3 VBG pH 7.37 7.39 VBG pCO2 41 40 VBG pO2 37 32 VBG Base Excess -2 0 03/23/25 03/23/25 03/23/25 04:40 08:00 15:25 ABG pH ABG pCO2 ABG pO2 ABG HCO3 ABG O2 Saturation ABG Base Excess VBG pH 7.37 7.38 7.47 VBG pCO2 45 42 35 L VBG pO2 34 49 36 VBG Base Excess 0 0 2 03/23/25 03/24/25 03/24/25 18:14 01:26 02:46 ABG pH ABG pCO2 ABG pO2 ABG HCO3 ABG O2 Saturation ABG Base Excess VBG pH 7.43 7.41 7.43 VBG pCO2 37 43 40 VBG pO2 45 36 40 VBG Base Excess 1 2 2 03/24/25 03/24/25 03/24/25 04:36 06:23 10:49 ABG pH ABG pCO2 ABG pO2 ABG HCO3 ABG O2 Saturation ABG Base Excess VBG pH 7.37 7.39 7.43 VBG pCO2 45 43 40 VBG pO2 79 H D 58 D 39 VBG Base Excess 0 1 2 03/24/25 03/25/25 03/25/25 15:40 04:50 08:32 ABG pH ABG pCO2 ABG pO2 ABG HCO3 ABG O2 Saturation ABG Base Excess VBG pH 7.44 7.40 7.45 VBG pCO2 38 43 41 VBG pO2 38 55 40 VBG Base Excess 2 2 4 H Quality Measures Quality Measures VTE prophylaxis Advance care planning discussed with:: patient and spouse Assessment & Plan Assessment Current Active Medications: Generic Name Dose Route Start Last Admin Trade Name Freq PRN Reason Stop Dose Admin Acetaminophen 650 mg 03/22/25 14:43 Acetaminophen 325 Mg Tablet PO 04/21/25 14:42 Q6H PRN Fever >100.4 and pain 1-3 Amiodarone HCl 200 mg 03/24/25 21:00 03/25/25 08:42 Amiodarone Hcl 200 Mg Tablet PO 04/23/25 20:59 200 mg BID KOFFI Administration Balsam [place] Oil 0 gm 03/23/25 21:00 03/25/25 08:51 Balsam Sourav/[place] Oil (Venelex) 60 Gm Tube TOP 04/22/25 20:59 1 applicatio BID KOFFI Administration Dextrose 25 ml 03/22/25 19:28 Dextrose 50%-Water Inj 50 Ml Syringe IV 04/21/25 19:27 Q15MIN PRN BG 50-70 responsive npo pt Dextrose 50 ml 03/22/25 19:28 Dextrose 50%-Water Inj 50 Ml Syringe IV 04/21/25 19:27 Q15MIN PRN BG <50 OR BG <70 & pt unresponsive Glucagon 1 mg 03/22/25 19:28 Glucagon Inj 1 Mg Vial IM Q15MIN PRN BG <70, and no IV access Norepinephrine/Dextrose 8 mg in 250 mls @ 7.125 mls/hr 03/22/25 14:57 03/24/25 11:50 Levophed In D5w 8mg/250ml IV 04/21/25 14:56 0 mcg/kg/min .Q24H PRN 0 mls/hr PER PROTOCOL Titration Protocol 0.05 MCG/KG/MIN Sodium Chloride 250 mls @ 40 mls/hr 03/25/25 09:49 03/25/25 09:59 Ns IV 03/25/25 15:10 40 mls/hr .Q6H15M ONE Administration Dobutamine HCl/Dextrose 500 mg in 250 mls @ 3.696 mls/hr 03/25/25 09:49 03/25/25 09:59 Dobutrex/D5w Ivpb IV 04/24/25 09:48 1.75 mcg/kg/min .Q24H KOFFI 3.696 mls/hr 1.75 MCG/KG/MIN Administration Insulin Human Lispro 0 unit 03/24/25 17:00 03/25/25 08:42 Insulin Lispro (Admelog) 1 Unit/0.01 Ml Unit SC 04/23/25 16:59 1 unit AC [facility] Administration Protocol Plan This patient is an 79-year-old male with past medical history of CAD status post stents (2013), CABG (triple bypass, 2018), HFrEF 20 to 25% (02/2025), status post ICD with pacemaker placement, hypertension, diabetes, hyperlipidemia, recent cocci pneumonia, and subdural hematoma who presented to [facility] ED on 03/22 for shortness of breath and visual hallucinations. Patient was admitted to PICU for management of cardiogenic shock requiring pressors and dobutamine drip. NEURO #Acute encephalopathy, resolved #History of subdural hematoma On admission, the patient was aware of self and place, but not time. According to the patient's , the patient was confused and had visual hallucinations prior to seeking care. The patient was able to follow commands and maintain a conversation on admission, but was very somnolent. It is noted that the patient does have a history of subdural hematoma. Dx: CT head 03/22 negative for acute intracranial hemorrhage, does show interval development of cortical thickening and subcortical edema in inferior portion of left occipital lobe Ammonia ordered 03/23, resulted within normal limits at 22 Patient noted to be fully coherent and oriented to person, location, and time with ability to follow all commands and ask coherent questions on 03/24 Rx: Will continue to monitor, expect resolution with improvement of cardiogenic shock CARDIO #Cardiogenic shock, improving #Ventricular tachycardia #History of CAD status post stents and CABG #History of HFrEF (EF 20 to 25% 02/2025) #s/p ICD placement with pacemaker ([employer] Evera) Patient presenting with clinical signs of cardiogenic shock including shortness of breath, cold and pale extremities, and without any visible signs of fluid overload. Patient does have a history of HFrEF with a recent echocardiogram done on 03/11/2025 showing grade 2 diastolic dysfunction with a EF of 20 to 25%. The patient sees Dr. Jenkins with his portable canteen operator and is on GDMT at home. Dx: BNP 03/22 noted to be 1319 => 03/23 BNP 887 Patient noted to have several runs of ventricular tachycardia on telemetry 03/22 to 03/23 overnight, patient remained asymptomatic Rx: Cardiology consulted, appreciate recommendations Reached out to [employer] Ever[employer] residential sales representative to increase paced heart rate from 60 to 75 BPM, thus increasing cardiac output Continue to monitor with telemetry Dobutamine drip to increase cardiac output Amiodarone 200 mg PO twice daily due to episodes of ventricular tachycardia Avoid QT prolonging medications Keep potassium above 4 and magnesium above 2 Daily weights and strict ins and outs CPAP nightly to decrease cardiac demand and increase cardiac index RRx: Patient had run of ventricular tachycardia after starting dobutamine drip, so amiodarone drip was started on 03/22 Increased rate of dobutamine as estimated cardiac index decreased after weaning patient off BiPAP to CPAP and increased pacemaker BPM from 60 to 75 Patient weaned off BiPAP to nasal cannula on 03/24 Patient transitioned to oral amiodarone on 03/24 Levophed discontinued successfully on 03/24 Oral feeds restarted 03/24, if cardiac output and cardiac index significantly decreases, will increase dobutamine drip #Elevated troponins, resolving DDx: NSTEMI type II, chronic troponin leak Dx: Patient noted to have a troponin of 0.072 on admission, which increased to 0.080, and has since then downtrended Patient does appear to have a baseline troponin of 0.05 per chart review Rx: Will continue to monitor PULM #Acute hypoxic respiratory failure, improving Patient noted to have shortness of breath and increased work of breathing on presentation to ED. Patient was initially put on OxyMask due to oxygen requirements, however BiPAP was started as the patient continued to have increased work of breathing even on oxy mask. Increased work of breathing is likely secondary to his heart failure resulting in cardiogenic shock. Dx: Initial VBG on 03/22 showed pH 7.33, pCO2 35, PaO2 29, and VBG O2 saturation 42% Initial ABG on 03/22 shows pH 4.72, pCO2 32, pO2 130, bicarb 21, and O2 saturation 99% on BiPAP VBG on 03/23 at 0800 showed pH 7.38, pCO2 42, pO2 49, and VBG O2 saturation 81% on BiPAP VBG on 03/23 at 1525 showed pH 7.47, pCO2 35, PaO2 36, and VBG O2 saturation 69% on CPAP Patient maintaining 100% O2 saturation on nasal cannula Rx: Continue nasal cannula BiPAP/CPAP nightly RRx: Weaned patient off BiPAP to CPAP on 03/23, but was unable to wean off CPAP as patient's cardiac index decreased Patient taken off BiPAP to nasal cannula on 03/24 GI #Transaminitis, improving DDx: Acute liver injury, shock liver Dx: On presentation, patient had AST 775, ALT 1442, and T bilirubin 1.7 => 03/23 AST 568, ALT 1229 INR 03/22 noted to be 1.9 => 03/23 1.5 Rx: Likely secondary to cardiogenic shock resulting in hepatocyte ischemia, will continue to monitor LFTs and treat underlying shock NEPHRO #KOSTA on CKD, improving Patient had a creatinine of 2.6 from his baseline around 1.8 on 03/18/2025 Likely in the setting of shock Still producing urine Plan: Avoid nephrotoxic agents Renally dose medications Loya inserted Will continue to monitor URO #No active problems HEME #Leukocytosis, improving Patient WBC was elevated initially at 15.6 Most likely reactive in the setting of shock Less likely infectious Plan: If patient demonstrates any signs of infection we will start IV antibiotics Will continue to trend #Coagulopathy, improving Patient's INR was 1.9 => 03/24 1.3 Likely in the setting of liver failure in the setting of shock Plan: Will continue to monitor PT/INR No chemical DVT prophylaxis for now in the setting of coagulopathy ENDO #Non Insulin dependent T2DM Last A1c was 7.2 on 02/02/2025 Plan: Patient currently n.p.o. ISS and blood glucose checks every 6 hours ID #No active problems MSK #No active problems SKIN #No active problems DVT prophylaxis: SCDs GI prophylaxis: None Diet: Clear liquids Loya: Present Lines: Peripheral IV, RIJ Central line Antibiotics: N/A CODE STATUS: DNR Vent Status: N/A Reason for ICU care: Cardiogenic shock requiring dobutamine drip Patient plan of care was discussed with the attending chief privacy officer, Dr. Ames and senior resident Dr. Kimball (PY-2). David Hammond, PGY-1 Attending Provider Attestation/Addendum Patient seen and examined with the above resident, David Hammond DO. I agree with the findings, assessment, and plan of care as document except for any differences below. Patient continues to show stability and gradual improvement in metabolic function of both liver and kidneys. Patient's requirement for vasopressors as eliminated daily continues to require inotropic support with difficulty weaning. Will have a chandrika discussion with the patient and his family in the coming days if we reach a plateau which has been clearly explained to them. Continue slow gradual supportive care at this point. His mentation continues to improve overall and the patient's know she is aware ultimately wants her to make the final decision about his own care. Patient will be continued on dobutamine and amiodarone. Aspirin and statin can be introduced again though there is limited benefit at this point. Otherwise, goal-directed medical therapy is not amenable because of the ongoing inotropic support that he needs. Total critical care time: I personally spent 35 minutes for review of physiologic parameters, directing plan of care throughout the day, coordination of care with other subspecialist, and counseling patient's family at bedside. This is exclusive of time spent teaching on staff or performing separate billable procedures. Patient remains at significant risk for further morbidity and mortality warranting close monitoring and care only available in the ICU. Critical care services required for cardiogenic shock, acute renal failure, acute hypoxic respiratory failure, congestive hepatopathy.
--- NOTE | 2025-03-25 11:00 | PC.SS ---
XRAY TECH conducted bedside contact with the patient conduct initial assessment and to discuss discharge planning.? At bedside with patient was spouse, Hiral Paul .? Information obtained from patient?s spouse.? Patient is retired and resides at home with spouse.? Patient utilizes a walker to assist with ambulation.? Patient possesses home oxygen.? Patient possesses the ability to complete ADL?s independently.? Patient?s medical surrogate decision maker is spouse, Hiral Paul.? Patient?s PCP is Dr. Martino.? Patient does not participate with dialysis.? Patient utilizes [facility] for medication services.? Plan is for the patient to return home at the time of discharge.? Family will provide transportation on behalf of the patient.? No further discharge needs identified by the patient.? No further intervention required at this time, medical social consultant will be available to address any further concerns.? Next of Kin: Hiral Paul D/C Plan: Home
[2025-03-25 17:08] LABS: Base Excess, Venous 2 (-3-3); O2 Saturation, Venous 80 % (96-97); PCO2, Venous 38 mmHg (36-56); PO2, Venous 44 mmHg (15-58); pH, Venous 7.45 (7.33-7.66)
[2025-03-25 18:05] LABS: Alanine Aminotransferase 580 U/L (10-49); Albumin, Serum 3.6 gm/dL (3.4-4.8); Albumin/Globulin Ratio 1.4 (1.2-2.2); Alkaline Phosphatase 102 U/L (46-116); Anion Gap 8 (7-16); Aspartate Amino Transferase 138 U/L (0-34); BUN/Creatinine Ratio 19 Ratio (12-20); Bilirubin,Total 1.0 mg/dL (0.3-1.2); Blood Urea Nitrogen 28 mg/dL (9-23); Calcium 8.2 mg/dL (8.3-10.6); Calcium (Corrected) 8.5 mg/dL (8.5-10.1); Carbon Dioxide 24.6 mMol/L (20.0-31.0); Chloride 99 mMol/L (98-107); Creatinine (Component) 1.5 mg/dL (0.6-1.3); Estimated Creatinine Clearance 40.6 mL/min (>60); Globulin 2.5 gm/dL (2.3-3.5); Glucose 213 mg/dL (74-106); Osmolality,Calculated 276 (275-295); Potassium 4.0 mMol/L (3.4-5.1); Sodium 132 mMol/L (136-145); Total Protein 6.1 gm/dL (5.7-8.2); eGFR 46 See Note
[2025-03-25] MEDS: MELATONIN 3 MG TABLET PO (22:08)
[2025-03-26] VITALS (163 sets, daily range): BP systolic 81–110; BP diastolic 58–84; PULSE 73–120; RESP 11–33; TEMP 36.1–36.8; O2SAT 80–100
[2025-03-26 03:06] LABS: Base Excess, Venous 3 (-3-3); O2 Saturation, Venous 69 % (96-97); PCO2, Venous 38 mmHg (36-56); PO2, Venous 35 mmHg (15-58); pH, Venous 7.46 (7.33-7.66)
[2025-03-26 06:09] LABS: Base Excess, Venous 2 (-3-3); O2 Saturation, Venous 70 % (96-97); PCO2, Venous 43 mmHg (36-56); PO2, Venous 37 mmHg (15-58); pH, Venous 7.41 (7.33-7.66)
[2025-03-26 06:19] LABS: Basophils # (Auto) 0.1 Thou/mm3 (0.0-0.2); Basophils % (Auto) 1 % (0-2.5); Eosinophils # (Auto) 0.2 Thou/mm3 (0.0-0.5); Eosinophils % (Auto) 2 % (0-10); Hematocrit 33.8 % (41.0-53.0); Hemoglobin 11.2 g/dL (13.5-16.0); Immature Granulocytes Auto 0.12 Thou/mm3 (0.00-0.00); Lymphocytes # (Auto) 1.4 Thou/mm3 (1.0-4.8); Lymphocytes % (Auto) 14 % (10-50); Mean Corpuscular HGB Conc 33.1 g/dl (31.0-37.0); Mean Corpuscular Hemoglobin 32.9 pg (25.0-35.0); Mean Corpuscular Volume 99 fL (80-100); Monocytes # (Auto) 0.9 Thou/mm3 (0.0-0.8); Monocytes % (Auto) 9 % (0-12); Neutrophils # (Auto) 7.2 Thou/mm3 (1.8-7.7); Neutrophils % (Auto) 73 % (37-80); Nucleated Red Blood Cell # 0.00 Thou/mm3 (0.00-0.00); Nucleated Red Blood Cell % 0 /100 WBC (0); Platelet Count 212 Thou/mm3 (140-440); RDW Standard Deviation 61.1 fL (35.1-43.9); Red Blood Count 3.40 Miln/mm3 (4.50-5.90); White Blood Count 9.9 Thou/mm3 (3.8-10.6)
[2025-03-26 06:59] LABS: Alanine Aminotransferase 504 U/L (10-49); Albumin, Serum 3.7 gm/dL (3.4-4.8); Albumin/Globulin Ratio 1.5 (1.2-2.2); Alkaline Phosphatase 102 U/L (46-116); Anion Gap 7 (7-16); Aspartate Amino Transferase 106 U/L (0-34); BUN/Creatinine Ratio 20 Ratio (12-20); Bilirubin,Total 1.3 mg/dL (0.3-1.2); Blood Urea Nitrogen 30 mg/dL (9-23); Calcium 8.4 mg/dL (8.3-10.6); Calcium (Corrected) 8.6 mg/dL (8.5-10.1); Carbon Dioxide 25.6 mMol/L (20.0-31.0); Chloride 99 mMol/L (98-107); Creatinine (Component) 1.5 mg/dL (0.6-1.3); Estimated Creatinine Clearance 37.4 mL/min (>60); Globulin 2.5 gm/dL (2.3-3.5); Glucose 169 mg/dL (74-106); Magnesium 2.6 mg/dL (1.6-2.6); Osmolality,Calculated 274 (275-295); Potassium 4.0 mMol/L (3.4-5.1); Sodium 132 mMol/L (136-145); Total Protein 6.2 gm/dL (5.7-8.2); eGFR 46 See Note
--- NOTE | 2025-03-26 07:46 | ESPR_ITS ---
<Statement entered by Dain Nelson MD - 03/26/25 15:17> Senior Resident Attestation: I supervised/discussed management plan with internetworking technician physician Dr. Hammond, and was involved in the care of this patient. I personally saw and examined the patient and discussed the assessment and plan with the entire medicine team, including my attending. I agree with the assessment and plan as documented. Patient's care was discussed with attending physician, Dr. Ames. Dain Nelson MD PGY-3. Documentation for date of: 03/26/25 Subjective Subjective Interval history: This patient is an 79-year-old male with past medical history of CAD status post stents (2013), CABG (triple bypass, 2018), HFrEF 20 to 25% (02/2025), status post ICD with pacemaker placement, hypertension, diabetes, hyperlipidemia, recent cocci pneumonia, and subdural hematoma who presented to [facility] ED on 03/22 for shortness of breath and visual hallucinations. Patient was admitted to MICU for management of cardiogenic shock requiring pressors and dobutamine drip. The patient was recently discharged on 03/18 for an acute exacerbation of his HFrEF. The patient at that time presented with shortness of breath, and during that hospitalization, the patient had been diuresed with Lasix and Bumex. During that time, the patient had worsening of his renal function, resulting in KOSTA. Patient was also started on fluconazole for positive cocci IgM in serum. Patient was deemed stable for discharge after several days due to satisfactory blood pressure and improvement of his shortness of breath. However, on 03/22, was brought from home by ambulance due to shortness of breath and acutely started to see things that were not there and trying to grab things that were not there. On assessment patient was noticed to have cold extremities as well as other signs of hypoperfusion with decreased capillary refill as well as mottling on the toes of bilateral feet. Patient's heart rate was in the 60s paced rhythm and his blood pressure was on the lower end. At this time given the findings patient was most likely into cardiogenic shock not from fluid overload status but from a perfusion/contractility perspective. At this time dobutamine drip was needed and patient will need to be admitted to the ICU, but on chart review it was seen that his POLST form he has selective treatment therefore clarified with patient's family members if it was in the patient's wishes to go to the ICU and received further care as well as get central line placement and be started on medications to help his heart contract. Once patient was started on dobutamine drip and Levophed for cardiogenic shock BP was still stable and central line once in place was patient was in the ICU. Later during the evening patient developed episodes of nonsustained V. tach, but afterwards developed sustained V. tach therefore dobutamine drip was discontinued. Given that patient was still sustaining V. tach and defibrillated was not firing likely because his rate was in the 120s decided to start amiodarone drip at this time. Patient was asymptomatic during these episodes. ED course: Initially normotensive, tachypneic, and hypoxic. Initial labs showed leukocytosis, coagulopathy, hyperkalemia, KOSTA, NAGMA, lactic acidosis, and transaminitis as well as elevated BNP and mild elevation of troponins. Interval History: 03/23/2025 Patient appears to be doing well today on BiPAP. Dobutamine was resumed overnight and the patient continued to have intermittent runs of V. tach throughout the in the evening, however patient seemed asymptomatic during these episodes and vital signs remained stable with Levophed for blood pressure support. Patient continued to be on amiodarone drip throughout the evening. In the morning, the patient had a heart rate in the 60s with a ventricularly paced rhythm. The patient seemed tired, but was opening eyes and following commands. Patient was aware that he is in the hospital, but due to the BiPAP, it was difficult for the patient to fully respond. Extremities today do not seem as pale and seem warmer compared to yesterday, with his feet noted to be worse compared to his upper extremities. 1+ pedal pulse noted bilaterally. Trace pedal edema noted, however overall status does not appear to be fluid overloaded. Patient made 1 L of urine since admission, fluid balance noted to be negative. Repeat VBG's show improvement of oxygenation, creatinine downtrending, LFTs downtrending, troponins downtrending, and lactic acid downtrending compared to yesterday. Estimated cardiac index 2.8. Will consult the patient's green tire inspector, Dr. Jenkins, regarding further management and recommendations for the patient's cardiogenic shock. The field support representative from from the patient's ICD/pacemaker, Medtronic Evera, was called to increase BPM from 60 to 75, and the patient was transition to CPAP from BiPAP. Repeat VBG at around 1530 showed decrease estimated cardiac index, so we will hold off on weaning off CPAP and increased dobutamine drip. Will continue Levophed, amiodarone drip, and dobutamine drip for the patient's cardiogenic shock. 03/24/2025 Patient appears comfortable and has no acute complaints at this time. Patient was put on BiPAP overnight due to worsening estimated cardiac output and cardiac index. 24-hour urine output measured at 1.4 L, with a net negative of 1 L, however range urine output per hour overnight was about 65 mL/h. Leukocytosis improving, renal panel improving, and INR improving. Cardiac output and cardiac index in the morning estimated to be 8.4 and 4.3 respectively. As a result, patient was taken off BiPAP and dobutamine was decreased. Subsequent VBG's in the day showed estimated cardiac output and cardiac index at 4.2 and 2.2 respectively. Weaned patient off Levophed, but patient had decreasing O2 saturation, so changed oximeter to forehead which noted 100% O2 saturation. Patient was transitioned to amiodarone 200 mg p.o. twice daily as well as clear liquid diet. Will put patient on CPAP overnight and obtain VBG in the morning tomorrow. 03/25/2025 No acute events overnight. VBG from RIJ central line obtained overnight did show O2 saturation elevated to 88, so estimated cardiac output 8.7 and cardiac index 4.4, so dobutamine was decreased overnight. This increase was possibly due to the patient being on BiPAP/CPAP overnight. This morning, the patient continues to do well, no acute complaints at this time. Patient's blood pressure was noted to be soft at 88/64, so bedside ultrasound evaluation of the patient's heart, IVC, and hepatic vein was performed. Ultrasound findings suggested fluid responsiveness, so started patient on NS maintenance fluid running at 40 mL/h. Repeat VBG at around 08:30 showed O2 saturation at 71%, so estimated cardiac output 4.3 and cardiac index 2.2. Decreased dobutamine to 1.75 and will reassess cardiac output/cardiac index with VBG at 17:30. Will continue with current treatment plan with the goal of eventually weaning the patient off of dobutamine drip for downgrade to medical floors. 03/26/25 No acute events overnight. Dobutamine was increased slightly from 1.0 to 1.25 overnight. Patient has no complaints at this time is breathing comfortably on room air saturating at 96% O2. Urine output over the past 24 hours noted to be 65 mL, 0.36 mL/kg/h. VBG taken at around 0600 noted pH of 7.41, pCO2 43, and O2 saturation 70%, suggesting cardiac output of 3.9 and cardiac index of 2.1. Decreased dobutamine to 0.75, but repeat VBG showed O2 saturation 41%, estimated cardiac index of 1.1, so dobutamine was increased back up to 1.25. Repeat VBG later in the day showed VBG O2 saturation 85%, estimated cardiac index 3.7. Started patient on dopamine 3 while also decreasing dobutamine back down to 0.75 with plans to increase dopamine while decreasing the dobutamine, with goal of weaning the patient off dobutamine. Exam Vital Signs Temp Pulse Resp BP Pulse Ox O2 Del Method O2 Flow Rate 97.9 F 75 17 95/67 100 High Flow Nasal Cannula 5 03/26/25 04:00 03/26/25 06:30 03/26/25 06:30 03/26/25 06:30 03/26/25 06:30 03/22/25 15:03 03/25/25 18:12 FiO2 30 03/26/25 06:10 Narrative Exam General: Alert, no acute distress. Skin: Warm, dry, intact. [place] rash with red pressure wound like appearance on bridge of nose. Head: Normocephalic, atraumatic. Eye: Normal conjunctiva, PERRL. Throat: Oral mucosa dry. No obvious lesions in oropharynx. Cardiovascular: Regular rate and rhythm, no murmur, +S1/S2. Respiratory: Lungs are clear to auscultation, respirations unlabored, no crackles, no wheezing. Gastrointestinal: Soft, nontender, non-distended. No guarding or rebound tenderness. Extremities: Trace pedal edema, no cyanosis, no clubbing. 1+ radial pulse bilaterally, 1+ pedal pulse bilaterally. Feet bilaterally cool and pale. Neuro: No focal deficits observed. Conversant, moving all extremities. No overt cerebellar signs/incoordination. Psychiatric: Cooperative, appropriate affect. Objective Labs 03/28/25 04:45 03/28/25 04:45 Labs: Laboratory Results - last 24 hr 03/25/25 03/25/25 03/26/25 08:32 16:57 03:00 WBC RBC Hgb Hct MCV MCH MCHC RDW Std Deviation Plt Count Neut % (Auto) Lymph % (Auto) [place] % (Auto) Eos % (Auto) Baso % (Auto) Neut # (Auto) Lymph # (Auto) [place] # (Auto) Eos # (Auto) Baso # (Auto) Immature Gran # (Auto) Absolute Nucleated RBC Immature Gran % Nucleated RBC % VBG pH 7.45 7.45 7.46 VBG pCO2 41 38 38 VBG pO2 40 44 35 VBG O2 Sat (Oren) 71 L D 80 L 69 L D VBG Base Excess 4 H 2 3 Sodium 132 L Potassium 4.0 Chloride 99 Carbon Dioxide 24.6 Anion Gap 8 BUN 28 H Creatinine 1.5 H Estim Creat Clear Calc 40.6 L eGFR 46 L BUN/Creatinine Ratio 19 Glucose 213 H Calculated Osmolality 276 Calcium 8.2 L Corrected Calcium 8.5 Magnesium Total Bilirubin 1.0 AST 138 H ALT 580 H* Alkaline Phosphatase 102 Total Protein 6.1 Albumin 3.6 Globulin 2.5 Albumin/Globulin Ratio 1.4 03/26/25 05:50 WBC 9.9 RBC 3.40 L Hgb 11.2 L Hct 33.8 L MCV 99 MCH 32.9 MCHC 33.1 RDW Std Deviation 61.1 H Plt Count 212 Neut % (Auto) 73 Lymph % (Auto) 14 [place] % (Auto) 9 Eos % (Auto) 2 Baso % (Auto) 1 Neut # (Auto) 7.2 Lymph # (Auto) 1.4 [place] # (Auto) 0.9 H Eos # (Auto) 0.2 Baso # (Auto) 0.1 Immature Gran # (Auto) 0.12 H Absolute Nucleated RBC 0.00 Immature Gran % 1 H Nucleated RBC % 0 VBG pH 7.41 VBG pCO2 43 VBG pO2 37 VBG O2 Sat (Oren) 70 L VBG Base Excess 2 Sodium 132 L Potassium 4.0 Chloride 99 Carbon Dioxide 25.6 Anion Gap 7 BUN 30 H Creatinine 1.5 H Estim Creat Clear Calc 37.4 L eGFR 46 L BUN/Creatinine Ratio 20 Glucose 169 H Calculated Osmolality 274 L Calcium 8.4 Corrected Calcium 8.6 Magnesium 2.6 Total Bilirubin 1.3 H AST 106 H ALT 504 H* Alkaline Phosphatase 102 Total Protein 6.2 Albumin 3.7 Globulin 2.5 Albumin/Globulin Ratio 1.5 ABG Interpretation ABG results: 03/22/25 03/22/25 03/22/25 15:09 15:30 18:57 ABG pH Cancelled ABG pCO2 Cancelled ABG pO2 Cancelled ABG HCO3 Cancelled ABG O2 Saturation Cancelled ABG Base Excess Cancelled VBG pH 7.33 7.35 VBG pCO2 35 L 41 VBG pO2 29 38 VBG Base Excess -7 L -3 03/22/25 03/22/25 03/23/25 21:40 22:10 03:19 ABG pH 7.42 ABG pCO2 32 ABG pO2 130 H ABG HCO3 21 ABG O2 Saturation 99 H ABG Base Excess -3 VBG pH 7.37 7.39 VBG pCO2 41 40 VBG pO2 37 32 VBG Base Excess -2 0 03/23/25 03/23/25 03/23/25 04:40 08:00 15:25 ABG pH ABG pCO2 ABG pO2 ABG HCO3 ABG O2 Saturation ABG Base Excess VBG pH 7.37 7.38 7.47 VBG pCO2 45 42 35 L VBG pO2 34 49 36 VBG Base Excess 0 0 2 03/23/25 03/24/25 03/24/25 18:14 01:26 02:46 ABG pH ABG pCO2 ABG pO2 ABG HCO3 ABG O2 Saturation ABG Base Excess VBG pH 7.43 7.41 7.43 VBG pCO2 37 43 40 VBG pO2 45 36 40 VBG Base Excess 1 2 2 03/24/25 03/24/25 03/24/25 04:36 06:23 10:49 ABG pH ABG pCO2 ABG pO2 ABG HCO3 ABG O2 Saturation ABG Base Excess VBG pH 7.37 7.39 7.43 VBG pCO2 45 43 40 VBG pO2 79 H D 58 D 39 VBG Base Excess 0 1 2 03/24/25 03/25/25 03/25/25 15:40 04:50 08:32 ABG pH ABG pCO2 ABG pO2 ABG HCO3 ABG O2 Saturation ABG Base Excess VBG pH 7.44 7.40 7.45 VBG pCO2 38 43 41 VBG pO2 38 55 40 VBG Base Excess 2 2 4 H 03/25/25 03/26/25 03/26/25 16:57 03:00 05:50 ABG pH ABG pCO2 ABG pO2 ABG HCO3 ABG O2 Saturation ABG Base Excess VBG pH 7.45 7.46 7.41 VBG pCO2 38 38 43 VBG pO2 44 35 37 VBG Base Excess 2 3 2 Quality Measures Quality Measures VTE prophylaxis Advance care planning discussed with:: patient Assessment & Plan Assessment Current Active Medications: Generic Name Dose Route Start Last Admin Trade Name Freq PRN Reason Stop Dose Admin Acetaminophen 650 mg 03/22/25 14:43 Acetaminophen 325 Mg Tablet PO 04/21/25 14:42 Q6H PRN Fever >100.4 and pain 1-3 Amiodarone HCl 200 mg 03/24/25 21:00 03/25/25 21:57 Amiodarone Hcl 200 Mg Tablet PO 04/23/25 20:59 200 mg BID KOFFI Administration Balsam Sourav/[place] Oil 0 gm 03/23/25 21:00 03/25/25 22:02 Balsam [place] Oil (Venelex) 60 Gm Tube TOP 04/22/25 20:59 1 applicatio BID KOFFI Administration Dextrose 25 ml 03/22/25 19:28 Dextrose 50%-Water Inj 50 Ml Syringe IV 04/21/25 19:27 Q15MIN PRN BG 50-70 responsive npo pt Dextrose 50 ml 03/22/25 19:28 Dextrose 50%-Water Inj 50 Ml Syringe IV 04/21/25 19:27 Q15MIN PRN BG <50 OR BG <70 & pt unresponsive Glucagon 1 mg 03/22/25 19:28 Glucagon Inj 1 Mg Vial IM Q15MIN PRN BG <70, and no IV access Norepinephrine/Dextrose 8 mg in 250 mls @ 7.125 mls/hr 03/22/25 14:57 03/24/25 11:50 Levophed In D5w 8mg/250ml IV 04/21/25 14:56 0 mcg/kg/min .Q24H PRN 0 mls/hr PER PROTOCOL Titration Protocol 0.05 MCG/KG/MIN Dobutamine HCl/Dextrose 500 mg in 250 mls @ 2.64 mls/hr 03/26/25 03:21 03/26/25 03:27 Dobutrex/D5w Ivpb IV 04/25/25 03:20 Not Given .Q24H KOFFI 1.25 MCG/KG/MIN Insulin Human Lispro 0 unit 03/24/25 17:00 03/25/25 17:32 Insulin Lispro (Admelog) 1 Unit/0.01 Ml Unit SC 04/23/25 16:59 2 unit AC KOFFI Administration Protocol Plan This patient is an 79-year-old male with past medical history of CAD status post stents (2013), CABG (triple bypass, 2018), HFrEF 20 to 25% (02/2025), status post ICD with pacemaker placement, hypertension, diabetes, hyperlipidemia, recent cocci pneumonia, and subdural hematoma who presented to [facility] ED on 03/22 for shortness of breath and visual hallucinations. Patient was admitted to MICU for management of cardiogenic shock requiring pressors and dobutamine drip. NEURO #Acute encephalopathy, resolved #History of subdural hematoma On admission, the patient was aware of self and place, but not time. According to the patient's , the patient was confused and had visual hallucinations prior to seeking care. The patient was able to follow commands and maintain a conversation on admission, but was very somnolent. It is noted that the patient does have a history of subdural hematoma. Dx: CT head 03/22 negative for acute intracranial hemorrhage, does show interval development of cortical thickening and subcortical edema in inferior portion of left occipital lobe Ammonia ordered 03/23, resulted within normal limits at 22 Patient noted to be fully coherent and oriented to person, location, and time with ability to follow all commands and ask coherent questions on 03/24 Rx: Will continue to monitor, expect resolution with improvement of cardiogenic shock #History of depression Rx: Resumed home sertraline 25 mg PO daily CARDIO #Cardiogenic shock, improving #Ventricular tachycardia #History of CAD status post stents and CABG #History of HFrEF (EF 20 to 25% 02/2025) #s/p ICD placement with pacemaker (Medtronic Evera) Patient presenting with clinical signs of cardiogenic shock including shortness of breath, cold and pale extremities, and without any visible signs of fluid overload. Patient does have a history of HFrEF with a recent echocardiogram done on 03/11/2025 showing grade 2 diastolic dysfunction with a EF of 20 to 25%. The patient sees Dr. Jenkins with his green tire inspector and is on GDMT at home. Dx: BNP 03/22 noted to be 1319 => 03/23 BNP 887 Patient noted to have several runs of ventricular tachycardia on telemetry 03/22 to 03/23 overnight, patient remained asymptomatic Rx: Cardiology consulted, appreciate recommendations Reached out to [employer] field support representative to increase paced heart rate from 60 to 75 BPM, thus increasing cardiac output Continue to monitor with telemetry Dobutamine drip to increase cardiac contractility Low dose dopamine drip to increase cardiac contractility Amiodarone 200 mg PO twice daily due to episodes of ventricular tachycardia Avoid QT prolonging medications Keep potassium above 4 and magnesium above 2 Daily weights and strict ins and outs BiPAP/CPAP nightly to decrease cardiac demand and increase cardiac index RRx: Patient had run of ventricular tachycardia after starting dobutamine drip, so amiodarone drip was started on 03/22 Increased rate of dobutamine as estimated cardiac index decreased after weaning patient off BiPAP to CPAP and increased pacemaker BPM from 60 to 75 Patient weaned off BiPAP to nasal cannula on 03/24 Patient transitioned to oral amiodarone on 03/24 Levophed discontinued successfully on 03/24 Oral feeds restarted 03/24, if cardiac output and cardiac index significantly decreases, will increase dobutamine drip Decreased dobutamine to 0.75 on 03/26, which dropped cardiac index below 2.0, so increased dobutamine back to 1.25 Started dopamine 3.0 on 03/26 with goal of weaning off dobutamine #Elevated troponins, resolving DDx: NSTEMI type II, chronic troponin leak Dx: Patient noted to have a troponin of 0.072 on admission, which increased to 0.080, and has since then downtrended Patient does appear to have a baseline troponin of 0.05 per chart review Rx: Will continue to monitor with telemetry PULM #Acute hypoxic respiratory failure, resolved Patient noted to have shortness of breath and increased work of breathing on presentation to ED. Patient was initially put on OxyMask due to oxygen requirements, however BiPAP was started as the patient continued to have increased work of breathing even on oxy mask. Increased work of breathing is likely secondary to his heart failure resulting in cardiogenic shock. Dx: Initial VBG on 03/22 showed pH 7.33, pCO2 35, PaO2 29, and VBG O2 saturation 42% Initial ABG on 03/22 shows pH 4.72, pCO2 32, pO2 130, bicarb 21, and O2 saturation 99% on BiPAP VBG on 03/23 at 0800 showed pH 7.38, pCO2 42, pO2 49, and VBG O2 saturation 81% on BiPAP VBG on 03/23 at 1525 showed pH 7.47, pCO2 35, PaO2 36, and VBG O2 saturation 69% on CPAP Patient maintaining 100% O2 saturation on nasal cannula Rx: Continue nasal cannula BiPAP/CPAP nightly RRx: Weaned patient off BiPAP to CPAP on 03/23, but was unable to wean off CPAP as patient's cardiac index decreased Patient taken off BiPAP to nasal cannula on 03/24 Patient off nasal cannula on 03/26 GI #Transaminitis, improving DDx: Acute liver injury, shock liver Dx: On presentation, patient had AST 775, ALT 1442, and T bilirubin 1.7 => 03/23 AST 568, ALT 1229 INR 03/22 noted to be 1.9 => 03/23 1.5 Rx: Likely secondary to cardiogenic shock resulting in hepatocyte ischemia, will continue to monitor LFTs and treat underlying shock NEPHRO #KOSTA on CKD, improving Patient had a creatinine of 2.6 from his baseline around 1.8 on 03/18/2025 Likely in the setting of shock Still producing urine Plan: Avoid nephrotoxic agents Renally dose medications Loya inserted Will continue to monitor URO #No active problems HEME #Leukocytosis, improving Patient WBC was elevated initially at 15.6 Most likely reactive in the setting of shock Less likely infectious Plan: If patient demonstrates any signs of infection we will start IV antibiotics Will continue to trend #Coagulopathy, improving Patient's INR was 1.9 => 03/24 1.3 Likely in the setting of liver failure in the setting of shock Plan: Will continue to monitor PT/INR No chemical DVT prophylaxis for now in the setting of coagulopathy ENDO #Non Insulin dependent T2DM Last A1c was 7.2 on 02/02/2025 Plan: Patient currently n.p.o. ISS and blood glucose checks every 6 hours ID #Cocci IgM positive Dx: Patient had positive cocci IgM on 03/18 Cocci immunodiffusion and complement fixation negative for cocci Patient has no further shortness of breath since being off BiPAP 03/24 Rx: Will continue to monitor, will consider resuming fluconazole at 200 mg daily on discharge MSK #No active problems SKIN #No active problems DVT prophylaxis: SCDs GI prophylaxis: None Diet: Regular Loya: Present Lines: Peripheral IV, RIJ Central line Antibiotics: N/A CODE STATUS: DNR Vent Status: N/A Reason for ICU care: Cardiogenic shock requiring dobutamine drip Patient plan of care was discussed with the attending release of information specialist, Dr. Ames and senior resident Dr. Nelson (PY-3). David Hammond, PGY-1 Attending Provider Attestation/Addendum Patient seen and examined with the above resident, David Hammond DO. I agree with the findings, assessment, and plan of care as document except for any differences below. Patient remains in cardiogenic shock dependent on inotropic support. Attempts to wean have led to worsening perfusion as evidenced by mentation/fatigue as well as low urine output. His congestive hepatopathy and renal function have returned back to baseline with continued support but it has been difficult to wean off of inotropic's. Given continued requirement for some level of beta agonism, will plan to try to transition to dopamine which at a low dose can be used as the patient is transitioning without adequate time to process his end-stage heart disease. Isidoro discussion about the role of hospice and palliation at this point versus continued aggressive care and likely repeated admissions with hide with the patient and his . His remains adamant that the patient should make final decision on his own but will require additional time to come up with a final decision. In the interim, we will continue to monitor closely. Sedated on amiodarone p.o. with no further ectopy. Ultimately, if inability to wean from inotropic support would likely lead to expected outcomes with need for hospice or palliation. Patient does not have resources at home and this will likely need to be arranged early next week if the patient and his are agreeable to that transition. Total critical care time: I personally spent 45 minutes for review of physiologic parameters, directing plan of care throughout the day, coordination of care with other subspecialist, and counseling patient at bedside. This is exclusive of time spent teaching on staff performing any separate billable procedures. Patient remains at significant risk for further morbidity and mortality warranting close monitoring and care only available in ICU. Critical care services required for cardiogenic shock, acute renal failure, congestive hepatopathy, acute metabolic encephalopathy, and acute respiratory failure.
[2025-03-26] MEDS: INSULIN LISPRO (AdmeLOG) 1 UNIT/0.01 ML UNIT SC ×3 (07:52→17:48)
[2025-03-26] MEDS: AMIODARONE HCL 200 MG TABLET PO ×2 (08:44→20:51)
[2025-03-26] MEDS: SERTRALINE HCL 25 MG TABLET PO (08:44)
[2025-03-26] MEDS: BALSAM PERU/CASTOR OIL (Venelex) 60 GM TUBE TOP ×2 (08:45→20:52)
[2025-03-26 10:51] LABS: Base Excess, Venous 2 (-3-3); O2 Saturation, Venous 41 % (96-97); PCO2, Venous 39 mmHg (36-56); PO2, Venous 24 mmHg (15-58); pH, Venous 7.44 (7.33-7.66)
[2025-03-26 14:31] LABS: Base Excess, Venous 1 (-3-3); O2 Saturation, Venous 85 % (96-97); PCO2, Venous 42 mmHg (36-56); PO2, Venous 51 mmHg (15-58); pH, Venous 7.41 (7.33-7.66)
[2025-03-26] MEDS: DOPamine/D5w 400 MG IVPB 400 MG/250 ML BAG 9.146 MG IV (14:43)
--- NOTE | 2025-03-26 15:08 | PC.SS ---
Update: Patient is on 2L nasal cannula. P.O. feeding. Receiving pressor support. Information Systems Audit Manager met with patient and spouse to discuss hospice due to patient's cardiac condition. Patient and spouse requested time to review hospice option. Decision to be made early next week.
[2025-03-26 17:23] LABS: Base Excess, Venous 1 (-3-3); O2 Saturation, Venous 89 % (96-97); PCO2, Venous 39 mmHg (36-56); PO2, Venous 55 mmHg (15-58); pH, Venous 7.43 (7.33-7.66)
[2025-03-26 20:50] LABS: Base Excess, Venous 2 (-3-3); O2 Saturation, Venous 56 % (96-97); PCO2, Venous 41 mmHg (36-56); PO2, Venous 30 mmHg (15-58); pH, Venous 7.42 (7.33-7.66)
[2025-03-26] MEDS: INSULIN DEGLUDEC 5 UNIT/0.05 ML (PER 5 UNITS) 6 UNIT SC (23:35)
[2025-03-27] VITALS (107 sets, daily range): BP systolic 85–131; BP diastolic 54–78; PULSE 69–106; RESP 10–320; TEMP 36.1–37; O2SAT 91–100
[2025-03-27 06:58] LABS: Basophils # (Auto) 0.1 Thou/mm3 (0.0-0.2); Basophils % (Auto) 1 % (0-2.5); Eosinophils # (Auto) 0.1 Thou/mm3 (0.0-0.5); Eosinophils % (Auto) 1 % (0-10); Hematocrit 32.8 % (41.0-53.0); Hemoglobin 11.1 g/dL (13.5-16.0); Immature Granulocytes Auto 0.09 Thou/mm3 (0.00-0.00); Lymphocytes # (Auto) 1.4 Thou/mm3 (1.0-4.8); Lymphocytes % (Auto) 14 % (10-50); Mean Corpuscular HGB Conc 33.8 g/dl (31.0-37.0); Mean Corpuscular Hemoglobin 33.0 pg (25.0-35.0); Mean Corpuscular Volume 98 fL (80-100); Monocytes # (Auto) 0.7 Thou/mm3 (0.0-0.8); Monocytes % (Auto) 8 % (0-12); Neutrophils # (Auto) 7.2 Thou/mm3 (1.8-7.7); Neutrophils % (Auto) 75 % (37-80); Nucleated Red Blood Cell # 0.00 Thou/mm3 (0.00-0.00); Nucleated Red Blood Cell % 0 /100 WBC (0); Platelet Count 197 Thou/mm3 (140-440); RDW Standard Deviation 60.1 fL (35.1-43.9); Red Blood Count 3.36 Miln/mm3 (4.50-5.90); White Blood Count 9.6 Thou/mm3 (3.8-10.6)
[2025-03-27 07:13] LABS: Alanine Aminotransferase 369 U/L (10-49); Albumin, Serum 3.7 gm/dL (3.4-4.8); Albumin/Globulin Ratio 1.4 (1.2-2.2); Alkaline Phosphatase 101 U/L (46-116); Anion Gap 11 (7-16); Aspartate Amino Transferase 63 U/L (0-34); BUN/Creatinine Ratio 20 Ratio (12-20); Bilirubin,Total 1.3 mg/dL (0.3-1.2); Blood Urea Nitrogen 30 mg/dL (9-23); Calcium 8.6 mg/dL (8.3-10.6); Calcium (Corrected) 8.8 mg/dL (8.5-10.1); Carbon Dioxide 24.5 mMol/L (20.0-31.0); Chloride 98 mMol/L (98-107); Creatinine (Component) 1.5 mg/dL (0.6-1.3); Estimated Creatinine Clearance 37.4 mL/min (>60); Globulin 2.6 gm/dL (2.3-3.5); Glucose 176 mg/dL (74-106); Magnesium 2.7 mg/dL (1.6-2.6); Osmolality,Calculated 276 (275-295); Potassium 4.1 mMol/L (3.4-5.1); Sodium 133 mMol/L (136-145); Total Protein 6.3 gm/dL (5.7-8.2); eGFR 46 See Note
[2025-03-27 07:27] LABS: Base Excess, Venous 2 (-3-3); O2 Saturation, Venous 61 % (96-97); PCO2, Venous 39 mmHg (36-56); PO2, Venous 33 mmHg (15-58); pH, Venous 7.44 (7.33-7.66)
[2025-03-27] MEDS: INSULIN LISPRO (AdmeLOG) 1 UNIT/0.01 ML UNIT SC ×3 (07:30→16:52)
[2025-03-27] MEDS: DOBUTamine/D5w 500 MG IVPB 500 MG/250 ML BAG IV ×2 (07:49→15:40)
[2025-03-27] MEDS: AMIODARONE HCL 200 MG TABLET PO ×2 (08:47→20:05)
[2025-03-27] MEDS: SERTRALINE HCL 25 MG TABLET PO (08:47)
[2025-03-27] MEDS: BALSAM PERU/CASTOR OIL (Venelex) 60 GM TUBE TOP ×2 (08:47→20:06)
--- NOTE | 2025-03-27 10:22 | ESPR_ITS ---
<Statement entered by Jessie Diamond MD - 03/27/25 16:47> I supervised/discussed management plan with integrated marketing intern physician Dr. Hammond, and was involved in the care of this patient. I personally saw and examined the patient and discussed the assessment and plan with the entire medicine team, including my attending. I agree with the assessment and plan as documented. Patient remains on Dobutamine gtt and will continue to wean as tolerated and will have BIPAP HS. However, patient did require the use of BIPAP for a few hours today as patient desaturated into the high 80s. BIPAP can be on standby and can use when patient desaturates. Patient is doing well on regular diet, and will adjust his Dobutamine gtt to maintain his CO and CI. Will reach out to clinical social worker regarding setting up hospice, most likely 03/29/25. Patient's care was discussed with attending physician, Dr. Ames. Jessie Diamond MD PGY-3. Documentation for date of: 03/27/25 Subjective Subjective Interval history: This patient is an 79-year-old male with past medical history of CAD status post stents (2013), CABG (triple bypass, 2018), HFrEF 20 to 25% (02/2025), status post ICD with pacemaker placement, hypertension, diabetes, hyperlipidemia, recent cocci pneumonia, and subdural hematoma who presented to [facility] ED on 03/22 for shortness of breath and visual hallucinations. Patient was admitted to MICU for management of cardiogenic shock requiring pressors and dobutamine drip. The patient was recently discharged on 03/18 for an acute exacerbation of his HFrEF. The patient at that time presented with shortness of breath, and during that hospitalization, the patient had been diuresed with Lasix and Bumex. During that time, the patient had worsening of his renal function, resulting in KOSTA. Patient was also started on fluconazole for positive cocci IgM in serum. Patient was deemed stable for discharge after several days due to satisfactory blood pressure and improvement of his shortness of breath. However, on 03/22, was brought from home by ambulance due to shortness of breath and acutely started to see things that were not there and trying to grab things that were not there. On assessment patient was noticed to have cold extremities as well as other signs of hypoperfusion with decreased capillary refill as well as mottling on the toes of bilateral feet. Patient's heart rate was in the 60s paced rhythm and his blood pressure was on the lower end. At this time given the findings patient was most likely into cardiogenic shock not from fluid overload status but from a perfusion/contractility perspective. At this time dobutamine drip was needed and patient will need to be admitted to the ICU, but on chart review it was seen that his POLST form he has selective treatment therefore clarified with patient's family members if it was in the patient's wishes to go to the ICU and received further care as well as get central line placement and be started on medications to help his heart contract. Once patient was started on dobutamine drip and Levophed for cardiogenic shock BP was still stable and central line once in place was patient was in the ICU. Later during the evening patient developed episodes of nonsustained V. tach, but afterwards developed sustained V. tach therefore dobutamine drip was discontinued. Given that patient was still sustaining V. tach and defibrillated was not firing likely because his rate was in the 120s decided to start amiodarone drip at this time. Patient was asymptomatic during these episodes. ED course: Initially normotensive, tachypneic, and hypoxic. Initial labs showed leukocytosis, coagulopathy, hyperkalemia, KOSTA, NAGMA, lactic acidosis, and transaminitis as well as elevated BNP and mild elevation of troponins. Interval History: 03/23/2025 Patient appears to be doing well today on BiPAP. Dobutamine was resumed overnight and the patient continued to have intermittent runs of V. tach throughout the in the evening, however patient seemed asymptomatic during these episodes and vital signs remained stable with Levophed for blood pressure support. Patient continued to be on amiodarone drip throughout the evening. In the morning, the patient had a heart rate in the 60s with a ventricularly paced rhythm. The patient seemed tired, but was opening eyes and following commands. Patient was aware that he is in the hospital, but due to the BiPAP, it was difficult for the patient to fully respond. Extremities today do not seem as pale and seem warmer compared to yesterday, with his feet noted to be worse compared to his upper extremities. 1+ pedal pulse noted bilaterally. Trace pedal edema noted, however overall status does not appear to be fluid overloaded. Patient made 1 L of urine since admission, fluid balance noted to be negative. Repeat VBG's show improvement of oxygenation, creatinine downtrending, LFTs downtrending, troponins downtrending, and lactic acid downtrending compared to yesterday. Estimated cardiac index 2.8. Will consult the patient's scale clerk, Dr. Jenkins, regarding further management and recommendations for the patient's cardiogenic shock. The retail representative from from the patient's ICD/pacemaker, Medtronic Evera, was called to increase BPM from 60 to 75, and the patient was transition to CPAP from BiPAP. Repeat VBG at around 1530 showed decrease estimated cardiac index, so we will hold off on weaning off CPAP and increased dobutamine drip. Will continue Levophed, amiodarone drip, and dobutamine drip for the patient's cardiogenic shock. 03/24/2025 Patient appears comfortable and has no acute complaints at this time. Patient was put on BiPAP overnight due to worsening estimated cardiac output and cardiac index. 24-hour urine output measured at 1.4 L, with a net negative of 1 L, however range urine output per hour overnight was about 65 mL/h. Leukocytosis improving, renal panel improving, and INR improving. Cardiac output and cardiac index in the morning estimated to be 8.4 and 4.3 respectively. As a result, patient was taken off BiPAP and dobutamine was decreased. Subsequent VBG's in the day showed estimated cardiac output and cardiac index at 4.2 and 2.2 respectively. Weaned patient off Levophed, but patient had decreasing O2 saturation, so changed oximeter to forehead which noted 100% O2 saturation. Patient was transitioned to amiodarone 200 mg p.o. twice daily as well as clear liquid diet. Will put patient on CPAP overnight and obtain VBG in the morning tomorrow. 03/25/2025 No acute events overnight. VBG from [facility] central line obtained overnight did show O2 saturation elevated to 88, so estimated cardiac output 8.7 and cardiac index 4.4, so dobutamine was decreased overnight. This increase was possibly due to the patient being on BiPAP/CPAP overnight. This morning, the patient continues to do well, no acute complaints at this time. Patient's blood pressure was noted to be soft at 88/64, so bedside ultrasound evaluation of the patient's heart, IVC, and hepatic vein was performed. Ultrasound findings suggested fluid responsiveness, so started patient on NS maintenance fluid running at 40 mL/h. Repeat VBG at around 08:30 showed O2 saturation at 71%, so estimated cardiac output 4.3 and cardiac index 2.2. Decreased dobutamine to 1.75 and will reassess cardiac output/cardiac index with VBG at 17:30. Will continue with current treatment plan with the goal of eventually weaning the patient off of dobutamine drip for downgrade to medical floors. 03/26/25 No acute events overnight. Dobutamine was increased slightly from 1.0 to 1.25 overnight. Patient has no complaints at this time is breathing comfortably on room air saturating at 96% O2. Urine output over the past 24 hours noted to be 65 mL, 0.36 mL/kg/h. VBG taken at around 0600 noted pH of 7.41, pCO2 43, and O2 saturation 70%, suggesting cardiac output of 3.9 and cardiac index of 2.1. Decreased dobutamine to 0.75, but repeat VBG showed O2 saturation 41%, estimated cardiac index of 1.1, so dobutamine was increased back up to 1.25. Repeat VBG later in the day showed VBG O2 saturation 85%, estimated cardiac index 3.7. Started patient on dopamine 3 while also decreasing dobutamine back down to 0.75 with plans to increase dopamine while decreasing the dobutamine, with goal of weaning the patient off dobutamine. 03/27/2025 Yesterday close to the evening, the patient had to be put back on BiPAP as his O2 saturation continued to decrease to the low 80s while on dobutamine 0.75 and dopamine 3. During this period, the patient had elevations in his respiratory rate up to the 30s and had noticeable increased work of breathing. Due to the timing of his O2 desaturation coinciding with starting the dopamine, dopamine was discontinued as it is noted to decrease O2 saturation via activity on chemoreceptors that increase intrapulmonary shunting. The patient stayed on BiPAP with dobutamine running at 1.0 overnight, and had no acute events overnight. This morning, the patient was taken off the BiPAP and was breathing well on room air. No shortness of breath or increased respiratory rate was identified off the BiPAP. VBG early in the morning showed O2 saturation at 61%, suggesting cardiac output at 3.2 and cardiac index at 1.7, so dobutamine was increased back to 1.25. Will continue to monitor the patient on dobutamine 1.25 and observe if patient has any additional desaturations, however outlook is poor as patient does not appear to tolerate weaning off the dobutamine. The patient and his will plan to have further discussion about potential hospice early next week, expected Thursday 03/29. Exam Vital Signs Temp Pulse Resp BP Pulse Ox O2 Del Method O2 Flow Rate 97.7 F 75 20 97/67 98 Oxy Mask 9 03/27/25 04:00 03/27/25 09:45 03/27/25 09:45 03/27/25 09:45 03/27/25 09:45 03/26/25 17:30 03/26/25 17:50 FiO2 30 03/27/25 06:12 Narrative Exam General: Alert, no acute distress. Skin: Warm, dry, intact. [place] rash with red pressure wound like appearance on bridge of nose. Head: Normocephalic, atraumatic. Eye: Normal conjunctiva, PERRL. Throat: Oral mucosa dry. No obvious lesions in oropharynx. Cardiovascular: Regular rate and rhythm, no murmur, +S1/S2. Respiratory: Lungs are clear to auscultation, respirations unlabored, no crackles, no wheezing. Gastrointestinal: Soft, nontender, non-distended. No guarding or rebound tenderness. Extremities: Trace pedal edema, no cyanosis, no clubbing. 1+ radial pulse bilaterally, 1+ pedal pulse bilaterally. Feet bilaterally cool and pale. Neuro: No focal deficits observed. Conversant, moving all extremities. No overt cerebellar signs/incoordination. Psychiatric: Cooperative, appropriate affect. Objective Labs 03/28/25 04:45 03/28/25 04:45 Labs: Laboratory Results - last 24 hr 03/26/25 03/26/25 03/26/25 10:44 14:04 17:06 WBC RBC Hgb Hct MCV MCH MCHC RDW Std Deviation Plt Count Neut % (Auto) Lymph % (Auto) [place] % (Auto) Eos % (Auto) Baso % (Auto) Neut # (Auto) Lymph # (Auto) Dawes # (Auto) Eos # (Auto) Baso # (Auto) Immature Gran # (Auto) Absolute Nucleated RBC Immature Gran % Nucleated RBC % VBG pH 7.44 7.41 7.43 VBG pCO2 39 42 39 VBG pO2 24 51 D 55 VBG O2 Sat (Oren) 41 L D 85 L D 89 L VBG Base Excess 2 1 1 Sodium Potassium Chloride Carbon Dioxide Anion Gap BUN Creatinine Estim Creat Clear Calc eGFR BUN/Creatinine Ratio Glucose Calculated Osmolality Calcium Corrected Calcium Magnesium Total Bilirubin AST ALT Alkaline Phosphatase Total Protein Albumin Globulin Albumin/Globulin Ratio 03/26/25 03/27/25 03/27/25 20:45 05:04 07:18 WBC 9.6 RBC 3.36 L Hgb 11.1 L Hct 32.8 L MCV 98 MCH 33.0 MCHC 33.8 RDW Std Deviation 60.1 H Plt Count 197 Neut % (Auto) 75 Lymph % (Auto) 14 Dawes % (Auto) 8 Eos % (Auto) 1 Baso % (Auto) 1 Neut # (Auto) 7.2 Lymph # (Auto) 1.4 Dawes # (Auto) 0.7 Eos # (Auto) 0.1 Baso # (Auto) 0.1 Immature Gran # (Auto) 0.09 H Absolute Nucleated RBC 0.00 Immature Gran % 1 H Nucleated RBC % 0 VBG pH 7.42 7.44 VBG pCO2 41 39 VBG pO2 30 D 33 VBG O2 Sat (Oren) 56 L D 61 L VBG Base Excess 2 2 Sodium 133 L Potassium 4.1 Chloride 98 Carbon Dioxide 24.5 Anion Gap 11 BUN 30 H Creatinine 1.5 H Estim Creat Clear Calc 37.4 L eGFR 46 L BUN/Creatinine Ratio 20 Glucose 176 H Calculated Osmolality 276 Calcium 8.6 Corrected Calcium 8.8 Magnesium 2.7 H Total Bilirubin 1.3 H AST 63 H ALT 369 H Alkaline Phosphatase 101 Total Protein 6.3 Albumin 3.7 Globulin 2.6 Albumin/Globulin Ratio 1.4 ABG Interpretation ABG results: 03/22/25 03/22/25 03/22/25 15:09 15:30 18:57 ABG pH Cancelled ABG pCO2 Cancelled ABG pO2 Cancelled ABG HCO3 Cancelled ABG O2 Saturation Cancelled ABG Base Excess Cancelled VBG pH 7.33 7.35 VBG pCO2 35 L 41 VBG pO2 29 38 VBG Base Excess -7 L -3 03/22/25 03/22/25 03/23/25 21:40 22:10 03:19 ABG pH 7.42 ABG pCO2 32 ABG pO2 130 H ABG HCO3 21 ABG O2 Saturation 99 H ABG Base Excess -3 VBG pH 7.37 7.39 VBG pCO2 41 40 VBG pO2 37 32 VBG Base Excess -2 0 03/23/25 03/23/25 03/23/25 04:40 08:00 15:25 ABG pH ABG pCO2 ABG pO2 ABG HCO3 ABG O2 Saturation ABG Base Excess VBG pH 7.37 7.38 7.47 VBG pCO2 45 42 35 L VBG pO2 34 49 36 VBG Base Excess 0 0 2 03/23/25 03/24/25 03/24/25 18:14 01:26 02:46 ABG pH ABG pCO2 ABG pO2 ABG HCO3 ABG O2 Saturation ABG Base Excess VBG pH 7.43 7.41 7.43 VBG pCO2 37 43 40 VBG pO2 45 36 40 VBG Base Excess 1 2 2 03/24/25 03/24/25 03/24/25 04:36 06:23 10:49 ABG pH ABG pCO2 ABG pO2 ABG HCO3 ABG O2 Saturation ABG Base Excess VBG pH 7.37 7.39 7.43 VBG pCO2 45 43 40 VBG pO2 79 H D 58 D 39 VBG Base Excess 0 1 2 03/24/25 03/25/25 03/25/25 15:40 04:50 08:32 ABG pH ABG pCO2 ABG pO2 ABG HCO3 ABG O2 Saturation ABG Base Excess VBG pH 7.44 7.40 7.45 VBG pCO2 38 43 41 VBG pO2 38 55 40 VBG Base Excess 2 2 4 H 03/25/25 03/26/25 03/26/25 16:57 03:00 05:50 ABG pH ABG pCO2 ABG pO2 ABG HCO3 ABG O2 Saturation ABG Base Excess VBG pH 7.45 7.46 7.41 VBG pCO2 38 38 43 VBG pO2 44 35 37 VBG Base Excess 2 3 2 03/26/25 03/26/25 03/26/25 10:44 14:04 17:06 ABG pH ABG pCO2 ABG pO2 ABG HCO3 ABG O2 Saturation ABG Base Excess VBG pH 7.44 7.41 7.43 VBG pCO2 39 42 39 VBG pO2 24 51 D 55 VBG Base Excess 2 1 1 03/26/25 03/27/25 20:45 07:18 ABG pH ABG pCO2 ABG pO2 ABG HCO3 ABG O2 Saturation ABG Base Excess VBG pH 7.42 7.44 VBG pCO2 41 39 VBG pO2 30 D 33 VBG Base Excess 2 2 Quality Measures Quality Measures VTE prophylaxis Advance care planning discussed with:: patient and spouse Assessment & Plan Assessment Current Active Medications: Generic Name Dose Route Start Last Admin Trade Name Freq PRN Reason Stop Dose Admin Acetaminophen 650 mg 03/22/25 14:43 Acetaminophen 325 Mg Tablet PO 04/21/25 14:42 Q6H PRN Fever >100.4 and pain 1-3 Amiodarone HCl 200 mg 03/24/25 21:00 03/27/25 08:47 Amiodarone Hcl 200 Mg Tablet PO 04/23/25 20:59 200 mg BID KOFFI Administration Balsam Sourav/Galva Oil 0 gm 03/23/25 21:00 03/27/25 08:47 Balsam [place]/Galva Oil (Venelex) 60 Gm Tube TOP 04/22/25 20:59 1 applicatio BID KOFFI Administration Dextrose 25 ml 03/22/25 19:28 Dextrose 50%-Water Inj 50 Ml Syringe IV 04/21/25 19:27 Q15MIN PRN BG 50-70 responsive npo pt Dextrose 50 ml 03/22/25 19:28 Dextrose 50%-Water Inj 50 Ml Syringe IV 04/21/25 19:27 Q15MIN PRN BG <50 OR BG <70 & pt unresponsive Glucagon 1 mg 03/22/25 19:28 Glucagon Inj 1 Mg Vial IM Q15MIN PRN BG <70, and no IV access Norepinephrine/Dextrose 8 mg in 250 mls @ 7.125 mls/hr 03/22/25 14:57 03/24/25 11:50 Levophed In D5w 8mg/250ml IV 04/21/25 14:56 0 mcg/kg/min .Q24H PRN 0 mls/hr PER PROTOCOL Titration Protocol 0.05 MCG/KG/MIN Dobutamine HCl/Dextrose 500 mg in 250 mls @ 2.64 mls/hr 03/27/25 07:49 Dobutrex/D5w Ivpb IV 04/26/25 07:40 .Q24H KOFFI 1.25 MCG/KG/MIN Insulin Degludec 6 unit 03/26/25 22:30 03/26/25 23:35 Insulin Degludec 5 Unit/0.05 Ml (Per 5 Units) SC 04/25/25 22:29 6 unit HS KOFFI Administration Insulin Human Lispro 0 unit 03/24/25 17:00 03/27/25 07:30 Insulin Lispro (Admelog) 1 Unit/0.01 Ml Unit SC 04/23/25 16:59 1 unit AC KOFFI Administration Protocol Sertraline HCl 25 mg 03/26/25 09:00 03/27/25 08:47 Sertraline Hcl 25 Mg Tablet PO 04/25/25 08:59 25 mg DAILY KOFFI Administration Plan This patient is an 79-year-old male with past medical history of CAD status post stents (2013), CABG (triple bypass, 2018), HFrEF 20 to 25% (02/2025), status post ICD with pacemaker placement, hypertension, diabetes, hyperlipidemia, recent cocci pneumonia, and subdural hematoma who presented to [facility] ED on 03/22 for shortness of breath and visual hallucinations. Patient was admitted to MICU for management of cardiogenic shock requiring pressors and dobutamine drip. NEURO #Acute encephalopathy, resolved #History of subdural hematoma On admission, the patient was aware of self and place, but not time. According to the patient's , the patient was confused and had visual hallucinations prior to seeking care. The patient was able to follow commands and maintain a conversation on admission, but was very somnolent. It is noted that the patient does have a history of subdural hematoma. Dx: CT head 03/22 negative for acute intracranial hemorrhage, does show interval development of cortical thickening and subcortical edema in inferior portion of left occipital lobe Ammonia ordered 03/23, resulted within normal limits at 22 Patient noted to be fully coherent and oriented to person, location, and time with ability to follow all commands and ask coherent questions on 03/24 Rx: Will continue to monitor, expect resolution with improvement of cardiogenic shock #History of depression Rx: Resumed home sertraline 25 mg PO daily CARDIO #Cardiogenic shock, improving #Ventricular tachycardia #History of CAD status post stents and CABG #History of HFrEF (EF 20 to 25% 02/2025) #s/p ICD placement with pacemaker ([employer] Evera) Patient presenting with clinical signs of cardiogenic shock including shortness of breath, cold and pale extremities, and without any visible signs of fluid overload. Patient does have a history of HFrEF with a recent echocardiogram done on 03/11/2025 showing grade 2 diastolic dysfunction with a EF of 20 to 25%. The patient sees Dr. Jenkins with his scale clerk and is on GDMT at home. Dx: BNP 03/22 noted to be 1319 => 03/23 BNP 887 Patient noted to have several runs of ventricular tachycardia on telemetry 03/22 to 03/23 overnight, patient remained asymptomatic Rx: Cardiology consulted, appreciate recommendations Reached out to [employer] Evera retail representative to increase paced heart rate from 60 to 75 BPM, thus increasing cardiac output Continue to monitor with telemetry Dobutamine drip to increase cardiac contractility Amiodarone 200 mg PO twice daily due to episodes of ventricular tachycardia Avoid QT prolonging medications Keep potassium above 4 and magnesium above 2 Daily weights and strict ins and outs BiPAP/CPAP nightly to decrease cardiac demand and increase cardiac index RRx: Patient had run of ventricular tachycardia after starting dobutamine drip, so amiodarone drip was started on 03/22 Increased rate of dobutamine as estimated cardiac index decreased after weaning patient off BiPAP to CPAP and increased pacemaker BPM from 60 to 75 Patient weaned off BiPAP to nasal cannula on 03/24 Patient transitioned to oral amiodarone on 03/24 Levophed discontinued successfully on 03/24 Oral feeds restarted 03/24, if cardiac output and cardiac index significantly decreases, will increase dobutamine drip Decreased dobutamine to 0.75 on 03/26, which dropped cardiac index below 2.0, so increased dobutamine back to 1.25 Started dopamine 3.0 on 03/26 with goal of weaning off dobutamine, stopped dopamine as patient had oxygen desaturation with tachypnea on dopamine requiring BiPAP to resolve #Elevated troponins, resolving DDx: NSTEMI type II, chronic troponin leak Dx: Patient noted to have a troponin of 0.072 on admission, which increased to 0.080, and has since then downtrended Patient does appear to have a baseline troponin of 0.05 per chart review Rx: Will continue to monitor with telemetry PULM #Acute hypoxic respiratory failure, resolved Patient noted to have shortness of breath and increased work of breathing on presentation to ED. Patient was initially put on OxyMask due to oxygen requirements, however BiPAP was started as the patient continued to have increased work of breathing even on oxy mask. Increased work of breathing is likely secondary to his heart failure resulting in cardiogenic shock. Dx: Initial VBG on 03/22 showed pH 7.33, pCO2 35, PaO2 29, and VBG O2 saturation 42% Initial ABG on 03/22 shows pH 4.72, pCO2 32, pO2 130, bicarb 21, and O2 saturation 99% on BiPAP VBG on 03/23 at 0800 showed pH 7.38, pCO2 42, pO2 49, and VBG O2 saturation 81% on BiPAP VBG on 03/23 at 1525 showed pH 7.47, pCO2 35, PaO2 36, and VBG O2 saturation 69% on CPAP Patient maintaining 100% O2 saturation on nasal cannula Rx: Continue nasal cannula BiPAP/CPAP nightly RRx: Weaned patient off BiPAP to CPAP on 03/23, but was unable to wean off CPAP as patient's cardiac index decreased Patient taken off BiPAP to nasal cannula on 03/24 Patient off nasal cannula on 03/26 GI #Transaminitis, improving DDx: Acute liver injury, shock liver Dx: On presentation, patient had AST 775, ALT 1442, and T bilirubin 1.7 => 03/23 AST 568, ALT 1229 INR 03/22 noted to be 1.9 => 03/23 1.5 Rx: Likely secondary to cardiogenic shock resulting in hepatocyte ischemia, will continue to monitor LFTs and treat underlying shock NEPHRO #KOSTA on CKD, improving Patient had a creatinine of 2.6 from his baseline around 1.8 on 03/18/2025 Likely in the setting of shock Still producing urine Plan: Avoid nephrotoxic agents Renally dose medications Loya inserted Will continue to monitor URO #No active problems HEME #Leukocytosis, resolved Patient WBC was elevated initially at 15.6 Most likely reactive in the setting of shock Less likely infectious Plan: If patient demonstrates any signs of infection we will start IV antibiotics Will continue to trend #Coagulopathy, improving Patient's INR was 1.9 => 03/24 1.3 Likely in the setting of liver failure in the setting of shock Plan: Heparin subQ every 12 hours given resolution of coagulopathy as INR has normalized ENDO #Non Insulin dependent T2DM Last A1c was 7.2 on 02/02/2025 Plan: Patient currently n.p.o. ISS and blood glucose checks every 6 hours ID #Cocci IgM positive Dx: Patient had positive cocci IgM on 03/18 Cocci immunodiffusion and complement fixation negative for cocci Patient has no further shortness of breath since being off BiPAP 03/24 Rx: Will continue to monitor, will consider resuming fluconazole at 200 mg daily on discharge MSK #No active problems SKIN #No active problems DVT prophylaxis: Heparin GI prophylaxis: None Diet: Regular Loya: Present Lines: Peripheral IV, RIJ Central line Antibiotics: N/A CODE STATUS: DNR Vent Status: N/A Reason for ICU care: Cardiogenic shock requiring dobutamine drip Patient plan of care was discussed with the attending home based assistant, Dr. Ames and senior resident Dr. Diamond (PY-3). David Hammond, PGY-1 Attending Provider Attestation/Addendum Patient seen and examined with the above resident, David Hammond DO. I agree with the findings, assessment, and plan of care as documented except for any differences below. Patient attempted to be transition to only dopamine so that he could be transferred to telemetry at a low rate/fixed dose. However patient had significant hypoxia and worsening shortness of breath. Attempts to wean dobutamine have also failed and likely this is declaration of his ischemic cardiomyopathy more definitively suggesting that he does not have a bridge to recovery. However patient and his family remain hesitant to commit to hospice at this point we will continue to have ongoing discussions with them. We did introduce this yesterday if they remain hesitant given the gravity of the situation and the need for them to have additional time to process. Patient remains stable today on dobutamine at fixed rate without further titration. Renal recovery has been gradual and we have been closely monitoring fluid status with adjustments. Amiodarone has been transitioned to p.o. with no further ectopy. He has been gradually eating more and we will continue to work with him on ensuring adequate bowel movements. Patient was accompanied by his and multiple gas throughout the day. Will continue to monitor closely in ICU and volume. Continues to want to be on dobutamine. Patient is not a candidate for transition to home use of milrinone. Total critical care time: I personally spent 35 minutes for review of physiologic parameters, directing plan of care throughout the day, and counseling patient and his family at bedside. This is exclusive of time spent teaching of staff performing any separate billable procedures. Patient remained at significant risk for further morbidity and mortality warranting close monitoring care only available in ICU. Critical care services required for cardiogenic shock, acute encephalopathy, acute respiratory failure, acute renal failure.
[2025-03-27] MEDS: HEPARIN SOD INJ 5000 UNIT/ML VIAL SC ×2 (12:21→22:59)
[2025-03-27] MEDS: POLYETHYLENE GLYCOL 17 GM PACKET PO (12:21)
[2025-03-27] MEDS: SENNA/DOCUSATE SOD 1 TAB TABLET PO (12:21)
[2025-03-27 15:14] LABS: Base Excess, Venous 2 (-3-3); O2 Saturation, Venous 57 % (96-97); PCO2, Venous 41 mmHg (36-56); PO2, Venous 32 mmHg (15-58); pH, Venous 7.42 (7.33-7.66)
[2025-03-27 18:05] LABS: Base Excess, Venous -2 (-3-3); O2 Saturation, Venous 51 % (96-97); PCO2, Venous 41 mmHg (36-56); PO2, Venous 30 mmHg (15-58); pH, Venous 7.36 (7.33-7.66)
[2025-03-27] MEDS: INSULIN DEGLUDEC 5 UNIT/0.05 ML (PER 5 UNITS) 6 UNIT SC (20:05)
[2025-03-28] VITALS (102 sets, daily range): BP systolic 85–113; BP diastolic 56–81; PULSE 71–123; RESP 10–30; TEMP 36–36.9; O2SAT 92–100; BMI 24.8
[2025-03-28 05:13] LABS: Base Excess, Venous 0 (-3-3); O2 Saturation, Venous 86 % (96-97); PCO2, Venous 32 mmHg (36-56); PO2, Venous 45 mmHg (15-58); pH, Venous 7.47 (7.33-7.66)
[2025-03-28 05:16] LABS: Allen Test Performed/OK; Base Excess 2 (-3-3); HCO3 25 mEq/L (20-26); Inspired Oxygen, FIO2 21 %; O2 Saturation 99 % (91-98); PCO2 33 mmHg (32.0-48.0); PO2 102 mmHg (83-108); Puncture Site Right Radial; pH, Arterial 7.48 (7.35-7.45)
[2025-03-28 05:17] LABS: Basophils # (Auto) 0.1 Thou/mm3 (0.0-0.2); Basophils % (Auto) 1 % (0-2.5); Eosinophils # (Auto) 0.2 Thou/mm3 (0.0-0.5); Eosinophils % (Auto) 2 % (0-10); Hematocrit 33.0 % (41.0-53.0); Hemoglobin 11.3 g/dL (13.5-16.0); Immature Granulocytes Auto 0.12 Thou/mm3 (0.00-0.00); Lymphocytes # (Auto) 1.7 Thou/mm3 (1.0-4.8); Lymphocytes % (Auto) 16 % (10-50); Mean Corpuscular HGB Conc 34.2 g/dl (31.0-37.0); Mean Corpuscular Hemoglobin 33.4 pg (25.0-35.0); Mean Corpuscular Volume 98 fL (80-100); Monocytes # (Auto) 0.8 Thou/mm3 (0.0-0.8); Monocytes % (Auto) 8 % (0-12); Neutrophils # (Auto) 7.5 Thou/mm3 (1.8-7.7); Neutrophils % (Auto) 71 % (37-80); Nucleated Red Blood Cell # 0.00 Thou/mm3 (0.00-0.00); Nucleated Red Blood Cell % 0 /100 WBC (0); Platelet Count 210 Thou/mm3 (140-440); RDW Standard Deviation 59.5 fL (35.1-43.9); Red Blood Count 3.38 Miln/mm3 (4.50-5.90); White Blood Count 10.5 Thou/mm3 (3.8-10.6)
[2025-03-28 05:50] LABS: Alanine Aminotransferase 285 U/L (10-49); Albumin, Serum 3.7 gm/dL (3.4-4.8); Albumin/Globulin Ratio 1.4 (1.2-2.2); Alkaline Phosphatase 102 U/L (46-116); Anion Gap 9 (7-16); Aspartate Amino Transferase 47 U/L (0-34); BUN/Creatinine Ratio 21 Ratio (12-20); Bilirubin,Total 1.1 mg/dL (0.3-1.2); Blood Urea Nitrogen 32 mg/dL (9-23); Calcium 8.6 mg/dL (8.3-10.6); Calcium (Corrected) 8.8 mg/dL (8.5-10.1); Carbon Dioxide 25.5 mMol/L (20.0-31.0); Chloride 99 mMol/L (98-107); Creatinine (Component) 1.5 mg/dL (0.6-1.3); Estimated Creatinine Clearance 37.4 mL/min (>60); Globulin 2.6 gm/dL (2.3-3.5); Glucose 183 mg/dL (74-106); Magnesium 2.7 mg/dL (1.6-2.6); Osmolality,Calculated 278 (275-295); Potassium 4.2 mMol/L (3.4-5.1); Sodium 133 mMol/L (136-145); Total Protein 6.3 gm/dL (5.7-8.2); eGFR 46 See Note
[2025-03-28] MEDS: INSULIN LISPRO (AdmeLOG) 1 UNIT/0.01 ML UNIT SC ×3 (07:05→17:31)
--- NOTE | 2025-03-28 08:32 | ESPR_ITS ---
Documentation for date of: 03/28/25 Subjective Subjective Interval history: Interval history: This patient is an 79-year-old male with past medical history of CAD status post stents (2013), CABG (triple bypass, 2018), HFrEF 20 to 25% (02/2025), status post ICD with pacemaker placement, hypertension, diabetes, hyperlipidemia, recent cocci pneumonia, and subdural hematoma who presented to [facility] ED on 03/22 for shortness of breath and visual hallucinations. Patient was admitted to MICU for management of cardiogenic shock requiring pressors and dobutamine drip. The patient was recently discharged on 03/18 for an acute exacerbation of his HFrEF. The patient at that time presented with shortness of breath, and during that hospitalization, the patient had been diuresed with Lasix and Bumex. During that time, the patient had worsening of his renal function, resulting in KOSTA. Patient was also started on fluconazole for positive cocci IgM in serum. Patient was deemed stable for discharge after several days due to satisfactory blood pressure and improvement of his shortness of breath. However, on 03/22, was brought from home by ambulance due to shortness of breath and acutely started to see things that were not there and trying to grab things that were not there. On assessment patient was noticed to have cold extremities as well as other signs of hypoperfusion with decreased capillary refill as well as mottling on the toes of bilateral feet. Patient's heart rate was in the 60s paced rhythm and his blood pressure was on the lower end. At this time given the findings patient was most likely into cardiogenic shock not from fluid overload status but from a perfusion/contractility perspective. At this time dobutamine drip was needed and patient will need to be admitted to the ICU, but on chart review it was seen that his POLST form he has selective treatment therefore clarified with patient's family members if it was in the patient's wishes to go to the ICU and received further care as well as get central line placement and be started on medications to help his heart contract. Once patient was started on dobutamine drip and Levophed for cardiogenic shock BP was still stable and central line once in place was patient was in the ICU. Later during the evening patient developed episodes of nonsustained V. tach, but afterwards developed sustained V. tach therefore dobutamine drip was discontinued. Given that patient was still sustaining V. tach and defibrillated was not firing likely because his rate was in the 120s decided to start amiodarone drip at this time. Patient was asymptomatic during these episodes. ED course: Initially normotensive, tachypneic, and hypoxic. Initial labs showed leukocytosis, coagulopathy, hyperkalemia, KOSTA, NAGMA, lactic acidosis, and transaminitis as well as elevated BNP and mild elevation of troponins. Interval History: 03/23/2025 Patient appears to be doing well today on BiPAP. Dobutamine was resumed overnight and the patient continued to have intermittent runs of V. tach throughout the in the evening, however patient seemed asymptomatic during these episodes and vital signs remained stable with Levophed for blood pressure support. Patient continued to be on amiodarone drip throughout the evening. In the morning, the patient had a heart rate in the 60s with a ventricularly paced rhythm. The patient seemed tired, but was opening eyes and following commands. Patient was aware that he is in the hospital, but due to the BiPAP, it was difficult for the patient to fully respond. Extremities today do not seem as pale and seem warmer compared to yesterday, with his feet noted to be worse compared to his upper extremities. 1+ pedal pulse noted bilaterally. Trace pedal edema noted, however overall status does not appear to be fluid overloaded. Patient made 1 L of urine since admission, fluid balance noted to be negative. Repeat VBG's show improvement of oxygenation, creatinine downtrending, LFTs downtrending, troponins downtrending, and lactic acid downtrending compared to yesterday. Estimated cardiac index 2.8. Will consult the patient's protector plate attacher, Dr. Jenkins, regarding further management and recommendations for the patient's cardiogenic shock. The warehouse representative from from the patient's ICD/pacemaker, [employer]tr[employer] Evera, was called to increase BPM from 60 to 75, and the patient was transition to CPAP from BiPAP. Repeat VBG at around 1530 showed decrease estimated cardiac index, so we will hold off on weaning off CPAP and increased dobutamine drip. Will continue Levophed, amiodarone drip, and dobutamine drip for the patient's cardiogenic shock. 03/24/2025 Patient appears comfortable and has no acute complaints at this time. Patient was put on BiPAP overnight due to worsening estimated cardiac output and cardiac index. 24-hour urine output measured at 1.4 L, with a net negative of 1 L, however range urine output per hour overnight was about 65 mL/h. Leukocytosis improving, renal panel improving, and INR improving. Cardiac output and cardiac index in the morning estimated to be 8.4 and 4.3 respectively. As a result, patient was taken off BiPAP and dobutamine was decreased. Subsequent VBG's in the day showed estimated cardiac output and cardiac index at 4.2 and 2.2 respectively. Weaned patient off Levophed, but patient had decreasing O2 saturation, so changed oximeter to forehead which noted 100% O2 saturation. Patient was transitioned to amiodarone 200 mg p.o. twice daily as well as clear liquid diet. Will put patient on CPAP overnight and obtain VBG in the morning tomorrow. 03/25/2025 No acute events overnight. VBG from [facility] central line obtained overnight did show O2 saturation elevated to 88, so estimated cardiac output 8.7 and cardiac index 4.4, so dobutamine was decreased overnight. This increase was possibly due to the patient being on BiPAP/CPAP overnight. This morning, the patient continues to do well, no acute complaints at this time. Patient's blood pressure was noted to be soft at 88/64, so bedside ultrasound evaluation of the patient's heart, IVC, and hepatic vein was performed. Ultrasound findings suggested fluid responsiveness, so started patient on NS maintenance fluid running at 40 mL/h. Repeat VBG at around 08:30 showed O2 saturation at 71%, so estimated cardiac output 4.3 and cardiac index 2.2. Decreased dobutamine to 1.75 and will reassess cardiac output/cardiac index with VBG at 17:30. Will continue with current treatment plan with the goal of eventually weaning the patient off of dobutamine drip for downgrade to medical floors. 03/26/25 No acute events overnight. Dobutamine was increased slightly from 1.0 to 1.25 overnight. Patient has no complaints at this time is breathing comfortably on room air saturating at 96% O2. Urine output over the past 24 hours noted to be 65 mL, 0.36 mL/kg/h. VBG taken at around 0600 noted pH of 7.41, pCO2 43, and O2 saturation 70%, suggesting cardiac output of 3.9 and cardiac index of 2.1. Decreased dobutamine to 0.75, but repeat VBG showed O2 saturation 41%, estimated cardiac index of 1.1, so dobutamine was increased back up to 1.25. Repeat VBG later in the day showed VBG O2 saturation 85%, estimated cardiac index 3.7. Started patient on dopamine 3 while also decreasing dobutamine back down to 0.75 with plans to increase dopamine while decreasing the dobutamine, with goal of weaning the patient off dobutamine. 03/27/2025 Yesterday close to the evening, the patient had to be put back on BiPAP as his O2 saturation continued to decrease to the low 80s while on dobutamine 0.75 and dopamine 3. During this period, the patient had elevations in his respiratory rate up to the 30s and had noticeable increased work of breathing. Due to the timing of his O2 desaturation coinciding with starting the dopamine, dopamine was discontinued as it is noted to decrease O2 saturation via activity on chemoreceptors that increase intrapulmonary shunting. The patient stayed on BiPAP with dobutamine running at 1.0 overnight, and had no acute events overnight. This morning, the patient was taken off the BiPAP and was breathing well on room air. No shortness of breath or increased respiratory rate was identified off the BiPAP. VBG early in the morning showed O2 saturation at 61%, suggesting cardiac output at 3.2 and cardiac index at 1.7, so dobutamine was increased back to 1.25. Will continue to monitor the patient on dobutamine 1.25 and observe if patient has any additional desaturations, however outlook is poor as patient does not appear to tolerate weaning off the dobutamine. The patient and his will plan to have further discussion about potential hospice early next week, expected Thursday 03/29. 03/28/2025 No acute events overnight. Urine output continues to be good. Dobutamine was increased to 1.75 yesterday due to decreasing cardiac output and cardiac index as determined by VBG. Patient has no acute complaints this morning, however continues to require BiPAP for most of the day. Initially attempted to decrease the patient's dobutamine, however VBG drawn in the afternoon with the patient off BiPAP showed cardiac output of 2.6 and cardiac index of 2.0, so was determined that the patient continues to require dobutamine at 1.75. Will continue to try to wean off dobutamine, however patient continues to deteriorate as identified by his increasing BiPAP usage throughout the day and increasing dobutamine requirements. Expected goals of care discussion tomorrow 03/29. Exam Vital Signs Temp Pulse Resp BP Pulse Ox O2 Del Method O2 Flow Rate 96.8 F 123 H 25 H 92/66 94 L BiPAP 4 03/28/25 04:00 03/28/25 07:31 03/28/25 07:31 03/28/25 07:31 03/28/25 07:31 03/28/25 04:00 03/27/25 18:26 FiO2 30 03/28/25 06:04 Narrative Exam General: Alert, no acute distress. Skin: Warm, dry, intact. [place] rash with red pressure wound like appearance on bridge of nose. Head: Normocephalic, atraumatic. Eye: Normal conjunctiva, PERRL. Throat: Oral mucosa dry. No obvious lesions in oropharynx. Cardiovascular: Regular rate and rhythm, no murmur, +S1/S2. Respiratory: Lungs are clear to auscultation, respirations slightly labored and tachypneic, no crackles, no wheezing. Gastrointestinal: Soft, nontender, non-distended. No guarding or rebound tenderness. Extremities: Trace pedal edema, no cyanosis, no clubbing. 1+ radial pulse bilaterally, 1+ pedal pulse bilaterally. Feet bilaterally cool and pale. Neuro: No focal deficits observed. Conversant, moving all extremities. No overt cerebellar signs/incoordination. Psychiatric: Cooperative, appropriate affect. Objective Labs 03/28/25 04:45 03/28/25 04:45 Labs: Laboratory Results - last 24 hr 03/27/25 03/27/25 03/28/25 15:04 17:55 04:45 WBC 10.5 RBC 3.38 L Hgb 11.3 L Hct 33.0 L MCV 98 MCH 33.4 MCHC 34.2 RDW Std Deviation 59.5 H Plt Count 210 Neut % (Auto) 71 Lymph % (Auto) 16 [place] % (Auto) 8 Eos % (Auto) 2 Baso % (Auto) 1 Neut # (Auto) 7.5 Lymph # (Auto) 1.7 [place] # (Auto) 0.8 Eos # (Auto) 0.2 Baso # (Auto) 0.1 Immature Gran # (Auto) 0.12 H Absolute Nucleated RBC 0.00 Immature Gran % 1 H Nucleated RBC % 0 Puncture Site ABG pH ABG pCO2 ABG pO2 ABG HCO3 ABG O2 Saturation ABG Base Excess VBG pH 7.42 7.36 7.47 VBG pCO2 41 41 32 L VBG pO2 32 30 45 VBG O2 Sat (Oren) 57 L 51 L 86 L D VBG Base Excess 2 -2 0 FiO2 Sodium 133 L Potassium 4.2 Chloride 99 Carbon Dioxide 25.5 Anion Gap 9 BUN 32 H Creatinine 1.5 H Estim Creat Clear Calc 37.4 L eGFR 46 L BUN/Creatinine Ratio 21 H Glucose 183 H Calculated Osmolality 278 Calcium 8.6 Corrected Calcium 8.8 Magnesium 2.7 H Total Bilirubin 1.1 AST 47 H ALT 285 H Alkaline Phosphatase 102 Total Protein 6.3 Albumin 3.7 Globulin 2.6 Albumin/Globulin Ratio 1.4 03/28/25 04:57 WBC RBC Hgb Hct MCV MCH MCHC RDW Std Deviation Plt Count Neut % (Auto) Lymph % (Auto) [place] % (Auto) Eos % (Auto) Baso % (Auto) Neut # (Auto) Lymph # (Auto) [place] # (Auto) Eos # (Auto) Baso # (Auto) Immature Gran # (Auto) Absolute Nucleated RBC Immature Gran % Nucleated RBC % Puncture Site Right Radial ABG pH 7.48 H ABG pCO2 33 ABG pO2 102 ABG HCO3 25 ABG O2 Saturation 99 H ABG Base Excess 2 VBG pH VBG pCO2 VBG pO2 VBG O2 Sat (Oren) VBG Base Excess FiO2 21 Sodium Potassium Chloride Carbon Dioxide Anion Gap BUN Creatinine Estim Creat Clear Calc eGFR BUN/Creatinine Ratio Glucose Calculated Osmolality Calcium Corrected Calcium Magnesium Total Bilirubin AST ALT Alkaline Phosphatase Total Protein Albumin Globulin Albumin/Globulin Ratio ABG Interpretation ABG results: 03/22/25 03/22/25 03/22/25 15:09 15:30 18:57 ABG pH Cancelled ABG pCO2 Cancelled ABG pO2 Cancelled ABG HCO3 Cancelled ABG O2 Saturation Cancelled ABG Base Excess Cancelled VBG pH 7.33 7.35 VBG pCO2 35 L 41 VBG pO2 29 38 VBG Base Excess -7 L -3 03/22/25 03/22/25 03/23/25 21:40 22:10 03:19 ABG pH 7.42 ABG pCO2 32 ABG pO2 130 H ABG HCO3 21 ABG O2 Saturation 99 H ABG Base Excess -3 VBG pH 7.37 7.39 VBG pCO2 41 40 VBG pO2 37 32 VBG Base Excess -2 0 03/23/25 03/23/25 03/23/25 04:40 08:00 15:25 ABG pH ABG pCO2 ABG pO2 ABG HCO3 ABG O2 Saturation ABG Base Excess VBG pH 7.37 7.38 7.47 VBG pCO2 45 42 35 L VBG pO2 34 49 36 VBG Base Excess 0 0 2 03/23/25 03/24/25 03/24/25 18:14 01:26 02:46 ABG pH ABG pCO2 ABG pO2 ABG HCO3 ABG O2 Saturation ABG Base Excess VBG pH 7.43 7.41 7.43 VBG pCO2 37 43 40 VBG pO2 45 36 40 VBG Base Excess 1 2 2 03/24/25 03/24/25 03/24/25 04:36 06:23 10:49 ABG pH ABG pCO2 ABG pO2 ABG HCO3 ABG O2 Saturation ABG Base Excess VBG pH 7.37 7.39 7.43 VBG pCO2 45 43 40 VBG pO2 79 H D 58 D 39 VBG Base Excess 0 1 2 03/24/25 03/25/25 03/25/25 15:40 04:50 08:32 ABG pH ABG pCO2 ABG pO2 ABG HCO3 ABG O2 Saturation ABG Base Excess VBG pH 7.44 7.40 7.45 VBG pCO2 38 43 41 VBG pO2 38 55 40 VBG Base Excess 2 2 4 H 03/25/25 03/26/25 03/26/25 16:57 03:00 05:50 ABG pH ABG pCO2 ABG pO2 ABG HCO3 ABG O2 Saturation ABG Base Excess VBG pH 7.45 7.46 7.41 VBG pCO2 38 38 43 VBG pO2 44 35 37 VBG Base Excess 2 3 2 03/26/25 03/26/25 03/26/25 10:44 14:04 17:06 ABG pH ABG pCO2 ABG pO2 ABG HCO3 ABG O2 Saturation ABG Base Excess VBG pH 7.44 7.41 7.43 VBG pCO2 39 42 39 VBG pO2 24 51 D 55 VBG Base Excess 2 1 1 03/26/25 03/27/25 03/27/25 20:45 07:18 15:04 ABG pH ABG pCO2 ABG pO2 ABG HCO3 ABG O2 Saturation ABG Base Excess VBG pH 7.42 7.44 7.42 VBG pCO2 41 39 41 VBG pO2 30 D 33 32 VBG Base Excess 2 2 2 03/27/25 03/28/25 03/28/25 17:55 04:45 04:57 ABG pH 7.48 H ABG pCO2 33 ABG pO2 102 ABG HCO3 25 ABG O2 Saturation 99 H ABG Base Excess 2 VBG pH 7.36 7.47 VBG pCO2 41 32 L VBG pO2 30 45 VBG Base Excess -2 0 Quality Measures Quality Measures VTE prophylaxis Advance care planning discussed with:: patient and spouse Assessment & Plan Assessment Current Active Medications: Generic Name Dose Route Start Last Admin Trade Name Freq PRN Reason Stop Dose Admin Acetaminophen 650 mg 03/22/25 14:43 Acetaminophen 325 Mg Tablet PO 04/21/25 14:42 Q6H PRN Fever >100.4 and pain 1-3 Amiodarone HCl 200 mg 03/24/25 21:00 03/27/25 20:05 Amiodarone Hcl 200 Mg Tablet PO 04/23/25 20:59 200 mg BID KOFFI Administration Balsam Ozone/[place] Oil 0 gm 03/23/25 21:00 03/27/25 20:06 Balsam Suorav/[place] Oil (Venelex) 60 Gm Tube TOP 04/22/25 20:59 1 applicatio BID KOFFI Administration Dextrose 25 ml 03/22/25 19:28 Dextrose 50%-Water Inj 50 Ml Syringe IV 04/21/25 19:27 Q15MIN PRN BG 50-70 responsive npo pt Dextrose 50 ml 03/22/25 19:28 Dextrose 50%-Water Inj 50 Ml Syringe IV 04/21/25 19:27 Q15MIN PRN BG <50 OR BG <70 & pt unresponsive Glucagon 1 mg 03/22/25 19:28 Glucagon Inj 1 Mg Vial IM Q15MIN PRN BG <70, and no IV access Heparin Sodium (Porcine) 5,000 unit 03/27/25 11:00 03/27/25 22:59 Heparin Sod Inj 5000 Unit/Ml Vial SC 04/10/25 10:59 5,000 unit Q12H KOFFI Administration Norepinephrine/Dextrose 8 mg in 250 mls @ 7.125 mls/hr 03/22/25 14:57 03/24/25 11:50 Levophed In D5w 8mg/250ml IV 04/21/25 14:56 0 mcg/kg/min .Q24H PRN 0 mls/hr PER PROTOCOL Titration Protocol 0.05 MCG/KG/MIN Dobutamine HCl/Dextrose 500 mg in 250 mls @ 3.696 mls/hr 03/27/25 15:39 03/28/25 06:00 Dobutrex/D5w Ivpb IV 04/26/25 15:37 1.75 mcg/kg/min .Q24H KOFFI 3.696 mls/hr 1.75 MCG/KG/MIN Infusion Insulin Degludec 6 unit 03/26/25 22:30 03/27/25 20:05 Insulin Degludec 5 Unit/0.05 Ml (Per 5 Units) SC 04/25/25 22:29 6 unit HS KOFFI Administration Insulin Human Lispro 0 unit 03/27/25 13:42 03/28/25 07:05 Insulin Lispro (Admelog) 1 Unit/0.01 Ml Unit SC 04/23/25 16:59 2 unit AC KOFFI Administration Protocol Polyethylene Glycol 17 gm 03/28/25 09:00 Polyethylene Glycol 17 Gm Packet PO 03/28/25 09:01 X1 ONE Sennosides 1 tab 03/28/25 09:00 Senna/Docusate Sod 1 Tab Tablet PO 04/27/25 08:59 QDAY KOFFI Protocol Sertraline HCl 25 mg 03/26/25 09:00 03/27/25 08:47 Sertraline Hcl 25 Mg Tablet PO 04/25/25 08:59 25 mg DAILY KOFFI Administration Plan This patient is an 79-year-old male with past medical history of CAD status post stents (2013), CABG (triple bypass, 2018), HFrEF 20 to 25% (02/2025), status post ICD with pacemaker placement, hypertension, diabetes, hyperlipidemia, recent cocci pneumonia, and subdural hematoma who presented to [facility] ED on 03/22 for shortness of breath and visual hallucinations. Patient was admitted to MICU for management of cardiogenic shock requiring pressors and dobutamine drip. NEURO #Acute encephalopathy, resolved #History of subdural hematoma On admission, the patient was aware of self and place, but not time. According to the patient's , the patient was confused and had visual hallucinations prior to seeking care. The patient was able to follow commands and maintain a conversation on admission, but was very somnolent. It is noted that the patient does have a history of subdural hematoma. Dx: CT head 03/22 negative for acute intracranial hemorrhage, does show interval development of cortical thickening and subcortical edema in inferior portion of left occipital lobe Ammonia ordered 03/23, resulted within normal limits at 22 Patient noted to be fully coherent and oriented to person, location, and time with ability to follow all commands and ask coherent questions on 03/24 Rx: Will continue to monitor, expect resolution with improvement of cardiogenic shock #History of depression Rx: Resumed home sertraline 25 mg PO daily CARDIO #Cardiogenic shock, improving #Ventricular tachycardia #History of CAD status post stents and CABG #History of HFrEF (EF 20 to 25% 02/2025) #s/p ICD placement with pacemaker ([employer] Evera) Patient presenting with clinical signs of cardiogenic shock including shortness of breath, cold and pale extremities, and without any visible signs of fluid overload. Patient does have a history of HFrEF with a recent echocardiogram done on 03/11/2025 showing grade 2 diastolic dysfunction with a EF of 20 to 25%. The patient sees Dr. Jenkins with his protector plate attacher and is on GDMT at home. Dx: BNP 03/22 noted to be 1319 => 03/23 BNP 887 Patient noted to have several runs of ventricular tachycardia on telemetry 03/22 to 03/23 overnight, patient remained asymptomatic Rx: Cardiology consulted, appreciate recommendations Reached out to [employer] warehouse representative to increase paced heart rate from 60 to 75 BPM, thus increasing cardiac output Continue to monitor with telemetry Dobutamine drip to increase cardiac contractility Amiodarone 200 mg PO twice daily due to episodes of ventricular tachycardia Avoid QT prolonging medications Keep potassium above 4 and magnesium above 2 Daily weights and strict ins and outs BiPAP/CPAP nightly to decrease cardiac demand and increase cardiac index RRx: Patient had run of ventricular tachycardia after starting dobutamine drip, so amiodarone drip was started on 03/22 Increased rate of dobutamine as estimated cardiac index decreased after weaning patient off BiPAP to CPAP and increased pacemaker BPM from 60 to 75 Patient weaned off BiPAP to nasal cannula on 03/24 Patient transitioned to oral amiodarone on 03/24 Levophed discontinued successfully on 03/24 Oral feeds restarted 03/24, if cardiac output and cardiac index significantly decreases, will increase dobutamine drip Decreased dobutamine to 0.75 on 03/26, which dropped cardiac index below 2.0, so increased dobutamine back to 1.25, with increasing dobutamine requirements since Started dopamine 3.0 on 03/26 with goal of weaning off dobutamine, stopped dopamine as patient had oxygen desaturation with tachypnea on dopamine requiring BiPAP to resolve #Elevated troponins, resolving DDx: NSTEMI type II, chronic troponin leak Dx: Patient noted to have a troponin of 0.072 on admission, which increased to 0.080, and has since then downtrended Patient does appear to have a baseline troponin of 0.05 per chart review Rx: Will continue to monitor with telemetry PULM #Acute hypoxic respiratory failure, resolved Patient noted to have shortness of breath and increased work of breathing on presentation to ED. Patient was initially put on OxyMask due to oxygen requirements, however BiPAP was started as the patient continued to have increased work of breathing even on oxy mask. Increased work of breathing is likely secondary to his heart failure resulting in cardiogenic shock. Dx: Initial VBG on 03/22 showed pH 7.33, pCO2 35, PaO2 29, and VBG O2 saturation 42% Initial ABG on 03/22 shows pH 4.72, pCO2 32, pO2 130, bicarb 21, and O2 saturation 99% on BiPAP VBG on 03/23 at 0800 showed pH 7.38, pCO2 42, pO2 49, and VBG O2 saturation 81% on BiPAP VBG on 03/23 at 1525 showed pH 7.47, pCO2 35, PaO2 36, and VBG O2 saturation 69% on CPAP Patient maintaining 100% O2 saturation on nasal cannula Rx: Continue nasal cannula, BiPAP as needed BiPAP/CPAP nightly RRx: Weaned patient off BiPAP to CPAP on 03/23, but was unable to wean off CPAP as patient's cardiac index decreased Patient taken off BiPAP to nasal cannula on 03/24 Patient off nasal cannula on 03/26 GI #Transaminitis, improving DDx: Acute liver injury, shock liver Dx: On presentation, patient had AST 775, ALT 1442, and T bilirubin 1.7 => 03/23 AST 568, ALT 1229 INR 03/22 noted to be 1.9 => 03/23 1.5 Rx: Likely secondary to cardiogenic shock resulting in hepatocyte ischemia, will continue to monitor LFTs and treat underlying shock NEPHRO #KOSTA on CKD, improving Patient had a creatinine of 2.6 from his baseline around 1.8 on 03/18/2025 Likely in the setting of shock Still producing urine Plan: Avoid nephrotoxic agents Renally dose medications Loya inserted Will continue to monitor URO #No active problems HEME #Leukocytosis, resolved Patient WBC was elevated initially at 15.6 Most likely reactive in the setting of shock Less likely infectious Plan: If patient demonstrates any signs of infection we will start IV antibiotics Will continue to trend #Coagulopathy, improving Patient's INR was 1.9 => 03/24 1.3 Likely in the setting of liver failure in the setting of shock Plan: Heparin subQ every 12 hours given resolution of coagulopathy as INR has normalized ENDO #Non Insulin dependent T2DM Last A1c was 7.2 on 02/02/2025 Plan: Patient currently n.p.o. ISS and blood glucose checks every 6 hours ID #Cocci IgM positive Dx: Patient had positive cocci IgM on 03/18 Cocci immunodiffusion and complement fixation negative for cocci Patient has no further shortness of breath since being off BiPAP 03/24 Rx: Will continue to monitor, will consider resuming fluconazole at 200 mg daily on discharge MSK #No active problems SKIN #No active problems DVT prophylaxis: Heparin GI prophylaxis: None Diet: Regular Loya: N/A Lines: Peripheral IV, RIJ Central line Antibiotics: N/A CODE STATUS: DNR Vent Status: N/A Reason for ICU care: Cardiogenic shock requiring dobutamine drip Patient plan of care was discussed with the attending engine lathe set up operator, Dr. Ames and senior resident Dr. Kimball (PGY-2). David Hammond, PGY-1 Attending Provider Attestation/Addendum Patient seen and examined with the above resident, David Hammond, DO. Patient has now failed I agree with the findings, assessment, and plan of care as document except for any differences below. Attempts to wean or transition inotropic support. Continues to require close monitoring care in the ICU due to requirements for dobutamine. Fortunately without any evidence of ectopy at this point. His mentation is at baseline with ongoing discussion with the plan will be potentially transition to hospice tomorrow after formal discussion with the entire family. He has had multiple visitors throughout in was allowed to eat food from outside facility. His spirits remain good despite knowing he has end- stage heart disease. Previous challenges with transition dopamine failed with dramatic decline in respiratory status as well as hemodynamics. Patient maintained on steady rate of dobutamine at low dose. Continues to require CPAP therapy intermittently while he easily fatigues. Will need to formally request hospice if this is ultimately with the patient's and his family decide tomorrow. Total critical care time: I personally spent 30 minutes for review of physiologic parameters, directing plan of care, and counseling patient's family at bedside. This is exclusive of time spent teaching housestaff performing any separate billable procedures. Patient remains at significant risk for further morbidity high risk for mortality warranting close monitoring and care only available in the ICU. 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
[2025-03-28] MEDS: BALSAM PERU/CASTOR OIL (Venelex) 60 GM TUBE TOP ×2 (09:06→20:23)
[2025-03-28] MEDS: SENNA/DOCUSATE SOD 1 TAB TABLET PO (09:07)
[2025-03-28] MEDS: SERTRALINE HCL 25 MG TABLET PO (09:07)
[2025-03-28] MEDS: AMIODARONE HCL 200 MG TABLET PO ×2 (09:07→20:22)
[2025-03-28] MEDS: POLYETHYLENE GLYCOL 17 GM PACKET PO (09:18)
[2025-03-28] MEDS: HEPARIN SOD INJ 5000 UNIT/ML VIAL SC ×2 (11:40→23:29)
[2025-03-28 13:07] LABS: Base Excess, Venous 1 (-3-3); O2 Saturation, Venous 68 % (96-97); PCO2, Venous 41 mmHg (36-56); PO2, Venous 36 mmHg (15-58); pH, Venous 7.40 (7.33-7.66)
[2025-03-28] MEDS: DOBUTamine/D5w 500 MG IVPB 500 MG/250 ML BAG IV (20:22)
[2025-03-28] MEDS: INSULIN DEGLUDEC 5 UNIT/0.05 ML (PER 5 UNITS) 6 UNIT SC (20:29)
[2025-03-29] VITALS (67 sets, daily range): BP systolic 85–114; BP diastolic 60–76; PULSE 74–78; RESP 4–36; TEMP 35.6–36.8; O2SAT 90–100; BMI 25.7
[2025-03-29 05:03] LABS: Basophils # (Auto) 0.1 Thou/mm3 (0.0-0.2); Basophils % (Auto) 1 % (0-2.5); Eosinophils # (Auto) 0.2 Thou/mm3 (0.0-0.5); Eosinophils % (Auto) 2 % (0-10); Hematocrit 34.2 % (41.0-53.0); Hemoglobin 11.3 g/dL (13.5-16.0); Immature Granulocytes Auto 0.09 Thou/mm3 (0.00-0.00); Lymphocytes # (Auto) 1.5 Thou/mm3 (1.0-4.8); Lymphocytes % (Auto) 14 % (10-50); Mean Corpuscular HGB Conc 33.0 g/dl (31.0-37.0); Mean Corpuscular Hemoglobin 32.4 pg (25.0-35.0); Mean Corpuscular Volume 98 fL (80-100); Monocytes # (Auto) 0.8 Thou/mm3 (0.0-0.8); Monocytes % (Auto) 7 % (0-12); Neutrophils # (Auto) 8.0 Thou/mm3 (1.8-7.7); Neutrophils % (Auto) 75 % (37-80); Nucleated Red Blood Cell # 0.02 Thou/mm3 (0.00-0.00); Nucleated Red Blood Cell % 0 /100 WBC (0); Platelet Count 223 Thou/mm3 (140-440); RDW Standard Deviation 59.9 fL (35.1-43.9); Red Blood Count 3.49 Miln/mm3 (4.50-5.90); White Blood Count 10.7 Thou/mm3 (3.8-10.6)
[2025-03-29 05:21] LABS: Alanine Aminotransferase 225 U/L (10-49); Albumin, Serum 3.9 gm/dL (3.4-4.8); Albumin/Globulin Ratio 1.5 (1.2-2.2); Alkaline Phosphatase 101 U/L (46-116); Anion Gap 7 (7-16); Aspartate Amino Transferase 37 U/L (0-34); BUN/Creatinine Ratio 23 Ratio (12-20); Bilirubin,Total 1.2 mg/dL (0.3-1.2); Blood Urea Nitrogen 37 mg/dL (9-23); Calcium 8.6 mg/dL (8.3-10.6); Calcium (Corrected) 8.7 mg/dL (8.5-10.1); Carbon Dioxide 26.0 mMol/L (20.0-31.0); Chloride 99 mMol/L (98-107); Creatinine (Component) 1.6 mg/dL (0.6-1.3); Estimated Creatinine Clearance 35.0 mL/min (>60); Globulin 2.6 gm/dL (2.3-3.5); Glucose 190 mg/dL (74-106); Magnesium 2.7 mg/dL (1.6-2.6); Osmolality,Calculated 278 (275-295); Potassium 4.5 mMol/L (3.4-5.1); Sodium 132 mMol/L (136-145); Total Protein 6.5 gm/dL (5.7-8.2); eGFR 43 See Note
--- NOTE | 2025-03-29 08:12 | ESPR_ITS ---
<Statement entered by Alan Aquino MD - 03/29/25 17:13> I have reviewed the note and agree with the resident's assessment & plan with exceptions as below. I have personally reviewed labs, imaging, home meds/prior records, examined the patient, formulated and discussed management plan with my attending. Patient was seen examined bedside's morning. No acute overnight events. This morning had goals of care discussion with patient, , 2 sons, Barry, social sciences department chair, and the rest of the ICU team. It was discussed that this time patient was unable to be weaned off dobutamine as even off of the BiPAP since earlier this morning his cardiac output significantly dropped as he was still on dobutamine 1.7. It was made clear that this time patient was at end-stage heart failure and given the inability to be weaned off dobutamine patient will most likely have cardiogenic shock again if he was taking off to dobutamine and he would be needing to be placed back in the ICU and dobutamine drip in the future if you decide to continue with full treatment. It was discussed to them that hospice was an option at this time as patient's prognosis was very poor and he was depending on the medication to keep perfusing well. At this time patient expresses wishes that he would like to go home on hospice and patient's family was agreeable to this. It was also explained to them that the defibrillator needed to be shut off at this time in the setting the patient did pass whenever taking it would likely shock the patient and they stated that they were okay with turning off the defibrillator at this time, defibrillator rep will be in tomorrow, but stated that today we can place a magnet and that I will avoid any shocks from the defibrillator.At this time patient and family were agreeable to go home with hospice, but needed some time to prepare the house and to get the medical bed delivered tomorrow therefore patient will be downgraded to the medical floors and placed on comfort measures, but not morphine drip. Okay to give morphine and Ativan as needed to make patient comfortable and no need for BiPAP at this time. Alan Aquino PGY2 Disclaimer: Even though this this note was dictated by speech recognition and even though it was carefully revised there may still be minor errors in labor relations teacher due to voice recognition software. Documentation for date of: 03/29/25 Subjective Subjective Interval history: This patient is an 79-year-old male with past medical history of CAD status post stents (2013), CABG (triple bypass, 2018), HFrEF 20 to 25% (02/2025), status post ICD with pacemaker placement, hypertension, diabetes, hyperlipidemia, recent cocci pneumonia, and subdural hematoma who presented to [facility] ED on 03/22 for shortness of breath and visual hallucinations. Patient was admitted to MICU for management of cardiogenic shock requiring pressors and dobutamine drip. The patient was recently discharged on 03/18 for an acute exacerbation of his HFrEF. The patient at that time presented with shortness of breath, and during that hospitalization, the patient had been diuresed with Lasix and Bumex. During that time, the patient had worsening of his renal function, resulting in KOSTA. Patient was also started on fluconazole for positive cocci IgM in serum. Patient was deemed stable for discharge after several days due to satisfactory blood pressure and improvement of his shortness of breath. However, on 03/22, was brought from home by ambulance due to shortness of breath and acutely started to see things that were not there and trying to grab things that were not there. On assessment patient was noticed to have cold extremities as well as other signs of hypoperfusion with decreased capillary refill as well as mottling on the toes of bilateral feet. Patient's heart rate was in the 60s paced rhythm and his blood pressure was on the lower end. At this time given the findings patient was most likely into cardiogenic shock not from fluid overload status but from a perfusion/contractility perspective. At this time dobutamine drip was needed and patient will need to be admitted to the ICU, but on chart review it was seen that his POLST form he has selective treatment therefore clarified with patient's family members if it was in the patient's wishes to go to the ICU and received further care as well as get central line placement and be started on medications to help his heart contract. Once patient was started on dobutamine drip and Levophed for cardiogenic shock BP was still stable and central line once in place was patient was in the ICU. Later during the evening patient developed episodes of nonsustained V. tach, but afterwards developed sustained V. tach therefore dobutamine drip was discontinued. Given that patient was still sustaining V. tach and defibrillated was not firing likely because his rate was in the 120s decided to start amiodarone drip at this time. Patient was asymptomatic during these episodes. ED course: Initially normotensive, tachypneic, and hypoxic. Initial labs showed leukocytosis, coagulopathy, hyperkalemia, KOSTA, NAGMA, lactic acidosis, and transaminitis as well as elevated BNP and mild elevation of troponins. Interval History: 03/23/2025 Patient appears to be doing well today on BiPAP. Dobutamine was resumed overnight and the patient continued to have intermittent runs of V. tach throughout the in the evening, however patient seemed asymptomatic during these episodes and vital signs remained stable with Levophed for blood pressure support. Patient continued to be on amiodarone drip throughout the evening. In the morning, the patient had a heart rate in the 60s with a ventricularly paced rhythm. The patient seemed tired, but was opening eyes and following commands. Patient was aware that he is in the hospital, but due to the BiPAP, it was difficult for the patient to fully respond. Extremities today do not seem as pale and seem warmer compared to yesterday, with his feet noted to be worse compared to his upper extremities. 1+ pedal pulse noted bilaterally. Trace pedal edema noted, however overall status does not appear to be fluid overloaded. Patient made 1 L of urine since admission, fluid balance noted to be negative. Repeat VBG's show improvement of oxygenation, creatinine downtrending, LFTs downtrending, troponins downtrending, and lactic acid downtrending compared to yesterday. Estimated cardiac index 2.8. Will consult the patient's mortgage loan interviewer, Dr. Jenkins, regarding further management and recommendations for the patient's cardiogenic shock. The customer engagement representative from from the patient's ICD/pacemaker, [employer] Evera, was called to increase BPM from 60 to 75, and the patient was transition to CPAP from BiPAP. Repeat VBG at around 1530 showed decrease estimated cardiac index, so we will hold off on weaning off CPAP and increased dobutamine drip. Will continue Levophed, amiodarone drip, and dobutamine drip for the patient's cardiogenic shock. 03/24/2025 Patient appears comfortable and has no acute complaints at this time. Patient was put on BiPAP overnight due to worsening estimated cardiac output and cardiac index. 24-hour urine output measured at 1.4 L, with a net negative of 1 L, however range urine output per hour overnight was about 65 mL/h. Leukocytosis improving, renal panel improving, and INR improving. Cardiac output and cardiac index in the morning estimated to be 8.4 and 4.3 respectively. As a result, patient was taken off BiPAP and dobutamine was decreased. Subsequent VBG's in the day showed estimated cardiac output and cardiac index at 4.2 and 2.2 respectively. Weaned patient off Levophed, but patient had decreasing O2 saturation, so changed oximeter to forehead which noted 100% O2 saturation. Patient was transitioned to amiodarone 200 mg p.o. twice daily as well as clear liquid diet. Will put patient on CPAP overnight and obtain VBG in the morning tomorrow. 03/25/2025 No acute events overnight. VBG from [facility] central line obtained overnight did show O2 saturation elevated to 88, so estimated cardiac output 8.7 and cardiac index 4.4, so dobutamine was decreased overnight. This increase was possibly due to the patient being on BiPAP/CPAP overnight. This morning, the patient continues to do well, no acute complaints at this time. Patient's blood pressure was noted to be soft at 88/64, so bedside ultrasound evaluation of the patient's heart, IVC, and hepatic vein was performed. Ultrasound findings suggested fluid responsiveness, so started patient on NS maintenance fluid running at 40 mL/h. Repeat VBG at around 08:30 showed O2 saturation at 71%, so estimated cardiac output 4.3 and cardiac index 2.2. Decreased dobutamine to 1.75 and will reassess cardiac output/cardiac index with VBG at 17:30. Will continue with current treatment plan with the goal of eventually weaning the patient off of dobutamine drip for downgrade to medical floors. 03/26/25 No acute events overnight. Dobutamine was increased slightly from 1.0 to 1.25 overnight. Patient has no complaints at this time is breathing comfortably on room air saturating at 96% O2. Urine output over the past 24 hours noted to be 65 mL, 0.36 mL/kg/h. VBG taken at around 0600 noted pH of 7.41, pCO2 43, and O2 saturation 70%, suggesting cardiac output of 3.9 and cardiac index of 2.1. Decreased dobutamine to 0.75, but repeat VBG showed O2 saturation 41%, estimated cardiac index of 1.1, so dobutamine was increased back up to 1.25. Repeat VBG later in the day showed VBG O2 saturation 85%, estimated cardiac index 3.7. Started patient on dopamine 3 while also decreasing dobutamine back down to 0.75 with plans to increase dopamine while decreasing the dobutamine, with goal of weaning the patient off dobutamine. 03/27/2025 Yesterday close to the evening, the patient had to be put back on BiPAP as his O2 saturation continued to decrease to the low 80s while on dobutamine 0.75 and dopamine 3. During this period, the patient had elevations in his respiratory rate up to the 30s and had noticeable increased work of breathing. Due to the timing of his O2 desaturation coinciding with starting the dopamine, dopamine was discontinued as it is noted to decrease O2 saturation via activity on chemoreceptors that increase intrapulmonary shunting. The patient stayed on BiPAP with dobutamine running at 1.0 overnight, and had no acute events overnight. This morning, the patient was taken off the BiPAP and was breathing well on room air. No shortness of breath or increased respiratory rate was identified off the BiPAP. VBG early in the morning showed O2 saturation at 61%, suggesting cardiac output at 3.2 and cardiac index at 1.7, so dobutamine was increased back to 1.25. Will continue to monitor the patient on dobutamine 1.25 and observe if patient has any additional desaturations, however outlook is poor as patient does not appear to tolerate weaning off the dobutamine. The patient and his will plan to have further discussion about potential hospice early next week, expected Thursday 03/29. 03/28/2025 No acute events overnight. Urine output continues to be good. Dobutamine was increased to 1.75 yesterday due to decreasing cardiac output and cardiac index as determined by VBG. Patient has no acute complaints this morning, however continues to require BiPAP for most of the day. Initially attempted to decrease the patient's dobutamine, however VBG drawn in the afternoon with the patient off BiPAP showed cardiac output of 2.6 and cardiac index of 2.0, so was determined that the patient continues to require dobutamine at 1.75. Will continue to try to wean off dobutamine, however patient continues to deteriorate as identified by his increasing BiPAP usage throughout the day and increasing dobutamine requirements. Expected goals of care discussion tomorrow 03/29. 03/29/2025 No acute events overnight. Urine output continues to be good, however urine output noticed to be decreasing. Repeat VBG in the morning determined that the patient's cardiac index has decreased with dobutamine at 1.75, signifying that the patient's heart failure is worsening and would require even more dobutamine. Goals of care discussion was held with the ICU staff and the patient's and 2 sons today, and the patient has elected to pursue home with hospice. Dobutamine drip was stopped and [employer] customer engagement representative was reached out to for cessation of the patient's defibrillator without turning off his pacemaker. [employer] customer engagement representative stated that the earliest he could arrive to stop the patient's defibrillator would be tomorrow, however in the meantime, a large blue magnet can be placed over the patient's defibrillator to turn it off until the customer engagement representative arrives at [facility]. As the patient is off the dobutamine drip, the patient no longer requires ICU level care and will be transferred to the medical floors until the patient can be discharged tomorrow to home with hospice. Exam Vital Signs Temp Pulse Resp BP Pulse Ox O2 Del Method O2 Flow Rate 96.1 F L 75 23 H 114/65 99 Nasal Cannula 3 03/29/25 07:30 03/29/25 07:30 03/29/25 07:30 03/29/25 07:30 03/29/25 07:30 03/29/25 07:30 03/29/25 07:30 FiO2 30 03/29/25 05:46 Narrative Exam General: Alert, no acute distress. Skin: Warm, dry, intact. Arboles rash with red pressure wound like appearance on bridge of nose. Head: Normocephalic, atraumatic. Eye: Normal conjunctiva, PERRL. Throat: Oral mucosa dry. No obvious lesions in oropharynx. Cardiovascular: Regular rate and rhythm, no murmur, +S1/S2. Respiratory: Lungs are clear to auscultation, respirations slightly labored and tachypneic, no crackles, no wheezing. Gastrointestinal: Soft, nontender, non-distended. No guarding or rebound tenderness. Extremities: Trace pedal edema, no cyanosis, no clubbing. 1+ radial pulse bilaterally, 1+ pedal pulse bilaterally. Feet bilaterally cool and pale. Neuro: No focal deficits observed. Conversant, moving all extremities. No overt cerebellar signs/incoordination. Psychiatric: Cooperative, appropriate affect. Objective Labs 03/29/25 04:30 03/29/25 04:30 Labs: Laboratory Results - last 24 hr 03/28/25 03/29/25 12:46 04:30 WBC 10.7 H RBC 3.49 L Hgb 11.3 L Hct 34.2 L MCV 98 MCH 32.4 MCHC 33.0 RDW Std Deviation 59.9 H Plt Count 223 Neut % (Auto) 75 Lymph % (Auto) 14 [place] % (Auto) 7 Eos % (Auto) 2 Baso % (Auto) 1 Neut # (Auto) 8.0 H Lymph # (Auto) 1.5 [place] # (Auto) 0.8 Eos # (Auto) 0.2 Baso # (Auto) 0.1 Immature Gran # (Auto) 0.09 H Absolute Nucleated RBC 0.02 H Immature Gran % 1 H Nucleated RBC % 0 VBG pH 7.40 VBG pCO2 41 VBG pO2 36 VBG O2 Sat (Oren) 68 L D VBG Base Excess 1 Sodium 132 L Potassium 4.5 Chloride 99 Carbon Dioxide 26.0 Anion Gap 7 BUN 37 H Creatinine 1.6 H Estim Creat Clear Calc 35.0 L eGFR 43 L BUN/Creatinine Ratio 23 H Glucose 190 H Calculated Osmolality 278 Calcium 8.6 Corrected Calcium 8.7 Magnesium 2.7 H Total Bilirubin 1.2 AST 37 H ALT 225 H Alkaline Phosphatase 101 Total Protein 6.5 Albumin 3.9 Globulin 2.6 Albumin/Globulin Ratio 1.5 ABG Interpretation ABG results: 03/22/25 03/22/25 03/22/25 15:09 15:30 18:57 ABG pH Cancelled ABG pCO2 Cancelled ABG pO2 Cancelled ABG HCO3 Cancelled ABG O2 Saturation Cancelled ABG Base Excess Cancelled VBG pH 7.33 7.35 VBG pCO2 35 L 41 VBG pO2 29 38 VBG Base Excess -7 L -3 03/22/25 03/22/25 03/23/25 21:40 22:10 03:19 ABG pH 7.42 ABG pCO2 32 ABG pO2 130 H ABG HCO3 21 ABG O2 Saturation 99 H ABG Base Excess -3 VBG pH 7.37 7.39 VBG pCO2 41 40 VBG pO2 37 32 VBG Base Excess -2 0 03/23/25 03/23/25 03/23/25 04:40 08:00 15:25 ABG pH ABG pCO2 ABG pO2 ABG HCO3 ABG O2 Saturation ABG Base Excess VBG pH 7.37 7.38 7.47 VBG pCO2 45 42 35 L VBG pO2 34 49 36 VBG Base Excess 0 0 2 03/23/25 03/24/25 03/24/25 18:14 01:26 02:46 ABG pH ABG pCO2 ABG pO2 ABG HCO3 ABG O2 Saturation ABG Base Excess VBG pH 7.43 7.41 7.43 VBG pCO2 37 43 40 VBG pO2 45 36 40 VBG Base Excess 1 2 2 03/24/25 03/24/25 03/24/25 04:36 06:23 10:49 ABG pH ABG pCO2 ABG pO2 ABG HCO3 ABG O2 Saturation ABG Base Excess VBG pH 7.37 7.39 7.43 VBG pCO2 45 43 40 VBG pO2 79 H D 58 D 39 VBG Base Excess 0 1 2 03/24/25 03/25/25 03/25/25 15:40 04:50 08:32 ABG pH ABG pCO2 ABG pO2 ABG HCO3 ABG O2 Saturation ABG Base Excess VBG pH 7.44 7.40 7.45 VBG pCO2 38 43 41 VBG pO2 38 55 40 VBG Base Excess 2 2 4 H 03/25/25 03/26/25 03/26/25 16:57 03:00 05:50 ABG pH ABG pCO2 ABG pO2 ABG HCO3 ABG O2 Saturation ABG Base Excess VBG pH 7.45 7.46 7.41 VBG pCO2 38 38 43 VBG pO2 44 35 37 VBG Base Excess 2 3 2 03/26/25 03/26/25 03/26/25 10:44 14:04 17:06 ABG pH ABG pCO2 ABG pO2 ABG HCO3 ABG O2 Saturation ABG Base Excess VBG pH 7.44 7.41 7.43 VBG pCO2 39 42 39 VBG pO2 24 51 D 55 VBG Base Excess 2 1 1 03/26/25 03/27/25 03/27/25 20:45 07:18 15:04 ABG pH ABG pCO2 ABG pO2 ABG HCO3 ABG O2 Saturation ABG Base Excess VBG pH 7.42 7.44 7.42 VBG pCO2 41 39 41 VBG pO2 30 D 33 32 VBG Base Excess 2 2 2 03/27/25 03/28/25 03/28/25 17:55 04:45 04:57 ABG pH 7.48 H ABG pCO2 33 ABG pO2 102 ABG HCO3 25 ABG O2 Saturation 99 H ABG Base Excess 2 VBG pH 7.36 7.47 VBG pCO2 41 32 L VBG pO2 30 45 VBG Base Excess -2 0 03/28/25 12:46 ABG pH ABG pCO2 ABG pO2 ABG HCO3 ABG O2 Saturation ABG Base Excess VBG pH 7.40 VBG pCO2 41 VBG pO2 36 VBG Base Excess 1 Quality Measures Quality Measures VTE prophylaxis Advance care planning discussed with:: patient, spouse and child Assessment & Plan Assessment Current Active Medications: Generic Name Dose Route Start Last Admin Trade Name Freq PRN Reason Stop Dose Admin Acetaminophen 650 mg 03/22/25 14:43 Acetaminophen 325 Mg Tablet PO 04/21/25 14:42 Q6H PRN Fever >100.4 and pain 1-3 Amiodarone HCl 200 mg 03/24/25 21:00 03/28/25 20:22 Amiodarone Hcl 200 Mg Tablet PO 04/23/25 20:59 200 mg BID KOFFI Administration Balsam [place]/Kennard Oil 0 gm 03/23/25 21:00 03/28/25 20:23 Balsam [place]/Kennard Oil (Venelex) 60 Gm Tube TOP 04/22/25 20:59 1 applicatio BID KOFFI Administration Dextrose 25 ml 03/22/25 19:28 Dextrose 50%-Water Inj 50 Ml Syringe IV 04/21/25 19:27 Q15MIN PRN BG 50-70 responsive npo pt Dextrose 50 ml 03/22/25 19:28 Dextrose 50%-Water Inj 50 Ml Syringe IV 04/21/25 19:27 Q15MIN PRN BG <50 OR BG <70 & pt unresponsive Glucagon 1 mg 03/22/25 19:28 Glucagon Inj 1 Mg Vial IM Q15MIN PRN BG <70, and no IV access Heparin Sodium (Porcine) 5,000 unit 03/27/25 11:00 03/28/25 23:29 Heparin Sod Inj 5000 Unit/Ml Vial SC 04/10/25 10:59 5,000 unit Q12H KOFFI Administration Norepinephrine/Dextrose 8 mg in 250 mls @ 7.125 mls/hr 03/22/25 14:57 03/24/25 11:50 Levophed In D5w 8mg/250ml IV 04/21/25 14:56 0 mcg/kg/min .Q24H PRN 0 mls/hr PER PROTOCOL Titration Protocol 0.05 MCG/KG/MIN Dobutamine HCl/Dextrose 500 mg in 250 mls @ 3.696 mls/hr 03/27/25 15:39 03/28/25 20:22 Dobutrex/D5w Ivpb IV 04/26/25 15:37 1.75 mcg/kg/min .Q24H KOFFI 3.696 mls/hr 1.75 MCG/KG/MIN Administration Insulin Degludec 6 unit 03/26/25 22:30 03/28/25 20:29 Insulin Degludec 5 Unit/0.05 Ml (Per 5 Units) SC 04/25/25 22:29 6 unit HS KOFFI Administration Insulin Human Lispro 0 unit 03/27/25 13:42 03/28/25 17:31 Insulin Lispro (Admelog) 1 Unit/0.01 Ml Unit SC 04/23/25 16:59 5 unit AC KOFFI Administration Protocol Polyethylene Glycol 17 gm 03/29/25 09:00 Polyethylene Glycol 17 Gm Packet PO 03/29/25 09:01 X1 ONE Sennosides 1 tab 03/28/25 09:00 03/28/25 09:07 Senna/Docusate Sod 1 Tab Tablet PO 04/27/25 08:59 1 tab QDAY KOFFI Administration Protocol Sertraline HCl 25 mg 03/26/25 09:00 03/28/25 09:07 Sertraline Hcl 25 Mg Tablet PO 04/25/25 08:59 25 mg DAILY KOFFI Administration Plan This patient is an 79-year-old male with past medical history of CAD status post stents (2014), CABG (triple bypass, 2019), HFrEF 20 to 25% (02/2025), status post ICD with pacemaker placement, hypertension, diabetes, hyperlipidemia, recent cocci pneumonia, and subdural hematoma who presented to [facility] ED on 03/22 for shortness of breath and visual hallucinations. Patient was admitted to MICU for management of cardiogenic shock requiring pressors and dobutamine drip. #GOALS OF CARE #HOSPICE As of 03/29/2025, the patient has elected to pursue home hospice. Patient's family has requested that the patient be discharged on 03/30/2025 for extra time and so that the hospice agency may procure a BiPAP machine with the patient's use at home. Additional information noted on event note 03/29. Plan: Hospice referral ordered 03/29 Morphine 2 mg IV every 30 minutes as needed for distress Lorazepam 1 mg IV every 30 minutes as needed for distress Comfort measures ordered 03/29 Large pleural magnet placed on patient's defibrillator to turn off with about discontinuing pacemaker, pending [employer] customer engagement representative to discontinue pacemaker on 03/30 in the morning Patient to be downgraded to medical floors for increased comfort NEURO #Acute encephalopathy, resolved #History of subdural hematoma On admission, the patient was aware of self and place, but not time. According to the patient's , the patient was confused and had visual hallucinations prior to seeking care. The patient was able to follow commands and maintain a conversation on admission, but was very somnolent. It is noted that the patient does have a history of subdural hematoma. Dx: CT head 03/22 negative for acute intracranial hemorrhage, does show interval development of cortical thickening and subcortical edema in inferior portion of left occipital lobe Ammonia ordered 03/23, resulted within normal limits at 22 Patient noted to be fully coherent and oriented to person, location, and time with ability to follow all commands and ask coherent questions on 03/24 Rx: Will continue to monitor, expect resolution with improvement of cardiogenic shock #History of depression Rx: Resumed home sertraline 25 mg PO daily CARDIO #Cardiogenic shock, improving #Ventricular tachycardia #History of CAD status post stents and CABG #History of HFrEF (EF 20 to 25% 02/2025) #s/p ICD placement with pacemaker ([employer] Evera) Patient presenting with clinical signs of cardiogenic shock including shortness of breath, cold and pale extremities, and without any visible signs of fluid overload. Patient does have a history of HFrEF with a recent echocardiogram done on 03/11/2025 showing grade 2 diastolic dysfunction with a EF of 20 to 25%. The patient sees Dr. Jenkins with his mortgage loan interviewer and is on GDMT at home. Dx: BNP 03/22 noted to be 1319 => 03/23 BNP 887 Patient noted to have several runs of ventricular tachycardia on telemetry 03/22 to 03/23 overnight, patient remained asymptomatic Rx: Cardiology consulted, appreciate recommendations Reached out to [employer] customer engagement representative to increase paced heart rate from 60 to 75 BPM, thus increasing cardiac output Continue to monitor with telemetry Dobutamine drip to increase cardiac contractility, discontinued Amiodarone 200 mg PO twice daily due to episodes of ventricular tachycardia, d iscontinued Avoid QT prolonging medications Keep potassium above 4 and magnesium above 2 Daily weights and strict ins and outs BiPAP/CPAP nightly to decrease cardiac demand and increase cardiac index RRx: Patient had run of ventricular tachycardia after starting dobutamine drip, so amiodarone drip was started on 03/22 Increased rate of dobutamine as estimated cardiac index decreased after weaning patient off BiPAP to CPAP and increased pacemaker BPM from 60 to 75 Patient weaned off BiPAP to nasal cannula on 03/24 Patient transitioned to oral amiodarone on 03/24 Levophed discontinued successfully on 03/24 Oral feeds restarted 03/24, if cardiac output and cardiac index significantly decreases, will increase dobutamine drip Decreased dobutamine to 0.75 on 03/26, which dropped cardiac index below 2.0, so increased dobutamine back to 1.25, with increasing dobutamine requirements since Started dopamine 3.0 on 03/26 with goal of weaning off dobutamine, stopped dopamine as patient had oxygen desaturation with tachypnea on dopamine requiring BiPAP to resolve Dobutamine and amiodarone stopped 03/29 as patient elected for hospice care #Elevated troponins, resolving DDx: NSTEMI type II, chronic troponin leak Dx: Patient noted to have a troponin of 0.072 on admission, which increased to 0.080, and has since then downtrended Patient does appear to have a baseline troponin of 0.05 per chart review Rx: Will continue to monitor with telemetry PULM #Acute hypoxic respiratory failure, resolved Patient noted to have shortness of breath and increased work of breathing on presentation to ED. Patient was initially put on OxyMask due to oxygen requirements, however BiPAP was started as the patient continued to have increased work of breathing even on oxy mask. Increased work of breathing is likely secondary to his heart failure resulting in cardiogenic shock. Dx: Initial VBG on 03/22 showed pH 7.33, pCO2 35, PaO2 29, and VBG O2 saturation 42% Initial ABG on 03/22 shows pH 4.72, pCO2 32, pO2 130, bicarb 21, and O2 saturation 99% on BiPAP VBG on 03/23 at 0800 showed pH 7.38, pCO2 42, pO2 49, and VBG O2 saturation 81% on BiPAP VBG on 03/23 at 1525 showed pH 7.47, pCO2 35, PaO2 36, and VBG O2 saturation 69% on CPAP Patient maintaining 100% O2 saturation on nasal cannula Rx: Continue nasal cannula, BiPAP as needed BiPAP/CPAP nightly RRx: Weaned patient off BiPAP to CPAP on 03/23, but was unable to wean off CPAP as patient's cardiac index decreased Patient taken off BiPAP to nasal cannula on 03/24 Patient off nasal cannula on 03/26 GI #Transaminitis, improving DDx: Acute liver injury, shock liver Dx: On presentation, patient had AST 775, ALT 1442, and T bilirubin 1.7 => 03/23 AST 568, ALT 1229 INR 03/22 noted to be 1.9 => 03/23 1.5 Rx: Likely secondary to cardiogenic shock resulting in hepatocyte ischemia, will continue to monitor LFTs and treat underlying shock NEPHRO #KOSTA on CKD, improving Patient had a creatinine of 2.6 from his baseline around 1.8 on 03/18/2025 Likely in the setting of shock Still producing urine Plan: Avoid nephrotoxic agents Renally dose medications Loya inserted Will continue to monitor URO #No active problems HEME #Leukocytosis, resolved Patient WBC was elevated initially at 15.6 Most likely reactive in the setting of shock Less likely infectious Plan: If patient demonstrates any signs of infection we will start IV antibiotics Will continue to trend #Coagulopathy, improving Patient's INR was 1.9 => 03/24 1.3 Likely in the setting of liver failure in the setting of shock Plan: Heparin subQ every 12 hours given resolution of coagulopathy as INR has normalized ENDO #Non Insulin dependent T2DM Last A1c was 7.2 on 02/02/2025 Plan: Patient currently n.p.o. ISS and blood glucose checks every 6 hours ID #Cocci IgM positive Dx: Patient had positive cocci IgM on 03/18 Cocci immunodiffusion and complement fixation negative for cocci Patient has no further shortness of breath since being off BiPAP 03/24 Rx: Will continue to monitor, will consider resuming fluconazole at 200 mg daily on discharge MSK #No active problems SKIN #No active problems DVT prophylaxis: N/A GI prophylaxis: None Diet: Full liquid (per patient's request) Loya: N/A Lines: Peripheral IV Antibiotics: N/A CODE STATUS: DNR Vent Status: N/A Reason for ICU care: N/A Patient plan of care was discussed with the attending certified bench jeweler technician, Dr. Ames and senior resident Dr. Kimball (PGY-2). David Hammond, PGY-1 Attending Provider Attestation/Addendum Patient seen and examined with above resident, David Hammond, DO. I agree with the findings, assessment, and plan of care as document except for any differences below. Patient continues to be dependent on inotropic support. Central venous sat continues to decrease with discontinuation of drip. He remains hemodynamically stable and is amenable for transfer home as per his wishes. However, patient will need to await device manufacture rep for cessation of defibrillator function before he returns home. Patient placed on oxygen for comfort, will stop all PAP therapy at this time. Patient will be given with morphine and Ativan for any anxiety and dyspnea that may occur. Aggressive treatment of underlying symptoms explained extensively to the patient family with him at bedside. They are all aware that he has end-stage heart failure that is not amenable to intervention given the advanced nature of his ischemic heart disease. Patient on his own was agreeable to transition to comfort care as well as hospice once logistical requirements are completed. Appreciate case management input for final discharge planning. Patient remained stable throughout the day and was transition to medicine tomlinson for ongoing management pending discharge. Total critical care time: I personally spent 35 minutes for review of physiologic parameters, directing plan of care throughout the day, coordination of care with other specialists, and counseling patient and his family at bedside. This is exclusive of time spent teaching of staff performing separate billable procedures. Patient remains at significant risk for further morbidity and mortality warranting close monitoring care only available in the ICU. Patient required critical care service for end-of-life care, ischemic cardiomyopathy, cardiogenic shock.
[2025-03-29] MEDS: SERTRALINE HCL 25 MG TABLET PO (08:13)
[2025-03-29] MEDS: SENNA/DOCUSATE SOD 1 TAB TABLET PO (08:13)
[2025-03-29] MEDS: AMIODARONE HCL 200 MG TABLET PO (08:13)
[2025-03-29] MEDS: INSULIN LISPRO (AdmeLOG) 1 UNIT/0.01 ML UNIT SC ×2 (08:13→11:28)
[2025-03-29] MEDS: BALSAM PERU/CASTOR OIL (Venelex) 60 GM TUBE TOP (08:14)
[2025-03-29] MEDS: POLYETHYLENE GLYCOL 17 GM PACKET PO (08:15)
[2025-03-29 08:20] LABS: Base Excess, Venous -1 (-3-3); O2 Saturation, Venous 48 % (96-97); PCO2, Venous 37 mmHg (36-56); PO2, Venous 27 mmHg (15-58); pH, Venous 7.42 (7.33-7.66)
--- NOTE | 2025-03-29 08:35 | PC.SS ---
ICU resident informed MEDICAL BILLING COORDINATOR of need to conduct goals of care discussion for today prior to 11:00 am. MEDICAL BILLING COORDINATOR conducted phone contact with patient's spouse, Hiral Paul ; to conduct goals of care discussion. Patient's spouse will be available at 09:30 am today. MEDICAL BILLING COORDINATOR updated ICU historiographer.
--- NOTE | 2025-03-29 09:45 | PD.RESEVENT ---
Documentation for date of: 03/29/25 Event Note Event Note: Goals of care discussion was performed today with the patient, the patient's , 2 of the patient's sons, healthcare social worker Dr. Ames, senior resident Dr. Kimball (PGY2), international student advisor resident Dr. Bruno (PGY1), nursing home social worker Barry, and myself. Dr. Kimball led the discussion, discussing with the patient and his family about what had happened and the patient's poor prognosis. It was explained to the patient and his family that the patient continues to require dobutamine and attempts to wean the dobutamine has been unsuccessful. The process of hospice was discussed with the patient and his family, where it was explained that nursing staff from the hospice company will go to the patient's place of residency to care for the patient and provide only medications that provide symptomatic relief, no medications are expected to extend his duration of life. The patient expressed understanding of his poor prognosis and requested to go home with hospice. The patient's family expressed understanding of the patient's request, but requested that the patient be discharged tomorrow and requested a BiPAP machine to keep the patient comfortable after he is discharged to home with home hospice. J2Ee Consultant from [employer] was called to turn off the patient's defibrillator, however patient's family requested that the patient's pacemaker functionality be continued. [employer] welding equipment sales representative stated that he could come tomorrow morning earliest, but in the meantime, the patient's defibrillator can be turned off without affecting the patient's pacemaker with a large blue magnet placed over the patient's defibrillator. To respect the patient's wishes for hospice, the ICU team will discontinue the patient's dobutamine and keep the patient comfortable with morphine and Ativan pushes. The family is aware that the patient will be transition to the medical floors so that the patient may have a private room without constant noise to enhance the patient's comfort. Patient plan of care was discussed with the senior resident Dr. Kimball (PGY-2) and attending physician Dr. Kwaku Hammond, PGY1
[2025-03-29] MEDS: MORPHINE SULF INJ 4 MG/ML VIAL 2 MG IVP ×5 (11:12→19:41)
[2025-03-29] MEDS: HEPARIN SOD INJ 5000 UNIT/ML VIAL SC (11:26)
[2025-03-29] MEDS: LORazepam 2 MG/ML VIAL 1 MG IVP (13:07)
--- NOTE | 2025-03-29 16:29 | ESPR_ITS ---
Documentation for date of: 03/29/25 Subjective Subjective Interval history: 79-year-old male with past medical history of CAD status post stents , CABG (triple bypass, 2019), HFrEF 20 to 25% (02/2025), status post ICD with pacemaker placement, hypertension, diabetes, hyperlipidemia, recent cocci pneumonia, and subdural hematoma who presented to [facility] ED on 03/22 for shortness of breath and visual hallucinations. Patient was admitted to MICU for management of cardiogenic shock requiring pressors and dobutamine drip. Patient had a prolonged ICU course for management of cardiogenic shock, patient continued to require high dose dobutamine drip while being on dobutamine drip patient had runs of ventricular tachycardia was started on amiodarone drip. Patient's pacemaker was adjusted, during the ICU course patient required BiPAP from which patient was weaned off. Patient has underlying end-stage heart failure, had poor prognosis, goals of care discussed with patient's family by intensive care team and decision was made to transition patient to comfort measures and plan to discharge patient on home with hospice care. Patient downgraded to medical floors 03/29/2025, patient seen in ICU, looks comfortable. Exam Vital Signs Temp Pulse Resp BP Pulse Ox O2 Del Method O2 Flow Rate 96.1 F L 74 26 H 91/66 96 Nasal Cannula 3 03/29/25 07:30 03/29/25 11:31 03/29/25 11:31 03/29/25 11:31 03/29/25 11:31 03/29/25 11:00 03/29/25 11:00 FiO2 30 03/29/25 05:46 Narrative Exam Physical Exam General: Asleep, looks comfortable, no increased work of breathing HEENT: Normocephalic, atraumatic, mucous membranes moist. Heart: Regular rate and rhythm, no murmurs. Lungs: Clear to auscultation with no wheezing or crackles. Abdomen: Exam deferred, patient on comfort measures Limited exam, patient on comfort measures Objective Labs 03/29/25 04:30 03/29/25 04:30 Labs: Laboratory Results - last 24 hr 03/29/25 03/29/25 04:30 08:07 WBC 10.7 H RBC 3.49 L Hgb 11.3 L Hct 34.2 L MCV 98 MCH 32.4 MCHC 33.0 RDW Std Deviation 59.9 H Plt Count 223 Neut % (Auto) 75 Lymph % (Auto) 14 Ford % (Auto) 7 Eos % (Auto) 2 Baso % (Auto) 1 Neut # (Auto) 8.0 H Lymph # (Auto) 1.5 Ford # (Auto) 0.8 Eos # (Auto) 0.2 Baso # (Auto) 0.1 Immature Gran # (Auto) 0.09 H Absolute Nucleated RBC 0.02 H Immature Gran % 1 H Nucleated RBC % 0 VBG pH 7.42 VBG pCO2 37 VBG pO2 27 VBG O2 Sat (Oren) 48 L D VBG Base Excess -1 Sodium 132 L Potassium 4.5 Chloride 99 Carbon Dioxide 26.0 Anion Gap 7 BUN 37 H Creatinine 1.6 H Estim Creat Clear Calc 35.0 L eGFR 43 L BUN/Creatinine Ratio 23 H Glucose 190 H Calculated Osmolality 278 Calcium 8.6 Corrected Calcium 8.7 Magnesium 2.7 H Total Bilirubin 1.2 AST 37 H ALT 225 H Alkaline Phosphatase 101 Total Protein 6.5 Albumin 3.9 Globulin 2.6 Albumin/Globulin Ratio 1.5 ABG Interpretation ABG results: 03/22/25 03/22/25 03/22/25 15:09 15:30 18:57 ABG pH Cancelled ABG pCO2 Cancelled ABG pO2 Cancelled ABG HCO3 Cancelled ABG O2 Saturation Cancelled ABG Base Excess Cancelled VBG pH 7.33 7.35 VBG pCO2 35 L 41 VBG pO2 29 38 VBG Base Excess -7 L -3 03/22/25 03/22/25 03/23/25 21:40 22:10 03:19 ABG pH 7.42 ABG pCO2 32 ABG pO2 130 H ABG HCO3 21 ABG O2 Saturation 99 H ABG Base Excess -3 VBG pH 7.37 7.39 VBG pCO2 41 40 VBG pO2 37 32 VBG Base Excess -2 0 03/23/25 03/23/25 03/23/25 04:40 08:00 15:25 ABG pH ABG pCO2 ABG pO2 ABG HCO3 ABG O2 Saturation ABG Base Excess VBG pH 7.37 7.38 7.47 VBG pCO2 45 42 35 L VBG pO2 34 49 36 VBG Base Excess 0 0 2 03/23/25 03/24/25 03/24/25 18:14 01:26 02:46 ABG pH ABG pCO2 ABG pO2 ABG HCO3 ABG O2 Saturation ABG Base Excess VBG pH 7.43 7.41 7.43 VBG pCO2 37 43 40 VBG pO2 45 36 40 VBG Base Excess 1 2 2 03/24/25 03/24/25 03/24/25 04:36 06:23 10:49 ABG pH ABG pCO2 ABG pO2 ABG HCO3 ABG O2 Saturation ABG Base Excess VBG pH 7.37 7.39 7.43 VBG pCO2 45 43 40 VBG pO2 79 H D 58 D 39 VBG Base Excess 0 1 2 03/24/25 03/25/25 03/25/25 15:40 04:50 08:32 ABG pH ABG pCO2 ABG pO2 ABG HCO3 ABG O2 Saturation ABG Base Excess VBG pH 7.44 7.40 7.45 VBG pCO2 38 43 41 VBG pO2 38 55 40 VBG Base Excess 2 2 4 H 03/25/25 03/26/25 03/26/25 16:57 03:00 05:50 ABG pH ABG pCO2 ABG pO2 ABG HCO3 ABG O2 Saturation ABG Base Excess VBG pH 7.45 7.46 7.41 VBG pCO2 38 38 43 VBG pO2 44 35 37 VBG Base Excess 2 3 2 03/26/25 03/26/25 03/26/25 10:44 14:04 17:06 ABG pH ABG pCO2 ABG pO2 ABG HCO3 ABG O2 Saturation ABG Base Excess VBG pH 7.44 7.41 7.43 VBG pCO2 39 42 39 VBG pO2 24 51 D 55 VBG Base Excess 2 1 1 03/26/25 03/27/25 03/27/25 20:45 07:18 15:04 ABG pH ABG pCO2 ABG pO2 ABG HCO3 ABG O2 Saturation ABG Base Excess VBG pH 7.42 7.44 7.42 VBG pCO2 41 39 41 VBG pO2 30 D 33 32 VBG Base Excess 2 2 2 03/27/25 03/28/25 03/28/25 17:55 04:45 04:57 ABG pH 7.48 H ABG pCO2 33 ABG pO2 102 ABG HCO3 25 ABG O2 Saturation 99 H ABG Base Excess 2 VBG pH 7.36 7.47 VBG pCO2 41 32 L VBG pO2 30 45 VBG Base Excess -2 0 03/28/25 03/29/25 12:46 08:07 ABG pH ABG pCO2 ABG pO2 ABG HCO3 ABG O2 Saturation ABG Base Excess VBG pH 7.40 7.42 VBG pCO2 41 37 VBG pO2 36 27 VBG Base Excess 1 -1 Quality Measures Quality Measures VTE prophylaxis Advance care planning discussed with:: sibling Assessment & Plan Assessment Current Active Medications: Generic Name Dose Route Start Last Admin Trade Name Freq PRN Reason Stop Dose Admin Acetaminophen 650 mg 03/22/25 14:43 Acetaminophen 325 Mg Tablet PO 04/21/25 14:42 Q6H PRN Fever >100.4 and pain 1-3 Balsam Sourav/[place] Oil 0 gm 03/23/25 21:00 03/29/25 08:14 Balsam Sourav/[place] Oil (Venelex) 60 Gm Tube TOP 04/22/25 20:59 1 applicatio BID KOFFI Administration Heparin Sodium (Porcine) 5,000 unit 03/27/25 11:00 03/29/25 11:26 Heparin Sod Inj 5000 Unit/Ml Vial SC 04/10/25 10:59 5,000 unit Q12H KOFFI Administration Insulin Degludec 6 unit 03/26/25 22:30 03/28/25 20:29 Insulin Degludec 5 Unit/0.05 Ml (Per 5 Units) SC 04/25/25 22:29 6 unit HS KOFFI Administration Lorazepam 1 mg 03/29/25 12:26 03/29/25 13:07 Lorazepam 2 Mg/Ml Vial IVP 04/03/25 12:25 1 mg Q30M PRN Administration Anxiety or distress Morphine Sulfate 2 mg 03/29/25 12:25 03/29/25 13:19 Morphine Sulf Inj 4 Mg/Ml Vial IVP 04/03/25 12:24 2 mg Q30M PRN Administration Distress Sennosides 1 tab 03/28/25 09:00 03/29/25 08:13 Senna/Docusate Sod 1 Tab Tablet PO 04/27/25 08:59 1 tab QDAY KOFFI Administration Protocol Sertraline HCl 25 mg 03/26/25 09:00 03/29/25 08:13 Sertraline Hcl 25 Mg Tablet PO 04/25/25 08:59 25 mg DAILY KOFFI Administration Plan Assessment and plan: Summary: 79-year-old male with past medical history of CAD status post stents , CABG (triple bypass, 2019), HFrEF 20 to 25% (02/2025), status post ICD with pacemaker placement, hypertension, diabetes, hyperlipidemia, recent cocci pneumonia, and subdural hematoma who presented to [facility] ED on 03/22 for shortness of breath and visual hallucinations. Patient was admitted to ICU for management of cardiogenic shock, patient has end-stage heart failure, goals of care held with patient's family by ICU team, patient transition to comfort measures. #End-stage heart failure #Cardiogenic shock #Ventricular tachycardia #History of CAD status post stents and CABG #History of HFrEF EF 20 to 25% 02/2025 #Status post ICD placement with pacemaker ([employer] Evera) #Elevated troponin, NSTEMI type II versus chronic troponin leak #Acute hypoxic respiratory failure, resolved #Transaminitis likely shock liver #KOSTA on CKD likely cardiorenal component #Acute encephalopathy #History of subdural hematoma #History of depression #Leukocytosis #Coagulopathy #NIDDM type II #Cocci IgM positive Patient had prolonged hospital course requiring IV dobutamine, had runs of V. tach requiring IV amiodarone which was eventually transition to p.o. Patient has end-stage heart failure was not able to be weaned off of the dobutamine drip. Goals of care discussion held with patient's family by intensive care unit team, decision to transition patient to comfort measures. Patient on comfort measures currently downgraded to medical floors 03/29/2025 -Referral made to hospice, plan to dispo patient to home with hospice -Pacemaker to be turned off by [employer] team in a.m. -Morphine 2 mg IV every 30 minutes as needed for distress -Lorazepam 1 mg IV every 30 minutes as needed for distress -Comfort measures ordered 03/29 -Large pleural magnet placed on patient's defibrillator to turn off with about discontinuing pacemaker, pending [employer] sales representative wire rope to discontinue pacemaker on 03/30 in the morning DVT prophylaxis: On comfort measures GI prophylaxis: On comfort measures Diet: Full liquid diet Lines: Peripheral IV Code status: DNR/DNI, on comfort measures Case discussed with Attending Physician Dr. Mazin Hardwick, DO Lisa Kinney MD Internal Medicine PGY-2 Disclaimer: This note was dictated by speech recognition. Minor errors in manager research and development may be present due to voice recognition software. Attending Provider Attestation/Addendum I have discussed and was present for the essential components of the history, physical examination, diagnosis, and treatment plan with the resident. I agree with the patient's care as documented by the resident and amended herein by me. Sam Hardwick DO. Although this document has been carefully reviewed, there may still be some phonetic and other typographical errors. These errors are purely grammatical due to imperfections in the software program and should not be construed in any way to compromise the substance of the patient's medical care during this visit. Patient downgraded from ICU, patient did experience cardiogenic shock in setting of HFrEF with EF of 20%, history of CAD, pacemaker placement, etc., family wishes comfort measures for the patient to go to hospice which we will attempt to establish.
[2025-03-30] VITALS: BP 96/70; PULSE 75; RESP 17; TEMP 35.8; O2SAT 96
[2025-03-30 02:57] VITALS: PULSE 71; RESP 24; O2SAT 92
[2025-03-30 04:12] VITALS: BP 99/74; PULSE 74; RESP 24; TEMP 35.9; O2SAT 92
[2025-03-30 06:00] VITALS: BMI 26.5
[2025-03-30 07:49] VITALS: BP 100/70; PULSE 71; RESP 18; TEMP 36.1; O2SAT 94
[2025-03-30 08:23] VITALS: PULSE 75; RESP 26; O2SAT 95
[2025-03-30] MEDS: LORazepam 2 MG/ML VIAL 1 MG IVP (08:53)
--- NOTE | 2025-03-30 10:07 | PC.SS ---
METAL BONDING WORKER informed by [facility] hospice staff request for physician order for BI-PAP. METAL BONDING WORKER submitted signed order with updated settings. Plan is to obtain BI-PAP for patient's night time use. Measure is for comfort care.
[2025-03-30 12:00] VITALS: BP 99/71; PULSE 77; RESP 18; TEMP 37; O2SAT 99
--- NOTE | 2025-03-30 12:13 | PC.SS ---
Transport home scheduled for 02:00 pm today. REMOTE SENSING SURVEYOR notified patient's spouse, bedside nurse and [facility] hosp[facility].
[2025-03-30] MEDS: MORPHINE SULF INJ 4 MG/ML VIAL 2 MG IVP (13:00)
--- NOTE | 2025-03-30 13:38 | ESDS_ITS ---
<Statement entered by Raul Bonilla MD - 03/31/25 13:33> Patient seen and examined at bedside. I discussed and supervised with the international specialist physician who took care of this patient. I personally saw and examined the patient. I agree with most of the assessment and plan. Plan of care discussed with attending Dr. Levi. Raul Bonilla MD PGY-2 Planned Discharge Date 03/30/25 DS: Providers Provider Date of admission: 03/22/25 14:53 Primary care physician: Physician No Primary/Family Admitting Provider: Phu Ames MD Attending Provider on Admission: Phu Ames MD Consults: 03/23/25 09:14 Consult to Cardiology Routine Comment: Consulting Provider: Keaton Jenkins 03/23/25 11:12 Referral Wound Care Routine Comment: bridge of nose open wound from bipap 03/29/25 10:12 Referral Hospice Stat Comment: Attending Provider on DC: Karyna Levi MD Discharging Provider: Prabha Gardner MD DS: Diagnosis Problem List Completed Was Problem List Reviewed/Reconciled?: Yes Hospital Course Hospital Course Hospital course: 79-year-old male past medical history of CAD status post stents, CABG triple bypass 2019, HFrEF 20-25%, status post ICD with pacemaker, hypertension, diabetes, recent cocci pneumonia, subdural hematoma, presented with shortness of breath and visual hallucination, admitted to our ICU for cardiogenic shock on pressors and dobutamine drip.? In ICU, patient had prolonged ICU course for cardiogenic shock.? Requiring high dose dobutamine drip, once V. tach, started on amiodarone drip. ?Attempts to wean off dobutamine was unsuccessful. Pacemaker was adjusted. Initially required BiPAP which was weaned off.? Goal of care discussed with patient's family by ICU team on 03/29 with patient's and 2 of his sons, decision was made to transition to comfort measure and discharge on home with hospice care. ?Patient's family request the patient be discharged today 03/30 with BiPAP to keep patient comfortable at home with home hospice.? Patient's family requested pacemaker functionality to be continued and only defibrillator to be turned off.? [employer] rep turned off defibrillator 03/30 morning without affecting pacemaker. Patient is comfortable with morphine and Ativan, ready to be discharge home with hospice today. #End-stage heart failure #Cardiogenic shock #Ventricular tachycardia #History of CAD status post stents and CABG #History of HFrEF EF 20 to 25% 02/2025 #Status post ICD placement with pacemaker ([employer] Evera) #Elevated troponin, NSTEMI type II versus chronic troponin leak #Acute hypoxic respiratory failure, resolved #Transaminitis likely shock liver #KOSTA on CKD likely cardiorenal component #Acute encephalopathy #History of subdural hematoma #History of depression #Leukocytosis #Coagulopathy #NIDDM type II #Cocci IgM positive Instruction: You are being discharged to home on hospice care. [facility] will provide further care. Assessment and plan discussed with my attending physician Dr. Levi and Dr. Bonilla (PGY-2). Dr. Gardner (PGY-1) ? residential housekeeper Status at Discharge Overall status at discharge: patient is progressing back to baseline Time Spent with Patient Time attestation: Total time spent providing and/or coordinating discharge services: 40 minutes Time spent: Greater than 30 minutes Exam Vital Signs Temp Pulse Resp BP Pulse Ox O2 Del Method O2 Flow Rate 98.6 F 77 18 99/71 99 Nasal Cannula 3 03/30/25 12:00 03/30/25 12:00 03/30/25 12:00 03/30/25 12:00 03/30/25 12:00 03/30/25 12:00 03/30/25 12:00 FiO2 30 03/29/25 05:46 Narrative Exam General: Asleep, looks comfortable, no increased work of breathing HEENT: Normocephalic, atraumatic, mucous membranes moist. Heart: Regular rate and rhythm, no murmurs. Lungs: Clear to auscultation with no wheezing or crackles. Abdomen: Exam deferred, patient on comfort measures Discharge Plan Plan Patient Disposition: Home w/HOSPICE Patient condition on transfer: Stable Care Plan Goals: You are being discharged to home on hospice care. [facility] will provide further care. Prescriptions/Referrals Prescriptions/Med Rec: Continued (DME) compression socks, medium Misc See Rx Instructions .Route Qty: 1 0RF Rx Instructions: As directed Discontinued metformin 500 mg Tablet 500 mg PO BID aspirin [Lidia Low Dose Aspirin] 81 mg Tablet,Delayed Release (Dr/Ec) 81 mg PO QDAY carvedilol 3.125 mg Tablet 3.125 mg PO BID docusate sodium [Stool Softener] 100 mg Capsule 100 mg PO BID Eliquis 2.5 mg tablet 2.5 mg PO Q12H amiodarone 200 mg tablet 200 mg PO Q12H sertraline 25 mg tablet 25 mg PO DAILY Patient Comments: TAKE 1 TABLET BY MOUTH EVERY DAY atorvastatin 20 mg Tablet 20 mg PO HS 90 Days Qty: 90 0RF spironolactone 25 mg Tablet 25 mg PO DAILY 90 Days Qty: 90 0RF guaifenesin 100 mg/5 mL Liquid 100 mg PO QID 14 Days Qty: 280 0RF fluconazole 100 mg Tablet 200 mg PO QDAY 90 Days Qty: 180 0RF furosemide 20 mg tablet 40 mg PO DAILY 90 Days Qty: 180 0RF Patient Comments: TAKE 1 TABLET BY MOUTH EVERY DAY Referrals: No Primary/Family,Physician [Primary Care Provider] Patient/Caregiver Discharge Instructions Discharge Activity: activity as tolerated Education Materials: What Is Hospice?, Hospice The Importance of ..., Hospice Dyspnea Care, Hospice: As Nears, What Is a BPAP?, Using a BPAP Print Language: Korean Stand Alone Forms: [employer] Award Info., Patient Portal Info Letter Discharge Order Discharge Orders: Discharge (Routine); Ordered 03/30/25 Ordered By: Raul Bonilla Quality Discharge Quality Measures VTE prophylaxis Attestestation MD Attestation I have seen and examined the patient. I was physically present for the taveras portions of the services provided including history, physical exam, diagnosis, treatment plans and orders. I agree with assessment and plan of care as documented by residents. Even though this this note was carefully revised there may still be minor errors in e commerce solution architect due to voice recognition software. Karyna Levi MD
== END 2025-03-30 14:10 | disposition hospice, home (50) | DRG 291 ==
LOC: SERX 10:58 → SERHOLD 14:55 → S2SX 15:29 → S3SX 03-29 17:30
PROVIDERS: Student in an Organized Health Care Education/Training Program; Admitting Provider Internal Medicine Critical Care Medicine; Emergency Provider Emergency Medicine; Visit Provider Internal Medicine Critical Care Medicine
DX: R57.0 Cardiogenic shock (principal); G93.41 Metabolic encephalopathy; J96.01 Acute respiratory failure with hypoxia; K72.00 Acute and subacute hepatic failure without coma; J18.9 Pneumonia, unspecified organism; I13.0 Hypertensive heart and chronic kidney disease with heart failure and stage 1 through stage 4 chronic kidney disease, or unspecified chronic kidney disease; I50.22 Chronic systolic (congestive) heart failure; N17.9 Acute kidney failure, unspecified; D68.9 Coagulation defect, unspecified; I47.20 Ventricular tachycardia, unspecified; E87.20 Acidosis, unspecified; Z95.5 Presence of coronary angioplasty implant and graft; E78.5 Hyperlipidemia, unspecified; Z95.0 Presence of cardiac pacemaker; Z95.1 Presence of aortocoronary bypass graft; I25.10 Atherosclerotic heart disease of native coronary artery without angina pectoris; E11.22 Type 2 diabetes mellitus with diabetic chronic kidney disease; E87.5 Hyperkalemia; K76.1 Chronic passive congestion of liver; N18.9 Chronic kidney disease, unspecified; Z66 Do not resuscitate; Z51.5 Encounter for palliative care; Z79.01 Long term (current) use of anticoagulants; Z79.84 Long term (current) use of oral hypoglycemic drugs; Z79.899 Other long term (current) drug therapy; I25.5 Ischemic cardiomyopathy; Z87.891 Personal history of nicotine dependence; Z95.810 Presence of automatic (implantable) cardiac defibrillator; Z88.2 Allergy status to sulfonamides; Z88.5 Allergy status to narcotic agent
CPT/HCPCS: 36415; 36600; 51702; 70450; 71045; 76705; 80053; 81001; 82140; 82803; 83605; 83690; 83735; 83880; 84100; 84132; 84145; 84484; 85025; 85610; 85730; 87040; 87081; 87086; 87635; 93005; 94660; 96365; 96366; 99284; A4314; J0283; J0456; J0612; J0696; J1250; J1265; J1644; J1815; J2060; J2270; J3475; J3490; J7050; J7120; A9270